=== PATIENT | female | born 1985 | race Caucasian/White ===

== ENCOUNTER 2020-06-09 04:10 | Emergency (ER) | payer OTHER, SELFPAY ==
[2020-06-09 04:45] VITALS: PULSE 92; RESP 16; TEMP 37.2; O2SAT 96
--- NOTE | 2020-06-09 05:06 | XR_ITS ---
EXAMINATION: XR SOFT TISSUE NECK CLINICAL INDICATION: Evaluate for broken needle. COMPARISON: None TECHNIQUE: 2 views of the soft tissue neck were obtained. FINDINGS: Soft tissue films of the neck demonstrate a normal larynx, pharynx and upper trachea. No soft tissue swelling is demonstrated. Within a right supraclavicular location, there is an approximately 12 mm long thin radiopaque foreign body consistent with a portion of a needle. XR/XR soft tissue neck IMPRESSION: 12 mm long thin radiopaque foreign body in the right supraclavicular location consistent with a needle.
--- NOTE | 2020-06-09 05:06 | ED.GENADULT ---
HPI - General Adult General Chief complaint: Skin/Abscess/Foreign Body Stated complaint: BROKEN NEEDLE Time Seen by Provider: 06/09/20 05:03 Source: patient Mode of arrival: ambulatory Limitations: no limitations History of Present Illness HPI narrative: Patient comes to the emergency room complaining of right-sided neck pain. Patient states she has a broken needle in her right neck. Patient states 3 days ago she was using drugs, injected on her right side of the neck, the needle broke. Patient complaining of localized pain, no fever chills. MD complaint: broken needle in neck Related Data Allergies Allergy/AdvReac Type Severity Reaction Status Date / Time ceftriaxone [From ROCEPHIN] Allergy Intermediate HIVES Verified 06/09/20 09:18 sulfamethoxazole Allergy Intermediate HIVES Verified 06/09/20 09:18 [From BACTRIM] trimethoprim [From BACTRIM] Allergy Intermediate HIVES Verified 06/09/20 09:18 Sulfa (Sulfonamide Allergy Unknown HIVES. Verified 06/09/20 09:18 Antibiotics) VOMITING [SULFA (SULFONAMIDE ANTIBIOTICS)] doxycycline [DOXYCYCLINE] AdvReac Unknown NAUSEA & Verified 06/09/20 09:18 VOMITING Review of Systems Review of Systems: Constitutional : No Weight loss, No Fever, No Chills, No Night Sweats, No Fatigue, No Malaise ENT/Mouth : No Hearing loss, No Ear Pain, No Nasal Congestion, No Sinus Pain, No Hoarseness, No sore throat, No Rhinorrhea, No Swallowing Difficulty Eyes: No Eye Pain, No Swelling, No Redness, No Foreign Body, No Discharge, No Vision Changes Cardiovascular : No Chest Pain, No SOB, No Dyspnea on Exertion, No Orthopnea, No Edema, No Palpitations Respiratory : No Cough, No Sputum, No Wheezing, No Smoke Exposure, No Dyspnea Gastrointestinal : No Nausea, No Vomiting, No Diarrhea, No Constipation, No abdominal Pain, No Hematochezia, No Melena Genitourinary : no irregular bleeding, No Dysuria, No Urinary Frequency, No Hematuria, No Urinary Incontinence, No Urgency, No Flank Pain, No Urinary Flow Changes, No Hesitancy Musculoskeletal : No joint pain, No Myalgias, No Joint Swelling Skin : lesions in her neck, complaining of a broken needle being stuck in her neck. Neuro : No Weakness, No Numbness, No Paresthesias, No Loss of Consciousness, No Dizziness, No Headache Psych : No Anxiety/Panic, No Depression, No SI/HI/AH/VH, No Social Issues, Heme/Lymph: No Bruising, No Bleeding,No Lymphadenopathy Endocrine : No Polyuria, No Polydipsia, No Temperature Intolerance PMF Past Medical History Medical History Drug use Social History Social History Advance Directives: No Physical Exam Vital Signs: Vital Signs: Last Vital Signs Temp 98.3 F 06/09/20 06:00 Pulse 64 06/09/20 08:38 Resp 14 06/09/20 08:38 BP 98/48 L 06/09/20 08:38 Pulse Ox 97 06/09/20 08:38 Body Mass Index 20.0 Appearance: Alert. Oriented X3. No acute distress. Eyes: Pupils equal, round and reactive to light. ENT: Pharynx normal. Neck: Normal inspection. Neck supple. No lymph nodes noted. No crepitus CVS: Normal heart rate and rhythm. Pulses normal. Normal S1 and S2 Respiratory: No respiratory distress. Breath sounds normal. No Wheezing. No rales Abdomen: Soft and nontender. No rigidity. No distention. good BS x4 Skin: Patient has mild erythema on the right side of the neck, multiple needle tracks on the right side of the neck. Patient states she has palpation to tenderness, unable to palpate any foreign bodies over the neck Extremities: No lower extremity edema. No lower extremity edema. No Lacerations. No Rash Neuro: Oriented X 3. No motor deficit. No sensory deficit. Moving all extermities. No slurred speech. Course Course Course Narrative: I discussed the imaging with the I discussed the x-ray with Dr. Pantoja, we will get a CT scan to have a better idea of the location of the needle, then Dr. Pantoja will see for herself the x-ray and the CT scan and then will decide the course of action. i spoke to Dr. Pantoja, recommendations: thoracic surgery consult due to the location of the foreign body Medical Decision Making Imaging Data neck soft tissue: Radiologist's impression: Soft tissue films of the neck demonstrate a normal larynx, pharynx and upper trachea. No soft tissue swelling is demonstrated. Within a right supraclavicular location, there is an approximately 12 mm long thin radiopaque foreign body consistent with a portion of a needle. Discharge Plan Discharge Clinical Impression: Foreign body (FB) in soft tissue Patient Disposition: Home, Self-Care Instructions: Soft Tissue Foreign Body (ED) Referrals: Loli Pantoja MD [Physician] - 06/09/20 9:00 am (12 mm long thin radiopaque foreign body in the right supraclavicular location consistent with a needle.)
[2020-06-09 06:00] VITALS: BP 95/54; PULSE 56; RESP 14; TEMP 36.8; O2SAT 98
--- NOTE | 2020-06-09 07:00 | PC.NURSE ---
RECEIVED REPORT FROM CHAUNCEY BREWER. PT SLEEPING ON STRETCHER IN POSITION OF COMFORT. SKIN WPD. RESPIRATIONS EVEN AND NON LABORED. AWAITING CT AND CONSULT WITH DR. LEDEZMA.
--- NOTE | 2020-06-09 07:03 | CT_ITS ---
EXAMINATION: CT SOFT TISSUE NECK WITHOUT CONTRAST CLINICAL INFORMATION: Assess for foreign body COMPARISON: Radiographs the same day TECHNIQUE: Helical imaging was performed in the axial plane with generation of coronal and sagittal reformatted images. This CT examination was performed using dose optimization techniques as appropriate, variously including the following: *Automated exposure control *Adjustment of mA and/or kV according to patient size (this includes techniques or standardized protocols for targeted exams where dose is matched to indication/reason for exam; i.e. extremities or head) *Use of iterative reconstruction technique DLP: 418 mGy-cm FINDINGS: The right-sided needle tip localizes to the right clavicular soft tissues. It is lodged within the subcutaneous fat only from the carotid and jugular vessels just cephalad to the mid shaft of the clavicle and superficial to the paraspinal musculature. It does not appear to be intravascular. Once again it measures approximately 12 mm. No fluid collection. Lack of IV contrast limits assessment. No pathologic cervical adenopathy is identified. No gross retropharyngeal fluid collection is seen. The thyroid gland is normal. The superior mediastinum is unremarkable. The lung apices are clear. The mastoid air cells and visualized portions of the paranasal sinuses are well-aerated. The temporomandibular joints are normal. No periapical disease is identified. No osseous abnormalities are seen. The imaged portions of the brain parenchyma are unremarkable. CT/CT soft tissue neck wo con IMPRESSION: Right-sided foreign body as above.
[2020-06-09 08:38] VITALS: BP 98/48; PULSE 64; RESP 14; O2SAT 97
--- NOTE | 2020-06-09 09:31 | PC.NURSE ---
[facility] PT TX LINE CALLED @ DR JETER REQUEST AT THIS TIME
--- NOTE | 2020-06-09 09:40 | PC.NURSE ---
FAXED RELEASE FORM TO [facility] FOR METHADONE DOSE INFO
[2020-06-09 10:13] VITALS: BP 110/61; RESP 14; O2SAT 97
--- NOTE | 2020-06-09 11:21 | PC.NURSE ---
RETURN CALL FROM [facility] PT TX LINE @ THIS TIME DR JETER TAKES OVER CALL RIGHT AWAY
[2020-06-09 11:25] VITALS: BP 110/60; PULSE 55; RESP 16; TEMP 36.7; O2SAT 96
--- NOTE | 2020-06-09 11:39 | PC.NURSE ---
RECVD REPORT FROM YORDY GROSSMAN. PT S/F IN BED SLEEPING, RR EVEN UNLABORED, SKIN WPD, NAD. PT EASILY AROUSABLE TO LIGHT TACTILE STIMULATION. PT OFFERS NO COMPLAINTS, ASKING FOR METHADONE, ADVISED PT AWAITING VERIFICATION FOR DOSE, PT REPORTS UNDERSTANDING. PT AWAITING PROVIDER RE-EVAL/DISPO.
[2020-06-09 12:01] LABS: IDNOW Serial# 9DD0AD1C
[2020-06-09 12:02] LABS: COVID-19 Test Negative (Negative)
[2020-06-09 14:00] VITALS: BP 114/74; PULSE 61; RESP 15; TEMP 36.6; O2SAT 97
== END 2020-06-09 14:16 | disposition short-term general hospital (02) ==
PROVIDERS: Physician Assistant; Emergency Provider Emergency Medicine; PCP Pediatrics
DX: S10.95XA Superficial foreign body of unspecified part of neck, initial encounter (principal); M54.2 Cervicalgia; X58.XXXA Exposure to other specified factors, initial encounter; Y93.9 Activity, unspecified; Y92.009 Unspecified place in unspecified non-institutional (private) residence as the place of occurrence of the external cause; Y99.9 Unspecified external cause status
CPT/HCPCS: 70360; 70490; 87635; 99285

== ENCOUNTER 2020-12-06 23:31 | Inpatient (IN) | payer OTHER, SELFPAY ==
--- NOTE | ~2020-12-06 | US_ITS ---
EXAMINATION: US ABDOMEN COMPLETE CLINICAL INFORMATION: Abdominal pain with elevated LFTs.. COMPARISON: None TECHNIQUE: Real-time imaging of the abdominal viscera. FINDINGS: PANCREAS: Normal. ABDOMINAL AORTA: The proximal, mid, and distal segments are normal in caliber. INFERIOR VENA CAVA: Visualized portions are normal. LIVER: The liver is enlarged measuring 20 cm CC. The liver contour is normal. There is diffuse increased liver parenchymal echogenicity, consistent with hepatic steatosis. No focal hepatic lesion. There is no intrahepatic biliary duct dilatation seen. GALLBLADDER: Normal. The gallbladder is physiologically distended without evidence of stones, sludge, polyps, wall thickening or pericholecystic fluid. COMMON BILE DUCT: Normal in caliber measuring 0.3 cm in diameter. RIGHT KIDNEY: Normal. No hydronephrosis. No renal calculi or focal parenchymal lesions. The kidney measures 10.5 cm in maximum dimension. LEFT KIDNEY: There is a lower pole simple cyst measuring 0.9 cm. No follow-up imaging recommended. No hydronephrosis. No renal calculi or solid parenchymal lesions. The kidney measures 10.8 cm in maximum dimension. SPLEEN: Normal. The spleen measures 12.4 cm in maximum dimension. FREE FLUID: None. US/US abdomen complete IMPRESSION: Hepatomegaly with hepatic steatosis.
--- NOTE | ~2020-12-06 | US_ITS ---
EXAMINATION: ULTRASOUND OF THE PELVIS CLINICAL INFORMATION: Vaginal discharge. Tenderness to palpation in the right lower quadrant. History of PID.. COMPARISON: None. TECHNIQUE: Transabdominal and transvaginal pelvic ultrasound. Doppler evaluation with spectral analysis was performed. A transvaginal study was performed in addition to the transabdominal study which did not yield an adequate examination of the uterus and ovaries due to superimposed distended gas-filled loops of bowel. FINDINGS: The uterus is normal in size and appearance, measuring 5.7 x 3.4 x 4.6 cm longitudinally, anteroposteriorly and transversely. The endometrial stripe thickness is normal, measuring 0.3 cm in thickness. There is an IUD in place. No focal myometrial mass is seen. The ovaries bilaterally are visualized and appear normal, with the right ovary measuring 3.3 x 1.3 x 1.7 cm and the left ovary measuring 2.8 x 1.3 x 2.5 cm. There are normal arterial and venous spectral waveforms bilaterally. Small volume of pelvic free fluid.. US/US pelvic and transvaginal IMPRESSION: No evidence of active ovarian torsion. No adnexal mass.
--- NOTE | ~2020-12-06 | US_ITS ---
EXAMINATION: ULTRASOUND OF THE PELVIS CLINICAL INFORMATION: Vaginal discharge. Tenderness to palpation in the right lower quadrant. History of PID.. COMPARISON: None. TECHNIQUE: Transabdominal and transvaginal pelvic ultrasound. Doppler evaluation with spectral analysis was performed. A transvaginal study was performed in addition to the transabdominal study which did not yield an adequate examination of the uterus and ovaries due to superimposed distended gas-filled loops of bowel. FINDINGS: The uterus is normal in size and appearance, measuring 5.7 x 3.4 x 4.6 cm longitudinally, anteroposteriorly and transversely. The endometrial stripe thickness is normal, measuring 0.3 cm in thickness. There is an IUD in place. No focal myometrial mass is seen. The ovaries bilaterally are visualized and appear normal, with the right ovary measuring 3.3 x 1.3 x 1.7 cm and the left ovary measuring 2.8 x 1.3 x 2.5 cm. There are normal arterial and venous spectral waveforms bilaterally. Small volume of pelvic free fluid.. US/US pelvic ovarian doppler IMPRESSION: No evidence of active ovarian torsion. No adnexal mass.
[2020-12-06 23:33] VITALS: BP 114/68; PULSE 80; O2SAT 99
[2020-12-06 23:48] VITALS: PULSE 85; RESP 18; O2SAT 97; BMI 25.0
[2020-12-06 23:57] VITALS: BP 116/65; PULSE 65; RESP 17; TEMP 37; O2SAT 98
[2020-12-07] VITALS (10 sets, daily range): BP systolic 86–113; BP diastolic 54–72; PULSE 51–58; RESP 12–18; TEMP 36.1–36.7; O2SAT 94–99
--- NOTE | 2020-12-07 00:03 | ED.ABDPAIN ---
HPI - Abdominal Pain General Chief Complaint: Abdominal Pain <GALINDO Fitzpatrick Last Filed: 12/07/20 02:08> Stated Complaint: vomiting <GALINDO Fitzpatrick Last Filed: 12/07/20 02:08> Time Seen by Provider: 12/06/20 23:49 <GALINDO Fitzpatrick Last Filed: 12/07/20 02:08> Source: patient <GALINDO Fitzpatrick Last Filed: 12/07/20 02:08> Mode of arrival: ambulatory <GALINDO Fitzpatrick Last Filed: 12/07/20 02:08> History of Present Illness HPI narrative: 35-year-old female with a past medical history of IVDA, PID, presenting to the ED complaining of diffuse lower abdominal pain radiating to back, N/V x 1week and discolored urine, dysuria, and yellow vaginal discharge x2 days. Reports vaginal odor. Is sexually active with multiple partners without the use of protection. Denies fever, chills, diarrhea/constipation, vaginal bleeding. Admits symptoms feel like prior PID. Patient reports boyfriend with similar N/V. <GALINDO Fitzpatrick Last Filed: 12/07/20 02:08> MD elicited complaint: abdominal pain <GALINDO Fitzpatrick Last Filed: 12/07/20 02:08> Related Data Home Medications: Home Medications Medication Instructions Recorded Confirmed gabapentin 300 mg PO TID 12/07/20 12/07/20 hydroxyzine HCl 25 mg PO BEDTIME 12/07/20 12/07/20 Previous Rx's Medication Instructions Recorded azithromycin 250 mg PO DAILY 14 Days #14 tab 12/07/20 metoclopramide HCl [Reglan] 10 mg PO Q6H PRN #10 tab 12/07/20 metronidazole [Flagyl] 500 mg PO BID 14 Days #28 tab 12/07/20 nitrofurantoin monohyd/m-cryst 100 mg PO Q12H 5 Days #10 cap 12/07/20 [Macrobid] <GALINDO Fitzpatrick Last Filed: 12/07/20 02:08> Allergies/Adverse Reactions: Allergies Allergy/AdvReac Type Severity Reaction Status Date / Time ceftriaxone [From ROCEPHIN] Allergy Intermediate HIVES Verified 12/07/20 05:14 sulfamethoxazole Allergy Intermediate HIVES Verified 12/07/20 05:14 [From BACTRIM] trimethoprim [From BACTRIM] Allergy Intermediate HIVES Verified 12/07/20 05:14 Sulfa (Sulfonamide Allergy Unknown HIVES. Verified 12/07/20 05:14 Antibiotics) VOMITING [SULFA (SULFONAMIDE ANTIBIOTICS)] doxycycline [DOXYCYCLINE] AdvReac Unknown NAUSEA & Verified 12/07/20 05:14 VOMITING <GALINDO Fitzpatrick - Last Filed: 12/07/20 02:08> Review of Systems Review of Systems Constitutional: No Fever, No Chills Cardiovascular: No Chest Pain, No SOB Respiratory: No Cough, No Dyspnea Gastrointestinal: + Nausea, + Vomiting, No Diarrhea, No Constipation, + Abdominal pain Genitourinary: No irregular bleeding, + Dysuria, No Urinary Frequency, No Hematuria, + discolored urine, No Urgency, No Flank Pain, +vaginal discharge Musculoskeletal: No joint pain, No Myalgias, No Joint Swelling Skin: No Skin Lesions, No rash Psych: No Anxiety/Panic, No Depression, No SI/HI <GALINDO Fitzpatrick - Last Filed: 12/07/20 02:08> Yes all other systems are reviewed and are negative <GALINDO Fitzpatrick - Last Filed: 12/07/20 02:08> Physical Exam Vital Signs: Vital Signs: Last Vital Signs Temp 98.1 F 12/07/20 05:18 Pulse 57 12/07/20 05:18 Resp 18 12/07/20 05:18 BP 97/61 12/07/20 05:18 Pulse Ox 98 12/07/20 05:18 Body Mass Index 25.0 <GALINDO Fitzpatrick - Last Filed: 12/07/20 02:08> Vital Signs: Last Vital Signs Temp 98.1 F 12/07/20 05:18 Pulse 57 12/07/20 05:18 Resp 18 12/07/20 05:18 BP 97/61 12/07/20 05:18 Pulse Ox 98 12/07/20 05:18 Body Mass Index 25.0 <Marj Caldwell MD - Last Filed: 12/07/20 05:39> Const: General: cooperative, healthy appearing and no acute distress <GALINDO Fitzpatrick - Last Filed: 12/07/20 02:08> Orientation/consciousness: patient oriented x3 <Mikaela José Miguel LA - Last Filed: 12/07/20 02:08> Limitations: no limitations <Mikaela José Miguel LA - Last Filed: 12/07/20 02:08> HENMT: Head: Yes normal to inspection <Mikaela José Miguel LA - Last Filed: 12/07/20 02:08> Ears: hearing grossly normal bilaterally <Miakela José Miguel LA - Last Filed: 12/07/20 02:08> General nose exam: Normal external nose present <Mikaelajax Valdez LA - Last Filed: 12/07/20 02:08> Face and sinus: Yes normal facial exam <Mikaela Valdez LA - Last Filed: 12/07/20 02:08> Eyes: General: appearance normal, both eyes and all related structures <Mikaela José Miguel LA - Last Filed: 12/07/20 02:08> EOM: EOMs intact bilaterally <Mikaelajax Valdez LA - Last Filed: 12/07/20 02:08> Neck: Neck: Yes normal visual inspection and Yes no meningeal signs <Mikaela José Miguel LA - Last Filed: 12/07/20 02:08> Resp: Effort & Inspection: normal respiratory effort <Mikaela José Miguel LA - Last Filed: 12/07/20 02:08> Cardio: Rate: regular rate <Mikaela José Miguel LA - Last Filed: 12/07/20 02:08> GI: Inspection: Yes normal to inspection <Mikaela Valdez LA - Last Filed: 12/07/20 02:08> Palpation (GI): Soft to palpation, Tenderness to palpation present (GI) (lower abdomen), no guarding and not rigid <Mikaela Valdez LA - Last Filed: 12/07/20 02:08> : Other: Visible IUD strings <Mikaela Valdez LA - Last Filed: 12/07/20 02:08> General: Yes no CVA tenderness <Mikaela Valdez LA - Last Filed: 12/07/20 02:08> Speculum Exam - Vagina: abnormal vaginal discharge yellow and No vaginal bleeding <Mikaela Valdez LA - Last Filed: 12/07/20 02:08> Speculum Exam - Cervix: Cervical tenderness present <GALINDO Fitzpatrick - Last Filed: 12/07/20 02:08> Bimanual exam- vagina & uterus: Cervical tenderness present <GALINDO Fitzpatrick - Last Filed: 12/07/20 02:08> Bimanual Exam- Adnexa, other: tender on the right and no masses noted <GALINDO Fitzpatrick - Last Filed: 12/07/20 02:08> OB/external & speculum: no herpetic lesions and vaginal bleeding <GALINDO Fitzpatrick - Last Filed: 12/07/20 02:08> Back/Spine/Pelvis: Back: no CVA tenderness <GALINDO Fitzpatrick - Last Filed: 12/07/20 02:08> Skin: Rashes: no rashes <GALINDO Fitzpatrick - Last Filed: 12/07/20 02:08> Wounds: no wounds <GALINDO Fitzpatrick - Last Filed: 12/07/20 02:08> Neuro: General: patient oriented x3 and no meningeal signs <AGLINDO Fitzpatrick - Last Filed: 12/07/20 02:08> Gait exam (Neuro): Normal gait present <GALINDO Fitzpatrick - Last Filed: 12/07/20 02:08> Extrem: General: Yes normal to inspection <GALINDO Fitzpatrick Last Filed: 12/07/20 02:08> Course Course Course Narrative: -UA with wbc's and trace leuks > will additionally treat with Macrobid for UTI. Tox screen positive for opiates, benzos, cocaine, and marijuana -No leukocytosis, lactic negative -AST/ALT & bilirubins markedly elevated and alk-phos elevated > will obtain CT AP for further eval -0200-- ED care transferred to Dr. Caldwell Pelvic US, CT/AP and dispo per results <GALINDO Fitzpatrick - Last Filed: 12/07/20 02:08> Case discussed with inpatient hospitalist team who is agreeable for admission. <Marj Caldwell MD - Last Filed: 12/07/20 05:39> Reevaluation(s) Reevaluation #1: I discussed the case with Gastroenterology, Dr. Clark, who has been made aware of patient's hepatitis and recommends that patient be admitted at least for observation. He agrees with hepatitis panels being sent as well as recommending a Tylenol level. <Marj Caldwell MD - Last Filed: 12/07/20 05:39> Time: 04:40 <Marj Caldwell MD - Last Filed: 12/07/20 05:39> MDM - Abdominal Pain MDM Narrative Medical decision making narrative: 35-year-old female with a past medical history of IVDA, PID, presenting to the ED complaining of diffuse lower abdominal pain radiating to back, N/V x 1week and discolored urine, dysuria, and yellow vaginal discharge x2 days. On exam VSS, NAD, nontoxic, abdomen soft +lower ttp, no rebound or guarding, no CVAT. On pelvic exam yellow vaginal discharge noted, +CMT and R adnexal ttp. Concern for PID vs STI vs TOA/ovarian cyst and UTI. Lower concern for appendicitis, ovarian torsion, diverticulitis, renal stone/pyelo. Concern for gastroenteritis/gastritis Patient is a difficult stick, EJ attempted once by Dr. Gutierrez, patient refused further attempts. Phlebotomy called for labs Plan: Labs, UA, STI testing, symptomatic treatment, pelvic ultrasound Will treat patient for PID, she is allergic to ceftriaxone/doxycycline, based on [facility] antibiotic guidelines for PID tx: Azithromycin 500mg x1 dose followed by 250mg daily x 14 days PLUS Metronidazole 500mg b.i.d. x 14 days <GALINDO Fitzpatrick - Last Filed: 12/07/20 02:08> Medical Records Attestation: I reviewed the patient's medical records. <GALINDO Fitzpatrick - Last Filed: 12/07/20 02:08> Lab Data Attestation: I reviewed the patient's lab results. <GALINDO Fitzpatrick - Last Filed: 12/07/20 02:08> Result diagrams: : 12/07/20 01:05 12/07/20 01:04 <GALINDO Fitzpatrick - Last Filed: 12/07/20 02:08> Labs: Lab Results 12/07/20 12/07/20 12/07/20 Range/Units 00:13 00:13 00:13 WBC (4.8-10.8) X10*3/uL RBC (4.20-5.50) X10*6/uL Hgb (12.0-16.0) g/dl Hct (37-47) % MCV (80-98) fL MCH (27.0-33.0) pg MCHC (31.0-35.0) g/dl RDW (11.0-16.0) % Plt Count (160-400) X10*3/uL MPV (9.4-12.3) fL Immature Gran % (Auto) (0.0-0.4) % Neut % (Auto) (45-73) % Lymph % (Auto) (20-40) % Barren % (Auto) (2-11) % Eos % (Auto) (0-4) % Baso % (Auto) (0-2) % Lymph # (Auto) (1.2-4.9) X10*3/uL Barren # (Auto) (0.1-1.2) X10*3/uL Eos # (Auto) (0.0-0.4) X10*3/uL Baso # (Auto) (0.0-0.2) X10*3/uL Abs Immat Gran (auto) (0.00-0.03) X10*3/uL Absolute Neuts (auto) (2.0-8.3) X10*3/uL Absolute Nucleated RBC (0.0-0.012) X10*3/uL Nucleated RBC % (auto) (0.0-0.2) /100WBC Smear Tech's Comments PT (10.8-13.0) SEC INR (0.9-1.1) APTT (24.1-38.0) SEC Hold Blue Top Sodium (135-145) mmol/L Potassium (3.3-5.1) mmol/L Chloride (96-108) mmol/L Carbon Dioxide (22-29) mmol/L Anion Gap (12-20) BUN (9-16) mg/dL Creatinine (0.5-1.4) mg/dL Estim Creat Clear Calc Estimated GFR Random Glucose (60-115) mg/dL Lactic Acid (0.5-2.0) mmol/L Calcium (8.4-10.2) mg/dL Magnesium (1.6-2.6) mg/dL Total Bilirubin (0.0-1.0) mg/dL Direct Bilirubin (0.0-0.5) mg/dL AST (5-31) U/L ALT (0-31) U/L Alkaline Phosphatase (39-117) U/L Total Creatine Kinase (26-140) U/L Total Protein (6.5-8.0) g/dL Albumin (3.5-5.0) g/dL Lipase (8-78) U/L Urine Color ORANGE Urine Appearance CLEAR Urine pH 6.0 (5.0-8.0) Ur Specific [place] >= 1.030 H (1.005-1.025) Urine Protein 1+ H (NEG-TRACE) MG/DL Urine Glucose (UA) NEG (NEG) MG/DL Urine Ketones 15 (NEG) MG/DL Urine Blood NEG (NEG) Urine Nitrite NEG (NEG) Ur Leukocyte Esterase TRACE H (NEG) Urine RBC 1-4 (0) /HPF Urine WBC 5-9 H (0-4) /HPF Ur Squamous Epith Cells 2+ /LPF Ur Renal Epithelial Cell TRACE /LPF Urine Bacteria 1+ /LPF Urine Mucus TRACE /LPF Urine Test NEGATIVE (NEGATIVE) Urine Opiates Screen (Not Detect) Acetaminophen (<30) mcg/mL Ur Barbiturates Screen (Not Detect) Ur Phencyclidine Scrn (Not Detect) Ur Amphetamines Screen (Not Detect) U Benzodiazepines Scrn (Not Detect) Urine Cocaine Screen (Not Detect) U Marijuana (THC) Screen (Not Detect) Chlam trachomat DNA PCR (Not Detect.) COVID-19 (BRE) Negative (Negative) COVID-19 Clin Com See Note N.gonorrhoeae DNA (PCR) (Not Detect.) 12/07/20 12/07/20 12/07/20 Range/Units 00:13 00:24 01:04 WBC (4.8-10.8) X10*3/uL RBC (4.20-5.50) X10*6/uL Hgb (12.0-16.0) g/dl Hct (37-47) % MCV (80-98) fL MCH (27.0-33.0) pg MCHC (31.0-35.0) g/dl RDW (11.0-16.0) % Plt Count (160-400) X10*3/uL MPV (9.4-12.3) fL Immature Gran % (Auto) (0.0-0.4) % Neut % (Auto) (45-73) % Lymph % (Auto) (20-40) % Barren % (Auto) (2-11) % Eos % (Auto) (0-4) % Baso % (Auto) (0-2) % Lymph # (Auto) (1.2-4.9) X10*3/uL Barren # (Auto) (0.1-1.2) X10*3/uL Eos # (Auto) (0.0-0.4) X10*3/uL Baso # (Auto) (0.0-0.2) X10*3/uL Abs Immat Gran (auto) (0.00-0.03) X10*3/uL Absolute Neuts (auto) (2.0-8.3) X10*3/uL Absolute Nucleated RBC (0.0-0.012) X10*3/uL Nucleated RBC % (auto) (0.0-0.2) /100WBC Smear Tech's Comments PT (10.8-13.0) SEC INR (0.9-1.1) APTT (24.1-38.0) SEC Hold Blue Top Sodium 137 (135-145) mmol/L Potassium 4.1 (3.3-5.1) mmol/L Chloride 103 (96-108) mmol/L Carbon Dioxide 21 L (22-29) mmol/L Anion Gap 17 (12-20) BUN 17 H (9-16) mg/dL Creatinine 0.78 (0.5-1.4) mg/dL Estim Creat Clear Calc 92.3 Estimated GFR > 60 Random Glucose 149 H (60-115) mg/dL Lactic Acid (0.5-2.0) mmol/L Calcium 8.9 (8.4-10.2) mg/dL Magnesium 2.1 (1.6-2.6) mg/dL Total Bilirubin 3.6 H (0.0-1.0) mg/dL Direct Bilirubin 2.8 H (0.0-0.5) mg/dL AST 1436 H (5-31) U/L ALT 1591 H (0-31) U/L Alkaline Phosphatase 358 H (39-117) U/L Total Creatine Kinase 14 L (26-140) U/L Total Protein 6.7 (6.5-8.0) g/dL Albumin 3.6 (3.5-5.0) g/dL Lipase 19 (8-78) U/L Urine Color Urine Appearance Urine pH (5.0-8.0) Ur Specific [place] (1.005-1.025) Urine Protein (NEG-TRACE) MG/DL Urine Glucose (UA) (NEG) MG/DL Urine Ketones (NEG) MG/DL Urine Blood (NEG) Urine Nitrite (NEG) Ur Leukocyte Esterase (NEG) Urine RBC (0) /HPF Urine WBC (0-4) /HPF Ur Squamous Epith Cells /LPF Ur Renal Epithelial Cell /LPF Urine Bacteria /LPF Urine Mucus /LPF Urine Test (NEGATIVE) Urine Opiates Screen POSITIVE H (Not Detect) Acetaminophen < 1 (<30) mcg/mL Ur Barbiturates Screen Not Detected (Not Detect) Ur Phencyclidine Scrn Not Detected (Not Detect) Ur Amphetamines Screen Not Detected (Not Detect) U Benzodiazepines Scrn POSITIVE H (Not Detect) Urine Cocaine Screen POSITIVE H (Not Detect) U Marijuana (THC) Screen POSITIVE H (Not Detect) Chlam trachomat DNA PCR NOT DETECTED (Not Detect.) COVID-19 (BRE) (Negative) COVID-19 Clin Com N.gonorrhoeae DNA (PCR) DETECTED A (Not Detect.) 12/07/20 12/07/20 12/07/20 Range/Units 01:04 01:04 01:05 WBC 6.4 (4.8-10.8) X10*3/uL RBC 5.16 (4.20-5.50) X10*6/uL Hgb 14.3 (12.0-16.0) g/dl Hct 45.4 (37-47) % MCV 88.0 (80-98) fL MCH 27.7 (27.0-33.0) pg MCHC 31.5 (31.0-35.0) g/dl RDW 14.0 (11.0-16.0) % Plt Count 105 L (160-400) X10*3/uL MPV 11.8 (9.4-12.3) fL Immature Gran % (Auto) 0.3 (0.0-0.4) % Neut % (Auto) 35.6 L (45-73) % Lymph % (Auto) 55.3 H (20-40) % Barren % (Auto) 6.6 (2-11) % Eos % (Auto) 1.1 (0-4) % Baso % (Auto) 1.1 (0-2) % Lymph # (Auto) 3.5 (1.2-4.9) X10*3/uL Barren # (Auto) 0.4 (0.1-1.2) X10*3/uL Eos # (Auto) 0.1 (0.0-0.4) X10*3/uL Baso # (Auto) 0.1 (0.0-0.2) X10*3/uL Abs Immat Gran (auto) 0.02 (0.00-0.03) X10*3/uL Absolute Neuts (auto) 2.3 (2.0-8.3) X10*3/uL Absolute Nucleated RBC 0.000 (0.0-0.012) X10*3/uL Nucleated RBC % (auto) 0.0 (0.0-0.2) /100WBC Smear Tech's Comments VERIFIED PT 15.8 H (10.8-13.0) SEC INR 1.3 H (0.9-1.1) APTT 31.1 (24.1-38.0) SEC Hold Blue Top SEE NOTE Sodium (135-145) mmol/L Potassium (3.3-5.1) mmol/L Chloride (96-108) mmol/L Carbon Dioxide (22-29) mmol/L Anion Gap (12-20) BUN (9-16) mg/dL Creatinine (0.5-1.4) mg/dL Estim Creat Clear Calc Estimated GFR Random Glucose (60-115) mg/dL Lactic Acid 1.0 (0.5-2.0) mmol/L Calcium (8.4-10.2) mg/dL Magnesium (1.6-2.6) mg/dL Total Bilirubin (0.0-1.0) mg/dL Direct Bilirubin (0.0-0.5) mg/dL AST (5-31) U/L ALT (0-31) U/L Alkaline Phosphatase (39-117) U/L Total Creatine Kinase (26-140) U/L Total Protein (6.5-8.0) g/dL Albumin (3.5-5.0) g/dL Lipase (8-78) U/L Urine Color Urine Appearance Urine pH (5.0-8.0) Ur Specific [place] (1.005-1.025) Urine Protein (NEG-TRACE) MG/DL Urine Glucose (UA) (NEG) MG/DL Urine Ketones (NEG) MG/DL Urine Blood (NEG) Urine Nitrite (NEG) Ur Leukocyte Esterase (NEG) Urine RBC (0) /HPF Urine WBC (0-4) /HPF Ur Squamous Epith Cells /LPF Ur Renal Epithelial Cell /LPF Urine Bacteria /LPF Urine Mucus /LPF Urine Test (NEGATIVE) Urine Opiates Screen (Not Detect) Acetaminophen (<30) mcg/mL Ur Barbiturates Screen (Not Detect) Ur Phencyclidine Scrn (Not Detect) Ur Amphetamines Screen (Not Detect) U Benzodiazepines Scrn (Not Detect) Urine Cocaine Screen (Not Detect) U Marijuana (THC) Screen (Not Detect) Chlam trachomat DNA PCR (Not Detect.) COVID-19 (BRE) (Negative) COVID-19 Clin Com N.gonorrhoeae DNA (PCR) (Not Detect.) <GALINDO Fitzpatrick - Last Filed: 12/07/20 02:08> Lab Results 12/07/20 12/07/20 12/07/20 Range/Units 00:13 00:13 00:13 WBC (4.8-10.8) X10*3/uL RBC (4.20-5.50) X10*6/uL Hgb (12.0-16.0) g/dl Hct (37-47) % MCV (80-98) fL MCH (27.0-33.0) pg MCHC (31.0-35.0) g/dl RDW (11.0-16.0) % Plt Count (160-400) X10*3/uL MPV (9.4-12.3) fL Immature Gran % (Auto) (0.0-0.4) % Neut % (Auto) (45-73) % Lymph % (Auto) (20-40) % Barren % (Auto) (2-11) % Eos % (Auto) (0-4) % Baso % (Auto) (0-2) % Lymph # (Auto) (1.2-4.9) X10*3/uL Barren # (Auto) (0.1-1.2) X10*3/uL Eos # (Auto) (0.0-0.4) X10*3/uL Baso # (Auto) (0.0-0.2) X10*3/uL Abs Immat Gran (auto) (0.00-0.03) X10*3/uL Absolute Neuts (auto) (2.0-8.3) X10*3/uL Absolute Nucleated RBC (0.0-0.012) X10*3/uL Nucleated RBC % (auto) (0.0-0.2) /100WBC Smear Tech's Comments PT (10.8-13.0) SEC INR (0.9-1.1) APTT (24.1-38.0) SEC Hold Blue Top Sodium (135-145) mmol/L Potassium (3.3-5.1) mmol/L Chloride (96-108) mmol/L Carbon Dioxide (22-29) mmol/L Anion Gap (12-20) BUN (9-16) mg/dL Creatinine (0.5-1.4) mg/dL Estim Creat Clear Calc Estimated GFR Random Glucose (60-115) mg/dL Lactic Acid (0.5-2.0) mmol/L Calcium (8.4-10.2) mg/dL Magnesium (1.6-2.6) mg/dL Total Bilirubin (0.0-1.0) mg/dL Direct Bilirubin (0.0-0.5) mg/dL AST (5-31) U/L ALT (0-31) U/L Alkaline Phosphatase (39-117) U/L Total Creatine Kinase (26-140) U/L Total Protein (6.5-8.0) g/dL Albumin (3.5-5.0) g/dL Lipase (8-78) U/L Urine Color ORANGE Urine Appearance CLEAR Urine pH 6.0 (5.0-8.0) Ur Specific [place] >= 1.030 H (1.005-1.025) Urine Protein 1+ H (NEG-TRACE) MG/DL Urine Glucose (UA) NEG (NEG) MG/DL Urine Ketones 15 (NEG) MG/DL Urine Blood NEG (NEG) Urine Nitrite NEG (NEG) Ur Leukocyte Esterase TRACE H (NEG) Urine RBC 1-4 (0) /HPF Urine WBC 5-9 H (0-4) /HPF Ur Squamous Epith Cells 2+ /LPF Ur Renal Epithelial Cell TRACE /LPF Urine Bacteria 1+ /LPF Urine Mucus TRACE /LPF Urine Test NEGATIVE (NEGATIVE) Urine Opiates Screen (Not Detect) Acetaminophen (<30) mcg/mL Ur Barbiturates Screen (Not Detect) Ur Phencyclidine Scrn (Not Detect) Ur Amphetamines Screen (Not Detect) U Benzodiazepines Scrn (Not Detect) Urine Cocaine Screen (Not Detect) U Marijuana (THC) Screen (Not Detect) Chlam trachomat DNA PCR (Not Detect.) COVID-19 (BRE) Negative (Negative) COVID-19 Clin Com See Note N.gonorrhoeae DNA (PCR) (Not Detect.) 12/07/20 12/07/20 12/07/20 Range/Units 00:13 00:24 01:04 WBC (4.8-10.8) X10*3/uL RBC (4.20-5.50) X10*6/uL Hgb (12.0-16.0) g/dl Hct (37-47) % MCV (80-98) fL MCH (27.0-33.0) pg MCHC (31.0-35.0) g/dl RDW (11.0-16.0) % Plt Count (160-400) X10*3/uL MPV (9.4-12.3) fL Immature Gran % (Auto) (0.0-0.4) % Neut % (Auto) (45-73) % Lymph % (Auto) (20-40) % Barren % (Auto) (2-11) % Eos % (Auto) (0-4) % Baso % (Auto) (0-2) % Lymph # (Auto) (1.2-4.9) X10*3/uL Barren # (Auto) (0.1-1.2) X10*3/uL Eos # (Auto) (0.0-0.4) X10*3/uL Baso # (Auto) (0.0-0.2) X10*3/uL Abs Immat Gran (auto) (0.00-0.03) X10*3/uL Absolute Neuts (auto) (2.0-8.3) X10*3/uL Absolute Nucleated RBC (0.0-0.012) X10*3/uL Nucleated RBC % (auto) (0.0-0.2) /100WBC Smear Tech's Comments PT (10.8-13.0) SEC INR (0.9-1.1) APTT (24.1-38.0) SEC Hold Blue Top Sodium 137 (135-145) mmol/L Potassium 4.1 (3.3-5.1) mmol/L Chloride 103 (96-108) mmol/L Carbon Dioxide 21 L (22-29) mmol/L Anion Gap 17 (12-20) BUN 17 H (9-16) mg/dL Creatinine 0.78 (0.5-1.4) mg/dL Estim Creat Clear Calc 92.3 Estimated GFR > 60 Random Glucose 149 H (60-115) mg/dL Lactic Acid (0.5-2.0) mmol/L Calcium 8.9 (8.4-10.2) mg/dL Magnesium 2.1 (1.6-2.6) mg/dL Total Bilirubin 3.6 H (0.0-1.0) mg/dL Direct Bilirubin 2.8 H (0.0-0.5) mg/dL AST 1436 H (5-31) U/L ALT 1591 H (0-31) U/L Alkaline Phosphatase 358 H (39-117) U/L Total Creatine Kinase 14 L (26-140) U/L Total Protein 6.7 (6.5-8.0) g/dL Albumin 3.6 (3.5-5.0) g/dL Lipase 19 (8-78) U/L Urine Color Urine Appearance Urine pH (5.0-8.0) Ur Specific [place] (1.005-1.025) Urine Protein (NEG-TRACE) MG/DL Urine Glucose (UA) (NEG) MG/DL Urine Ketones (NEG) MG/DL Urine Blood (NEG) Urine Nitrite (NEG) Ur Leukocyte Esterase (NEG) Urine RBC (0) /HPF Urine WBC (0-4) /HPF Ur Squamous Epith Cells /LPF Ur Renal Epithelial Cell /LPF Urine Bacteria /LPF Urine Mucus /LPF Urine Test (NEGATIVE) Urine Opiates Screen POSITIVE H (Not Detect) Acetaminophen < 1 (<30) mcg/mL Ur Barbiturates Screen Not Detected (Not Detect) Ur Phencyclidine Scrn Not Detected (Not Detect) Ur Amphetamines Screen Not Detected (Not Detect) U Benzodiazepines Scrn POSITIVE H (Not Detect) Urine Cocaine Screen POSITIVE H (Not Detect) U Marijuana (THC) Screen POSITIVE H (Not Detect) Chlam trachomat DNA PCR NOT DETECTED (Not Detect.) COVID-19 (BRE) (Negative) COVID-19 Clin Com N.gonorrhoeae DNA (PCR) DETECTED A (Not Detect.) 12/07/20 12/07/20 12/07/20 Range/Units 01:04 01:04 01:05 WBC 6.4 (4.8-10.8) X10*3/uL RBC 5.16 (4.20-5.50) X10*6/uL Hgb 14.3 (12.0-16.0) g/dl Hct 45.4 (37-47) % MCV 88.0 (80-98) fL MCH 27.7 (27.0-33.0) pg MCHC 31.5 (31.0-35.0) g/dl RDW 14.0 (11.0-16.0) % Plt Count 105 L (160-400) X10*3/uL MPV 11.8 (9.4-12.3) fL Immature Gran % (Auto) 0.3 (0.0-0.4) % Neut % (Auto) 35.6 L (45-73) % Lymph % (Auto) 55.3 H (20-40) % Barren % (Auto) 6.6 (2-11) % Eos % (Auto) 1.1 (0-4) % Baso % (Auto) 1.1 (0-2) % Lymph # (Auto) 3.5 (1.2-4.9) X10*3/uL Barren # (Auto) 0.4 (0.1-1.2) X10*3/uL Eos # (Auto) 0.1 (0.0-0.4) X10*3/uL Baso # (Auto) 0.1 (0.0-0.2) X10*3/uL Abs Immat Gran (auto) 0.02 (0.00-0.03) X10*3/uL Absolute Neuts (auto) 2.3 (2.0-8.3) X10*3/uL Absolute Nucleated RBC 0.000 (0.0-0.012) X10*3/uL Nucleated RBC % (auto) 0.0 (0.0-0.2) /100WBC Smear Tech's Comments VERIFIED PT 15.8 H (10.8-13.0) SEC INR 1.3 H (0.9-1.1) APTT 31.1 (24.1-38.0) SEC Hold Blue Top SEE NOTE Sodium (135-145) mmol/L Potassium (3.3-5.1) mmol/L Chloride (96-108) mmol/L Carbon Dioxide (22-29) mmol/L Anion Gap (12-20) BUN (9-16) mg/dL Creatinine (0.5-1.4) mg/dL Estim Creat Clear Calc Estimated GFR Random Glucose (60-115) mg/dL Lactic Acid 1.0 (0.5-2.0) mmol/L Calcium (8.4-10.2) mg/dL Magnesium (1.6-2.6) mg/dL Total Bilirubin (0.0-1.0) mg/dL Direct Bilirubin (0.0-0.5) mg/dL AST (5-31) U/L ALT (0-31) U/L Alkaline Phosphatase (39-117) U/L Total Creatine Kinase (26-140) U/L Total Protein (6.5-8.0) g/dL Albumin (3.5-5.0) g/dL Lipase (8-78) U/L Urine Color Urine Appearance Urine pH (5.0-8.0) Ur Specific [place] (1.005-1.025) Urine Protein (NEG-TRACE) MG/DL Urine Glucose (UA) (NEG) MG/DL Urine Ketones (NEG) MG/DL Urine Blood (NEG) Urine Nitrite (NEG) Ur Leukocyte Esterase (NEG) Urine RBC (0) /HPF Urine WBC (0-4) /HPF Ur Squamous Epith Cells /LPF Ur Renal Epithelial Cell /LPF Urine Bacteria /LPF Urine Mucus /LPF Urine Test (NEGATIVE) Urine Opiates Screen (Not Detect) Acetaminophen (<30) mcg/mL Ur Barbiturates Screen (Not Detect) Ur Phencyclidine Scrn (Not Detect) Ur Amphetamines Screen (Not Detect) U Benzodiazepines Scrn (Not Detect) Urine Cocaine Screen (Not Detect) U Marijuana (THC) Screen (Not Detect) Chlam trachomat DNA PCR (Not Detect.) COVID-19 (BRE) (Negative) COVID-19 Clin Com N.gonorrhoeae DNA (PCR) (Not Detect.) <Marj Caldwell MD - Last Filed: 12/07/20 05:39> Discharge Plan Discharge Clinical Impression: Transaminitis, Acute pelvic inflammatory disease (PID), UTI (urinary tract infection) <GALINDO Fitzpatrick - Last Filed: 12/07/20 02:08> Patient Disposition: Admitted As Inpatient <GALINDO Fitzpatrick - Last Filed: 12/07/20 02:08> Instructions: Pelvic Inflammatory Disease (ED) <GALINDO Fitzpatrick - Last Filed: 12/07/20 02:08> Additional Instructions: Take antibiotics as prescribed, azithromycin and Flagyl to treat pelvic inflammatory disease Macrobid is to treat a urinary tract infection Reglan is for nausea, take as needed for nausea and vomiting Is important that her take hydrated You need to refrain from any sexual contact until your cultures result, until all her symptoms are gone, inform her sexual partners if any of your STIs are positive <GALINDO Fitzpatrick - Last Filed: 12/07/20 02:08> Prescriptions: New azithromycin 250 mg tablet 250 mg PO DAILY 14 Days Qty: 14 RF: 0 metronidazole [Flagyl] 500 mg tablet 500 mg PO BID 14 Days Qty: 28 RF: 0 metoclopramide HCl [Reglan] 10 mg tablet 10 mg PO Q6H PRN (Reason: nausea and vomiting) Qty: 10 RF: 0 nitrofurantoin monohyd/m-cryst [Macrobid] 100 mg capsule 100 mg PO Q12H 5 Days Qty: 10 RF: 0 No Action hydroxyzine HCl 25 mg Tablet 25 mg PO BEDTIME RF: 0 gabapentin 300 mg Tablet 300 mg PO TID RF: 0 <GALINDO Fitzpatrick - Last Filed: 12/07/20 02:08> Referrals: Physician,None [Primary Care Provider] - 1 Week Calvin Torres MD [Physician] - 2 days <GALINDO Fitzpatrick - Last Filed: 12/07/20 02:08> ON LICENSE OF [facility] Past Medical History Attestation statement: The following information was validated with the patient. <GALINDO Fitzpatrick - Last Filed: 12/07/20 02:08> Medical History: Medical History Drug use <GALINDO Fitzpatrick - Last Filed: 12/07/20 02:08> Social History Social History: Social History Alcohol intake: current Alcohol intake frequency: holidays/special occasions only Smoking Status: Current every day smoker Use of substances other than those prescribed or required for medical reasons: Yes Substance Use Type: Crack/Cocaine and Heroin Advance Directives: No <GALINDO Fitzpatrick - Last Filed: 12/07/20 02:08>
[2020-12-07 00:47] LABS: Glucose Urine UA NEG (NEG); Leukocyte Esterase Urine TRACE (NEG); Nitrite Urine NEG (NEG); Specific Gravity - Urine >= 1.030 (1.005-1.025); UACC Culture Trigger YES; Urine Blood NEG (NEG); Urine Ketones 15 MG/DL (NEG); Urine Protein 1+ MG/DL (NEG-TRACE)
[2020-12-07 00:50] LABS: Appearance Urine CLEAR; Color Urine ORANGE
--- NOTE | 2020-12-07 00:58 | PC.NURSE ---
This RN attempted to establish IV access to R AC, unsuccessful. GALINDO Al made aware. Anwer to bedside and attempted L IJ, unsuccessful. Pt asks to cease attempts to establish IV access. Pt is IVDA. Stroboscope Operator contacted phleb to draw labs. Awaiting phleb arrival. Pt to be medicated with PO meds. Awaiting US.
[2020-12-07 01:00] LABS: COVID-19 Test Negative (Negative); IDNOW Serial# 9DD0AD1C
[2020-12-07] MEDS: metroNIDAZOLE 500 MG TABLET PO ×2 (01:06→13:34)
[2020-12-07] MEDS: Azithromycin 500 MG TABLET PO (01:06)
[2020-12-07] MEDS: Magnesium Hydrox/Alum Hydrox 30 ML ORAL.SUSP PO (01:06)
[2020-12-07] MEDS: Metoclopramide HCl 10 MG TABLET PO (01:09)
[2020-12-07 01:11] LABS: Amphetamine Screen Urine Not Detected (Not Detect); Bacteria Urine 1+ /LPF; Barbiturates, Urine Not Detected (Not Detect); Benzodiazepines Screen Urine POSITIVE (Not Detect); Cannabinoid Screen Urine POSITIVE (Not Detect); Cocaine Screen Urine POSITIVE (Not Detect); Mucus Urine TRACE /LPF; Opiate Screen Urine POSITIVE (Not Detect); Phencyclidine Screen Urine Not Detected (Not Detect); Renal Epithelial Cells Urine TRACE /LPF; Squamous Epithelial Cell Urine 2+ /LPF
[2020-12-07 01:11] LABS: Basophils Absolute Auto 0.1 X10*3/uL (0.0-0.2); Basophils Percent Auto 1.1 % (0-2); Eosinophils Absolute Auto 0.1 X10*3/uL (0.0-0.4); Eosinophils Percent Auto 1.1 % (0-4); Hematocrit 45.4 % (37-47); Hemoglobin 14.3 g/dl (12.0-16.0); Imm Gran Abs Auto 0.02 X10*3/uL (0.00-0.03); Imm Gran Pct Auto 0.3 % (0.0-0.4); Lymphocytes Absolute Auto 3.5 X10*3/uL (1.2-4.9); Lymphocytes Percent Auto 55.3 % (20-40); MANUAL DIFF FLAG SCAN; Mean Corpuscular HGB Conc 31.5 g/dl (31.0-35.0); Mean Corpuscular Hemoglobin 27.7 pg (27.0-33.0); Mean Platelet Volume 11.8 fL (9.4-12.3); Monocytes Absolute Auto 0.4 X10*3/uL (0.1-1.2); Monocytes Percent Auto 6.6 % (2-11); Neutrophils Absolute Auto 2.3 X10*3/uL (2.0-8.3); Neutrophils Percent Auto 35.6 % (45-73); PLT CLUMP 1; Red Blood Count 5.16 X10*6/uL (4.20-5.50); SCAN SMEAR FLAG 1
[2020-12-07 01:12] LABS: UPreg QC Valid YES; Urine Pregnancy NEGATIVE (NEGATIVE)
[2020-12-07 01:18] LABS: INTERNATIONAL NORM RATIO 1.3 (0.9-1.1); Prothrombin Time 15.8 SEC (10.8-13.0)
[2020-12-07 01:20] LABS: Partial Thromboplastin Time 31.1 SEC (24.1-38.0)
[2020-12-07 01:26] LABS: Platelet Count 105 X10*3/uL (160-400); White Blood Count 6.4 X10*3/uL (4.8-10.8)
[2020-12-07 01:27] LABS: SLIDE REVIEW VERIFIED
[2020-12-07 01:49] LABS: Alanine Aminotransferase 1591 U/L (0-31); Albumin Level 3.6 g/dL (3.5-5.0); Alkaline Phosphatase 358 U/L (39-117); Anion Gap 17 (12-20); Aspartate Amino Transferase 1436 U/L (5-31); Bilirubin Direct 2.8 mg/dL (0.0-0.5); Bilirubin Total 3.6 mg/dL (0.0-1.0); Blood Urea Nitrogen 17 mg/dL (9-16); Calcium 8.9 mg/dL (8.4-10.2); Carbon Dioxide 21 mmol/L (22-29); Chloride 103 mmol/L (96-108); Creatinine Clr Calc Pharmacy 92.3; Estimated Glomerular Filt Rate > 60; Glucose Random 149 mg/dL (60-115); Lipase 19 U/L (8-78); Magnesium 2.1 mg/dL (1.6-2.6); Potassium 4.1 mmol/L (3.3-5.1); Sodium 137 mmol/L (135-145); Total Protein 6.7 g/dL (6.5-8.0)
[2020-12-07] MEDS: Nitrofurantoin Monohyd/M-Cryst 100 MG CAPSULE PO ×2 (02:19→13:34)
--- NOTE | 2020-12-07 02:22 | PC.NURSE ---
No IV access established at this time. Plan for Dr Caldwell to attempt US IV placement
[2020-12-07 02:27] LABS: CT PCR NOT DETECTED (Not Detect.); NG PCR DETECTED (Not Detect.)
--- NOTE | 2020-12-07 03:23 | PC.NURSE ---
Dr Caldwell unable to obtain US guided IV access. Plan for Dr Caldwell to reach out to GI for admission. Pt aware and agreeable. Pt reports I'm feeling dope sick, requests clonidine for withdrawal sx. Dr Caldwell aware.
[2020-12-07] MEDS: cloNIDine HCL 0.1 MG TABLET PO (03:49)
[2020-12-07 05:00] LABS: Acetaminophen LAB < 1 mcg/mL (<30)
--- NOTE | 2020-12-07 05:17 | PC.NURSE ---
IV access established in RLE
[2020-12-07] MEDS: 0.9 % Sodium Chloride 1,000 ML 999 ML IVCONT (05:18)
--- NOTE | 2020-12-07 05:24 | PC.NURSE ---
This RN with security to bedside, requested that pt remove needles and other drug contraband from purse. Pt agreeable to request, provides java security engineer with biohazard bag containing needles, cigarettes and primary care nurse practitioner. Pt aware that belongings are to be locked in decon and returned to pt upon departure from dept. Dr Gupta at bedside with pt at this time.
--- NOTE | 2020-12-07 05:44 | P.HPHOSP_ITS ---
History of Present Illness Date of Service: 12/07/20 Chief Complaint: N/V 5-year-old female with past medical history of IV drug use, PID who presents to the hospital with complaints of 2 day history vomiting. Patient is also complaining diffuse lower abdominal pain, burning on urination, and some vaginal discharge for 2 days. She also reports vaginal order. Patient reports history of PID and this feels similar. She reports that she had a mild subjective fever, no chills, no headache or change in vision, no chest pain, no lower extremity edema. On arrival to the ED patient hemodynamically stable with no significant abnormal vitals Labs are significant for WBC count of 6.4, hemoglobin of 14.3, platelet count of 105, PT of 15.8, INR of 1.3, BUN of 17, creatinine of 0.78, total bili of 3.6, direct bili of 2.8, AST of 1436, ALT of 1591, alk-phos of 358, UA that is positive for leukocyte Estrace and WBC, UDS positive for opioids benzos cocaine and marijuana. And gonorrhea PCR positive. Imaging including abdominal ultrasound shows hepatomegaly with hepatic steatosis, pelvic transvaginal ultrasound showsOvarian torsion, no adnexal mass Given the elevated LFTs, patient was asked about alcohol use and or Tylenol use and denies both. Patient reports that she drinks only on holidays and special occasions, denies using any Tylenol. She does report that her boyfriend has been having nausea and vomiting as well Review of Systems Review of Systems: Yes all other systems are reviewed and are negative [facility] Medical History (Updated 12/07/20 @ 05:58 by Blanca Gupta MD) Acute pelvic inflammatory disease (PID) Drug use Pulmonary emboli Social History Alcohol intake: current Alcohol intake frequency: holidays/special occasions only Smoking Status: Current every day smoker Use of substances other than those prescribed or required for medical reasons: Yes Substance Use Type: Crack/Cocaine and Heroin Advance Directives: No Meds Allergies Allergy/AdvReac Type Severity Reaction Status Date / Time ceftriaxone [From ROCEPHIN] Allergy Intermediate HIVES Verified 12/07/20 05:14 sulfamethoxazole Allergy Intermediate HIVES Verified 12/07/20 05:14 [From BACTRIM] trimethoprim [From BACTRIM] Allergy Intermediate HIVES Verified 12/07/20 05:14 Sulfa (Sulfonamide Allergy Unknown HIVES. Verified 12/07/20 05:14 Antibiotics) VOMITING [SULFA (SULFONAMIDE ANTIBIOTICS)] doxycycline [DOXYCYCLINE] AdvReac Unknown NAUSEA & Verified 12/07/20 05:14 VOMITING Active Medications: Current Medications Generic Name Dose Route Start Last Admin Trade Name Freq PRN Reason Stop Dose Admin Pharmacy Consult 1 each 12/07/20 02:03 Consult Rx Perform Med Rec MISCELLANE ONCE PRN Consult order Home Medications Medication Instructions Recorded Confirmed Last Taken Type gabapentin 300 mg PO TID 12/07/20 12/07/20 Unknown History hydroxyzine HCl 25 mg PO BEDTIME 12/07/20 12/07/20 Unknown History methadone 45 PO DAILY 12/07/20 12/05/20 09:00 History Physical Exam Vital Signs and Narrative: Vital Signs: Last Vital Signs Temp 98.1 F 12/07/20 05:18 Pulse 57 12/07/20 05:18 Resp 18 12/07/20 05:18 BP 97/61 12/07/20 05:18 Pulse Ox 98 12/07/20 05:18 Body Mass Index 25.0 Const: General: cooperative and no acute distress Orientation/consciousness: patient oriented x3 Eyes: General: appearance normal, both eyes and all related structures Resp: Effort & Inspection: normal respiratory effort and able to speak in complete sentences Cardio: Rate: regular rate Rhythm: regular rhythm GI: Palpation (GI): Soft to palpation Auscultation: normal bowel sounds : Other: Suprapubic tenderness, has no guarding, no rebound General: Yes no CVA tenderness Back/Spine/Pelvis: Back: no CVA tenderness Skin: General skin exam: no rashes or lesions noted Neuro: General: patient oriented x3 Cognition (Neuro): normal cognition Extrem: General: Yes normal to inspection and Yes no pedal edema Results Labs CBC and Chem 7: 12/07/20 01:05 12/07/20 01:04 Labs: Laboratory Results - last 24 hr 12/07/20 12/07/20 12/07/20 00:13 00:13 00:13 MCV MCH MCHC RDW Plt Count MPV Immature Gran % (Auto) Neut % (Auto) Lymph % (Auto) [place] % (Auto) Eos % (Auto) Baso % (Auto) Lymph # (Auto) [place] # (Auto) Eos # (Auto) Baso # (Auto) Abs Immat Gran (auto) Absolute Neuts (auto) Absolute Nucleated RBC Nucleated RBC % (auto) Smear Tech's Comments PT INR APTT Hold Blue Top Anion Gap Estim Creat Clear Calc Estimated GFR Random Glucose Lactic Acid Calcium Magnesium Total Bilirubin Direct Bilirubin AST ALT Alkaline Phosphatase Total Creatine Kinase Total Protein Albumin Lipase Urine Color ORANGE Urine Appearance CLEAR Urine pH 6.0 Ur Specific Watson >= 1.030 H Urine Protein 1+ H Urine Glucose (UA) NEG Urine Ketones 15 Urine Blood NEG Urine Nitrite NEG Ur Leukocyte Esterase TRACE H Urine RBC 1-4 Urine WBC 5-9 H Ur Squamous Epith Cells 2+ Ur Renal Epithelial Cell TRACE Urine Bacteria 1+ Urine Mucus TRACE Urine Test NEGATIVE Urine Opiates Screen Acetaminophen Ur Barbiturates Screen Ur Phencyclidine Scrn Ur Amphetamines Screen U Benzodiazepines Scrn Urine Cocaine Screen U Marijuana (THC) Screen Chlam trachomat DNA PCR COVID-19 (BRE) Negative COVID-19 Clin Com See Note N.gonorrhoeae DNA (PCR) 12/07/20 12/07/20 12/07/20 00:13 00:24 01:04 MCV MCH MCHC RDW Plt Count MPV Immature Gran % (Auto) Neut % (Auto) Lymph % (Auto) [place] % (Auto) Eos % (Auto) Baso % (Auto) Lymph # (Auto) [place] # (Auto) Eos # (Auto) Baso # (Auto) Abs Immat Gran (auto) Absolute Neuts (auto) Absolute Nucleated RBC Nucleated RBC % (auto) Smear Tech's Comments PT INR APTT Hold Blue Top Anion Gap 17 Estim Creat Clear Calc 92.3 Estimated GFR > 60 Random Glucose 149 H Lactic Acid Calcium 8.9 Magnesium 2.1 Total Bilirubin 3.6 H Direct Bilirubin 2.8 H AST 1436 H ALT 1591 H Alkaline Phosphatase 358 H Total Creatine Kinase 14 L Total Protein 6.7 Albumin 3.6 Lipase 19 Urine Color Urine Appearance Urine pH Ur Specific Watson Urine Protein Urine Glucose (UA) Urine Ketones Urine Blood Urine Nitrite Ur Leukocyte Esterase Urine RBC Urine WBC Ur Squamous Epith Cells Ur Renal Epithelial Cell Urine Bacteria Urine Mucus Urine Test Urine Opiates Screen POSITIVE H Acetaminophen < 1 Ur Barbiturates Screen Not Detected Ur Phencyclidine Scrn Not Detected Ur Amphetamines Screen Not Detected U Benzodiazepines Scrn POSITIVE H Urine Cocaine Screen POSITIVE H U Marijuana (THC) Screen POSITIVE H Chlam trachomat DNA PCR NOT DETECTED COVID-19 (BRE) COVID-19 Clin Com N.gonorrhoeae DNA (PCR) DETECTED A 12/07/20 12/07/20 12/07/20 01:04 01:04 01:05 MCV 88.0 MCH 27.7 MCHC 31.5 RDW 14.0 Plt Count 105 L MPV 11.8 Immature Gran % (Auto) 0.3 Neut % (Auto) 35.6 L Lymph % (Auto) 55.3 H [place] % (Auto) 6.6 Eos % (Auto) 1.1 Baso % (Auto) 1.1 Lymph # (Auto) 3.5 [place] # (Auto) 0.4 Eos # (Auto) 0.1 Baso # (Auto) 0.1 Abs Immat Gran (auto) 0.02 Absolute Neuts (auto) 2.3 Absolute Nucleated RBC 0.000 Nucleated RBC % (auto) 0.0 Smear Tech's Comments VERIFIED PT 15.8 H INR 1.3 H APTT 31.1 Hold Blue Top SEE NOTE Anion Gap Estim Creat Clear Calc Estimated GFR Random Glucose Lactic Acid 1.0 Calcium Magnesium Total Bilirubin Direct Bilirubin AST ALT Alkaline Phosphatase Total Creatine Kinase Total Protein Albumin Lipase Urine Color Urine Appearance Urine pH Ur Specific Watson Urine Protein Urine Glucose (UA) Urine Ketones Urine Blood Urine Nitrite Ur Leukocyte Esterase Urine RBC Urine WBC Ur Squamous Epith Cells Ur Renal Epithelial Cell Urine Bacteria Urine Mucus Urine Test Urine Opiates Screen Acetaminophen Ur Barbiturates Screen Ur Phencyclidine Scrn Ur Amphetamines Screen U Benzodiazepines Scrn Urine Cocaine Screen U Marijuana (THC) Screen Chlam trachomat DNA PCR COVID-19 (BRE) COVID-19 Clin Com N.gonorrhoeae DNA (PCR) Imaging Radiologist's Impressions: Impressions Doppler Study Ultrasound 12/07/20 00:19 IMPRESSION: No evidence of active ovarian torsion. No adnexal mass. Pelvic/Transvag US 12/07/20 00:19 IMPRESSION: No evidence of active ovarian torsion. No adnexal mass. Abdomen Ultrasound 12/07/20 03:36 IMPRESSION: Hepatomegaly with hepatic steatosis. Assessment and Plan (1) Acute pelvic inflammatory disease (PID): Status: Acute (2) UTI (urinary tract infection): Status: Acute (3) Transaminitis: Status: Acute This is a 35-year-old female who presents to the hospital with complaints nausea vomiting, as well as over abdominal pain and vaginal discharge found to have PID in transaminitis as well as UTI # PID - has vaginal discharge, gonorrhea positive, history of PID - patient is allergic to ceftriaxone and doxycycline and therefore based on [place] antibiotic guidelines for PID tx: Azithromycin 500mg x1 dose followed by 250mg daily x 14 days PLUS Metronidazole 500mg b.i.d. x 14 days # UTI - has dysuria and frequency - UA positive - started on Macrobid, allergic to ceftriaxone - follow urine cultures # transaminitis - possibly secondary to hepatitis given her IV drug use - US shows hepatomegaly and hepatic steatosis - Tylenol level negative - gastroenterology was consulted by ED who recommended admission for observation as well as hepatitis panel - IV fluids - Follow LFTs # IVDU - On methadone - will call methadone clinic to confirm and resume # reports hx of PE - She reports not being on AC due to her IVDU hx Dvt ppx: lovenox
[2020-12-07] MEDS: Lactated Ringers 1,000 ML 100 ML IVCONT ×2 (06:51→16:00)
[2020-12-07 08:12] LABS: Hepatitis A Antibody IgM 1.42 Index (0-0.79)
[2020-12-07 08:25] LABS: ~Hepatitis A Antibody IgM Reactive (Nonreactive)
--- NOTE | 2020-12-07 08:28 | MHC.IC ---
Received call from Chemistry that patient is positive for Hepatitis A. Call to unit and spoke with nurse human capital manager. Pt is to be on contact precautions and room to be cleaned with bleach per policy.
[2020-12-07 08:39] LABS: Hepatitis A Antibody IgG REACTIVE (Nonreactive); ~Hepatitis A Antibody IgG 10.78 S/CO (0.00-0.99)
[2020-12-07] MEDS: Gabapentin 300 MG CAPSULE PO ×3 (08:48→20:18)
--- NOTE | 2020-12-07 08:54 | MHC.CM.PN ---
CM ATTEMPTED TO MEET W/PT HOWEVER NURSING W/PT, CM WILL REATTEMPT SHORTLY.
--- NOTE | 2020-12-07 09:53 | MHC.CM.PN ---
EMR REVIEWED, PT ADMITTED W/ TRANSAMINITIS, CM MET W/PT WHO IS ALERT AND ORIENTED AND IRRITABLE, PT REPORTS SHE IS HOMELESS AND CAN GO STAY W/HER MOTHER IN [place] [address] UPON D/C, PT INDEPENENT W/ALL CARE, NO DME/ HOME SERVICES, PT DOES VERIFY PCP YOLI CARRERA IN [place], PT REPORTS SHE USES [facility] [place], DOSE VERIFIED W/CLINIC AT 45MG DAILY, LAST DOSE GIVEN 12/05/20. D/C PLAN: MOTHERS HOUSE VS DETOX/SA PROGRAM, FAMILY/FRIEND TO TRANSPORT PCP: YOLI CARRERA
[2020-12-07 10:00] LABS: Alanine Aminotransferase 1317 U/L (0-31); Albumin Level 3.2 g/dL (3.5-5.0); Alkaline Phosphatase 320 U/L (39-117); Aspartate Amino Transferase 1076 U/L (5-31); Bilirubin Direct 2.4 mg/dL (0.0-0.5); Bilirubin Total 3.1 mg/dL (0.0-1.0); Total Protein 5.9 g/dL (6.5-8.0)
--- NOTE | 2020-12-07 10:53 | MHC.RECOVRN ---
CM reached out to t/w stating pt is interested in ATS level of care. Pt currently sleeping. Chart reviewed. T/w will attempt to meet with pt later today. Will continue to follow.
[2020-12-07 12:06] LABS: BV Int Neg Control Negative (Negative); BV Int Pos Control Positive (Positive)
--- NOTE | 2020-12-07 14:34 | P.CNID_ITS ---
History of Present Illness Data of Consult Service Date: 12/07/20 Requesting physician: Mir Anderson Primary Care Provider: Adelso Physician HPI Reason for consult: PID She presents to hospital with generalized abdominal discomfort,suprapubic She also has some vaginal discharge She has no fever or chills She has Hepatitis A IgM positivity and elevated LFTs Review of Systems Review of Systems: Yes all other systems are reviewed and are negative PMFSH Past Medical History Medical History Acute pelvic inflammatory disease (PID) Drug use Pulmonary emboli Family History Family history: reviewed and not pertinent Social History Social History Household Members: Other Housing: Homeless Do you presently have visiting nurse or other home services: No Alcohol intake: current Alcohol intake frequency: holidays/special occasions only Smoking Status: Current every day smoker Use of substances other than those prescribed or required for medical reasons: Yes Substance Use Type: Crack/Cocaine and Heroin Substance Use Frequency: Daily Last Used Substance: Just Prior to Admission Currently Displaying Signs/Symptoms of Drug Intoxication Withdrawal: No Any prior treatment program specific to substance use: Yes Have you been hit, kicked, punched, or otherwise hurt by someone within the past year? If so, by whom?: No Do you feel safe in your current relationship?: Yes Is there a partner from a previous relationship who is making you feel unsafe now?: No Are you made to feel afraid or neglected: No Advance Directives: No Advance Directives Information Provided: No (declined) Do you have thoughts of harming others: None Do you have a plan to hurt others: No Plan Recently lost weight without trying: No Eating poorly because of decreased appetite: No Nutrition Risks: No Nutritional Risk Patient : No : No Poor oral hygiene: No service: No Current occupational status: unemployed Meds Allergies Allergy/AdvReac Type Severity Reaction Status Date / Time ceftriaxone [From ROCEPHIN] Allergy Intermediate HIVES Verified 12/07/20 05:14 sulfamethoxazole Allergy Intermediate HIVES Verified 12/07/20 05:14 [From BACTRIM] trimethoprim [From BACTRIM] Allergy Intermediate HIVES Verified 12/07/20 05:14 Sulfa (Sulfonamide Allergy Unknown HIVES. Verified 12/07/20 05:14 Antibiotics) VOMITING [SULFA (SULFONAMIDE ANTIBIOTICS)] doxycycline [DOXYCYCLINE] AdvReac Unknown NAUSEA & Verified 12/07/20 05:14 VOMITING Active Medications: Current Medications Generic Name Dose Route Start Last Admin Trade Name Joseluis PRN Reason Stop Dose Admin Azithromycin 250 mg 12/08/20 06:00 Azithromycin 250 Mg Tablet PO Q24H ARYA Docusate Sodium 100 mg 12/07/20 05:52 Docusate Sodium 100 Mg Capsule PO DAILY PRN Constipation Enoxaparin Sodium 40 mg 12/07/20 06:00 12/07/20 06:49 Enoxaparin Sodium 40 Mg/0.4 Ml Syringe SUBCUT Not Given Q24H [facility] Gabapentin 300 mg 12/07/20 09:00 12/07/20 08:48 Gabapentin 300 Mg Capsule PO 300 mg TID ARYA Administration Hydroxyzine HCl 25 mg 12/07/20 21:00 Hydroxyzine Hcl 25 Mg Tablet PO BEDTIME [facility] Lactated Ringer's 1,000 mls @ 100 mls/hr 12/07/20 06:00 12/07/20 06:51 Lr IVCONT 100 mls/hr .Q10H ARYA Administration Methadone HCl 50 mg 12/07/20 10:15 12/07/20 12:45 Methadone Hcl 1 Mg/0.1 Ml Oral.Conc PO 50 mg DAILY [facility] Administration Metronidazole 500 mg 12/07/20 13:00 12/07/20 13:34 Metronidazole 500 Mg Tablet PO 500 mg Q12H ARYA Administration Nitrofurantoin Macrocrystals 100 mg 12/07/20 14:00 12/07/20 13:34 Nitrofurantoin Monohyd/M-Cryst 100 Mg Capsule PO 100 mg Q12H [facility] Administration Ondansetron HCl 4 mg 12/07/20 05:52 Ondansetron Hcl 4 Mg/2 Ml Vial IVPUSH Q8H PRN Nausea and Vomiting Pharmacy Consult 1 each 12/07/20 02:03 Consult Rx Perform Med Rec MISCELLANE ONCE PRN Consult order Sodium Chloride 3 ml 12/07/20 08:00 12/07/20 08:48 0.9 % Sodium Chloride Flush 3 Ml Syringe IVFLUSH Not Given QSHIFT [facility] Home Medications Medication Instructions Recorded Confirmed Last Taken Type gabapentin 300 mg PO TID 12/07/20 12/07/20 Unknown History hydroxyzine HCl 25 mg PO BEDTIME 12/07/20 12/07/20 Unknown History methadone 45 PO DAILY 12/07/20 12/05/20 09:00 History Physical Exam Vital Signs: Vital Signs: Last Vital Signs Temp 97.4 F 12/07/20 11:36 Pulse 58 12/07/20 11:36 Resp 18 12/07/20 11:36 BP 100/56 L 12/07/20 11:36 Pulse Ox 99 12/07/20 11:36 Body Mass Index 25.0 Const: General: cooperative HENMT: Head: Yes normal to inspection Mouth: Normal oral and palatal mucosa present Eyes: General: appearance normal, both eyes and all related structures Resp: Effort & Inspection: normal respiratory effort Cardio: Rate: regular rate Rhythm: regular rhythm GI: Palpation (GI): Soft to palpation and nontender Skin: General skin exam: no rashes or lesions noted Extrem: General: Yes normal to inspection Results Labs CBC & Chem 7: 12/07/20 01:05 12/07/20 01:04 Labs: Short CBC 12/07/20 Range/Units 01:05 WBC 6.4 (4.8-10.8) X10*3/uL Hgb 14.3 (12.0-16.0) g/dl Hct 45.4 (37-47) % Plt Count 105 L (160-400) X10*3/uL BMP 12/07/20 01:04 Sodium 137 Potassium 4.1 Chloride 103 Carbon Dioxide 21 L BUN 17 H Creatinine 0.78 Calcium 8.9 Cardiac Enzymes 12/07/20 Range/Units 01:04 Total Creatine Kinase 14 L (26-140) U/L Liver Function 12/07/20 12/07/20 Range/Units 01:04 09:31 Total Bilirubin 3.6 H 3.1 H (0.0-1.0) mg/dL Direct Bilirubin 2.8 H 2.4 H (0.0-0.5) mg/dL AST 1436 H 1076 H (5-31) U/L ALT 1591 H 1317 H (0-31) U/L Alkaline Phosphatase 358 H 320 H (39-117) U/L Albumin 3.6 3.2 L (3.5-5.0) g/dL Urine 12/07/20 Range/Units 00:13 Urine Color ORANGE Urine Appearance CLEAR Urine pH 6.0 (5.0-8.0) Ur Specific [place] >= 1.030 H (1.005-1.025) Urine Protein 1+ H (NEG-TRACE) MG/DL Urine Glucose (UA) NEG (NEG) MG/DL Microbiology Microbiology Results: Microbiology 12/07/20 00:25 Vaginal Trichomonas Preparation - Final Assessment and Plan (1) Acute pelvic inflammatory disease (PID): Problem details: She has some vaginitis and gonorrhea reported She has likely acute Hepatitis A,but has reported had before She has no HIV reported and is thinking about Prep Status: Acute Would give IM Gentamicin 240 mg since serious allergy to cephalosporin for gonorrhea She should continue Azithromycin and Flagyl as well as Macrobid for now When leaves would give Azithromycin and Flagyl and Macrobid for 10 d total
[2020-12-07] MEDS: Gentamicin Sulfate 80 MG/2 ML VIAL 240 MG IM (15:54)
--- NOTE | 2020-12-07 15:56 | MHC.RECOVRN ---
35 yr old female?presented [place] [facility] [place] on 12/06 for lower abd pain, +n/v x 2 days. Pt with hx of PID with similar presentation at that time. Pt with hx of unprotected sex with multiple partners. Pt also reports malodorous dark urine per metal bonding helper. Upon evaluation, pt admitted for treatment of PID, UTI, and transaminitis. In addition, pt reports LALA, currently on methadone. T/w met with pt in 363 to discuss substance use. Pt reports heroin, 3-4 bundles daily, IV x 1 month as well as cocaine, 1 gram daily, IV and INH, x 1 month. Pt reports last use prior to arrival [facility] Pt is currently on 45 mg methadone at [facility], however, was on 110 mg x 2 years. Pt reports missing 20 days and dose was subsequently lowered.? Pt reports 60+ ATS/CSS/residential admissions. Most recently, pt was in recovery for 3 months while at [facility]. Pt returned to use and was admitted to [facility] about 1 month ago. Longest time in recovery was 14 months at age 24. Pt also reports hx of personal health coach, therapist, psychiatrist, and other community supports. Pt is interested in ATS level of care at this time. T/w explained to pt that after admission at [facility], as well as daily methadone dose, pt may not be appropriate for that level of care. Pt states I can get drugs in my system in 2 seconds. Pt denies having any substances?in room, however, states I have a friend that can get it. Pt is not interested at this time in other resources.? Case discussed with pts VINEET, RN, and Zoe Masters APRN. Referral sent to [facility] at this time.?
[2020-12-07] MEDS: 0.9 % Sodium Chloride Flush 3 ML SYRINGE IVFLUSH (20:18)
[2020-12-07] MEDS: hydrOXYzine HCL 25 MG TABLET PO (20:18)
[2020-12-08] MEDS: metroNIDAZOLE 500 MG TABLET PO ×2 (02:03→13:53)
[2020-12-08] MEDS: Lactated Ringers 1,000 ML 100 ML IVCONT (02:04)
[2020-12-08 03:16] VITALS: BP 100/55; PULSE 56; RESP 15; TEMP 37.3; O2SAT 96
[2020-12-08] MEDS: Nitrofurantoin Monohyd/M-Cryst 100 MG CAPSULE PO ×2 (03:20→13:53)
[2020-12-08 04:40] LABS: Basophils Percent Auto 0.5 % (0-2); Eosinophils Absolute Auto 0.2 X10*3/uL (0.0-0.4); Eosinophils Percent Auto 3.3 % (0-4); Imm Gran Abs Auto 0.02 X10*3/uL (0.00-0.03); Imm Gran Pct Auto 0.3 % (0.0-0.4); Lymphocytes Absolute Auto 3.3 X10*3/uL (1.2-4.9); Lymphocytes Percent Auto 57.5 % (20-40); MANUAL DIFF FLAG SCAN; Mean Corpuscular HGB Conc 32.4 g/dl (31.0-35.0); Mean Corpuscular Hemoglobin 27.8 pg (27.0-33.0); Mean Corpuscular Volume 85.8 fL (80-98); Mean Platelet Volume 11.2 fL (9.4-12.3); Monocytes Absolute Auto 0.5 X10*3/uL (0.1-1.2); Monocytes Percent Auto 8.1 % (2-11); Neutrophils Absolute Auto 1.8 X10*3/uL (2.0-8.3); Neutrophils Percent Auto 30.3 % (45-73); Platelet Count 122 X10*3/uL (160-400); Red Blood Count 4.31 X10*6/uL (4.20-5.50); Red Cell Distribution Width 14.4 % (11.0-16.0); SCAN SMEAR FLAG 1; White Blood Count 5.8 X10*3/uL (4.8-10.8)
[2020-12-08 04:59] LABS: Anion Gap 12 (12-20); Blood Urea Nitrogen 7 mg/dL (9-16); Carbon Dioxide 24 mmol/L (22-29); Chloride 105 mmol/L (96-108); Creatinine Clr Calc Pharmacy 102.9; Estimated Glomerular Filt Rate > 60; Glucose Random 163 mg/dL (60-115); Potassium 3.9 mmol/L (3.3-5.1); SLIDE REVIEW VERIFIED; Sodium 137 mmol/L (135-145)
[2020-12-08] MEDS: Azithromycin 250 MG TABLET PO (05:58)
[2020-12-08 07:56] LABS: HIV AB/AG Nonreactive (Nonreactive); HIV Num 1 0.04 S/CO (0.00-0.99)
[2020-12-08 08:00] VITALS: BP 86/55; PULSE 61; RESP 18; TEMP 36.7; O2SAT 99
[2020-12-08 08:20] LABS: HBS Num1 26.22 mIU/mL (0-7.99); HBc Num1 0.18 S/CO (0.00-0.79); HBsAGNum1 0.29 S/CO (0.00-0.99); Hepatitis B Core Antibody Nonreactive (Nonreactive); Hepatitis B Surface Antigen Negative (Negative); ~Hepatitis B Surface Antibody REACTIVE (Nonreactive)
[2020-12-08 08:43] LABS: ~HepC Num1 11.61 S/CO (0.00-0.79); ~Hepatitis C Antibody Reactive (Nonreactive)
[2020-12-08] MEDS: Gabapentin 300 MG CAPSULE PO (09:22)
[2020-12-08 09:27] VITALS: BP 96/60
[2020-12-08 09:27] LABS: Syphilis Screen Nonreactive (Nonreactive)
--- NOTE | 2020-12-08 11:12 | PM.DS ---
DS: Providers Provider Date of Service: 12/28/20 Date of admission: 12/07/20 05:44 Primary care physician: None Physician Consults: 12/07/20 05:57 Consult to Gastroenterology Routine Consulting Provider: Isidoro Clark Reason for consultation: Transaminitis Has provider been notified: No 12/07/20 09:55 Consult to Infectious Diseases Routine Consulting Provider: Laverne Cabral Reason for consultation: STD, Hep A DS: Diagnosis Discharge Diagnosis (1) Acute pelvic inflammatory disease (PID): Status: Acute (2) UTI (urinary tract infection): Status: Acute (3) Transaminitis: Status: Acute (4) Hepatitis A: Status: Acute DS: Medications Discharge Medications Home Medications: Home Medications Medication Instructions Recorded Confirmed gabapentin 300 mg PO TID 12/07/20 12/07/20 hydroxyzine HCl 25 mg PO BEDTIME 12/07/20 12/07/20 methadone 45 PO DAILY 12/07/20 Previous Rx's Medication Instructions Recorded azithromycin 250 mg PO DAILY 14 Days #14 tab 12/07/20 metoclopramide HCl [Reglan] 10 mg PO Q6H PRN #10 tab 12/07/20 metronidazole [Flagyl] 500 mg PO BID 14 Days #28 tab 12/07/20 nitrofurantoin monohyd/m-cryst 100 mg PO Q12H 5 Days #10 cap 12/07/20 [Macrobid] DS: Summary Hospital Course Hospital Course: Chief Complaint: N/V 35-year-old female with past medical history of IV drug use, PID who presents to the hospital with complaints of 2 day history vomiting. Patient is also complaining diffuse lower abdominal pain, burning on urination, and some vaginal discharge for 2 days. She also reports vaginal order. Patient reports history of PID and this feels similar. She reports that she had a mild subjective fever, no chills, no headache or change in vision, no chest pain, no lower extremity edema. On arrival to the ED patient hemodynamically stable with no significant abnormal vitals Labs are significant for WBC count of 6.4, hemoglobin of 14.3, platelet count of 105, PT of 15.8, INR of 1.3, BUN of 17, creatinine of 0.78, total bili of 3.6, direct bili of 2.8, AST of 1436, ALT of 1591, alk-phos of 358, UA that is positive for leukocyte Estrace and WBC, UDS positive for opioids benzos cocaine and marijuana. And gonorrhea PCR positive. Imaging including abdominal ultrasound shows hepatomegaly with hepatic steatosis, pelvic transvaginal ultrasound showsOvarian torsion, no adnexal mass Given the elevated LFTs, patient was asked about alcohol use and or Tylenol use and denies both. Patient reports that she drinks only on holidays and special occasions, denies using any Tylenol. She does report that her boyfriend has been having nausea and vomiting as well Hospital course: patient was hospitalized for PID and found to have acute hepatitis A. For PID she has been given IM Gent 240 x 1 as she has serious allergy to ceftriaxone, She will be discharged with Flagyl, Azithro and macrobid for 10 days for treatment of UTI, vaginits and PID. There is no specific treatment for acute hepatitis A but is advised to avoid tyelenol Time Spent with Patient Time attestation: Total time spent providing and/or coordinating discharge services: Discharge coordination time: Greater than 30 minutes Physical Exam Vital Signs: Vital Signs: Last Vital Signs Temp 98.0 F 12/08/20 08:00 Pulse 61 12/08/20 08:00 Resp 18 12/08/20 08:00 BP 96/60 12/08/20 09:27 Pulse Ox 99 12/08/20 08:00 Body Mass Index 25.0 Constitutional Awake and Alert, No apparent distress Neck Supple, No lymphadenopathy Cardiovascular RRR, No M/R/G, S1 S2, No S3 S4, No pedal edema Respiratory Lungs clear, No respiratory distress Gastrointestinal Non tender, Non-distended Skin No rash Neurological Alert & oriented x3 Psychological Appropriate affect DS: Data Data Completed and Pending Labs on day of discharge: Laboratory Results - last 24 hr 12/06/20 12/07/20 12/07/20 01:04 00:25 09:31 WBC RBC Hgb Hct MCV MCH MCHC RDW Plt Count MPV Immature Gran % (Auto) Neut % (Auto) Lymph % (Auto) [place] % (Auto) Eos % (Auto) Baso % (Auto) Lymph # (Auto) [place] # (Auto) Eos # (Auto) Baso # (Auto) Abs Immat Gran (auto) Absolute Neuts (auto) Absolute Nucleated RBC Nucleated RBC % (auto) Smear Tech's Comments Sodium Potassium Chloride Carbon Dioxide Anion Gap BUN Creatinine Estim Creat Clear Calc Estimated GFR Random Glucose Calcium T.pallidum Ab (EIA) Candelaria species DNA Negative Gardnerella DNA Probe Positive A Hep Bs Antigen Negative Hep Bs Antibody REACTIVE Hep B Core Total Ab Nonreactive Hepatitis C Ab (EIA) Reactive H HIV 1&2 Ab/P24 Ag 4thGn Nonreactive Trichomonas DNA Probe Negative 12/07/20 12/08/20 12/08/20 09:31 04:17 04:17 WBC 5.8 RBC 4.31 Hgb 12.0 Hct 37.0 MCV 85.8 MCH 27.8 MCHC 32.4 RDW 14.4 Plt Count 122 L MPV 11.2 Immature Gran % (Auto) 0.3 Neut % (Auto) 30.3 L Lymph % (Auto) 57.5 H [place] % (Auto) 8.1 Eos % (Auto) 3.3 Baso % (Auto) 0.5 Lymph # (Auto) 3.3 [place] # (Auto) 0.5 Eos # (Auto) 0.2 Baso # (Auto) 0.0 Abs Immat Gran (auto) 0.02 Absolute Neuts (auto) 1.8 L Absolute Nucleated RBC 0.000 Nucleated RBC % (auto) 0.0 Smear Tech's Comments VERIFIED Sodium 137 Potassium 3.9 Chloride 105 Carbon Dioxide 24 Anion Gap 12 BUN 7 L D Creatinine 0.70 Estim Creat Clear Calc 102.9 Estimated GFR > 60 Random Glucose 163 H Calcium 8.0 L D T.pallidum Ab (EIA) Nonreactive Candelaria species DNA Gardnerella DNA Probe Hep Bs Antigen Hep Bs Antibody Hep B Core Total Ab Hepatitis C Ab (EIA) HIV 1&2 Ab/P24 Ag 4thGn Trichomonas DNA Probe Discharge Plan Discharge Anticipated Discharge Date/Time: 12/08/20 11:08 Patient Disposition: Home, Self-Care Discharge Diagnosis: PID, hepatitis A Referrals: Physician,None [Primary Care Provider] - 1 Week Calvin Torres MD [Physician] - 2 days Discharge Medications: New azithromycin 250 mg tablet 250 mg PO DAILY 14 Days Qty: 14 RF: 0 metronidazole [Flagyl] 500 mg tablet 500 mg PO BID 14 Days Qty: 28 RF: 0 metoclopramide HCl [Reglan] 10 mg tablet 10 mg PO Q6H PRN (Reason: nausea and vomiting) Qty: 10 RF: 0 nitrofurantoin monohyd/m-cryst [Macrobid] 100 mg capsule 100 mg PO Q12H 5 Days Qty: 10 RF: 0 nitrofurantoin monohyd/m-cryst [Macrobid] 100 mg capsule 100 mg PO BID Qty: 10 RF: 0 Continued hydroxyzine HCl 25 mg Tablet 25 mg PO BEDTIME RF: 0 gabapentin 300 mg Tablet 300 mg PO TID RF: 0 methadone 45 PO DAILY RF: 0 Discharge Orders: Discharge Order (Routine); Ordered 12/08/20 Ordered By: Mir Anderson Diet: advance to usual diet Activity on Discharge: As tolerated Stand Alone Forms: Patient Portal Discharge page Other Ambulatory Orders: Liver Panel (Routine) Timeframe: 20201210 Facility: [facility] - Location: Laboratory Ordered By: Mir Anderson Activity Restrictions/Additional Instructions: Take antibiotics as prescribed, azithromycin and Flagyl to treat pelvic inflammatory disease Macrobid is to treat a urinary tract infection Reglan is for nausea, take as needed for nausea and vomiting Is important that her take hydrated You need to refrain from any sexual contact until your cultures result, until all her symptoms are gone, inform her sexual partners if any of your STIs are positive Care Plan Goals: To treat Pelvic inflamatory disease Health Concerns: PID, UTI Plan of Treatment: Take antibiotics as stateed above Assessment: See above Patient Instructions: Pelvic Inflammatory Disease (ED) Discharge Date/Time: 12/08/20 15:18
--- NOTE | 2020-12-08 11:25 | MHC.CM.PN ---
PATIENT IS DISCHARGED HOME WITH OUTPATIENT DETOX REFERRALS. RN AWARE OF PLAN
[2020-12-08 11:48] VITALS: BP 104/66; PULSE 56; RESP 18; TEMP 36.1; O2SAT 95
[2020-12-08 13:16] LABS: Alanine Aminotransferase 977 U/L (0-31); Albumin Level 3.1 g/dL (3.5-5.0); Alkaline Phosphatase 368 U/L (39-117); Aspartate Amino Transferase 672 U/L (5-31); Bilirubin Direct 2.1 mg/dL (0.0-0.5); Bilirubin Total 2.5 mg/dL (0.0-1.0); Total Protein 5.8 g/dL (6.5-8.0)
== END 2020-12-08 15:18 | disposition home or self-care (01) | DRG 531 ==
LOC: HO.ED 12-07 05:39 → HO.EDOVER 12-07 05:57 → HO.S3 12-07 06:01
PROVIDERS: Internal Medicine; Physician Assistant; Admitting Provider Internal Medicine; Emergency Provider Student in an Organized Health Care Education/Training Program; Visit Provider Internal Medicine
DX: A54.24 Gonococcal female pelvic inflammatory disease (principal); B15.9 Hepatitis A without hepatic coma; A54.02 Gonococcal vulvovaginitis, unspecified; N39.0 Urinary tract infection, site not specified; R74.01 Elevation of levels of liver transaminase levels; Z86.711 Personal history of pulmonary embolism; F17.210 Nicotine dependence, cigarettes, uncomplicated; Z71.6 Tobacco abuse counseling; Z20.822 Contact with and (suspected) exposure to COVID-19; Z88.2 Allergy status to sulfonamides; Z79.899 Other long term (current) drug therapy
CPT/HCPCS: 36415; 76700; 76830; 76856; 80048; 80076; 80143; 80307; 81001; 81003; 81025; 82550; 83605; 83690; 83735; 85025; 85610; 85730; 86704; 86706; 86708; 86709; 86780; 86803; 87086; 87147; 87340; 87389; 87480; 87491; 87510; 87591; 87635; 87660; 93975; 96374; 96375; 99285; J1580

== ENCOUNTER → 2021-03-16 14:46 | Outpatient (BNVA) | payer OTHER, SELFPAY | PROVIDERS: Visit Provider Internal Medicine | DX: M46.40 Discitis, unspecified, site unspecified (principal); F14.10 Cocaine abuse, uncomplicated; F11.10 Opioid abuse, uncomplicated; Z88.1 Allergy status to other antibiotic agents; Z88.2 Allergy status to sulfonamides; Z88.8 Allergy status to other drugs, medicaments and biological substances; Z59.0 Homelessness | CPT/HCPCS: 99212 ==

== ENCOUNTER → 2021-03-30 13:29 | Outpatient (BNVA) | payer OTHER, SELFPAY | PROVIDERS: Visit Provider Internal Medicine | DX: Z51.81 Encounter for therapeutic drug level monitoring (principal); M46.40 Discitis, unspecified, site unspecified | CPT/HCPCS: 80305; 99212 ==

== ENCOUNTER → 2021-04-19 13:51 | Outpatient (BNVA) | payer OTHER, SELFPAY | PROVIDERS: Visit Provider Internal Medicine | DX: Z51.81 Encounter for therapeutic drug level monitoring (principal); F11.90 Opioid use, unspecified, uncomplicated | CPT/HCPCS: 80305; 99212 ==

== ENCOUNTER 2021-05-12 12:25 | Emergency (ER) | payer OTHER, SELFPAY ==
--- NOTE | ~2021-05-12 | XR_ITS ---
EXAMINATION: XR CHEST CLINICAL INFORMATION: Shortness of breath COMPARISON: Chest radiographs 07/16/2018, 07/15/2018 TECHNIQUE: Frontal view of the chest was obtained. FINDINGS: The lungs are clear. There is no airspace consolidation or effusion. The heart is normal in size. The vascularity is normal. No pneumothorax or pleural reaction. The hilar and mediastinal contours are normal. No visible acute bony abnormality. XR/XR chest 1V IMPRESSION: Unremarkable examination.
[2021-05-12 12:34] VITALS: BP 96/51; PULSE 56; RESP 18; TEMP 36.6; O2SAT 99; BMI 23.3
--- NOTE | 2021-05-12 15:11 | ED.URI ---
HPI - URI/Sore Throat General Chief Complaint: Upper Respiratory Symptoms Stated Complaint: congestion, sore throat Time Seen by Provider: 05/12/21 15:11 Source: patient Mode of arrival: ambulatory Limitations: no limitations History of Present Illness HPI Narrative: 56-year-old female past medical history significant for asthma, hepatitis-C presents to the emergency department with 4 weeks of malaise, fatigue, sore throat. She states that this initially started as a sinus infection, but now she is having severe sore throat, she states it pinto when she swallows. She also states she has noted white patches on her tongue, and cheeks. She states that she feels like she does not have much energy lately, and has been progressively worsening. She also mentions that she was diagnosed with a yeast infection, but never received treatment. She states she is having white thick vaginal discharge. She has been able to keep food down, and drink fluids without an issue. She denies shortness of breath, chest pain, abdominal pain, fevers, chills, headache. MD elicited complaint: sore throat and sinus pain Pertinent past history: other (Hep C) Onset (ago): week(s) (4) Consistency: constant Severity: moderate Able to tolerate fluids by mouth: Yes Exacerbating factors: nothing Relieving factors: nothing Associated symptoms: denies other symptoms Treatments prior to arrival: none Related Data Home Medications Medication Instructions Recorded Confirmed hydroxyzine HCl 25 mg tablet 25 mg PO BEDTIME 12/07/20 12/07/20 methadone 45 PO DAILY 12/07/20 acetaminophen 325 mg capsule 325 mg PO QID PRN 03/16/21 cariprazine 1.5 mg capsule 1.5 mg PO DAILY 03/16/21 docusate sodium 100 mg capsule 100 mg PO BID 03/16/21 (Colace) fluticasone furoate 50 1 inh INHALATION DAILY ea 03/16/21 mcg/actuation blister powder for inhalation heparin lock flush (porcine) 10 10 unit IV DAILY 03/16/21 unit/mL intravenous solution hydromorphone 2 mg tablet 2 mg PO BID tab 03/16/21 ibuprofen 600 mg tablet 600 mg PO Q8H PRN 03/16/21 midodrine 5 mg tablet 5 mg PO TID 03/16/21 naloxone 0.4 mg/mL injection 0.4 mg IM Q2M PRN 03/16/21 solution omeprazole 20 mg capsule,delayed 20 mg PO BID 03/16/21 release sennosides 8.6 mg tablet (senna) 8.6 mg PO DAILY 03/16/21 tizanidine 4 mg capsule (Zanaflex) 4 mg PO Q8H PRN 03/16/21 trazodone 100 mg tablet 100 mg PO BEDTIME PRN 03/16/21 Previous Rx's Medication Instructions Recorded minocycline 100 mg capsule 100 mg PO BID 30 Days #60 cap 04/01/21 buprenorphine 8 mg-naloxone 2 mg 2 film SUBLINGUAL DAILY 7 Days #14 04/19/21 sublingual film (Suboxone) ea doxycycline monohydrate 100 mg 100 mg PO BID 10 Days #20 cap 05/12/21 capsule fluconazole 150 mg tablet 150 mg PO Q3D #2 tab 05/12/21 (Diflucan) nystatin 100,000 unit/mL oral 1 ml BUCCAL DAILY #60 ml 05/12/21 suspension ondansetron HCl 4 mg tablet 4 mg PO Q8H PRN #7 tab 05/12/21 (Zofran) Allergies Allergy/AdvReac Type Severity Reaction Status Date / Time ceftriaxone [From ROCEPHIN] Allergy Intermediate HIVES Verified 04/19/21 14:12 sulfamethoxazole Allergy Intermediate HIVES Verified 04/19/21 14:12 [From BACTRIM] trimethoprim [From BACTRIM] Allergy Intermediate HIVES Verified 04/19/21 14:12 Sulfa (Sulfonamide Allergy Unknown HIVES. Verified 04/19/21 14:12 Antibiotics) VOMITING [SULFA (SULFONAMIDE ANTIBIOTICS)] doxycycline [DOXYCYCLINE] AdvReac Unknown NAUSEA & Verified 04/19/21 14:12 VOMITING Review of Systems Review of Systems: Constitutional : No Weight loss, No Fever, No Chills, No Night Sweats, + Fatigue, + Malaise ENT/Mouth : No Hearing loss, No Ear Pain, No Nasal Congestion, + Sinus Pain, No Hoarseness, + sore throat, No Rhinorrhea, No Swallowing Difficulty Eyes: No Eye Pain, No Swelling, No Redness, No Foreign Body, No Discharge, No Vision Changes Cardiovascular : No Chest Pain, No SOB, No Dyspnea on Exertion, No Orthopnea, No Edema, No Palpitations Respiratory : No Cough, No Sputum, No Wheezing, No Smoke Exposure, No Dyspnea Gastrointestinal : No Nausea, No Vomiting, No Diarrhea, No Constipation, No abdominal Pain, No Hematochezia, No Melena Genitourinary : no irregular bleeding, No Dysuria, No Urinary Frequency, No Urinary Incontinence, No Urgency, No Flank Pain, + vaginal discharge Musculoskeletal : No joint pain, No Myalgias, No Joint Swelling Skin : No Skin Lesions, No rash Neuro : No Weakness, No Numbness, No Paresthesias, No Loss of Consciousness, No Dizziness, No Headache Yes all other systems are reviewed and are negative [facility] Past Medical History Attestation statement: The following information was validated with the patient. Medical History Acute pelvic inflammatory disease (PID) Diskitis Drug use Opioid use disorder Pulmonary emboli Social History Social History Household Members: Other Housing: Homeless Do you presently have visiting nurse or other home services: No Alcohol intake: current Alcohol intake frequency: holidays/special occasions only Substance Use Type: Crack/Cocaine and Heroin Advance Directives: No Advance Directives Information Provided: No service: No Current occupational status: unemployed Physical Exam Vital Signs: Vital Signs: Last Vital Signs Temp 98 F 05/12/21 12:34 Pulse 56 05/12/21 12:34 Resp 18 05/12/21 12:34 BP 96/51 L 05/12/21 12:34 Pulse Ox 99 05/12/21 12:34 Body Mass Index 23.3 Vital signs have been reviewed blood pressure mildly hypotensive at 96/51. Heart rate normal. Respiratory rate normal. Oxygen sat normal. Temp normal. Appearance: Alert. Oriented and active. Well hydrated/Nourished/developed. No acute distress. Head: Normal external exam. Normocephalic. Atraumatic. Eyes: PERRLA. EOMI. Conjunctiva and sclera normal. Eyelids normal. Corneal reflex normal. ENT: TM WNL. EAC WNL. Hearing normal. Pharynx normal. Uvula midline. + tongue midline with scattered white patches that can easily be scraped off. Moist mucous membranes. No trismus noted. No drooling noted. No stridor noted. Tolerating secretions well. Neck: Normal inspection. Neck supple. FROM. No adenopathy. Thyroid Normal. Trachea midline. No meningeal signs. No neck mass noted. CVS: Normal heart rate and rhythm. Heart sound normal. No murmurs noted. Pulses normal throughout. Respiratory: No respiratory distress. Painless inspiration. Breath sounds noted to have + Wheezing over all lung schroeder. Otherwise no rales/rhonchi noted. Chest nontender. No accessory muscle usage noted or decreased air movement noted. Abdomen: Soft and nontender. Nondistended. No guarding noted. No rebound tenderness noted. : Deffered Back: Full range of motion noted. Skin: Skin warm and dry. Normal skin color. Normal skin turgor. No rashes/lesions/lacerations noted. Extremities: Extremities exhibit normal range of motion. Extremities nontender. Neuro: Active and alert. No motor deficit. No sensory deficit. Reflexes normal. Moving all extremities. Normal steady gait noted. Course Course Course Narrative: 1525 36-year-old female past medical history significant for asthma, and hepatitis-C presents to the emergency department complaining of sore throat, malaise, fatigue, sinus pressure and thick white vaginal discharge X 4 weeks progressively worsening Upon physical examination there is wheezing noted over all lung schroeder. There is also white patches noted on her tongue, that can easily be scraped off, likely thrush. Pharynx appears normal there is no erythema, or exudate. She deferred a exam. She states that last week she was tested for STDs, and results are pending. At this time the plan is to obtain a chest x-ray, basic labs, flu/COVID/RSV, strep test. She will also be given Diflucan, and albuterol. Fluids will also be given at this time. Reevaluation(s) Reevaluation #1: Patient refusing IV and IV fluids states she just wants labs done. Time: 15:40 Reevaluation #2: [place], FLU/COVID/RSV, UA, test negative. Labs show no acute infection. No electrolyte abnormalities. Chest Xray shows . Based off patient symptoms and history and length of symptoms she will be treated for a bacterial upper respiratory infection. MDM - URI/Sore Throat Medical Records Attestation: I reviewed the patient's medical records. Lab Data Attestation: I reviewed the patient's lab results. Result diagrams: 05/12/21 16:14 05/12/21 16:14 Labs: Lab Results 05/12/21 05/12/21 05/12/21 Range/Units 15:31 15:33 15:33 WBC (4.8-10.8) X10*3/uL RBC (4.20-5.50) X10*6/uL Hgb (12.0-16.0) g/dl Hct (37-47) % MCV (80-98) fL MCH (27.0-33.0) pg MCHC (31.0-35.0) g/dl RDW (11.0-16.0) % Plt Count (160-400) X10*3/uL MPV (9.4-12.3) fL Immature Gran % (Auto) (0.0-0.4) % Neut % (Auto) (45-73) % Lymph % (Auto) (20-40) % [place] % (Auto) (2-11) % Eos % (Auto) (0-4) % Baso % (Auto) (0-2) % Lymph # (Auto) (1.2-4.9) X10*3/uL [place] # (Auto) (0.1-1.2) X10*3/uL Eos # (Auto) (0.0-0.4) X10*3/uL Baso # (Auto) (0.0-0.2) X10*3/uL Abs Immat Gran (auto) (0.00-0.03) X10*3/uL Absolute Neuts (auto) (2.0-8.3) X10*3/uL Absolute Nucleated RBC (0.0-0.012) X10*3/uL Nucleated RBC % (auto) (0.0-0.2) /100WBC Sodium (135-145) mmol/L Potassium (3.3-5.1) mmol/L Chloride (96-108) mmol/L Carbon Dioxide (22-29) mmol/L Anion Gap (12-20) BUN (9-16) mg/dL Creatinine (0.5-1.4) mg/dL Estim Creat Clear Calc Estimated GFR Random Glucose (60-115) mg/dL Calcium (8.4-10.2) mg/dL Magnesium (1.6-2.6) mg/dL Total Bilirubin (0.0-1.0) mg/dL AST (5-31) U/L ALT (0-31) U/L Alkaline Phosphatase (39-117) U/L Total Protein (6.5-8.0) g/dL Albumin (3.5-5.0) g/dL Urine Color YELLOW Urine Appearance CLEAR Urine pH 6.0 (5.0-8.0) Ur Specific [place] 1.015 (1.005-1.025) Urine Protein NEG (NEG-TRACE) MG/DL Urine Glucose (UA) NEG (NEG) MG/DL Urine Ketones NEG (NEG) MG/DL Urine Blood NEG (NEG) Urine Nitrite NEG (NEG) Ur Leukocyte Esterase NEG (NEG) Urine Test (NEGATIVE) Coronavirus (PCR) NEGATIVE (Negative) Monoscreen (Negative) Influenza Type A (PCR) NEGATIVE (Negative) Influenza Type B (PCR) NEGATIVE (Negative) RSV RNA Qual (PCR) NEGATIVE (Negative) S. pyogenes GrpA [place] Negative (Negative) 05/12/21 05/12/21 05/12/21 Range/Units 16:14 16:14 16:14 WBC 6.9 (4.8-10.8) X10*3/uL RBC 3.82 L (4.20-5.50) X10*6/uL Hgb 10.8 L (12.0-16.0) g/dl Hct 32.1 L (37-47) % MCV 84.0 (80-98) fL MCH 28.3 (27.0-33.0) pg MCHC 33.6 (31.0-35.0) g/dl RDW 13.8 (11.0-16.0) % Plt Count 184 D (160-400) X10*3/uL MPV 9.6 (9.4-12.3) fL Immature Gran % (Auto) 0.3 (0.0-0.4) % Neut % (Auto) 51.9 (45-73) % Lymph % (Auto) 36.4 (20-40) % [place] % (Auto) 6.4 (2-11) % Eos % (Auto) 4.6 H (0-4) % Baso % (Auto) 0.4 (0-2) % Lymph # (Auto) 2.5 (1.2-4.9) X10*3/uL [place] # (Auto) 0.4 (0.1-1.2) X10*3/uL Eos # (Auto) 0.3 (0.0-0.4) X10*3/uL Baso # (Auto) 0.0 (0.0-0.2) X10*3/uL Abs Immat Gran (auto) 0.02 (0.00-0.03) X10*3/uL Absolute Neuts (auto) 3.6 (2.0-8.3) X10*3/uL Absolute Nucleated RBC 0.000 (0.0-0.012) X10*3/uL Nucleated RBC % (auto) 0.0 (0.0-0.2) /100WBC Sodium 140 (135-145) mmol/L Potassium 4.1 (3.3-5.1) mmol/L Chloride 108 (96-108) mmol/L Carbon Dioxide 27 (22-29) mmol/L Anion Gap 9 L (12-20) BUN 12 D (9-16) mg/dL Creatinine 0.77 (0.5-1.4) mg/dL Estim Creat Clear Calc 92.6 Estimated GFR > 60 Random Glucose 106 (60-115) mg/dL Calcium 8.6 D (8.4-10.2) mg/dL Magnesium 2.0 (1.6-2.6) mg/dL Total Bilirubin < 0.2 (0.0-1.0) mg/dL AST 21 D (5-31) U/L ALT 16 (0-31) U/L Alkaline Phosphatase 112 D (39-117) U/L Total Protein 6.1 L (6.5-8.0) g/dL Albumin 3.4 L (3.5-5.0) g/dL Urine Color Urine Appearance Urine pH (5.0-8.0) Ur Specific [place] (1.005-1.025) Urine Protein (NEG-TRACE) MG/DL Urine Glucose (UA) (NEG) MG/DL Urine Ketones (NEG) MG/DL Urine Blood (NEG) Urine Nitrite (NEG) Ur Leukocyte Esterase (NEG) Urine Test (NEGATIVE) Coronavirus (PCR) (Negative) Monoscreen Negative (Negative) Influenza Type A (PCR) (Negative) Influenza Type B (PCR) (Negative) RSV RNA Qual (PCR) (Negative) S. pyogenes GrpA [place] (Negative) 05/12/21 Range/Units 16:15 WBC (4.8-10.8) X10*3/uL RBC (4.20-5.50) X10*6/uL Hgb (12.0-16.0) g/dl Hct (37-47) % MCV (80-98) fL MCH (27.0-33.0) pg MCHC (31.0-35.0) g/dl RDW (11.0-16.0) % Plt Count (160-400) X10*3/uL MPV (9.4-12.3) fL Immature Gran % (Auto) (0.0-0.4) % Neut % (Auto) (45-73) % Lymph % (Auto) (20-40) % [place] % (Auto) (2-11) % Eos % (Auto) (0-4) % Baso % (Auto) (0-2) % Lymph # (Auto) (1.2-4.9) X10*3/uL [place] # (Auto) (0.1-1.2) X10*3/uL Eos # (Auto) (0.0-0.4) X10*3/uL Baso # (Auto) (0.0-0.2) X10*3/uL Abs Immat Gran (auto) (0.00-0.03) X10*3/uL Absolute Neuts (auto) (2.0-8.3) X10*3/uL Absolute Nucleated RBC (0.0-0.012) X10*3/uL Nucleated RBC % (auto) (0.0-0.2) /100WBC Sodium (135-145) mmol/L Potassium (3.3-5.1) mmol/L Chloride (96-108) mmol/L Carbon Dioxide (22-29) mmol/L Anion Gap (12-20) BUN (9-16) mg/dL Creatinine (0.5-1.4) mg/dL Estim Creat Clear Calc Estimated GFR Random Glucose (60-115) mg/dL Calcium (8.4-10.2) mg/dL Magnesium (1.6-2.6) mg/dL Total Bilirubin (0.0-1.0) mg/dL AST (5-31) U/L ALT (0-31) U/L Alkaline Phosphatase (39-117) U/L Total Protein (6.5-8.0) g/dL Albumin (3.5-5.0) g/dL Urine Color Urine Appearance Urine pH (5.0-8.0) Ur Specific [place] (1.005-1.025) Urine Protein (NEG-TRACE) MG/DL Urine Glucose (UA) (NEG) MG/DL Urine Ketones (NEG) MG/DL Urine Blood (NEG) Urine Nitrite (NEG) Ur Leukocyte Esterase (NEG) Urine Test NEGATIVE (NEGATIVE) Coronavirus (PCR) (Negative) Monoscreen (Negative) Influenza Type A (PCR) (Negative) Influenza Type B (PCR) (Negative) RSV RNA Qual (PCR) (Negative) S. pyogenes GrpA [place] (Negative) Imaging Data Chest x-ray: Attestation: I personally reviewed and interpreted this imaging study as follows: Radiologist's impression: FINDINGS: The lungs are clear. There is no airspace consolidation or effusion. The heart is normal in size. The vascularity is normal. No pneumothorax or pleural reaction. The hilar and mediastinal contours are normal. No visible acute bony abnormality. XR/XR chest 1V IMPRESSION: Unremarkable examination. Discharge Plan Discharge Clinical Impression: Candelaria infection Upper respiratory infection Qualifiers: URI type: unspecified URI Qualified Code(s): J06.9 - Acute upper respiratory infection, unspecified Patient Disposition: Home, Self-Care Instructions: Oral Candidiasis (ED), Upper Respiratory Infection (ED), Yeast Infection (ED) Additional Instructions: Follow up with PCP Diflucan is a medication that has been sent to your pharmacy, you can take this if you have a yeast infection after taking her antibiotics. It is important you take your antibiotics regularly, do not skip any doses. Eat prior to taking antibiotics to prevent upset stomach, nausea and vomiting. Return for new or worsening symptoms. Prescriptions: New doxycycline monohydrate 100 mg capsule 100 mg PO BID 10 Days Qty: 20 RF: 0 nystatin 100,000 unit/mL suspension 1 ml buccal DAILY Qty: 60 RF: 0 ondansetron HCl [Zofran] 4 mg tablet 4 mg PO Q8H PRN (Reason: nausea and vomiting) Qty: 7 RF: 0 fluconazole [Diflucan] 150 mg tablet 150 mg PO Q3D Qty: 2 RF: 0 No Action minocycline 100 mg capsule 100 mg PO BID 30 Days Qty: 60 RF: 1 hydroxyzine HCl 25 mg Tablet 25 mg PO BEDTIME RF: 0 methadone 45 PO DAILY RF: 0 buprenorphine-naloxone [Suboxone] 8-2 mg film 2 film sublingual DAILY 7 Days Qty: 14 RF: 0 acetaminophen 325 mg capsule 325 mg PO QID PRNRF: 0 cariprazine 1.5 mg capsule 1.5 mg PO DAILY RF: 0 docusate sodium [Colace] 100 mg capsule 100 mg PO BID RF: 0 fluticasone furoate 50 mcg/actuation blister with device 1 inh inhalation DAILY RF: 0 hydromorphone 2 mg tablet 2 mg PO BID RF: 0 heparin lock flush (porcine) 10 unit/mL solution 10 unit IV DAILY RF: 0 ibuprofen 600 mg tablet 600 mg PO Q8H PRNRF: 0 midodrine 5 mg tablet 5 mg PO TID RF: 0 naloxone 0.4 mg/mL solution 0.4 mg IM Q2M PRNRF: 0 omeprazole 20 mg capsule,delayed release(DR/EC) 20 mg PO BID RF: 0 sennosides [senna] 8.6 mg tablet 8.6 mg PO DAILY RF: 0 trazodone 100 mg tablet 100 mg PO BEDTIME PRNRF: 0 tizanidine [Zanaflex] 4 mg capsule 4 mg PO Q8H PRNRF: 0 Referrals: Ivory Rivera MD [Primary Care Provider] - 2 days Print Language: Israeli
[2021-05-12] MEDS: Fluconazole 150 MG TABLET PO (15:34)
[2021-05-12 15:40] LABS: Appearance Urine CLEAR; Color Urine YELLOW; Glucose Urine UA NEG (NEG); Leukocyte Esterase Urine NEG (NEG); Nitrite Urine NEG (NEG); Specific Gravity - Urine 1.015 (1.005-1.025); Urine Blood NEG (NEG); Urine Ketones NEG (NEG); Urine Protein NEG (NEG-TRACE)
[2021-05-12 16:01] LABS: IDNOW Serial# 08D9AD1C; Strep A Nucleic Acid Negative (Negative)
[2021-05-12] MEDS: Albuterol Sulfate 90 MCG 8 GM INHALER 4 PUFF INHALE (16:06)
[2021-05-12 16:21] LABS: MANUAL DIFF FLAG NO
[2021-05-12 16:22] LABS: UPreg QC Valid YES; Urine Pregnancy NEGATIVE (NEGATIVE)
[2021-05-12 16:23] LABS: Influenza A PCR NEGATIVE (Negative); Influenza B PCR NEGATIVE (Negative); Resp Syncy Virus RNA Qual PCR NEGATIVE (Negative); SARS COV2 PCR INHOUSE NEGATIVE (Negative)
[2021-05-12 16:26] LABS: Basophils Percent Auto 0.4 % (0-2); Eosinophils Absolute Auto 0.3 X10*3/uL (0.0-0.4); Eosinophils Percent Auto 4.6 % (0-4); Hematocrit 32.1 % (37-47); Hemoglobin 10.8 g/dl (12.0-16.0); Imm Gran Abs Auto 0.02 X10*3/uL (0.00-0.03); Imm Gran Pct Auto 0.3 % (0.0-0.4); Lymphocytes Absolute Auto 2.5 X10*3/uL (1.2-4.9); Lymphocytes Percent Auto 36.4 % (20-40); Mean Corpuscular HGB Conc 33.6 g/dl (31.0-35.0); Mean Corpuscular Hemoglobin 28.3 pg (27.0-33.0); Mean Platelet Volume 9.6 fL (9.4-12.3); Monocytes Absolute Auto 0.4 X10*3/uL (0.1-1.2); Monocytes Percent Auto 6.4 % (2-11); Neutrophils Absolute Auto 3.6 X10*3/uL (2.0-8.3); Neutrophils Percent Auto 51.9 % (45-73); Platelet Count 184 X10*3/uL (160-400); Red Blood Count 3.82 X10*6/uL (4.20-5.50); Red Cell Distribution Width 13.8 % (11.0-16.0); White Blood Count 6.9 X10*3/uL (4.8-10.8)
--- NOTE | 2021-05-12 16:30 | PC.NURSE ---
PT MEDICATED ORDERED. PCT ABLE TO OBTAIN LABS HOWEVER PT REFUSED IV AND IVF. RESTING QUIETLY ON STRETCHER. NO ACUTE DISTRESS NOTED
[2021-05-12 16:34] LABS: Monotest Negative (Negative)
[2021-05-12 16:40] LABS: Alanine Aminotransferase 16 U/L (0-31); Albumin Level 3.4 g/dL (3.5-5.0); Alkaline Phosphatase 112 U/L (39-117); Anion Gap 9 (12-20); Aspartate Amino Transferase 21 U/L (5-31); Bilirubin Total < 0.2 mg/dL (0.0-1.0); Blood Urea Nitrogen 12 mg/dL (9-16); Calcium 8.6 mg/dL (8.4-10.2); Carbon Dioxide 27 mmol/L (22-29); Chloride 108 mmol/L (96-108); Creatinine Clr Calc Pharmacy 92.6; Estimated Glomerular Filt Rate > 60; Glucose Random 106 mg/dL (60-115); Potassium 4.1 mmol/L (3.3-5.1); Sodium 140 mmol/L (135-145); Total Protein 6.1 g/dL (6.5-8.0)
== END 2021-05-12 18:26 | disposition home or self-care (01) ==
PROVIDERS: Physician Assistant Medical; Emergency Provider Emergency Medicine Emergency Medical Services; PCP Orthopaedic Surgery
DX: J06.9 Acute upper respiratory infection, unspecified (principal); B37.49 Other urogenital candidiasis; J45.909 Unspecified asthma, uncomplicated; Z20.822 Contact with and (suspected) exposure to COVID-19
CPT/HCPCS: 0241U; 36415; 71045; 80053; 81003; 81025; 83735; 85025; 86308; 87651; 96360; 99283; 99284

== ENCOUNTER 2021-09-01 15:47 | Emergency (ER) | payer OTHER, SELFPAY ==
--- NOTE | ~2021-09-01 | US_ITS ---
EXAMINATION: US VENOUS ULTRASOUND WITH DOPPLER LOWER EXTREMITY, LEFT CLINICAL INFORMATION: History of pulmonary embolism. Lower extremity Pain. COMPARISON: None TECHNIQUE: Ultrasound of the deep veins is performed from the hip to the calf with compression sonography and color and pulse Doppler assessment. Spectral analysis with color-flow imaging is performed. FINDINGS: There is normal venous compression and respiratory variation and augmented flow. The visualized common femoral vein, superficial femoral vein, profunda femoral vein, popliteal vein, and the trifurcation region shows no evidence of deep venous thrombosis. There is no significant popliteal fossa cyst. If the patient's symptoms persist, followup ultrasound in 5 days 7 days might be of value to exclude proximal propagation from a non-visualized calf vein. US/US venous duplex LE LT IMPRESSION: No DVT demonstrated in the left lower extremity.
--- NOTE | ~2021-09-01 | XR_ITS ---
EXAMINATION: XR KNEE, LEFT CLINICAL INFORMATION: Left knee pain. COMPARISON: None TECHNIQUE: Four views of the left knee. FINDINGS: No acute fracture or dislocation. Mild medial compartment joint space narrowing. No significant marginal osteophytes. No osseous erosion. No abnormal soft tissue calcification. No joint effusion. XR/XR knee LT 4V IMPRESSION: Minimal medial compartment arthrosis.
[2021-09-01 15:57] VITALS: BP 129/84; PULSE 103; RESP 20; TEMP 36.7; O2SAT 97; BMI 24.1
--- NOTE | 2021-09-01 16:30 | ED_ITS ---
HPI - Extremity Injury (Lower) General Chief Complaint: Extremity Injury, Lower Stated Complaint: knee and leg pain Time Seen by Provider: 09/01/21 16:01 Source: patient Mode of arrival: ambulatory Limitations: no limitations History of Present Illness HPI Narrative: Patient is a 36-year-old female with a past medical history of PID, diskitis, opioid use disorder, MRSA, prothrombin gene mutation, history of pulmonary embolism not on anticoagulation due to IV drug usage. She presents emergency department for evaluation of left leg pain. She reports that her pain has been present for over 5 years. However, she has decreased her IV heroin usage and has noticed an increase in her level of pain over the past 2 months, pain is mostly medial to her left knee and radiates up the medial thigh. Reports it feels like my muscles are pulling . She reports intermittent swelling of the left leg, without any recent erythema. Used tylenol prior to coming, with some relief. Denies any injury, nor IV injection to this extremity. Denies ecchymosis, redness, numbness or tingling. Denies any past surgery to the knee. Denies any other trauma pain is/stiffness, myalgias, locking, popping, or giving out of the knee. Denies fevers, chills, dizziness, lightheadedness, neck pain, chest pain, palpitations, shortness of breath, dyspnea on exertion, nausea, vomiting, or abdominal pain. She states that she tried to get an appointment with her primary care provider advised her that she had to come to the emergency department first to be certain that there was nothing emergent causing her increased pain. Related Data Home Medications Medication Instructions Recorded Confirmed hydroxyzine HCl 25 mg tablet 25 mg PO BEDTIME 12/07/20 12/07/20 methadone 45 PO DAILY 12/07/20 acetaminophen 325 mg capsule 325 mg PO QID PRN 03/16/21 cariprazine 1.5 mg capsule 1.5 mg PO DAILY 03/16/21 docusate sodium 100 mg 100 mg PO BID 03/16/21 capsule (Colace) fluticasone furoate 50 1 inh INHALATION DAILY ea 03/16/21 mcg/actuation blister powder for inhalation heparin lock flush (porcine) 10 unit IV DAILY 03/16/21 10 unit/mL intravenous solution hydromorphone 2 mg tablet 2 mg PO BID tab 03/16/21 ibuprofen 600 mg tablet 600 mg PO Q8H PRN 03/16/21 midodrine 5 mg tablet 5 mg PO TID 03/16/21 naloxone 0.4 mg/mL injection 0.4 mg IM Q2M PRN 03/16/21 solution omeprazole 20 mg 20 mg PO BID 03/16/21 capsule,delayed release sennosides 8.6 mg tablet 8.6 mg PO DAILY 03/16/21 (senna) tizanidine 4 mg capsule 4 mg PO Q8H PRN 03/16/21 (Zanaflex) trazodone 100 mg tablet 100 mg PO BEDTIME PRN 03/16/21 Previous Rx's Medication Instructions Recorded minocycline 100 mg capsule 100 mg PO BID 30 Days #60 cap 04/01/21 buprenorphine 8 mg-naloxone 2 mg 2 film SUBLINGUAL DAILY 7 Days #14 04/19/21 sublingual film (Suboxone) ea doxycycline monohydrate 100 mg 100 mg PO BID 10 Days #20 cap 05/12/21 capsule fluconazole 150 mg tablet 150 mg PO Q3D #2 tab 05/12/21 (Diflucan) nystatin 100,000 unit/mL oral 1 ml BUCCAL DAILY #60 ml 05/12/21 suspension ondansetron HCl 4 mg tablet 4 mg PO Q8H PRN #7 tab 05/12/21 (Zofran) Allergies Allergy/AdvReac Type Severity Reaction Status Date / Time ceftriaxone [From Allergy Intermediate HIVES Verified 04/19/21 14:12 ROCEPHIN] sulfamethoxazole Allergy Intermediate HIVES Verified 04/19/21 14:12 [From BACTRIM] trimethoprim [From Allergy Intermediate HIVES Verified 04/19/21 14:12 BACTRIM] Sulfa (Sulfonamide Allergy Unknown HIVES. Verified 04/19/21 14:12 Antibiotics) VOMITING [SULFA (SULFONAMIDE ANTIBIOTICS)] doxycycline AdvReac Unknown NAUSEA & Verified 04/19/21 14:12 [DOXYCYCLINE] VOMITING Review of Systems Verdana 4l Review of Systems: Verdana 4d Chauvin 4Bd Constitutional: Chauvin 4d No weight loss, fever, chills, weakness or fatigue. Chauvin 4Bd HEENT: Chauvin 4d No visual loss, blurred vision, double vision or yellow sclera. No hearing loss, sneezing, congestion, runny nose or sore throat. ArialArial 4Bd Skin: No rash or itching. Cardiovascular: No chest pain, chest pressure or chest discomfort. No palpitations or pedal edema. Respiratory: No shortness of breath, cough or sputum production. Gastrointestinal: No anorexia, nausea, vomiting or diarrhea. No abdominal pain or blood in stool. Genitourinary: No burning micturition. No urinary frequency or incontinence. Neurologic: No headache, dizziness, syncope, unilateral weakness, ataxia, numbness or tingling in the extremities. No change in bowel or bladder control. Musculoskeletal: + left leg pain. Hematologic: No bleeding or bruising. Lymphatics: No enlarged lymph nodes. Psychiatric:No depression or anxiety. Endocrine: No reports of sweating. No cold or heat intolerance. No polyuria or polydipsia. [facility] Past Medical History Attestation statement: The following information was validated with the patient. Source: old records reviewed Medical History (Updated 09/01/21 @ 17:18 by Laly Sawyer CNP) Acute pelvic inflammatory disease (PID) Diskitis Drug use Opioid use disorder Prothrombin gene mutation Pulmonary emboli Social History Social History Household Members: Other Housing: Homeless Do you presently have visiting nurse or other home services: No Alcohol intake: current Alcohol intake frequency: holidays/special occasions only Substance Use Type: Crack/Cocaine and Heroin Advance Directives: No Advance Directives Information Provided: No service: No Current occupational status: unemployed Physical Exam Verdana 4l Vital Signs: Verdana 4d Verdana 4d Vital Signs: Verdana 4d Verdana 4Bd Last Vital Signs Verdana 4d Forklift Wheel Loader New 4d Forklift Wheel Loader New 4d Temp 98.1 F 09/01/21 15:57 Forklift Wheel Loader New 4d Pulse 63 09/01/21 16:54 Forklift Wheel Loader New 4d Resp 18 09/01/21 16:54 BP 129/84 09/01/21 15:57 Pulse Ox 97 09/01/21 16:54 BMI result Body Mass Index 24.1 Vital signs have been reviewed as normal and appeared to be correct. Blood pressure normal.? Heart rate normal.? Respiration rate normal. Temperature n ormal.? Oxygen saturation normal. Appearance: Alert.?Oriented to person, place and time. No acute distress.?Normal affect. Eyes: Pupils equal, round and reactive to light.? ENT: Pharynx normal.?? Neck: Normal inspection.? Neck supple.?? CVS: Heart sounds normal. Normal heart rate and rhythm.? Pulses normal.?? Respiratory: No respiratory distress.? Lung sounds clear to auscultation bilaterally?? Abdomen: Soft and non-tender. Normoactive bowel sounds. No pulsatile mass.?? Skin: Skin warm and dry.? Normal skin color.? Normal skin turgor.?? Extremities: + Left calf TPP, left medial knee TPP. Full AROM to left hip, knee, ankle. No erythema. No lower extremity edema. Thessaly negative. Ya negative. Anterior drawer test negative. Posterior drawer test negative. Valgus stress test negative. Varus stress test negative. Patellar DTRs and Achilles reflex 2+ bilaterally. Palpable 2+ DP/PT pulses bilaterally. Foot sensory is intact. Knees symmetric, posture is normal, lower extremity strength is 5/5 bilaterally. Neuro: Moves all extremities spontaneously. Sensation intact bilaterally. No focal neuro deficits. Ambulates with normal steady gait. Course Course Course Narrative: Patient is a 36-year-old female being evaluated for the left knee pain that radiates up her leg. Pain is acute on chronic. She is well-appearing, nontoxic in appearance, afebrile, not tachycardic. The no obvious joint effusion on exam, crepitus, or decreased range of motion. Given her history of prothrombin mutation and pulmonary embolism, will obtain ultrasound of the left lower extremity to exclude DVT. Will obtain basic labs including CBC and BMP. Disposition will be pending results. Reevaluation(s) Reevaluation #1: X-ray of left knee reveals minimal medial compartment arthrosis. US is negative for DVT. CBC with no leukocytosis, however, a mild anemia hemoglobin 11.6 and hematocrit 34.5 and platelet 111, which is consistent with prior labs, asymptomatic, she is in respiratory distress, not experiencing shortness of breath, no tachycardia, she is not pale, no CP, no spontaneous bleeding, nor unexplained bruising. BMP is unremarkable. Patient is able to ambulate with a steady gait fully weight-bearing. He has to use most commonly, probable horizontal tear was also closed with the store after OR Tylenol with. She should follow up with her primary care provider. Discussed reasons to return to the emergency department including new or worsening symptoms or concerns including but not limited to fevers, chills, redness, swelling, chest pain, or shortness of breath. Patient verbalized understanding agrees with plan of care. MDM - Extremity Injury (Lower) Medical Records Attestation: I reviewed the patient's medical records. Lab Data Attestation: I reviewed the patient's lab results. Result diagrams: 09/01/21 17:27 09/01/21 17:27 Labs: Lab Results 09/01/21 09/01/21 Range/Units 17:27 17:27 WBC 7.4 (4.8-10.8) X10*3/uL RBC 4.08 L (4.20-5.50) X10*6/uL Hgb 11.6 L (12.0-16.0) g/dl Hct 34.5 L (37.0-47.0) % MCV 84.6 (80.0-98.0) fL MCH 28.4 (27.0-33.0) pg MCHC 33.6 (31.0-35.0) g/dl RDW 12.2 (11.0-16.0) % Plt Count 111 L (160-400) X10*3/uL MPV Not Reportable Immature Gran % (Auto) 0.4 (0.0-0.4) % Neut % (Auto) 73.4 H (45-73) % Lymph % (Auto) 21.6 (20-40) % [place] % (Auto) 3.9 (2-11) % Eos % (Auto) 0.4 (0-4) % Baso % (Auto) 0.3 (0-2) % Lymph # (Auto) 1.6 (1.2-4.9) X10*3/uL [place] # (Auto) 0.3 (0.1-1.2) X10*3/uL Eos # (Auto) 0.0 (0.0-0.4) X10*3/uL Baso # (Auto) 0.0 (0.0-0.2) X10*3/uL Abs Immat Gran (auto) 0.03 (0.00-0.03) X10*3/uL Absolute Neuts (auto) 5.4 (2.0-8.3) x10*3/uL Absolute Nucleated RBC 0.000 (0.0-0.012) X10*3/uL Nucleated RBC % (auto) 0.0 (0.0-0.2) /100WBC Smear Tech's Comments VERIFIED Sodium 137 (135-145) mmol/L Potassium 4.1 (3.3-5.1) mmol/L Chloride 105 (96-108) mmol/L Carbon Dioxide 22 (22-29) mmol/L Anion Gap 14 (12-20) BUN 18 H (9-16) mg/dL Creatinine 1.17 (0.5-1.4) mg/dL Estim Creat Clear Calc 60.9 Estimated GFR 53 Random Glucose 126 H (60-115) mg/dL Calcium 9.6 D (8.4-10.2) mg/dL Imaging Data left knee x-ray: Attestation: I personally reviewed and interpreted this imaging study as follows: Radiologist's impression: IMPRESSION: Minimal medial compartment arthrosis. left LE US: Attestation: I personally reviewed and interpreted this imaging study as follows: Radiologist's impression: IMPRESSION: No DVT demonstrated in the left lower extremity. Discharge Plan Discharge Clinical Impression: Arthrosis of knee Patient Disposition: Home, Self-Care Instructions: Osteoarthritis (ED) Additional Instructions: The x-ray of your left knee revealed mild arthrosis. You can use topical cold or heat therapy as desired for 10-15 minutes 3-4 times daily, routine exercise, and tylenol or voltaren gel as needed for pain which can both be purchased over the counter. Prescriptions: No Action minocycline 100 mg capsule 100 mg PO BID 30 Days Qty: 60 1RF hydroxyzine HCl 25 mg Tablet 25 mg PO BEDTIME 0RF methadone 45 PO DAILY 0RF doxycycline monohydrate 100 mg capsule 100 mg PO BID 10 Days Qty: 20 0RF nystatin 100,000 unit/mL suspension 1 ml buccal DAILY Qty: 60 0RF Rx Instructions: administer 1/2 of dose in each side of the mouth ondansetron HCl [Zofran] 4 mg tablet 4 mg PO Q8H PRN (Reason: nausea and vomiting) Qty: 7 0RF fluconazole [Diflucan] 150 mg tablet 150 mg PO Q3D Qty: 2 0RF buprenorphine-naloxone [Suboxone] 8-2 mg film 2 film sublingual DAILY 7 Days Qty: 14 0RF Rx Instructions: place 1 strip/tab under (each) side of tongue acetaminophen 325 mg capsule 325 mg PO QID PRN0RF cariprazine 1.5 mg capsule 1.5 mg PO DAILY 0RF docusate sodium [Colace] 100 mg capsule 100 mg PO BID 0RF fluticasone furoate 50 mcg/actuation blister with device 1 inh inhalation DAILY 0RF hydromorphone 2 mg tablet 2 mg PO BID 0RF heparin lock flush (porcine) 10 unit/mL solution 10 unit IV DAILY 0RF Rx Instructions: administer after IV drug administration as part of [facility] protocol ibuprofen 600 mg tablet 600 mg PO Q8H PRN0RF midodrine 5 mg tablet 5 mg PO TID 0RF Rx Instructions: do not give last dose of day after 6PM or within 4 hrs of bedtime naloxone 0.4 mg/mL solution 0.4 mg IM Q2M PRN0RF Rx Instructions: NTExceed 10 mg total dose/episode omeprazole 20 mg capsule,delayed release(DR/EC) 20 mg PO BID 0RF sennosides [senna] 8.6 mg tablet 8.6 mg PO DAILY 0RF trazodone 100 mg tablet 100 mg PO BEDTIME PRN0RF tizanidine [Zanaflex] 4 mg capsule 4 mg PO Q8H PRN0RF
[2021-09-01 16:54] VITALS: PULSE 63; RESP 18; O2SAT 97
[2021-09-01 17:37] LABS: Hemoglobin 11.6 g/dl (12.0-16.0); Imm Gran Pct Auto 0.4 % (0.0-0.4); MANUAL DIFF FLAG SCAN; Neutrophils Percent Auto 73.4 % (45-73); PLT CLUMP 1; SCAN SMEAR FLAG 1
[2021-09-01 17:39] LABS: Basophils Percent Auto 0.3 % (0-2); Eosinophils Percent Auto 0.4 % (0-4); Hematocrit 34.5 % (37.0-47.0); Imm Gran Abs Auto 0.03 X10*3/uL (0.00-0.03); Lymphocytes Absolute Auto 1.6 X10*3/uL (1.2-4.9); Lymphocytes Percent Auto 21.6 % (20-40); Mean Corpuscular HGB Conc 33.6 g/dl (31.0-35.0); Mean Corpuscular Hemoglobin 28.4 pg (27.0-33.0); Mean Corpuscular Volume 84.6 fL (80.0-98.0); Monocytes Absolute Auto 0.3 X10*3/uL (0.1-1.2); Monocytes Percent Auto 3.9 % (2-11); Neutrophils Absolute Auto 5.4 x10*3/uL (2.0-8.3); Red Blood Count 4.08 X10*6/uL (4.20-5.50); Red Cell Distribution Width 12.2 % (11.0-16.0)
[2021-09-01 17:50] LABS: Anion Gap 14 (12-20); Blood Urea Nitrogen 18 mg/dL (9-16); Calcium 9.6 mg/dL (8.4-10.2); Carbon Dioxide 22 mmol/L (22-29); Chloride 105 mmol/L (96-108); Creatinine Clr Calc Pharmacy 60.9; Estimated Glomerular Filt Rate 53; Glucose Random 126 mg/dL (60-115); Potassium 4.1 mmol/L (3.3-5.1); Sodium 137 mmol/L (135-145)
[2021-09-01 17:55] LABS: Platelet Count 111 X10*3/uL (160-400); White Blood Count 7.4 X10*3/uL (4.8-10.8)
[2021-09-01 17:56] LABS: SLIDE REVIEW VERIFIED
== END 2021-09-01 18:35 | disposition home or self-care (01) ==
PROVIDERS: Nurse Practitioner Family; Emergency Provider Emergency Medicine Emergency Medical Services
DX: M25.562 Pain in left knee (principal); F11.20 Opioid dependence, uncomplicated
CPT/HCPCS: 36415; 73564; 80048; 85025; 93971; 99284

== ENCOUNTER 2021-11-10 09:46 | Emergency (ER) | payer OTHER, SELFPAY ==
--- NOTE | 2021-11-10 10:34 | ED.URI ---
HPI - URI/Sore Throat General Chief Complaint: Upper Respiratory Symptoms Stated Complaint: sore throat, sinus problems Time Seen by Provider: 11/10/21 10:33 Source: patient Mode of arrival: ambulatory Limitations: no limitations History of Present Illness HPI Narrative: 36 y/o female presenting to the ER with almost 2 weeks of sinus pressure, nasal congestion, headaches and a low grade fever 99.6 about 5 days ago. She has a history of seasonal allergies and has been taking Claritin and using flonase with no improvement. She reports post-nasal drip and a cough at night. No productive cough, no known sick contacts. She is fully vaccinated for COVID and Flu. MD elicited complaint: sore throat, nasal congestion and sinus pain Onset (ago): day(s) (13) Consistency: progressively worsening Severity: moderate Description of mucous: clear, watery and yellow Able to tolerate fluids by mouth: Yes Exacerbating factors: changing head position Relieving factors: nothing Associated symptoms: headache, rhinorrhea, nasal congestion, sore throat and cough Treatments prior to arrival: none Related Data Home Medications Medication Instructions Recorded Confirmed hydroxyzine HCl 25 mg tablet 25 mg PO BEDTIME 12/07/20 12/07/20 methadone 45 PO DAILY 12/07/20 acetaminophen 325 mg capsule 325 mg PO QID PRN 03/16/21 cariprazine 1.5 mg capsule 1.5 mg PO DAILY 03/16/21 docusate sodium 100 mg capsule 100 mg PO BID 03/16/21 (Colace) fluticasone furoate 50 1 inh INHALATION DAILY ea 03/16/21 mcg/actuation blister powder for inhalation heparin lock flush (porcine) 10 10 unit IV DAILY 03/16/21 unit/mL intravenous solution hydromorphone 2 mg tablet 2 mg PO BID tab 03/16/21 ibuprofen 600 mg tablet 600 mg PO Q8H PRN 03/16/21 midodrine 5 mg tablet 5 mg PO TID 03/16/21 naloxone 0.4 mg/mL injection 0.4 mg IM Q2M PRN 03/16/21 solution omeprazole 20 mg capsule,delayed 20 mg PO BID 03/16/21 release sennosides 8.6 mg tablet (senna) 8.6 mg PO DAILY 03/16/21 tizanidine 4 mg capsule (Zanaflex) 4 mg PO Q8H PRN 03/16/21 trazodone 100 mg tablet 100 mg PO BEDTIME PRN 03/16/21 Previous Rx's Medication Instructions Recorded minocycline 100 mg capsule 100 mg PO BID 30 Days #60 cap 04/01/21 buprenorphine 8 mg-naloxone 2 mg 2 film SUBLINGUAL DAILY 7 Days #14 04/19/21 sublingual film (Suboxone) ea doxycycline monohydrate 100 mg 100 mg PO BID 10 Days #20 cap 05/12/21 capsule fluconazole 150 mg tablet 150 mg PO Q3D #2 tab 05/12/21 (Diflucan) nystatin 100,000 unit/mL oral 1 ml BUCCAL DAILY #60 ml 05/12/21 suspension ondansetron HCl 4 mg tablet 4 mg PO Q8H PRN #7 tab 05/12/21 (Zofran) amoxicillin 875 mg-potassium 1 tab PO BID #20 tab 11/10/21 clavulanate 125 mg tablet bisacodyl 10 mg rectal suppository 10 mg PA DAILY PRN #12 ea 11/10/21 (Dulcolax (bisacodyl)) Allergies Allergy/AdvReac Type Severity Reaction Status Date / Time ceftriaxone [From ROCEPHIN] Allergy Intermediate HIVES Verified 04/19/21 14:12 sulfamethoxazole Allergy Intermediate HIVES Verified 04/19/21 14:12 [From BACTRIM] trimethoprim [From BACTRIM] Allergy Intermediate HIVES Verified 04/19/21 14:12 Sulfa (Sulfonamide Allergy Unknown HIVES. Verified 04/19/21 14:12 Antibiotics) VOMITING [SULFA (SULFONAMIDE ANTIBIOTICS)] doxycycline [DOXYCYCLINE] AdvReac Unknown NAUSEA & Verified 04/19/21 14:12 VOMITING Review of Systems Review of Systems: Constitutional: + Fever, No Chills ENT/Mouth: + sore throat, +Rhinorrhea, No Swallowing Difficulty Eyes: No Eye Pain, No Swelling, + Redness, +watery eyes Cardiovascular: No Chest Pain, No SOB Respiratory: + Cough, No Sputum, No Wheezing, No dyspnea Gastrointestinal: No Nausea, No Vomiting, No Diarrhea, No abdominal Pain, +constipation Musculoskeletal: No joint pain, No Myalgias Skin: No Skin Lesions, No rash Neuro: No Weakness, No Dizziness, + Headache Heme/Lymph: No Bruising, No Lymphadenopathy PMFSH Past Medical History Medical History (Updated 11/10/21 @ 11:38 by GALINDO Jimenez) Acute pelvic inflammatory disease (PID) Diskitis Drug use Opioid use disorder Prothrombin gene mutation Pulmonary emboli Social History Social History Household Members: Other Housing: Homeless Do you presently have visiting nurse or other home services: No Alcohol intake: current Alcohol intake frequency: holidays/special occasions only Substance Use Type: Crack/Cocaine and Heroin Advance Directives: No service: No Current occupational status: unemployed Physical Exam Vital Signs: Vital Signs: Last Vital Signs Temp 97.9 F 11/10/21 10:44 Pulse 72 11/10/21 10:44 Resp 16 11/10/21 10:44 BP 94/72 11/10/21 10:44 Pulse Ox 96 11/10/21 10:44 BMI result Body Mass Index 25.0 Appearance: Alert. Oriented X3. No acute distress. Eyes: Pupils equal, round and reactive to light. ENT: Pharynx with moist mucous membranes, posterior or pharyngeal erythema without tonsillar enlargement or exudate. Uvula midline. Nasal turbinates inflamed and erythematous with clear nasal discharge. Ethmoid sinus tenderness bilaterally. Normal tympanic membranes bilaterally. Neck: Normal inspection. Neck supple. No lymphadenopathy. CVS: Normal heart rate and rhythm. Pulses normal. Respiratory: No respiratory distress. Breath sounds normal. Skin: Skin warm and dry. Normal skin color. Normal skin turgor. No rashes. Extremities: No lower extremity edema. Neuro: Oriented X 3. Grossly normal, nonfocal Course Course Course Narrative: 36 y/o female with history of seasonal allergies, opiate dependence on methadone presenting with 2 weeks of URI symptoms. Her examination is most consistent with seasonal allergic rhinitis as well as superimposed sinusitis. She is negative for influenza, COVID, and strep throat. Will treat for sinusitis and have her add nasal saline to her allergy regimen. She was encourage follow-up with her primary care doctor. She is stable for discharge home. MDM - URI/Sore Throat Lab Data Labs: Lab Results 11/10/21 11/10/21 11/10/21 Range/Units 10:48 10:48 10:48 COVID-19 (BRE) Negative (Negative) COVID-19 Clin Com See Note Influenza Type A ([place]) Negative (Negative) Influenza Type B ([place]) Negative (Negative) Influenza A & B Note See Note S. pyogenes GrpA [place] Negative (Negative) Critical Care Time Critical Care Time Critical Care Time: No Discharge Plan Discharge Clinical Impression: Sinusitis Patient Disposition: Home, Self-Care Instructions: Sinusitis (ED) Additional Instructions: You tested negative for influenza, COVID, and strep throat. Take the prescribed antibiotics for sinus infection. Use nasal saline spray 2-3 times per day in addition to your Flonase. If you develop new or worsening symptoms call 911 or come back to the ER for further evaluation. Prescriptions: New amoxicillin-pot clavulanate 875-125 mg tablet 1 tab PO BID Qty: 20 0RF bisacodyl [Dulcolax (bisacodyl)] 10 mg suppository 10 mg PA DAILY PRN (Reason: constipation) Qty: 12 0RF No Action minocycline 100 mg capsule 100 mg PO BID 30 Days Qty: 60 1RF hydroxyzine HCl 25 mg Tablet 25 mg PO BEDTIME 0RF methadone 45 PO DAILY 0RF doxycycline monohydrate 100 mg capsule 100 mg PO BID 10 Days Qty: 20 0RF nystatin 100,000 unit/mL suspension 1 ml buccal DAILY Qty: 60 0RF Rx Instructions: administer 1/2 of dose in each side of the mouth ondansetron HCl [Zofran] 4 mg tablet 4 mg PO Q8H PRN (Reason: nausea and vomiting) Qty: 7 0RF fluconazole [Diflucan] 150 mg tablet 150 mg PO Q3D Qty: 2 0RF buprenorphine-naloxone [Suboxone] 8-2 mg film 2 film sublingual DAILY 7 Days Qty: 14 0RF Rx Instructions: place 1 strip/tab under (each) side of tongue acetaminophen 325 mg capsule 325 mg PO QID PRN0RF cariprazine 1.5 mg capsule 1.5 mg PO DAILY 0RF docusate sodium [Colace] 100 mg capsule 100 mg PO BID 0RF fluticasone furoate 50 mcg/actuation blister with device 1 inh inhalation DAILY 0RF hydromorphone 2 mg tablet 2 mg PO BID 0RF heparin lock flush (porcine) 10 unit/mL solution 10 unit IV DAILY 0RF Rx Instructions: administer after IV drug administration as part of [facility] protocol ibuprofen 600 mg tablet 600 mg PO Q8H PRN0RF midodrine 5 mg tablet 5 mg PO TID 0RF Rx Instructions: do not give last dose of day after 6PM or within 4 hrs of bedtime naloxone 0.4 mg/mL solution 0.4 mg IM Q2M PRN0RF Rx Instructions: NTExceed 10 mg total dose/episode omeprazole 20 mg capsule,delayed release(DR/EC) 20 mg PO BID 0RF sennosides [senna] 8.6 mg tablet 8.6 mg PO DAILY 0RF trazodone 100 mg tablet 100 mg PO BEDTIME PRN0RF tizanidine [Zanaflex] 4 mg capsule 4 mg PO Q8H PRN0RF Interventions: ED Discharge Assessment Last Done: 11/10/21 11:50 Discharge Date/Time: 11/10/21 11:52
[2021-11-10 10:44] VITALS: BP 94/72; PULSE 72; RESP 16; TEMP 36.6; O2SAT 96; BMI 25.0
[2021-11-10 11:25] LABS: COVID-19 Test Negative (Negative)
[2021-11-10 11:27] LABS: Strep A Nucleic Acid Negative (Negative)
[2021-11-10 11:35] LABS: IDNOW Serial# 16C4AD1C; Influenza A Negative (Negative)
[2021-11-10 11:36] LABS: Influenza B2 Negative (Negative)
== END 2021-11-10 11:52 | disposition home or self-care (01) ==
PROVIDERS: Physician Assistant; Emergency Provider Emergency Medicine
DX: J32.9 Chronic sinusitis, unspecified (principal); J02.8 Acute pharyngitis due to other specified organisms; F11.90 Opioid use, unspecified, uncomplicated; F14.90 Cocaine use, unspecified, uncomplicated; Z20.822 Contact with and (suspected) exposure to COVID-19
CPT/HCPCS: 87502; 87635; 87651; 99283

== ENCOUNTER 2021-12-07 03:19 | Emergency (ER) | payer OTHER, SELFPAY ==
[2021-12-07 03:40] VITALS: BP 116/56; PULSE 81; RESP 18; TEMP 36.4; O2SAT 98; BMI 21.1
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
[2021-12-07 03:54] VITALS: BP 104/62; PULSE 68; RESP 20; TEMP 36.8; O2SAT 97
[2021-12-07] MEDS: Azithromycin 500 MG TABLET 1000 MG PO (04:11)
== END 2021-12-07 04:28 | disposition home or self-care (01) ==
PROVIDERS: Emergency Provider Emergency Medicine; PCP Pediatrics
DX: R21 Rash and other nonspecific skin eruption (principal); Z20.2 Contact with and (suspected) exposure to infections with a predominantly sexual mode of transmission; Z79.899 Other long term (current) drug therapy
CPT/HCPCS: 99283

== ENCOUNTER 2022-01-01 11:44 | Emergency (ER) | payer OTHER, SELFPAY ==
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
[2022-01-01 12:00] VITALS: BP 114/82; PULSE 69; RESP 18; TEMP 36.7; O2SAT 97; BMI 25.0
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
[2022-01-01] MEDS: Amoxicillin 500 MG CAPSULE PO (14:28)
[2022-01-01 15:09] LABS: UPreg QC Valid YES; Urine Pregnancy NEGATIVE (NEGATIVE)
== END 2022-01-01 17:08 | disposition home or self-care (01) ==
PROVIDERS: Physician Assistant; Emergency Provider Student in an Organized Health Care Education/Training Program
DX: S02.5XXA Fracture of tooth (traumatic), initial encounter for closed fracture (principal); Y04.2XXA Assault by strike against or bumped into by another person, initial encounter; K08.89 Other specified disorders of teeth and supporting structures; F11.20 Opioid dependence, uncomplicated; Y93.9 Activity, unspecified; Y92.9 Unspecified place or not applicable; Y99.9 Unspecified external cause status; Z79.899 Other long term (current) drug therapy
CPT/HCPCS: 70450; 70486; 81025; 99281; 99284

== ENCOUNTER 2022-01-26 20:15 | Emergency (ER) | payer OTHER, SELFPAY ==
[2022-01-26 21:11] VITALS: BP 120/73; PULSE 87; RESP 18; TEMP 36.5; O2SAT 100; BMI 20.5
--- NOTE | 2022-01-26 23:29 | ED_ITS ---
HPI - Dental/Oral General Chief complaint: Dental/Oral Stated complaint: tooth pain, sore on tongue Time Seen by Provider: 01/26/22 23:24 Source: patient Mode of arrival: ambulatory Limitations: no limitations History of Present Illness HPI Narrative: Patient comes to the emergency room complaining of dental pain. Patient states it has been present for several days. No fever or chills. Related Data Home Medications Medication Instructions Recorded Confirmed hydroxyzine HCl 25 mg tablet 25 mg PO BEDTIME 12/07/20 12/07/20 methadone 45 PO DAILY 12/07/20 acetaminophen 325 mg capsule 325 mg PO QID PRN 03/16/21 cariprazine 1.5 mg capsule 1.5 mg PO DAILY 03/16/21 docusate sodium 100 mg capsule 100 mg PO BID 03/16/21 (Colace) fluticasone furoate 50 1 inh inhalation DAILY 03/16/21 mcg/actuation blister powder for inhalation heparin lock flush (porcine) 10 10 unit IV DAILY 03/16/21 unit/mL intravenous solution hydromorphone 2 mg tablet 2 mg PO BID 03/16/21 ibuprofen 600 mg tablet 600 mg PO Q8H PRN 03/16/21 midodrine 5 mg tablet 5 mg PO TID 03/16/21 naloxone 0.4 mg/mL injection 0.4 mg IM Q2M PRN 03/16/21 solution omeprazole 20 mg capsule,delayed 20 mg PO BID 03/16/21 release sennosides 8.6 mg tablet (senna) 8.6 mg PO DAILY 03/16/21 tizanidine 4 mg capsule (Zanaflex) 4 mg PO Q8H PRN 03/16/21 trazodone 100 mg tablet 100 mg PO BEDTIME PRN 03/16/21 Previous Rx's Medication Instructions Recorded minocycline 100 mg capsule 100 mg PO BID 30 days #60 caps 04/01/21 buprenorphine 8 mg-naloxone 2 mg 2 film sublingual DAILY 7 days #14 04/19/21 sublingual film (Suboxone) ea doxycycline monohydrate 100 mg 100 mg PO BID 10 days #20 caps 05/12/21 capsule fluconazole 150 mg tablet 150 mg PO Q3D 2 doses #2 tabs 05/12/21 (Diflucan) nystatin 100,000 unit/mL oral 1 ml buccal DAILY #60 mL 05/12/21 suspension ondansetron HCl 4 mg tablet 4 mg PO Q8H PRN nausea and 05/12/21 (Zofran) vomiting #7 tabs amoxicillin 875 mg-potassium 1 tab PO BID #20 tabs 11/10/21 clavulanate 125 mg tablet bisacodyl 10 mg rectal suppository 10 mg NC DAILY PRN constipation 11/10/21 (Dulcolax (bisacodyl)) #12 ea doxycycline hyclate 100 mg tablet 100 mg PO BID #20 tabs 12/07/21 amoxicillin 500 mg capsule 500 mg PO BID 10 days #20 caps 01/01/22 amoxicillin 500 mg capsule 500 mg PO TID 7 days #21 caps 01/26/22 Allergies Allergy/AdvReac Type Severity Reaction Status Date / Time ceftriaxone [From ROCEPHIN] Allergy Intermediate HIVES Verified 04/19/21 14:12 sulfamethoxazole Allergy Intermediate HIVES Verified 04/19/21 14:12 [From BACTRIM] trimethoprim [From BACTRIM] Allergy Intermediate HIVES Verified 04/19/21 14:12 Sulfa (Sulfonamide Allergy Unknown HIVES. Verified 04/19/21 14:12 Antibiotics) VOMITING [SULFA (SULFONAMIDE ANTIBIOTICS)] doxycycline [DOXYCYCLINE] AdvReac Unknown NAUSEA & Verified 04/19/21 14:12 VOMITING Review of Systems Review of Systems: Constitutional : No Weight loss, No Fever, No Chills, No Night Sweats, No Fatigue, No Malaise ENT/Mouth : No Hearing loss, No Ear Pain, No Nasal Congestion, No Sinus Pain, No Hoarseness, No sore throat, No Rhinorrhea, No Swallowing Difficulty, complaining of dental pain on the right mandibular side Eyes: No Eye Pain, No Swelling, No Redness, No Foreign Body, No Discharge, No Vision Changes Cardiovascular : No Chest Pain, No SOB, No Dyspnea on Exertion, No Orthopnea, No Edema, No Palpitations Respiratory : No Cough, No Sputum, No Wheezing, No Smoke Exposure, No Dyspnea Gastrointestinal : No Nausea, No Vomiting, No Diarrhea, No Constipation, No abdominal Pain, No Hematochezia, No Melena Genitourinary : no irregular bleeding, No Dysuria, No Urinary Frequency, No Hematuria, No Urinary Incontinence, No Urgency, No Flank Pain, No Urinary Flow Changes, No Hesitancy Musculoskeletal : No joint pain, No Myalgias, No Joint Swelling Skin : No Skin Lesions, No rash Neuro : No Weakness, No Numbness, No Paresthesias, No Loss of Consciousness, No Dizziness, No Headache Psych : No Anxiety/Panic, No Depression, No SI/HI/AH/VH, No Social Issues, Heme/Lymph: No Bruising, No Bleeding,No Lymphadenopathy Endocrine : No Polyuria, No Polydipsia, No Temperature Intolerance [facility] Past Medical History Medical History Acute pelvic inflammatory disease (PID) Diskitis Drug use Opioid use disorder Prothrombin gene mutation Pulmonary emboli Social History Social History Household Members: Other Housing: Homeless Do you presently have visiting nurse or other home services: No Alcohol intake: current Alcohol intake frequency: holidays/special occasions only Substance Use Type: Crack/Cocaine and Heroin Advance Directives: No service: No Current occupational status: unemployed Physical Exam Vital Signs: Vital Signs: Last Vital Signs Temp 97.7 F 01/26/22 21:11 Pulse 87 01/26/22 21:11 Resp 18 01/26/22 21:11 BP 120/73 01/26/22 21:11 Pulse Ox 100 01/26/22 21:11 O2 Del Method 01/26/22 21:11 BMI result Body Mass Index 20.5 Const: Other: Appearance: Alert. Oriented X3. No acute distress. Eyes: Pupils equal, round and reactive to light. ENT: Pharynx normal. Patient has poor dentition, mild erythema in the gum in the right maxillary side, some teeth missing , no abscess Neck: Normal inspection. Neck supple. No lymph nodes noted. No crepitus CVS: Normal heart rate and rhythm. Pulses normal. Normal S1 and S2 Respiratory: No respiratory distress. Breath sounds normal. No Wheezing. No rales Abdomen: Soft and nontender. No rigidity. No distention. Skin: Skin warm and dry. Normal skin color. Normal skin turgor. Extremities: No lower extremity edema. No Lacerations. No Rash Neuro: Oriented X 3. No motor deficit. No sensory deficit. Moving all extremities. No slurred speech. CN 2 through 12 grossly intact Psych: calm, cooperative, normal affect Course Course Course Narrative: Patient seems to have a mild tooth infection, penicillin was started. Patient reports no allergies. Also, patient has a canker sore to the left side of the tongue Discharge Plan Discharge Clinical Impression: Toothache Patient Disposition: Home, Self-Care Instructions: Toothache (ED) Additional Instructions: Please follow-up with your dentist and primary care physician tomorrow. If you have any worsening or new symptoms, please return to the emergency room or call 911 Prescriptions: New amoxicillin 500 mg capsule 500 mg PO TID 7 Days Qty: 21 0RF No Action minocycline 100 mg capsule 100 mg PO BID 30 Days Qty: 60 1RF hydroxyzine HCl 25 mg Tablet 25 mg PO BEDTIME methadone 45 PO DAILY doxycycline monohydrate 100 mg capsule 100 mg PO BID 10 Days Qty: 20 0RF nystatin 100,000 unit/mL suspension 1 ml buccal DAILY Qty: 60 0RF Rx Instructions: administer 1/2 of dose in each side of the mouth ondansetron HCl [Zofran] 4 mg tablet 4 mg PO Q8H PRN (Reason: nausea and vomiting) Qty: 7 0RF fluconazole [Diflucan] 150 mg tablet 150 mg PO Q3D Qty: 2 0RF amoxicillin-pot clavulanate 875-125 mg tablet 1 tab PO BID Qty: 20 0RF bisacodyl [Dulcolax (bisacodyl)] 10 mg suppository 10 mg NC DAILY PRN (Reason: constipation) Qty: 12 0RF doxycycline hyclate 100 mg tablet 100 mg PO BID Qty: 20 0RF amoxicillin 500 mg capsule 500 mg PO BID 10 Days Qty: 20 0RF buprenorphine-naloxone [Suboxone] 8-2 mg film 2 film sublingual DAILY 7 Days Qty: 14 0RF Rx Instructions: place 1 strip/tab under (each) side of tongue acetaminophen 325 mg capsule 325 mg PO QID PRN cariprazine 1.5 mg capsule 1.5 mg PO DAILY docusate sodium [Colace] 100 mg capsule 100 mg PO BID fluticasone furoate 50 mcg/actuation blister with device 1 inh inhalation DAILY hydromorphone 2 mg tablet 2 mg PO BID heparin lock flush (porcine) 10 unit/mL solution 10 unit IV DAILY Rx Instructions: administer after IV drug administration as part of [facility] protocol ibuprofen 600 mg tablet 600 mg PO Q8H PRN midodrine 5 mg tablet 5 mg PO TID Rx Instructions: do not give last dose of day after 6PM or within 4 hrs of bedtime naloxone 0.4 mg/mL solution 0.4 mg IM Q2M PRN Rx Instructions: NTExceed 10 mg total dose/episode omeprazole 20 mg capsule,delayed release(DR/EC) 20 mg PO BID sennosides [senna] 8.6 mg tablet 8.6 mg PO DAILY trazodone 100 mg tablet 100 mg PO BEDTIME PRN tizanidine [Zanaflex] 4 mg capsule 4 mg PO Q8H PRN
[2022-01-26] MEDS: Penicillin V Potassium 250 MG TABLET 500 MG PO (23:48)
== END 2022-01-26 23:55 | disposition home or self-care (01) ==
PROVIDERS: Emergency Provider Emergency Medicine; PCP Pediatrics
DX: K08.89 Other specified disorders of teeth and supporting structures (principal); F11.20 Opioid dependence, uncomplicated
CPT/HCPCS: 99282; 99283

== ENCOUNTER 2022-02-11 03:01 | Emergency (ER) | payer OTHER, SELFPAY ==
[2022-02-11 03:13] VITALS: BP 94/58; PULSE 81; RESP 16; TEMP 36.9; O2SAT 98; BMI 23.3
--- NOTE | 2022-02-11 06:53 | ED.SKABFB ---
HPI - Skin/Abscess/Foreign Bdy General Chief complaint: Skin/Abscess/Foreign Body Stated complaint: abscess & infected tooth, possible cellulitis Time Seen by Provider: 02/11/22 06:53 Source: patient Mode of arrival: ambulatory Limitations: no limitations History of Present Illness HPI narrative: 36-year-old female with history of IV drug abuser came in for evaluation of left forearm infection and toothache. Patient has been homeless in the street, history of IV drug abuse, came in for evaluation of left arm abscess/infection patient admitted to injecting into the left forearm confirm there is no broken needle in her, at this point there is no fluctuation or drainage, no fever or chills. Also complaining of left lower tooth broke in and cutting her tongue. Patient has been homeless in the street and been walking long distances, patient is complaining of right heel pain of the right foot. Related Data Home Medications Medication Instructions Recorded Confirmed hydroxyzine HCl 25 mg tablet 25 mg PO BEDTIME 12/07/20 12/07/20 methadone 45 PO DAILY 12/07/20 acetaminophen 325 mg capsule 325 mg PO QID PRN 03/16/21 cariprazine 1.5 mg capsule 1.5 mg PO DAILY 03/16/21 docusate sodium 100 mg capsule 100 mg PO BID 03/16/21 (Colace) fluticasone furoate 50 1 inh inhalation DAILY 03/16/21 mcg/actuation blister powder for inhalation heparin lock flush (porcine) 10 10 unit IV DAILY 03/16/21 unit/mL intravenous solution hydromorphone 2 mg tablet 2 mg PO BID 03/16/21 ibuprofen 600 mg tablet 600 mg PO Q8H PRN 03/16/21 midodrine 5 mg tablet 5 mg PO TID 03/16/21 naloxone 0.4 mg/mL injection 0.4 mg IM Q2M PRN 03/16/21 solution omeprazole 20 mg capsule,delayed 20 mg PO BID 03/16/21 release sennosides 8.6 mg tablet (senna) 8.6 mg PO DAILY 03/16/21 tizanidine 4 mg capsule (Zanaflex) 4 mg PO Q8H PRN 03/16/21 trazodone 100 mg tablet 100 mg PO BEDTIME PRN 03/16/21 Previous Rx's Medication Instructions Recorded minocycline 100 mg capsule 100 mg PO BID 30 days #60 caps 04/01/21 buprenorphine 8 mg-naloxone 2 mg 2 film sublingual DAILY 7 days #14 04/19/21 sublingual film (Suboxone) ea doxycycline monohydrate 100 mg 100 mg PO BID 10 days #20 caps 05/12/21 capsule fluconazole 150 mg tablet 150 mg PO Q3D 2 doses #2 tabs 05/12/21 (Diflucan) nystatin 100,000 unit/mL oral 1 ml buccal DAILY #60 mL 05/12/21 suspension ondansetron HCl 4 mg tablet 4 mg PO Q8H PRN nausea and 05/12/21 (Zofran) vomiting #7 tabs amoxicillin 875 mg-potassium 1 tab PO BID #20 tabs 11/10/21 clavulanate 125 mg tablet bisacodyl 10 mg rectal suppository 10 mg NE DAILY PRN constipation 11/10/21 (Dulcolax (bisacodyl)) #12 ea doxycycline hyclate 100 mg tablet 100 mg PO BID #20 tabs 12/07/21 amoxicillin 500 mg capsule 500 mg PO BID 10 days #20 caps 01/01/22 amoxicillin 500 mg capsule 500 mg PO TID 7 days #21 caps 01/26/22 doxycycline hyclate 100 mg capsule 100 mg PO BID #20 caps 02/11/22 Allergies Allergy/AdvReac Type Severity Reaction Status Date / Time ceftriaxone [From ROCEPHIN] Allergy Intermediate HIVES Verified 04/19/21 14:12 sulfamethoxazole Allergy Intermediate HIVES Verified 04/19/21 14:12 [From BACTRIM] trimethoprim [From BACTRIM] Allergy Intermediate HIVES Verified 04/19/21 14:12 Sulfa (Sulfonamide Allergy Unknown HIVES. Verified 04/19/21 14:12 Antibiotics) VOMITING [SULFA (SULFONAMIDE ANTIBIOTICS)] doxycycline [DOXYCYCLINE] AdvReac Unknown NAUSEA & Verified 04/19/21 14:12 VOMITING Review of Systems Review of Systems: All other systems are reviewed and are negative Constitutional: Reports as per HPI and Reports no additional constitutional complaints Eyes: Reports as per HPI and Reports no additional eye complaints Reports system reviewed and no additional complaints, except as documented Cardiovascular: Reports as per HPI and Reports no additional cardiovascular complaints Respiratory: Reports as per HPI and Reports no additional respiratory complaints Gastrointestinal: Reports as per HPI and Reports no additional gastrointestinal complaints Genitourinary: Reports no additional female genitourinary complaints Musculoskeletal: Reports no additional musculoskeletal complaints Skin/Breast: Reports system reviewed and no additional complaints, except as docu Psychiatric: Reports no additional psychiatric complaints Endocrine: Reports no additional endocrine complaints Hematologic/Lymphatic: Reports no additional hematologic/lymphatic complaints Allergic/Immunologic: Reports no additional allergic/immunologic complaints Reports system reviewed and no additional complaints, except as documented and Reports Abnormal speech present [facility] Past Medical History Medical History Acute pelvic inflammatory disease (PID) Diskitis Drug use Opioid use disorder Prothrombin gene mutation Pulmonary emboli Social History Social History Household Members: Other Housing: Homeless Do you presently have visiting nurse or other home services: No Alcohol intake: current Alcohol intake frequency: holidays/special occasions only Substance Use Type: Crack/Cocaine and Heroin Advance Directives: No Advance Directives Information Provided: Yes service: No Current occupational status: unemployed Physical Exam Vital Signs: Vital Signs: Last Vital Signs Temp 98.4 F 02/11/22 03:13 Pulse 63 02/11/22 07:29 Resp 14 02/11/22 07:29 BP 96/48 L 02/11/22 07:29 Pulse Ox 100 02/11/22 07:29 O2 Del Method 02/11/22 07:29 BMI result Body Mass Index 23.3 Vital signs have been reviewed as appeared to be correct. Blood pressure normal. Heart rate normal. Respiration rate normal. Temperature normal. Oxygen saturation normal. Appearance: Alert. Oriented X3. No acute distress. Head: Normal external exam. Normocephalic. Atraumatic. No Mendoza signs noted. No raccoon eyes noted Eyes: PERRLA. EOMI. Conjunctiva and sclera normal. Eyelids normal. ENT: TM's Normal. Pharynx normal. Uvula midline. Moist mucous membranes. No trismus noted. No drooling noted. No muffled voice noted. Neck: Normal inspection. Neck supple. FROM. No adenopathy. Thyroid Normal. No meningeal signs. No neck mass noted. CVS: Normal heart rate and rhythm. Heart sound normal. No murmurs noted. Pulses normal throughout. Respiratory: No respiratory distress. Painless inspiration. Breath sounds normal. No wheezes/rales/rhonchi noted. Chest nontender. No accessory muscle usage noted or decreased air movement noted. Abdomen: Soft and nontender. Bowel sounds normal in all 4 quadrants. No distention noted. No organomegaly noted. No visible injury noted. Back: No CVA tenderness. Full range of motion noted. Skin: Skin warm and dry. Normal skin color. Normal skin turgor. No rashes/lesions/lacerations noted. Extremities: Left forearm area of 7 x 5 cm of redness and hotness with tenderness, no drainage, no fluctuation. Neuro: Oriented X 3. Cranial nerve exam: II-XII are grossly intact No motor deficit. No sensory deficit. Reflexes normal. Course Course Course Narrative: 36 years old female IV drug abuser and homeless came in with left forearm cellulitis, patient usually not compliant with her medication recently was prescribed antibiotic for this same infection patient did not finish the antibiotic. Patient was educated about the importance of taking the antibiotic in order to cure her infection and avoid complication from infection. Discharge Plan Discharge Clinical Impression: Cellulitis Patient Disposition: Home, Self-Care Instructions: Cellulitis (ED) Prescriptions: New doxycycline hyclate 100 mg capsule 100 mg PO BID Qty: 20 0RF No Action minocycline 100 mg capsule 100 mg PO BID 30 Days Qty: 60 1RF hydroxyzine HCl 25 mg Tablet 25 mg PO BEDTIME methadone 45 PO DAILY doxycycline monohydrate 100 mg capsule 100 mg PO BID 10 Days Qty: 20 0RF nystatin 100,000 unit/mL suspension 1 ml buccal DAILY Qty: 60 0RF Rx Instructions: administer 1/2 of dose in each side of the mouth ondansetron HCl [Zofran] 4 mg tablet 4 mg PO Q8H PRN (Reason: nausea and vomiting) Qty: 7 0RF fluconazole [Diflucan] 150 mg tablet 150 mg PO Q3D Qty: 2 0RF amoxicillin 500 mg capsule 500 mg PO TID 7 Days Qty: 21 0RF amoxicillin-pot clavulanate 875-125 mg tablet 1 tab PO BID Qty: 20 0RF bisacodyl [Dulcolax (bisacodyl)] 10 mg suppository 10 mg NE DAILY PRN (Reason: constipation) Qty: 12 0RF doxycycline hyclate 100 mg tablet 100 mg PO BID Qty: 20 0RF amoxicillin 500 mg capsule 500 mg PO BID 10 Days Qty: 20 0RF buprenorphine-naloxone [Suboxone] 8-2 mg film 2 film sublingual DAILY 7 Days Qty: 14 0RF Rx Instructions: place 1 strip/tab under (each) side of tongue acetaminophen 325 mg capsule 325 mg PO QID PRN cariprazine 1.5 mg capsule 1.5 mg PO DAILY docusate sodium [Colace] 100 mg capsule 100 mg PO BID fluticasone furoate 50 mcg/actuation blister with device 1 inh inhalation DAILY hydromorphone 2 mg tablet 2 mg PO BID heparin lock flush (porcine) 10 unit/mL solution 10 unit IV DAILY Rx Instructions: administer after IV drug administration as part of [facility] protocol ibuprofen 600 mg tablet 600 mg PO Q8H PRN midodrine 5 mg tablet 5 mg PO TID Rx Instructions: do not give last dose of day after 6PM or within 4 hrs of bedtime naloxone 0.4 mg/mL solution 0.4 mg IM Q2M PRN Rx Instructions: NTExceed 10 mg total dose/episode omeprazole 20 mg capsule,delayed release(DR/EC) 20 mg PO BID sennosides [senna] 8.6 mg tablet 8.6 mg PO DAILY trazodone 100 mg tablet 100 mg PO BEDTIME PRN tizanidine [Zanaflex] 4 mg capsule 4 mg PO Q8H PRN Referrals: Moira Rivera MD [Primary Care Provider] -
--- NOTE | 2022-02-11 06:58 | PC.NURSE ---
report given to CHAUNCEY Spencer
[2022-02-11 07:29] VITALS: BP 96/48; PULSE 63; RESP 14; O2SAT 100
[2022-02-11] MEDS: Fluconazole 100 MG TABLET PO (08:30)
== END 2022-02-11 09:30 | disposition home or self-care (01) ==
PROVIDERS: Emergency Provider Emergency Medicine; PCP Pediatrics
DX: L03.114 Cellulitis of left upper limb (principal); K03.81 Cracked tooth; M79.671 Pain in right foot; F19.10 Other psychoactive substance abuse, uncomplicated; F11.20 Opioid dependence, uncomplicated; Z86.711 Personal history of pulmonary embolism; Z59.00 Homelessness unspecified; Z79.01 Long term (current) use of anticoagulants; Z79.899 Other long term (current) drug therapy; B15.9 Hepatitis A without hepatic coma
CPT/HCPCS: 99283; 99284

== ENCOUNTER 2022-05-15 04:39 | Emergency (ER) | payer OTHER, SELFPAY ==
--- NOTE | ~2022-05-15 | XR_ITS ---
EXAMINATION: XR CHEST CLINICAL INFORMATION: Cough COMPARISON: 05/12/2021 TECHNIQUE: Frontal view of the chest was obtained. FINDINGS: The lungs are well expanded. There is a hazy opacity at the left lung base. No pleural effusion or pneumothorax. No pneumothorax. The cardiomediastinal silhouette is within normal limits. No acute osseous abnormality. XR/XR chest 1V IMPRESSION: Hazy opacity at the left lung base could represent atelectasis or pneumonia.
[2022-05-15 04:51] VITALS: BP 102/57; PULSE 69; RESP 16; TEMP 36.7; O2SAT 99; BMI 23.5
--- NOTE | 2022-05-15 07:00 | ED.GENADULT ---
HPI - General Adult General Chief complaint: General Medical Stated complaint: Blurry vision/Dehydrated/Missed methadone Time Seen by Provider: 05/15/22 06:55 Source: patient Mode of arrival: ambulatory Limitations: no limitations History of Present Illness HPI narrative: 37 yo female with hx of UTI, opiate use disorder missed methadone yesterday wants her dose 140mg [facility] clinic, prior epidural abscess. The patient reports feeling a fever - ferris 2 days ago wants to get checked out has no other source - no abscess, no cough, no dysuria, no back pain, no chest pain/sob. Wants detox. MD complaint: methadone dosing/detox/possible fever 2 days ago Onset (ago): day(s) (2) Severity: mild Pain Consistency: constant Relieving factors: none Exacerbating factors: none Associated symptoms: fever/chills (2 days ago felt ferris which is a sign of fever for her) Treatments prior to arrival: none Related Data Home Medications Medication Instructions Recorded Confirmed hydroxyzine HCl 25 mg tablet 25 mg PO BEDTIME 12/07/20 12/07/20 methadone 45 PO DAILY 12/07/20 acetaminophen 325 mg capsule 325 mg PO QID PRN 03/16/21 cariprazine 1.5 mg capsule 1.5 mg PO DAILY 03/16/21 docusate sodium 100 mg capsule 100 mg PO BID 03/16/21 (Colace) fluticasone furoate 50 1 inh inhalation DAILY 03/16/21 mcg/actuation blister powder for inhalation heparin lock flush (porcine) 10 10 unit IV DAILY 03/16/21 unit/mL intravenous solution hydromorphone 2 mg tablet 2 mg PO BID 03/16/21 ibuprofen 600 mg tablet 600 mg PO Q8H PRN 03/16/21 midodrine 5 mg tablet 5 mg PO TID 03/16/21 naloxone 0.4 mg/mL injection 0.4 mg IM Q2M PRN 03/16/21 solution omeprazole 20 mg capsule,delayed 20 mg PO BID 03/16/21 release sennosides 8.6 mg tablet (senna) 8.6 mg PO DAILY 03/16/21 tizanidine 4 mg capsule (Zanaflex) 4 mg PO Q8H PRN 03/16/21 trazodone 100 mg tablet 100 mg PO BEDTIME PRN 08/18/21 Previous Rx's Medication Instructions Recorded minocycline 100 mg capsule 100 mg PO BID 30 days #60 caps 04/01/21 buprenorphine 8 mg-naloxone 2 mg 2 film sublingual DAILY 7 days #14 04/19/21 sublingual film (Suboxone) ea doxycycline monohydrate 100 mg 100 mg PO BID 10 days #20 caps 05/12/21 capsule fluconazole 150 mg tablet 150 mg PO Q3D 2 doses #2 tabs 05/12/21 (Diflucan) nystatin 100,000 unit/mL oral 1 ml buccal DAILY #60 mL 05/12/21 suspension ondansetron HCl 4 mg tablet 4 mg PO Q8H PRN nausea and 05/12/21 (Zofran) vomiting #7 tabs amoxicillin 875 mg-potassium 1 tab PO BID #20 tabs 11/10/21 clavulanate 125 mg tablet bisacodyl 10 mg rectal suppository 10 mg NC DAILY PRN constipation 11/10/21 (Dulcolax (bisacodyl)) #12 ea doxycycline hyclate 100 mg tablet 100 mg PO BID #20 tabs 12/07/21 amoxicillin 500 mg capsule 500 mg PO BID 10 days #20 caps 01/01/22 amoxicillin 500 mg capsule 500 mg PO TID 7 days #21 caps 01/26/22 doxycycline hyclate 100 mg capsule 100 mg PO BID #20 caps 02/11/22 levofloxacin 500 mg tablet 500 mg PO DAILY #6 tabs 05/15/22 Allergies Allergy/AdvReac Type Severity Reaction Status Date / Time ceftriaxone [From ROCEPHIN] Allergy Intermediate HIVES Verified 04/19/21 14:12 sulfamethoxazole Allergy Intermediate HIVES Verified 04/19/21 14:12 [From BACTRIM] trimethoprim [From BACTRIM] Allergy Intermediate HIVES Verified 04/19/21 14:12 Sulfa (Sulfonamide Allergy Unknown HIVES. Verified 04/19/21 14:12 Antibiotics) VOMITING [SULFA (SULFONAMIDE ANTIBIOTICS)] doxycycline [DOXYCYCLINE] AdvReac Unknown NAUSEA & Verified 04/19/21 14:12 VOMITING Review of Systems Review of Systems: Constitutional : No Weight loss, possible Fever, No Chills, No Fatigue, No Malaise ENT/Mouth : No sore throat, No Rhinorrhea Eyes: No Eye Pain, No Swelling, No Redness Cardiovascular : No Chest Pain, No SOB, No Dyspnea on Exertion, No Orthopnea, No Edema, No Palpitations Respiratory : No Cough, No Sputum, No Wheezing Gastrointestinal : No Nausea, No Vomiting, No Diarrhea, No Constipation, No abdominal Pain, No Hematochezia, No Melena Genitourinary : No Dysuria, No Urinary Frequency, No Hematuria, Musculoskeletal : No joint pain, pos Myalgias, No Joint Swelling Skin : No Skin Lesions, No rash Neuro : No Weakness, No Numbness, No Dizziness, No Headache Psych : No Anxiety/Panic, No Depression Heme/Lymph: No Bruising, No Bleeding,No Lymphadenopathy Endocrine : No Polyuria, No Polydipsia All other systems reviewed and are negative [facility] Past Medical History Attestation statement: The following information was validated with the patient. Medical History Acute pelvic inflammatory disease (PID) Diskitis Drug use Opioid use disorder Prothrombin gene mutation Pulmonary emboli Social History Social History Household Members: Other Housing: Homeless Do you presently have visiting nurse or other home services: No Alcohol intake: current Alcohol intake frequency: holidays/special occasions only Substance Use Type: Crack/Cocaine and Heroin Advance Directives: No Advance Directives Information Provided: Yes service: No Current occupational status: unemployed Physical Exam ED Vital Signs: Vital Signs - 24 hr 05/15/22 04:51 05/15/22 09:36 Temperature 98.1 F Pulse Rate 69 63 Respiratory Rate 16 18 Blood Pressure 102/57 L 98/60 Pulse Oximetry 99 95 Oxygen Delivery Method Room Air Room Air BMI result Body Mass Index 23.5 Appearance: Alert. Oriented X3. No acute distress. Eyes: Pupils equal, round and reactive to light. ENT: Pharynx normal. Neck: Normal inspection. Neck supple. track simmons R/L neck no abscess mild erythema and warmth small patch CVS: Normal heart rate and rhythm. Pulses normal. Respiratory: No respiratory distress. Breath sounds normal. Lungs are clear but junky cough noted Abdomen: Soft and nontender. Skin: Skin warm and dry. Normal skin color. Normal skin turgor. Extremities: No lower extremity edema. No calf ttp Neuro: Oriented X 3. No motor deficit. No sensory deficit. Course Course Course Narrative: + pneumonia no hypoxia, no fevers here labs stable given allergies will start on levofloxacin declines detox now wants to go home Medical Decision Making MDM Narrative Medical decision making narrative: 37 yo female with hx of UTI, opiate use disorder missed methadone yesterday here with wanting detox and methadone dose - also was ferris the other day requesting labs to make sure she is okay because moodiness is a sign of fever for her. At this time labs, methadone confirmation ordered. Possible mild cellulitis R neck - no cord or abscess felt no signs of ludwigs or thrombophlebitis noted Lab Data Result diagrams: 05/15/22 08:10 05/15/22 08:10 Labs: Lab Results 05/15/22 05/15/22 05/15/22 Range/Units 08:10 08:10 08:10 WBC 4.6 L (4.8-10.8) X10*3/uL RBC 3.91 L (4.20-5.50) X10*6/uL Hgb 11.0 L (12.0-16.0) g/dl Hct 32.4 L (37.0-47.0) % MCV 82.9 (80.0-98.0) fL MCH 28.1 (27.0-33.0) pg MCHC 34.0 (31.0-35.0) g/dl RDW 13.5 (11.0-16.0) % Plt Count 151 L D (160-400) X10*3/uL MPV 9.3 L (9.4-12.3) fL Immature Gran % (Auto) 0.4 (0.0-0.4) % Neut % (Auto) 54.6 (45-73) % Lymph % (Auto) 29.8 (20-40) % Pickett % (Auto) 11.4 H (2-11) % Eos % (Auto) 3.1 (0-4) % Baso % (Auto) 0.7 (0-2) % Lymph # (Auto) 1.4 (1.2-4.9) X10*3/uL Pickett # (Auto) 0.5 (0.1-1.2) X10*3/uL Eos # (Auto) 0.1 (0.0-0.4) X10*3/uL Baso # (Auto) 0.0 (0.0-0.2) X10*3/uL Abs Immat Gran (auto) 0.02 (0.00-0.03) X10*3/uL Absolute Neuts (auto) 2.5 (2.0-8.3) x10*3/uL Absolute Nucleated RBC 0.000 (0.0-0.012) X10*3/uL Nucleated RBC % (auto) 0.0 (0.0-0.2) /100WBC ESR 13 (0-20) MM/HR Sodium 141 (135-145) mmol/L Potassium 4.1 (3.3-5.1) mmol/L Chloride 107 (96-108) mmol/L Carbon Dioxide 23 (22-29) mmol/L Anion Gap 15 (12-20) BUN 7 L D (9-16) mg/dL Creatinine 0.89 (0.5-1.4) mg/dL Estim Creat Clear Calc 85.8 Estimated GFR > 60 Random Glucose 97 (60-115) mg/dL Calcium 8.8 D (8.4-10.2) mg/dL Total Bilirubin 0.4 (0.0-1.0) mg/dL Direct Bilirubin 0.2 (0.0-0.5) mg/dL AST 27 (5-31) U/L ALT 19 (0-31) U/L Alkaline Phosphatase 79 D (39-117) U/L C-Reactive Protein 1.38 H (< or = 0.50) mg/dL Total Protein 6.8 (6.5-8.0) g/dL Albumin 4.1 D (3.5-5.0) g/dL COVID-19 (BRE) (Negative) COVID-19 Clin Com 05/15/22 Range/Units 08:10 WBC (4.8-10.8) X10*3/uL RBC (4.20-5.50) X10*6/uL Hgb (12.0-16.0) g/dl Hct (37.0-47.0) % MCV (80.0-98.0) fL MCH (27.0-33.0) pg MCHC (31.0-35.0) g/dl RDW (11.0-16.0) % Plt Count (160-400) X10*3/uL MPV (9.4-12.3) fL Immature Gran % (Auto) (0.0-0.4) % Neut % (Auto) (45-73) % Lymph % (Auto) (20-40) % Pickett % (Auto) (2-11) % Eos % (Auto) (0-4) % Baso % (Auto) (0-2) % Lymph # (Auto) (1.2-4.9) X10*3/uL Pickett # (Auto) (0.1-1.2) X10*3/uL Eos # (Auto) (0.0-0.4) X10*3/uL Baso # (Auto) (0.0-0.2) X10*3/uL Abs Immat Gran (auto) (0.00-0.03) X10*3/uL Absolute Neuts (auto) (2.0-8.3) x10*3/uL Absolute Nucleated RBC (0.0-0.012) X10*3/uL Nucleated RBC % (auto) (0.0-0.2) /100WBC ESR (0-20) MM/HR Sodium (135-145) mmol/L Potassium (3.3-5.1) mmol/L Chloride (96-108) mmol/L Carbon Dioxide (22-29) mmol/L Anion Gap (12-20) BUN (9-16) mg/dL Creatinine (0.5-1.4) mg/dL Estim Creat Clear Calc Estimated GFR Random Glucose (60-115) mg/dL Calcium (8.4-10.2) mg/dL Total Bilirubin (0.0-1.0) mg/dL Direct Bilirubin (0.0-0.5) mg/dL AST (5-31) U/L ALT (0-31) U/L Alkaline Phosphatase (39-117) U/L C-Reactive Protein (< or = 0.50) mg/dL Total Protein (6.5-8.0) g/dL Albumin (3.5-5.0) g/dL COVID-19 (BRE) Negative (Negative) COVID-19 Clin Com See Note Discharge Plan Discharge Clinical Impression: Opioid use disorder, Pneumonia Patient Disposition: Home, Self-Care Instructions: Community Acquired Pneumonia (ED), Opioid Use Disorder (ED) Additional Instructions: return to ED for any worsening symptoms or concerns continue detox search from home take all antibiotics received 140mg methadone on 05/15 in [facility] ED Prescriptions: New levofloxacin 500 mg tablet 500 mg PO DAILY Qty: 6 0RF Rx Instructions: start on 05/16 No Action minocycline 100 mg capsule 100 mg PO BID 30 Days Qty: 60 1RF hydroxyzine HCl 25 mg Tablet 25 mg PO BEDTIME methadone 45 PO DAILY doxycycline monohydrate 100 mg capsule 100 mg PO BID 10 Days Qty: 20 0RF nystatin 100,000 unit/mL suspension 1 ml buccal DAILY Qty: 60 0RF Rx Instructions: administer 1/2 of dose in each side of the mouth ondansetron HCl [Zofran] 4 mg tablet 4 mg PO Q8H PRN (Reason: nausea and vomiting) Qty: 7 0RF fluconazole [Diflucan] 150 mg tablet 150 mg PO Q3D Qty: 2 0RF amoxicillin 500 mg capsule 500 mg PO TID 7 Days Qty: 21 0RF amoxicillin-pot clavulanate 875-125 mg tablet 1 tab PO BID Qty: 20 0RF bisacodyl [Dulcolax (bisacodyl)] 10 mg suppository 10 mg NC DAILY PRN (Reason: constipation) Qty: 12 0RF doxycycline hyclate 100 mg tablet 100 mg PO BID Qty: 20 0RF amoxicillin 500 mg capsule 500 mg PO BID 10 Days Qty: 20 0RF doxycycline hyclate 100 mg capsule 100 mg PO BID Qty: 20 0RF buprenorphine-naloxone [Suboxone] 8-2 mg film 2 film sublingual DAILY 7 Days Qty: 14 0RF Rx Instructions: place 1 strip/tab under (each) side of tongue acetaminophen 325 mg capsule 325 mg PO QID PRN cariprazine 1.5 mg capsule 1.5 mg PO DAILY docusate sodium [Colace] 100 mg capsule 100 mg PO BID fluticasone furoate 50 mcg/actuation blister with device 1 inh inhalation DAILY hydromorphone 2 mg tablet 2 mg PO BID heparin lock flush (porcine) 10 unit/mL solution 10 unit IV DAILY Rx Instructions: administer after IV drug administration as part of [facility] protocol ibuprofen 600 mg tablet 600 mg PO Q8H PRN midodrine 5 mg tablet 5 mg PO TID Rx Instructions: do not give last dose of day after 6PM or within 4 hrs of bedtime naloxone 0.4 mg/mL solution 0.4 mg IM Q2M PRN Rx Instructions: NTExceed 10 mg total dose/episode omeprazole 20 mg capsule,delayed release(DR/EC) 20 mg PO BID sennosides [senna] 8.6 mg tablet 8.6 mg PO DAILY trazodone 100 mg tablet 100 mg PO BEDTIME PRN tizanidine [Zanaflex] 4 mg capsule 4 mg PO Q8H PRN
[2022-05-15 08:18] LABS: MANUAL DIFF FLAG NO
[2022-05-15 08:22] LABS: Basophils Percent Auto 0.7 % (0-2); Eosinophils Absolute Auto 0.1 X10*3/uL (0.0-0.4); Eosinophils Percent Auto 3.1 % (0-4); Hematocrit 32.4 % (37.0-47.0); Imm Gran Abs Auto 0.02 X10*3/uL (0.00-0.03); Imm Gran Pct Auto 0.4 % (0.0-0.4); Lymphocytes Absolute Auto 1.4 X10*3/uL (1.2-4.9); Lymphocytes Percent Auto 29.8 % (20-40); Mean Corpuscular Hemoglobin 28.1 pg (27.0-33.0); Mean Corpuscular Volume 82.9 fL (80.0-98.0); Mean Platelet Volume 9.3 fL (9.4-12.3); Monocytes Absolute Auto 0.5 X10*3/uL (0.1-1.2); Monocytes Percent Auto 11.4 % (2-11); Neutrophils Absolute Auto 2.5 x10*3/uL (2.0-8.3); Neutrophils Percent Auto 54.6 % (45-73); Platelet Count 151 X10*3/uL (160-400); Red Blood Count 3.91 X10*6/uL (4.20-5.50); Red Cell Distribution Width 13.5 % (11.0-16.0); White Blood Count 4.6 X10*3/uL (4.8-10.8)
[2022-05-15 08:37] LABS: COVID-19 Test Negative (Negative)
[2022-05-15 08:52] LABS: Alanine Aminotransferase 19 U/L (0-31); Albumin Level 4.1 g/dL (3.5-5.0); Alkaline Phosphatase 79 U/L (39-117); Anion Gap 15 (12-20); Aspartate Amino Transferase 27 U/L (5-31); Bilirubin Direct 0.2 mg/dL (0.0-0.5); Bilirubin Total 0.4 mg/dL (0.0-1.0); Blood Urea Nitrogen 7 mg/dL (9-16); C Reactive Protein 1.38 mg/dL (< or = 0.50); Calcium 8.8 mg/dL (8.4-10.2); Carbon Dioxide 23 mmol/L (22-29); Chloride 107 mmol/L (96-108); Creatinine Clr Calc Pharmacy 85.8; Estimated Glomerular Filt Rate > 60; Glucose Random 97 mg/dL (60-115); Potassium 4.1 mmol/L (3.3-5.1); Sodium 141 mmol/L (135-145); Total Protein 6.8 g/dL (6.5-8.0)
--- NOTE | 2022-05-15 09:03 | HE.PHANOTE ---
[methadone verificiation] Received form for 140mg daily from [facility]
[2022-05-15 09:28] LABS: Erythrocyte Sedimentation Rate 13 MM/HR (0-20)
[2022-05-15 09:36] VITALS: BP 98/60; PULSE 63; RESP 18; O2SAT 95
[2022-05-15] MEDS: levoFLOXacin 500 MG TABLET PO (09:37)
[2022-05-15] MEDS: methADONE HCl 20 MG/2 ML ORAL.CONC 140 MG PO (09:38)
--- NOTE | 2022-05-15 11:06 | MHC.RECOVRN ---
T/W met w/ pt, pt alert, oriented, laying down. Pt reports is on 140mg MTD daily at [place]. Pt reports 7 days ago reoccurrence and homeless. Pt reports smoking CRACK/NATALIYA daily up to $200 worth and 3.5 bundles heroin IV daily. Pt reports last use right before coming to the hospital, snorteed 2 bags and NATALIYA. Pt reports history of overdose, most recently experienced an adverse reaction 2 days ago. Pt reports after using heroin, body clenched up, pt states did not receive Narcan, but a person monitored them and kept them alert. Pt states in the past had 1 year and 2 months in recovery at age 28. Pt reports history of treatment including ATS, CSS, TSS. Pt reports 2 months ago was at detox in [place]. Pt requesting detox at this time, pt reports willing to go wherever is placed.
--- NOTE | 2022-05-15 11:35 | PC.NURSE ---
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
== END 2022-05-15 15:08 | disposition home or self-care (01) ==
PROVIDERS: Emergency Provider Emergency Medicine; PCP Pediatrics
DX: J18.9 Pneumonia, unspecified organism (principal); F11.20 Opioid dependence, uncomplicated; Z20.822 Contact with and (suspected) exposure to COVID-19; B15.9 Hepatitis A without hepatic coma; Z79.899 Other long term (current) drug therapy
CPT/HCPCS: 36415; 71045; 80048; 80076; 85025; 85652; 86140; 87635; 99283; 99284

== ENCOUNTER 2022-06-18 23:28 | Emergency (ER) | payer OTHER, SELFPAY ==
[2022-06-18 23:39] VITALS: BP 108/61; BP 114/68; PULSE 72; PULSE 80; RESP 20; TEMP 37; O2SAT 100; BMI 24.2
[2022-06-19 00:11] VITALS: PULSE 80
--- NOTE | 2022-06-19 00:11 | ED.PSYCH ---
HPI - Psych General Chief Complaint: ETOH/Substance Use Stated Complaint: substance abuse and seeking detox Time Seen by Provider: 06/18/22 23:57 Source: patient Mode of arrival: EMS Limitations: no limitations History of Present Illness HPI Narrative: Patient with history of heroin and cocaine abuse was in detox last month comes here wants to go to detox patient denies any SI , patient is homeless would like to stay overnight Related Data Home Medications Medication Instructions Recorded Confirmed hydroxyzine HCl 25 mg tablet 25 mg PO BEDTIME 12/07/20 12/07/20 methadone 45 PO DAILY 12/07/20 acetaminophen 325 mg capsule 325 mg PO QID PRN 03/16/21 cariprazine 1.5 mg capsule 1.5 mg PO DAILY 03/16/21 docusate sodium 100 mg capsule 100 mg PO BID 03/16/21 (Colace) fluticasone furoate 50 1 inh inhalation DAILY 03/16/21 mcg/actuation blister powder for inhalation heparin lock flush (porcine) 10 10 unit IV DAILY 03/16/21 unit/mL intravenous solution hydromorphone 2 mg tablet 2 mg PO BID 03/16/21 ibuprofen 600 mg tablet 600 mg PO Q8H PRN 03/16/21 midodrine 5 mg tablet 5 mg PO TID 03/16/21 naloxone 0.4 mg/mL injection 0.4 mg IM Q2M PRN 03/16/21 solution omeprazole 20 mg capsule,delayed 20 mg PO BID 03/16/21 release sennosides 8.6 mg tablet (senna) 8.6 mg PO DAILY 03/16/21 tizanidine 4 mg capsule (Zanaflex) 4 mg PO Q8H PRN 03/16/21 trazodone 100 mg tablet 100 mg PO BEDTIME PRN 03/16/21 Previous Rx's Medication Instructions Recorded minocycline 100 mg capsule 100 mg PO BID 30 days #60 caps 04/01/21 buprenorphine 8 mg-naloxone 2 mg 2 film sublingual DAILY 7 days #14 04/19/21 sublingual film (Suboxone) ea doxycycline monohydrate 100 mg 100 mg PO BID 10 days #20 caps 05/12/21 capsule fluconazole 150 mg tablet 150 mg PO Q3D 2 doses #2 tabs 05/12/21 (Diflucan) nystatin 100,000 unit/mL oral 1 ml buccal DAILY #60 mL 05/12/21 suspension ondansetron HCl 4 mg tablet 4 mg PO Q8H PRN nausea and 05/12/21 (Zofran) vomiting #7 tabs amoxicillin 875 mg-potassium 1 tab PO BID #20 tabs 11/10/21 clavulanate 125 mg tablet bisacodyl 10 mg rectal suppository 10 mg UT DAILY PRN constipation 11/10/21 (Dulcolax (bisacodyl)) #12 ea doxycycline hyclate 100 mg tablet 100 mg PO BID #20 tabs 12/07/21 amoxicillin 500 mg capsule 500 mg PO BID 10 days #20 caps 01/01/22 amoxicillin 500 mg capsule 500 mg PO TID 7 days #21 caps 01/26/22 doxycycline hyclate 100 mg capsule 100 mg PO BID #20 caps 02/11/22 levofloxacin 500 mg tablet 500 mg PO DAILY #6 tabs 05/15/22 Allergies Allergy/AdvReac Type Severity Reaction Status Date / Time ceftriaxone [From ROCEPHIN] Allergy Intermediate HIVES Verified 04/19/21 14:12 sulfamethoxazole Allergy Intermediate HIVES Verified 04/19/21 14:12 [From BACTRIM] trimethoprim [From BACTRIM] Allergy Intermediate HIVES Verified 04/19/21 14:12 Sulfa (Sulfonamide Allergy Unknown HIVES. Verified 04/19/21 14:12 Antibiotics) VOMITING [SULFA (SULFONAMIDE ANTIBIOTICS)] doxycycline [DOXYCYCLINE] AdvReac Unknown NAUSEA & Verified 04/19/21 14:12 VOMITING Review of Systems Review of Systems: Yes all other systems are reviewed and are negative PMFSH Past Medical History Medical History Acute pelvic inflammatory disease (PID) Diskitis Drug use Opioid use disorder Prothrombin gene mutation Pulmonary emboli Social History Social History Household Members: Other Housing: Homeless Do you presently have visiting nurse or other home services: No Alcohol intake: current Alcohol intake frequency: a few times a month Smoked in Last 30 Days: Yes Use of substances other than those prescribed or required for medical reasons: Yes Substance Use Type: Crack/Cocaine Substance Use Frequency: Chronic Longstanding Last Used Substance: Just Prior to Admission Advance Directives: No Advance Directives Information Provided: Yes Patient : No service: No Current occupational status: unemployed Physical Exam Vital Signs: Vital Signs: Last Vital Signs Temp 98.6 F 06/18/22 23:39 Pulse 80 06/18/22 23:39 Resp 20 06/18/22 23:39 BP 108/61 06/18/22 23:39 Pulse Ox 100 06/18/22 23:39 O2 Del Method 06/18/22 23:39 BMI result Body Mass Index 24.2 Appearance: Alert. Oriented X3. No acute distress. Eyes: PERRLA, No Nystagmus ENT: Pharynx normal. Oral Mucosa moist Neck: Normal inspection. Neck supple. CVS: Normal heart rate and rhythm. Pulses normal. Respiratory: No respiratory distress. Equal air entry bilateral, no wheezing/rales/rhonchi Abdomen: Soft and nontender. Bowel sounds are present, no mass palpable, no CVA tenderness Skin: Skin warm and dry. Normal skin color. Normal skin turgor. IVDA track simmons in the neck Extremities: No lower extremity edema. No calf tenderness Psych: Mood stable no SI/HI no hallucination delusion Neuro: Oriented X 3. No motor deficit. No sensory deficit.No cerebellar signs , cranial nerves II-XII intact MDM - Psych MDM Narrative Medical decision making narrative: Patient with poly substance abuse requesting detox will consult disaster recovery analyst in a.m. patient denies any SI Lab Data Attestation: I reviewed the patient's lab results. Labs: Lab Results 06/19/22 Range/Units 00:22 COVID-19 (BRE) Negative (Negative) COVID-19 Clin Com See Note Discharge Plan Discharge Clinical Impression: Polysubstance abuse Patient Disposition: Still a Patient Prescriptions: No Action minocycline 100 mg capsule 100 mg PO BID 30 Days Qty: 60 1RF hydroxyzine HCl 25 mg Tablet 25 mg PO BEDTIME methadone 45 PO DAILY doxycycline monohydrate 100 mg capsule 100 mg PO BID 10 Days Qty: 20 0RF nystatin 100,000 unit/mL suspension 1 ml buccal DAILY Qty: 60 0RF Rx Instructions: administer 1/2 of dose in each side of the mouth ondansetron HCl [Zofran] 4 mg tablet 4 mg PO Q8H PRN (Reason: nausea and vomiting) Qty: 7 0RF fluconazole [Diflucan] 150 mg tablet 150 mg PO Q3D Qty: 2 0RF amoxicillin 500 mg capsule 500 mg PO TID 7 Days Qty: 21 0RF levofloxacin 500 mg tablet 500 mg PO DAILY Qty: 6 0RF Rx Instructions: start on 05/16 amoxicillin-pot clavulanate 875-125 mg tablet 1 tab PO BID Qty: 20 0RF bisacodyl [Dulcolax (bisacodyl)] 10 mg suppository 10 mg UT DAILY PRN (Reason: constipation) Qty: 12 0RF doxycycline hyclate 100 mg tablet 100 mg PO BID Qty: 20 0RF amoxicillin 500 mg capsule 500 mg PO BID 10 Days Qty: 20 0RF doxycycline hyclate 100 mg capsule 100 mg PO BID Qty: 20 0RF buprenorphine-naloxone [Suboxone] 8-2 mg film 2 film sublingual DAILY 7 Days Qty: 14 0RF Rx Instructions: place 1 strip/tab under (each) side of tongue acetaminophen 325 mg capsule 325 mg PO QID PRN cariprazine 1.5 mg capsule 1.5 mg PO DAILY docusate sodium [Colace] 100 mg capsule 100 mg PO BID fluticasone furoate 50 mcg/actuation blister with device 1 inh inhalation DAILY hydromorphone 2 mg tablet 2 mg PO BID heparin lock flush (porcine) 10 unit/mL solution 10 unit IV DAILY Rx Instructions: administer after IV drug administration as part of [facility] protocol ibuprofen 600 mg tablet 600 mg PO Q8H PRN midodrine 5 mg tablet 5 mg PO TID Rx Instructions: do not give last dose of day after 6PM or within 4 hrs of bedtime naloxone 0.4 mg/mL solution 0.4 mg IM Q2M PRN Rx Instructions: NTExceed 10 mg total dose/episode omeprazole 20 mg capsule,delayed release(DR/EC) 20 mg PO BID sennosides [senna] 8.6 mg tablet 8.6 mg PO DAILY trazodone 100 mg tablet 100 mg PO BEDTIME PRN tizanidine [Zanaflex] 4 mg capsule 4 mg PO Q8H PRN Interventions: [place]-Suicide Risk Severity Scale Last Done: 06/19/22 00:11
--- NOTE | 2022-06-19 00:23 | PC.NURSE ---
Addendum entered by Samantha Hill 06/19/22 00:30: Pt reports having SI earlier today with no plan but not at this time. Denies HI, auditory and visual hallucinations. Original Note: Pt alert and oriented to self and place. Breaths are even and unlabored. Heart sounds are regular. Abd soft and nontender. Skin is warm pink and dry. No edema noted. No tremors. Pt is restless and appears to be anxious/fidgety on arrival. Pt reports doing crack/cocaine earlier today. Does not remember what she was doing prior to arrival. Reports being with a male firer automatic stoker and then waking up at the ED and not knowing what happened. Pt reports being confused. aware.
[2022-06-19 01:06] LABS: COVID-19 Test Negative (Negative)
--- NOTE | 2022-06-19 02:11 | PC.NURSE ---
Smart sheet submitted.
[2022-06-19 03:35] LABS: Amphetamine Screen Urine Not Detected (Not Detect); Barbiturates, Urine Not Detected (Not Detect); Benzodiazepines Screen Urine Not Detected (Not Detect); Cannabinoid Screen Urine Not Detected (Not Detect); Cocaine Screen Urine POSITIVE (Not Detect); Fentanyl, urine POSITIVE (Not Detect); Opiate Screen Urine POSITIVE (Not Detect); Phencyclidine Screen Urine Not Detected (Not Detect)
[2022-06-19] MEDS: LORazepam 1 MG TABLET PO (03:51)
[2022-06-19 03:52] LABS: Appearance Urine Clear; Glucose Urine UA Negative (Negative); Leukocyte Esterase Urine Trace (Negative); Nitrite Urine Negative (Negative); Specific Gravity - Urine 1.015 (1.005-1.025); UMIC TRIGGER UACC YES; Urine Blood Large (3+) (Negative); Urine Ketones 40 mg/dL (Negative); Urine Protein Trace mg/dL (Neg-Trace)
[2022-06-19 03:53] LABS: Color Urine Straw
[2022-06-19 03:56] LABS: Bacteria Urine None Seen (None Seen); Hyaline Casts Urine 0-2 /LPF (0-2); RBC Urine >20 /HPF (0-2); Squamous Epithelial Cell Urine 0-2 /HPF (0-2); WBC Urine 0-5 /HPF (0-5)
--- NOTE | 2022-06-19 03:56 | PC.NURSE ---
Pt restless/fidgety/unable to sit still. Scratching at self. CIWA: 12 Dr. Caldwell aware. Ativan 1mg administered. Will continue to monitor.
[2022-06-19] MEDS: LORazepam 1 MG TABLET 2 MG PO (04:53)
--- NOTE | 2022-06-19 08:23 | HE.PHANOTE ---
Methadone Verification From [facility], verified 06/19 by Everton Frias. Patient on 140mg, last dost 06/18 @[id number]
--- NOTE | 2022-06-19 08:43 | MHC.CARE ---
CARE Team briefly met with this pt for a risk assessment. Pt was sleeping and t/w had to utilize nursing staff to awaken her to assess. Pt's mood was anxious and agitated as evidenced by her invariably moving around in her bed, fixing her hair, spilling her drink and unwillingness to fully engage with t/w. Pt reported that her current presentation is the result of staying up for three days, going crazy and being psychotic while on coke. Pt reported to use cocaine daily stating she uses approximately half a ball per day. Pt was unable to disclose more information due to pain in her mouth. Pt reported she has a tongue infection and finds it difficult to eat/swallow and engage in conversation at this time. CARE Team will refer pt to the Recovery Team. Consulted with Tracy ALFORD.
[2022-06-19 08:44] VITALS: BP 97/67; PULSE 98; RESP 18; O2SAT 96
--- NOTE | 2022-06-19 08:48 | PC.NURSE ---
Addendum entered by Altagracia Wade 06/19/22 10:15: Per frame repairer nina, Intake for miravista was unable to be completed due to sporadic communication on phone. Original Note: Pt c/o of mouth pain-+swelling with yellow/green head reported on left side of tongue. Pt reports having antibiotics in past for this.
--- NOTE | 2022-06-19 09:01 | MHC.RECOVRN ---
Briefly met with pt in [facility] to discuss substance use and desire for ATS. Pt sitting in bed, extremely restless. Pt reports using heroin, 2 packs daily, as well as cocaine, 1/16 oz, IV, daily. Last use [employer]ER. Denies alcohol use. Pt is interested in ATS and would like to stay local. Denies SI/HI/AH/VH. RN and CARE Team aware.
--- NOTE | 2022-06-19 09:24 | MHC.RECOVRN ---
Jory Miller has availability. Pts referral sent, phone screen currently being completed.
[2022-06-19] MEDS: methADONE HCl 20 MG/2 ML ORAL.CONC 140 MG PO (10:29)
--- NOTE | 2022-06-19 10:31 | PC.NURSE ---
Pt noted to have had BM while resting after breakfast. Pt offered wipes and new clothing. Refused at this time.
[2022-06-19 14:00] VITALS: RESP 16
--- NOTE | 2022-06-19 16:05 | MHC.RECOVRN ---
Addendum entered by Michelle Lockwood 06/19/22 16:17: Spoke with Chelo at [facility], intake has been complete. Currently being reviewed. Original Note: Pt currently completing phone intake with Jory [facility].
--- NOTE | 2022-06-19 17:28 | MHC.RECOVSUP ---
football coach followed up with Jory Miller, and they stated that patient is all set for 815pm
[2022-06-19] MEDS: Amoxicillin/Potassium Clav 875 MG TABLET PO (19:04)
--- NOTE | 2022-06-19 19:13 | PC.NURSE ---
Addendum entered by Emma Arias RN 06/20/22 06:47: report given to CHAUNCEY Reyes Original Note: report received from CHAUNCEY Frias pt alert and oriented no signs of acute distress notice breathing equally unlabored close monitoring maintained
[2022-06-19] MEDS: Melatonin 3 MG TABLET 6 MG PO (20:45)
--- NOTE | 2022-06-19 20:46 | MHC.CARE ---
Pt was accepted to [facility] with an 8:15pm admission scheduled. Lyft unavailable for transport, no other method of transportation available at this time. This freelance copywriter spoke with Chelo at [facility], discussed having pt admitted tomorrow morning. ED charge nurse updated re: status, pt will remain in the ED overnight and recovery team will follow up with [facility] in the morning to facilitate transfer.
[2022-06-20 06:31] VITALS: BP 105/59; PULSE 62; RESP 17; TEMP 36.9; O2SAT 97
--- NOTE | 2022-06-20 07:22 | PC.NURSE ---
patient appears to remain asleep at present respirations are even and unlabored patient appears in no distress
--- NOTE | 2022-06-20 07:26 | PC.NURSE ---
patient appears to remain asleep at present respirations are even and unlabored patient apppears in no distress
--- NOTE | 2022-06-20 08:28 | MHC.RECOVRN ---
Addendum entered by Michelle Lockwood 06/20/22 09:36: Admission time changed to 2PM. RN aware. Original Note: Spoke with Emi at [facility], pt is accepted for 11 am admission time. Will be transported via Lyft. RN aware.
[2022-06-20] MEDS: Amoxicillin/Potassium Clav 875 MG TABLET PO (10:09)
[2022-06-20] MEDS: methADONE HCl 20 MG/2 ML ORAL.CONC 140 MG PO (10:09)
== END 2022-06-20 13:57 | disposition home or self-care (01) ==
PROVIDERS: Emergency Provider Internal Medicine; PCP Student in an Organized Health Care Education/Training Program
DX: F11.10 Opioid abuse, uncomplicated (principal); Z20.822 Contact with and (suspected) exposure to COVID-19; Z79.899 Other long term (current) drug therapy
CPT/HCPCS: 80307; 81001; 87635; 99285

== ENCOUNTER 2022-06-28 10:46 | Observation (INO) | payer OTHER, SELFPAY ==
--- NOTE | ~2022-06-28 | XR_ITS ---
EXAMINATION: XR FOOT, LEFT CLINICAL INFORMATION: Cellulitis. Evaluate for osteomyelitis. COMPARISON: None TECHNIQUE: AP, lateral, and oblique views of the left foot. FINDINGS: Bone alignment is normal. No fracture or dislocation. There is an accessory ossicle adjacent to the medial navicular bone. Joint spaces are normal. Soft tissues are normal. XR/XR foot LT min 3V IMPRESSION: No evidence of osteomyelitis. Accessory ossicle adjacent to the medial navicular bone.
--- NOTE | ~2022-06-28 | US_ITS ---
EXAMINATION: US VENOUS ULTRASOUND WITH DOPPLER LOWER EXTREMITY, LEFT CLINICAL INFORMATION: Swelling COMPARISON: Previous exam August 2021 TECHNIQUE: Ultrasound of the deep veins is performed from the hip to the calf with compression sonography and color and pulse Doppler assessment. Spectral analysis with color-flow imaging is performed. FINDINGS: There is normal venous compression and respiratory variation and augmented flow. The visualized common femoral vein, superficial femoral vein, profunda femoral vein, popliteal vein, and the trifurcation region shows no evidence of deep venous thrombosis. There is a 3.2 x 0.4 x 1.5 cm Madrigal's cyst. US/US venous duplex LE LT IMPRESSION: No DVT demonstrated in the left lower extremity.
[2022-06-28 11:04] VITALS: BP 123/71; PULSE 85; RESP 18; TEMP 35.9; O2SAT 99; BMI 25.0
[2022-06-28 11:46] LABS: MANUAL DIFF FLAG NO
[2022-06-28 11:48] LABS: Basophils Absolute Auto 0.1 X10*3/uL (0.0-0.2); Basophils Percent Auto 0.7 % (0-2); Eosinophils Absolute Auto 0.1 X10*3/uL (0.0-0.4); Hematocrit 32.1 % (37.0-47.0); Hemoglobin 10.7 g/dl (12.0-16.0); Imm Gran Abs Auto 0.04 X10*3/uL (0.00-0.03); Imm Gran Pct Auto 0.6 % (0.0-0.4); Lymphocytes Absolute Auto 1.5 X10*3/uL (1.2-4.9); Lymphocytes Percent Auto 21.2 % (20-40); Mean Corpuscular HGB Conc 33.3 g/dl (31.0-35.0); Mean Corpuscular Hemoglobin 27.9 pg (27.0-33.0); Mean Corpuscular Volume 83.6 fL (80.0-98.0); Mean Platelet Volume 9.5 fL (9.4-12.3); Monocytes Absolute Auto 0.3 X10*3/uL (0.1-1.2); Monocytes Percent Auto 4.2 % (2-11); Neutrophils Absolute Auto 5.1 x10*3/uL (2.0-8.3); Neutrophils Percent Auto 72.3 % (45-73); Platelet Count 257 X10*3/uL (160-400); Red Blood Count 3.84 X10*6/uL (4.20-5.50); Red Cell Distribution Width 12.4 % (11.0-16.0); White Blood Count 7.1 X10*3/uL (4.8-10.8)
[2022-06-28 11:53] LABS: Prothrombin Time 11.7 SEC (10.0-13.1)
[2022-06-28 11:56] LABS: Partial Thromboplastin Time 23.3 SEC (26.0-36.4)
[2022-06-28 12:01] LABS: Ethanol < 10 mg/dL
[2022-06-28 12:03] LABS: Alanine Aminotransferase 17 U/L (0-31); Albumin Level 4.1 g/dL (3.5-5.0); Alkaline Phosphatase 91 U/L (39-117); Anion Gap 13 (12-20); Aspartate Amino Transferase 27 U/L (5-31); Bilirubin Total 0.4 mg/dL (0.0-1.0); Blood Urea Nitrogen 12 mg/dL (9-16); C Reactive Protein 3.01 mg/dL (< or = 0.50); Carbon Dioxide 25 mmol/L (22-29); Chloride 100 mmol/L (96-108); Creatinine Clr Calc Pharmacy 96.7; Estimated Glomerular Filt Rate > 60; Glucose Random 65 mg/dL (60-115); Potassium 4.1 mmol/L (3.3-5.1); Sodium 134 mmol/L (135-145)
[2022-06-28 12:10] LABS: IDNOW Serial# BCCEAD1C; Influenza A Negative (Negative); Influenza B2 Negative (Negative)
[2022-06-28 12:11] LABS: COVID-19 Test Negative (Negative); IDNOW Serial# 16C4AD1C
[2022-06-28 12:25] LABS: HIV AB/AG Nonreactive (Nonreactive); HIV Num 1 0.06 S/CO (0.00-0.99)
[2022-06-28 12:27] LABS: Erythrocyte Sedimentation Rate 37 MM/HR (0-20)
--- NOTE | 2022-06-28 12:59 | ED_ITS ---
HPI - Extremity Problem General Chief complaint: Extremity Problem Stated complaint: L foot cellulitis Time Seen by Provider: 06/28/22 19:38 Related Data Home Medications Medication Instructions Recorded Confirmed albuterol sulfate 90 mcg/actuation 2 puff inhalation Q6H PRN dyspnea 06/19/22 06/28/22 breath activated powder inhaler (ProAir RespiClick) cariprazine 3 mg capsule (Vraylar) 1 cap PO DAILY 06/19/22 06/28/22 melatonin 5 mg tablet 5 mg PO BEDTIME 06/19/22 06/28/22 naloxone 4 mg/actuation nasal spray 1 spray intranasal ONCE PRN (Drug) 06/19/22 06/28/22 Ingestion nicotine (polacrilex) 4 mg buccal 1 mayra PO Q2H PRN Nicotine Cravings 06/19/22 06/28/22 lozenge trazodone 50 mg tablet 1 tab PO BEDTIME PRN Pain, Severe 06/19/22 06/28/22 methadone 10 mg/mL oral 140 mg PO DAILY 06/29/22 06/29/22 concentrate (Methadone Intensol) Previous Rx's Medication Instructions Recorded doxycycline hyclate 100 mg tablet 100 mg PO BID #14 tabs 06/30/22 Allergies Allergy/AdvReac Type Severity Reaction Status Date / Time ceftriaxone [From ROCEPHIN] Allergy Intermediate HIVES Verified 04/19/21 14:12 sulfamethoxazole Allergy Intermediate HIVES Verified 04/19/21 14:12 [From BACTRIM] trimethoprim [From BACTRIM] Allergy Intermediate HIVES Verified 04/19/21 14:12 Sulfa (Sulfonamide Allergy Unknown HIVES. Verified 04/19/21 14:12 Antibiotics) VOMITING [SULFA (SULFONAMIDE ANTIBIOTICS)] doxycycline [DOXYCYCLINE] AdvReac Unknown NAUSEA & Verified 04/19/21 14:12 VOMITING PMFSH Past Medical History Medical History Acute pelvic inflammatory disease (PID) Diskitis Drug use Opioid use disorder Prothrombin gene mutation Pulmonary emboli Social History Social History Household Members: Other Housing: Homeless Do you presently have visiting nurse or other home services: No Alcohol intake: current Alcohol intake frequency: holidays/special occasions only Alcohol type: hard liquor Patient Tobacco Use Status: Current everyday Tobacco user Tobacco use type: Cigarette Cigarette Packs Per Day: 1 Cigarettes Per Day: 20.0 Second Hand Smoke Exposure: No Substance Use Type: Crack/Cocaine service: No Current occupational status: unemployed Physical Exam Vital Signs: Vital Signs: Last Vital Signs Temp 98.0 F 06/30/22 07:35 Pulse 65 06/30/22 07:35 Resp 17 06/30/22 07:35 BP 99/56 L 06/30/22 07:35 Pulse Ox 96 06/30/22 07:35 O2 Del Method 06/30/22 07:35 BMI result Body Mass Index 25.0 Course Course Course Narrative: RME: 37-year-old female who presents emergency department for evaluation of left foot swelling, redness and pain x1 half weeks. The patient does use injection drugs. She states she did inject into her left foot approximately 1/2 weeks prior. The patient was started on doxycycline but she states she only completed 4 days of treatment. She states that her left foot ankle and calf is now become swollen and painful. She had subjective fevers at home. She is also complaining of left tooth dental infection. She states she was given a prescription for Augmentin but never took this medication. Vital signs were normal. She is awake and alert no distress, pleasant cooperative. Head normocephalic atraumatic, pupils equal round reactive light, sclera contact however Lungs clear to auscultation, heart regular rate with, abdomen soft nontender, lower extremities revealed soft tissue swelling and erythema of the left foot and ankle with swelling of the left calf which is asymmetric compared to the right. Patient states she does have a clotting disorder as well. I ordered a laboratory evaluation includes CBC, CMP, ESR, CRP, PT/INR, PTT, blood cultures x2, x-ray of the left foot to rule out osteomyelitis and left lower extremity duplex ultrasound rule out DVT. Medications Administered Discontinued Medications Generic Name Dose Route Start Last Admin Trade Name Freq PRN Reason Stop Dose Admin Acetaminophen 650 mg 06/28/22 21:51 06/29/22 18:46 Acetaminophen 325 Mg Tablet PO 650 mg Q6H PRN Administration Pain, Mild (Pain Scale 1-3) Cariprazine 3 mg 06/29/22 09:00 06/30/22 09:13 Cariprazine Hcl 3 Mg Capsule PO Not Given DAILY [facility] Vancomycin HCl 1,000 mg/ 535 mls @ 267.5 mls/hr 06/28/22 19:52 06/29/22 01:45 Vancomycin HCl 750 mg/ Sodium IV 06/28/22 21:51 Infused Chloride ONCE ONE Infusion Doxycycline Hyclate 100 mg/ 250 mls @ 166.67 mls/hr 06/28/22 19:58 06/28/22 23:19 Sodium Chloride IV 06/28/22 21:27 Infused ONCE ONE Infusion Doxycycline Hyclate 100 mg/ 250 mls @ 166.67 mls/hr 06/29/22 10:00 06/29/22 11:35 Sodium Chloride IV Infused Q12H ARYA Infusion Vancomycin HCl 1,000 mg/ 270 mls @ 270 mls/hr 06/29/22 15:00 06/30/22 03:34 Sodium Chloride IV Infused Q12H ARYA Infusion Influenza Virus Vaccine 0.5 ml 06/29/22 18:04 06/30/22 09:14 Flu Vacc [id number](6mos Up)/Pf 0.5 Ml Syringe IM 06/29/22 18:05 0.5 ml .ONCE ONE Administration Influenza Virus Vaccine 0.5 ml 06/30/22 09:15 06/30/22 09:23 Flu Vacc [id number](6mos Up)/Pf 0.5 Ml Syringe IM 06/30/22 09:16 Not Given .ONCE ONE Melatonin 6 mg 06/29/22 21:00 06/29/22 23:08 Melatonin 3 Mg Tablet PO Not Given BEDTIME ARYA Methadone HCl 140 mg 06/29/22 10:25 06/30/22 09:13 Methadone Hcl 20 Mg/2 Ml Oral.Conc PO 140 mg DAILY ARYA Administration Nicotine Polacrilex 4 mg 06/28/22 22:05 06/30/22 09:12 Nicotine Polacrilex Lozenge 4 Mg Lozenge BUCCAL 4 mg Q2H PRN Administration Nicotine Cravings Sodium Chloride 3 ml 06/29/22 00:00 06/30/22 09:14 0.9 % Sodium Chloride Flush 3 Ml Syringe IVFLUSH 3 ml QSHIFT ARYA Administration Trazodone HCl 50 mg 06/28/22 22:05 06/29/22 19:25 Trazodone Hcl 50 Mg Tablet PO 50 mg BEDTIME PRN Administration Pain, Severe MDM - Extremity (Nontraumatic) Lab Data Result diagrams: 06/29/22 09:11 06/29/22 09:11 Labs: Lab Results 06/28/22 06/28/22 06/28/22 Range/Units 11:39 11:39 11:39 WBC 7.1 (4.8-10.8) X10*3/uL RBC 3.84 L (4.20-5.50) X10*6/uL Hgb 10.7 L (12.0-16.0) g/dl Hct 32.1 L (37.0-47.0) % MCV 83.6 (80.0-98.0) fL MCH 27.9 (27.0-33.0) pg MCHC 33.3 (31.0-35.0) g/dl RDW 12.4 (11.0-16.0) % Plt Count 257 D (160-400) X10*3/uL MPV 9.5 (9.4-12.3) fL Immature Gran % (Auto) 0.6 H (0.0-0.4) % Neut % (Auto) 72.3 (45-73) % Lymph % (Auto) 21.2 (20-40) % [place] % (Auto) 4.2 (2-11) % Eos % (Auto) 1.0 (0-4) % Baso % (Auto) 0.7 (0-2) % Lymph # (Auto) 1.5 (1.2-4.9) X10*3/uL [place] # (Auto) 0.3 (0.1-1.2) X10*3/uL Eos # (Auto) 0.1 (0.0-0.4) X10*3/uL Baso # (Auto) 0.1 (0.0-0.2) X10*3/uL Abs Immat Gran (auto) 0.04 H (0.00-0.03) X10*3/uL Absolute Neuts (auto) 5.1 (2.0-8.3) x10*3/uL Absolute Nucleated RBC 0.000 (0.0-0.012) X10*3/uL Nucleated RBC % (auto) 0.0 (0.0-0.2) /100WBC ESR (0-20) MM/HR PT (10.0-13.1) SEC INR (0.9-1.1) APTT (26.0-36.4) SEC Sodium 134 L (135-145) mmol/L Potassium 4.1 (3.3-5.1) mmol/L Chloride 100 (96-108) mmol/L Carbon Dioxide 25 (22-29) mmol/L Anion Gap 13 (12-20) BUN 12 (9-16) mg/dL Creatinine 0.73 (0.5-1.4) mg/dL Estim Creat Clear Calc 96.7 Estimated GFR > 60 Random Glucose 65 (60-115) mg/dL Lactic Acid (0.5-2.0) mmol/L Calcium 9.0 (8.4-10.2) mg/dL Total Bilirubin 0.4 (0.0-1.0) mg/dL AST 27 (5-31) U/L ALT 17 (0-31) U/L Alkaline Phosphatase 91 (39-117) U/L Total Creatine Kinase 230 H (26-140) U/L C-Reactive Protein 3.01 H (< or = 0.50) mg/dL Total Protein 7.0 (6.5-8.0) g/dL Albumin 4.1 (3.5-5.0) g/dL Ethyl Alcohol mg/dL COVID-19 (BRE) Negative (Negative) COVID-19 Clin Com See Note HIV 1&2 Ab/P24 Ag 4thGn (Nonreactive) Influenza Type A ([place]) (Negative) Influenza Type B ([place]) (Negative) Influenza A & B Note 06/28/22 06/28/22 06/28/22 Range/Units 11:39 11:39 11:39 WBC (4.8-10.8) X10*3/uL RBC (4.20-5.50) X10*6/uL Hgb (12.0-16.0) g/dl Hct (37.0-47.0) % MCV (80.0-98.0) fL MCH (27.0-33.0) pg MCHC (31.0-35.0) g/dl RDW (11.0-16.0) % Plt Count (160-400) X10*3/uL MPV (9.4-12.3) fL Immature Gran % (Auto) (0.0-0.4) % Neut % (Auto) (45-73) % Lymph % (Auto) (20-40) % [place] % (Auto) (2-11) % Eos % (Auto) (0-4) % Baso % (Auto) (0-2) % Lymph # (Auto) (1.2-4.9) X10*3/uL [place] # (Auto) (0.1-1.2) X10*3/uL Eos # (Auto) (0.0-0.4) X10*3/uL Baso # (Auto) (0.0-0.2) X10*3/uL Abs Immat Gran (auto) (0.00-0.03) X10*3/uL Absolute Neuts (auto) (2.0-8.3) x10*3/uL Absolute Nucleated RBC (0.0-0.012) X10*3/uL Nucleated RBC % (auto) (0.0-0.2) /100WBC ESR 37 H (0-20) MM/HR PT 11.7 (10.0-13.1) SEC INR 1.0 (0.9-1.1) APTT 23.3 L (26.0-36.4) SEC Sodium (135-145) mmol/L Potassium (3.3-5.1) mmol/L Chloride (96-108) mmol/L Carbon Dioxide (22-29) mmol/L Anion Gap (12-20) BUN (9-16) mg/dL Creatinine (0.5-1.4) mg/dL Estim Creat Clear Calc Estimated GFR Random Glucose (60-115) mg/dL Lactic Acid (0.5-2.0) mmol/L Calcium (8.4-10.2) mg/dL Total Bilirubin (0.0-1.0) mg/dL AST (5-31) U/L ALT (0-31) U/L Alkaline Phosphatase (39-117) U/L Total Creatine Kinase (26-140) U/L C-Reactive Protein (< or = 0.50) mg/dL Total Protein (6.5-8.0) g/dL Albumin (3.5-5.0) g/dL Ethyl Alcohol mg/dL COVID-19 (BRE) (Negative) COVID-19 Clin Com HIV 1&2 Ab/P24 Ag 4thGn Nonreactive (Nonreactive) Influenza Type A ([place]) (Negative) Influenza Type B ([place]) (Negative) Influenza A & B Note 06/28/22 06/28/22 06/28/22 Range/Units 11:39 11:39 21:34 WBC (4.8-10.8) X10*3/uL RBC (4.20-5.50) X10*6/uL Hgb (12.0-16.0) g/dl Hct (37.0-47.0) % MCV (80.0-98.0) fL MCH (27.0-33.0) pg MCHC (31.0-35.0) g/dl RDW (11.0-16.0) % Plt Count (160-400) X10*3/uL MPV (9.4-12.3) fL Immature Gran % (Auto) (0.0-0.4) % Neut % (Auto) (45-73) % Lymph % (Auto) (20-40) % [place] % (Auto) (2-11) % Eos % (Auto) (0-4) % Baso % (Auto) (0-2) % Lymph # (Auto) (1.2-4.9) X10*3/uL [place] # (Auto) (0.1-1.2) X10*3/uL Eos # (Auto) (0.0-0.4) X10*3/uL Baso # (Auto) (0.0-0.2) X10*3/uL Abs Immat Gran (auto) (0.00-0.03) X10*3/uL Absolute Neuts (auto) (2.0-8.3) x10*3/uL Absolute Nucleated RBC (0.0-0.012) X10*3/uL Nucleated RBC % (auto) (0.0-0.2) /100WBC ESR (0-20) MM/HR PT (10.0-13.1) SEC INR (0.9-1.1) APTT (26.0-36.4) SEC Sodium (135-145) mmol/L Potassium (3.3-5.1) mmol/L Chloride (96-108) mmol/L Carbon Dioxide (22-29) mmol/L Anion Gap (12-20) BUN (9-16) mg/dL Creatinine (0.5-1.4) mg/dL Estim Creat Clear Calc Estimated GFR Random Glucose (60-115) mg/dL Lactic Acid 0.8 (0.5-2.0) mmol/L Calcium (8.4-10.2) mg/dL Total Bilirubin (0.0-1.0) mg/dL AST (5-31) U/L ALT (0-31) U/L Alkaline Phosphatase (39-117) U/L Total Creatine Kinase (26-140) U/L C-Reactive Protein (< or = 0.50) mg/dL Total Protein (6.5-8.0) g/dL Albumin (3.5-5.0) g/dL Ethyl Alcohol < 10 mg/dL COVID-19 (BRE) (Negative) COVID-19 Clin Com HIV 1&2 Ab/P24 Ag 4thGn (Nonreactive) Influenza Type A ([place]) Negative (Negative) Influenza Type B ([place]) Negative (Negative) Influenza A & B Note See Note Discharge Plan Discharge Clinical Impression: Cellulitis Patient Disposition: Admitted As Inpatient Interventions: Admission Worksheet (ED) Last Done: 06/29/22 18:07 Discharge Date/Time: 06/29/22 18:08
--- NOTE | 2022-06-28 19:43 | ED.EXTPRO ---
HPI - Extremity Problem General Chief complaint: Extremity Problem Stated complaint: L foot cellulitis Time Seen by Provider: 06/28/22 19:38 Source: patient Mode of arrival: ambulatory Limitations: no limitations History of Present Illness HPI Narrative: 37-year-old female presents with left foot and ankle swelling, redness, tenderness and warmth to touch. States that she has had antibiotics for cellulitis however she did not complete the entire course. She is an IV drug user, and try to inject heroin into her ankle. Heroin was extravasated which in turn caused cellulitis. MD Complaint: extremity pain and extremity swelling Onset (ago): day(s) (4) Pain Consistency: constant Location: left and lower extremity Severity scale (1-10): 8 Quality: burning Radiation: none Relieving factors: nothing Exacerbating factors: weight bearing, walking and palpation Associated symptoms: denies other symptoms Related Data Home Medications Medication Instructions Recorded Confirmed albuterol sulfate 90 mcg/actuation 2 puff inhalation Q6H PRN dyspnea 06/19/22 06/28/22 breath activated powder inhaler (ProAir RespiClick) cariprazine 3 mg capsule (Vraylar) 1 cap PO DAILY 06/19/22 06/28/22 melatonin 5 mg tablet 5 mg PO BEDTIME 06/19/22 06/28/22 naloxone 4 mg/actuation nasal spray 1 spray intranasal ONCE PRN (Drug) 06/19/22 06/28/22 Ingestion nicotine (polacrilex) 4 mg buccal 1 mayra PO Q2H PRN Nicotine Cravings 06/19/22 06/28/22 lozenge trazodone 50 mg tablet 1 tab PO BEDTIME PRN Pain, Severe 06/19/22 06/28/22 Allergies Allergy/AdvReac Type Severity Reaction Status Date / Time ceftriaxone [From ROCEPHIN] Allergy Intermediate HIVES Verified 04/19/21 14:12 sulfamethoxazole Allergy Intermediate HIVES Verified 04/19/21 14:12 [From BACTRIM] trimethoprim [From BACTRIM] Allergy Intermediate HIVES Verified 04/19/21 14:12 Sulfa (Sulfonamide Allergy Unknown HIVES. Verified 04/19/21 14:12 Antibiotics) VOMITING [SULFA (SULFONAMIDE ANTIBIOTICS)] doxycycline [DOXYCYCLINE] AdvReac Unknown NAUSEA & Verified 04/19/21 14:12 VOMITING Review of Systems Review of Systems: Constitutional: No Fever, No Chills ENT/Mouth: No Ear Pain, No Hoarseness, No sore throat Eyes: No Eye Pain, No Swelling, No Redness, No Foreign Body Cardiovascular: No Chest Pain, No SOB Respiratory: No Cough, No Dyspnea Gastrointestinal: No Nausea, No Vomiting, No Diarrhea, No abdominal Pain Genitourinary: No Dysuria, No Hematuria Musculoskeletal: positive left lower extremity cellulitis and pain, No Myalgias, No Joint Swelling Skin: No Skin lacerations, No rash Neuro: No Weakness, No Numbness, No Paresthesias, No Loss of Consciousness, No Dizziness, No Headache Psych: Positive IVDA, No Anxiety/Panic, No Depression Heme/Lymph: no easy bruising, no Lymphadenopathy Endocrine: No Polyuria, No Polydipsia Yes all other systems are reviewed and are negative [facility] Past Medical History Attestation statement: The following information was validated with the patient. Source: old records reviewed Medical History Acute pelvic inflammatory disease (PID) Diskitis Drug use Opioid use disorder Prothrombin gene mutation Pulmonary emboli Social History Social History Household Members: Other Housing: Homeless Do you presently have visiting nurse or other home services: No Alcohol intake: current Alcohol intake frequency: holidays/special occasions only Alcohol type: hard liquor Smoked in Last 30 Days: Yes Use of substances other than those prescribed or required for medical reasons: Yes Substance Use Type: Crack/Cocaine Substance Use Frequency Other:: Methadone Last Used Substance: Days (ago) Advance Directives: No Advance Directives Information Provided: No service: No Current occupational status: unemployed Physical Exam Vital Signs: Vital Signs: Last Vital Signs Temp 97.6 F 06/28/22 22:23 Pulse 72 06/28/22 22:23 Resp 18 06/28/22 22:23 BP 121/57 L 06/28/22 22:23 Pulse Ox 98 06/28/22 22:23 O2 Del Method 06/28/22 22:23 BMI result Body Mass Index 25.0 Appearance: Alert. Oriented X3. No acute distress. Eyes: Pupils equal, round and reactive to light. ENT: Pharynx normal. Multiple broken teeth. Neck: Normal inspection. Neck supple. CVS: Normal heart rate and rhythm. Pulses normal. Respiratory: No respiratory distress. Breath sounds normal. Abdomen: Soft and nontender. Skin: Cellulitis to left lower extremity. Skin warm and dry. Normal skin color. Normal skin turgor. Extremities: Left ankle and foot swelling. Limping gait. Moves all extremities against resistance. Neuro: No motor deficit. No sensory deficit. Cranial nerves 2-12 intact. Course Course Course Narrative: 37-year-old female presents for left lower extremity cellulitis. Patient injected heroin approximately 4 days ago, heroin extravasated a patient ended with a cellulitis. Has been taking Augmentin however has not been taking it properly. Is also complaining of a left lower molar pain, has multiple caries and broken teeth. Patient reports being on an off antibiotics over the past few weeks for her tooth pain, and cellulitis. She does not report any fevers, chills, palpitations diaphoresis. Patient is interested in detox after treatment for cellulitis. Patient's labs and imaging was completed while patient was in the emergency department waiting room. X-rays negative for osteo, DVT study negative. Labs indicate anemia, inflammatory process with elevated ESR and CK. COVID influenza and RSV are negative. 20:10 discussion with hospitalist regarding admission for left lower extremity cellulitis, failed p.o. antibiotics. I did discuss medication regimen with Pharmacy, will give IV doxycycline and vancomycin. Patient does have multiple allergies, to ceftriaxone, Bactrim, and has abdominal discomfort with p.o. doxycycline. Consultations Consultation #1: Candy Time: 20:10 Medications Administered Discontinued Medications Generic Name Dose Route Start Last Admin Trade Name Freq PRN Reason Stop Dose Admin Doxycycline Hyclate 100 mg/ 250 mls @ 166.67 mls/hr 06/28/22 19:58 06/28/22 21:47 Sodium Chloride IV 06/28/22 21:27 166.67 mls/hr ONCE ONE Administration MDM - Extremity (Nontraumatic) MDM Narrative Medical decision making narrative: Osteo Differential Diagnosis Differential diagnosis: Likely cellulitis, lower extremity edema and deep vein thrombosis of lower extremity Medical Records Attestation: I reviewed the patient's medical records. Lab Data Attestation: I reviewed the patient's lab results. Result diagrams: 06/28/22 11:39 06/28/22 11:39 Labs: Lab Results 06/28/22 06/28/22 06/28/22 Range/Units 11:39 11:39 11:39 WBC 7.1 (4.8-10.8) X10*3/uL RBC 3.84 L (4.20-5.50) X10*6/uL Hgb 10.7 L (12.0-16.0) g/dl Hct 32.1 L (37.0-47.0) % MCV 83.6 (80.0-98.0) fL MCH 27.9 (27.0-33.0) pg MCHC 33.3 (31.0-35.0) g/dl RDW 12.4 (11.0-16.0) % Plt Count 257 D (160-400) X10*3/uL MPV 9.5 (9.4-12.3) fL Immature Gran % (Auto) 0.6 H (0.0-0.4) % Neut % (Auto) 72.3 (45-73) % Lymph % (Auto) 21.2 (20-40) % Hernando % (Auto) 4.2 (2-11) % Eos % (Auto) 1.0 (0-4) % Baso % (Auto) 0.7 (0-2) % Lymph # (Auto) 1.5 (1.2-4.9) X10*3/uL Hernando # (Auto) 0.3 (0.1-1.2) X10*3/uL Eos # (Auto) 0.1 (0.0-0.4) X10*3/uL Baso # (Auto) 0.1 (0.0-0.2) X10*3/uL Abs Immat Gran (auto) 0.04 H (0.00-0.03) X10*3/uL Absolute Neuts (auto) 5.1 (2.0-8.3) x10*3/uL Absolute Nucleated RBC 0.000 (0.0-0.012) X10*3/uL Nucleated RBC % (auto) 0.0 (0.0-0.2) /100WBC ESR (0-20) MM/HR PT (10.0-13.1) SEC INR (0.9-1.1) APTT (26.0-36.4) SEC Sodium 134 L (135-145) mmol/L Potassium 4.1 (3.3-5.1) mmol/L Chloride 100 (96-108) mmol/L Carbon Dioxide 25 (22-29) mmol/L Anion Gap 13 (12-20) BUN 12 (9-16) mg/dL Creatinine 0.73 (0.5-1.4) mg/dL Estim Creat Clear Calc 96.7 Estimated GFR > 60 Random Glucose 65 (60-115) mg/dL Lactic Acid (0.5-2.0) mmol/L Calcium 9.0 (8.4-10.2) mg/dL Total Bilirubin 0.4 (0.0-1.0) mg/dL AST 27 (5-31) U/L ALT 17 (0-31) U/L Alkaline Phosphatase 91 (39-117) U/L Total Creatine Kinase 230 H (26-140) U/L C-Reactive Protein 3.01 H (< or = 0.50) mg/dL Total Protein 7.0 (6.5-8.0) g/dL Albumin 4.1 (3.5-5.0) g/dL Ethyl Alcohol mg/dL COVID-19 (BRE) Negative (Negative) COVID-19 Clin Com See Note HIV 1&2 Ab/P24 Ag 4thGn (Nonreactive) Influenza Type A (AN[place]ELLE) (Negative) Influenza Type B ([place]LE) (Negative) Influenza A & B Note 06/28/22 06/28/22 06/28/22 Range/Units 11:39 11:39 11:39 WBC (4.8-10.8) X10*3/uL RBC (4.20-5.50) X10*6/uL Hgb (12.0-16.0) g/dl Hct (37.0-47.0) % MCV (80.0-98.0) fL MCH (27.0-33.0) pg MCHC (31.0-35.0) g/dl RDW (11.0-16.0) % Plt Count (160-400) X10*3/uL MPV (9.4-12.3) fL Immature Gran % (Auto) (0.0-0.4) % Neut % (Auto) (45-73) % Lymph % (Auto) (20-40) % Hernando % (Auto) (2-11) % Eos % (Auto) (0-4) % Baso % (Auto) (0-2) % Lymph # (Auto) (1.2-4.9) X10*3/uL Hernando # (Auto) (0.1-1.2) X10*3/uL Eos # (Auto) (0.0-0.4) X10*3/uL Baso # (Auto) (0.0-0.2) X10*3/uL Abs Immat Gran (auto) (0.00-0.03) X10*3/uL Absolute Neuts (auto) (2.0-8.3) x10*3/uL Absolute Nucleated RBC (0.0-0.012) X10*3/uL Nucleated RBC % (auto) (0.0-0.2) /100WBC ESR 37 H (0-20) MM/HR PT 11.7 (10.0-13.1) SEC INR 1.0 (0.9-1.1) APTT 23.3 L (26.0-36.4) SEC Sodium (135-145) mmol/L Potassium (3.3-5.1) mmol/L Chloride (96-108) mmol/L Carbon Dioxide (22-29) mmol/L Anion Gap (12-20) BUN (9-16) mg/dL Creatinine (0.5-1.4) mg/dL Estim Creat Clear Calc Estimated GFR Random Glucose (60-115) mg/dL Lactic Acid (0.5-2.0) mmol/L Calcium (8.4-10.2) mg/dL Total Bilirubin (0.0-1.0) mg/dL AST (5-31) U/L ALT (0-31) U/L Alkaline Phosphatase (39-117) U/L Total Creatine Kinase (26-140) U/L C-Reactive Protein (< or = 0.50) mg/dL Total Protein (6.5-8.0) g/dL Albumin (3.5-5.0) g/dL Ethyl Alcohol mg/dL COVID-19 (BRE) (Negative) COVID-19 Clin Com HIV 1&2 Ab/P24 Ag 4thGn Nonreactive (Nonreactive) Influenza Type A ([place]ELLE) (Negative) Influenza Type B ([place]ELLE) (Negative) Influenza A & B Note 06/28/22 06/28/22 06/28/22 Range/Units 11:39 11:39 21:34 WBC (4.8-10.8) X10*3/uL RBC (4.20-5.50) X10*6/uL Hgb (12.0-16.0) g/dl Hct (37.0-47.0) % MCV (80.0-98.0) fL MCH (27.0-33.0) pg MCHC (31.0-35.0) g/dl RDW (11.0-16.0) % Plt Count (160-400) X10*3/uL MPV (9.4-12.3) fL Immature Gran % (Auto) (0.0-0.4) % Neut % (Auto) (45-73) % Lymph % (Auto) (20-40) % Hernando % (Auto) (2-11) % Eos % (Auto) (0-4) % Baso % (Auto) (0-2) % Lymph # (Auto) (1.2-4.9) X10*3/uL Hernando # (Auto) (0.1-1.2) X10*3/uL Eos # (Auto) (0.0-0.4) X10*3/uL Baso # (Auto) (0.0-0.2) X10*3/uL Abs Immat Gran (auto) (0.00-0.03) X10*3/uL Absolute Neuts (auto) (2.0-8.3) x10*3/uL Absolute Nucleated RBC (0.0-0.012) X10*3/uL Nucleated RBC % (auto) (0.0-0.2) /100WBC ESR (0-20) MM/HR PT (10.0-13.1) SEC INR (0.9-1.1) APTT (26.0-36.4) SEC Sodium (135-145) mmol/L Potassium (3.3-5.1) mmol/L Chloride (96-108) mmol/L Carbon Dioxide (22-29) mmol/L Anion Gap (12-20) BUN (9-16) mg/dL Creatinine (0.5-1.4) mg/dL Estim Creat Clear Calc Estimated GFR Random Glucose (60-115) mg/dL Lactic Acid 0.8 (0.5-2.0) mmol/L Calcium (8.4-10.2) mg/dL Total Bilirubin (0.0-1.0) mg/dL AST (5-31) U/L ALT (0-31) U/L Alkaline Phosphatase (39-117) U/L Total Creatine Kinase (26-140) U/L C-Reactive Protein (< or = 0.50) mg/dL Total Protein (6.5-8.0) g/dL Albumin (3.5-5.0) g/dL Ethyl Alcohol < 10 mg/dL COVID-19 (BRE) (Negative) COVID-19 Clin Com HIV 1&2 Ab/P24 Ag 4thGn (Nonreactive) Influenza Type A ([place]ELLE) Negative (Negative) Influenza Type B ([place]ELLE) Negative (Negative) Influenza A & B Note See Note Imaging Data Foot x-ray: Attestation: I personally reviewed and interpreted this imaging study as follows: Radiologist's impression: EXAMINATION: XR FOOT, LEFT CLINICAL INFORMATION: Cellulitis. Evaluate for osteomyelitis.? COMPARISON: None? TECHNIQUE: AP, lateral, and oblique views of the left foot. FINDINGS: Bone alignment is normal. No fracture or dislocation. There is an accessory ossicle adjacent to the medial navicular bone. Joint spaces are normal. Soft tissues are normal.? XR/XR foot LT min 3V IMPRESSION: No evidence of osteomyelitis. Accessory ossicle adjacent to the medial navicular bone. ? Venous duplex: Attestation: I personally reviewed and interpreted this imaging study as follows: Radiologist's impression: EXAMINATION:? US VENOUS ULTRASOUND WITH DOPPLER LOWER EXTREMITY, LEFT CLINICAL INFORMATION:? Swelling COMPARISON:? Previous exam August 2021 TECHNIQUE: Ultrasound of the deep veins is performed from the hip to the calf with compression sonography and color and pulse Doppler assessment. Spectral analysis with color-flow imaging is performed. FINDINGS: There is normal venous compression and respiratory variation and augmented flow. The visualized common femoral vein, superficial femoral vein, profunda femoral vein, popliteal vein, and the trifurcation region shows no evidence of deep venous thrombosis. ? There is a 3.2 x 0.4 x 1.5 cm Madrigal's cyst. US/US venous duplex LE LT IMPRESSION: No DVT demonstrated in the left lower extremity. Discharge Plan Discharge Clinical Impression: Cellulitis Patient Disposition: Admitted As Inpatient
[2022-06-28 19:53] VITALS: BP 108/66; PULSE 66; O2SAT 99
[2022-06-28 20:00] VITALS: BP 111/69; PULSE 74; RESP 16; TEMP 37; O2SAT 97
--- NOTE | 2022-06-28 20:31 | PHA.MEDREC ---
Pharmacy Consult ? Medication Reconciliation Pharmacy has completed the medication reconciliation.
--- NOTE | 2022-06-28 21:42 | PC.NURSE ---
Multiple attempts made to insert IV line in arms and hands, no success. Dr. Durán attempted to put ultrasound guided IV line in left EJ-unsuccessfully. Verbal order received from Dr. Durán to place IV line in pt's foot. This machine sign writer inserted 22 g IV line in right foot.Patiet tolerated procedure well. Labs drawn per MD order.
[2022-06-28] MEDS: Doxycycline Hyclate 100 MG in 0.9 % Sodium Chloride 250 ML 166.67 MG IV (21:47)
--- NOTE | 2022-06-28 21:54 | PM.IMHP ---
History of Present Illness Date of Service: 06/28/22 Chief Complaint: cellulitis of left lower extremity 37-year-old female with past medical history of asthma, IV drug use presents to the hospital with complaints of worsening left lower extremity cellulitic changes. Patient reports that she was diagnosed with cellulitis about a week and half ago, given p.o. antibiotics at detox facility, she completed 4 days of antibiotics, on discharge she was not able to fill her medications, and her cellulitis worsened. Patient reports worsening in swelling, redness, as well as pain. She denies any fever, has chills, denies any abdominal pain nausea or vomiting, no diarrhea constipation, no urinary symptoms and no lower extremity edema In the right lower extremity. patient reports that she injected with a non clean needle in that same exact area. patient reports that she was discharged from detox 4 days ago, has now rebounded on using IV drugs, she reports being homeless at this time. Patient also has a history of PE but reports noncompliance with anticoagulation as she reports that she injects and is not able to stay on anticoagulation. On arrival to the ED patient hemodynamically stable with temp of 96.6 degrees Labs are significant for WBC count of 7.1, hemoglobin of 10.7, hematocrit 32.1, ESR 37, sodium 134 , CRP of 3.01 Venous duplex negative for DVT, x-ray of the foot shows no evidence of osteomyelitis, patient started on IV doxycycline and will be admitted for further management Review of Systems Review of Systems: Yes all other systems are reviewed and are negative PMFSH Medical History Acute pelvic inflammatory disease (PID) Diskitis Drug use Opioid use disorder Prothrombin gene mutation Pulmonary emboli Social History Household Members: Other Housing: Homeless Do you presently have visiting nurse or other home services: No Alcohol intake: current Alcohol intake frequency: a few times a month Substance Use Type: Crack/Cocaine Advance Directives: No Advance Directives Information Provided: No service: No Current occupational status: unemployed Meds Allergies Allergy/AdvReac Type Severity Reaction Status Date / Time ceftriaxone [From ROCEPHIN] Allergy Intermediate HIVES Verified 04/19/21 14:12 sulfamethoxazole Allergy Intermediate HIVES Verified 04/19/21 14:12 [From BACTRIM] trimethoprim [From BACTRIM] Allergy Intermediate HIVES Verified 04/19/21 14:12 Sulfa (Sulfonamide Allergy Unknown HIVES. Verified 04/19/21 14:12 Antibiotics) VOMITING [SULFA (SULFONAMIDE ANTIBIOTICS)] doxycycline [DOXYCYCLINE] AdvReac Unknown NAUSEA & Verified 04/19/21 14:12 VOMITING Active Medications: Current Medications Pharmacy Consult (Consult Rx Vancomycin Dosing) 1 each MISCELLANE DAILY PRN PRN Reason: Consult order Home Medications Medication Instructions Recorded Confirmed Last Taken Type albuterol sulfate 90 mcg/actuation 2 puff inhalation Q6H PRN dyspnea 06/19/22 06/28/22 Unknown History breath activated powder inhaler (ProAir RespiClick) cariprazine 3 mg capsule (Vraylar) 1 cap PO DAILY 06/19/22 06/28/22 Unknown History melatonin 5 mg tablet 5 mg PO BEDTIME 06/19/22 06/28/22 Unknown History naloxone 4 mg/actuation nasal spray 1 spray intranasal ONCE PRN (Drug) 06/19/22 06/28/22 Unknown History Ingestion nicotine (polacrilex) 4 mg buccal 1 mayra PO Q2H PRN Nicotine Cravings 06/19/22 06/28/22 Unknown History lozenge trazodone 50 mg tablet 1 tab PO BEDTIME PRN Pain, Severe 06/19/22 06/28/22 Unknown History Physical Exam Vital Signs and Narrative: Vital Signs: Last Vital Signs Temp 98.6 F 06/28/22 20:00 Pulse 74 06/28/22 20:00 Resp 16 06/28/22 20:00 BP 111/69 06/28/22 20:00 Pulse Ox 97 06/28/22 20:00 O2 Del Method 06/28/22 20:00 BMI result Body Mass Index 25.0 Const: General: cooperative and no acute distress Orientation/consciousness: patient oriented x3 Eyes: General: appearance normal, both eyes and all related structures Pupils: Equal, round and reactive pupils present Resp: Effort & Inspection: normal respiratory effort, able to speak in complete sentences and abnormal respiratory pattern Auscultation: clear to auscultation bilaterally Cardio: Rate: regular rate Rhythm: regular rhythm GI: Palpation (GI): Soft to palpation Auscultation: normal bowel sounds Skin: Other: Mild erythema, mild warmth as compared to the right foot, edema of left lower Neuro: General: patient oriented x3 Cranial nerves: Yes Equal, round and reactive pupils present Cognition (Neuro): normal cognition Extrem: Other: left lower extremity 1+ non pitting edema General: Yes normal to inspection Results Labs CBC and Chem 7: 06/28/22 11:39 06/28/22 11:39 Labs: Laboratory Results - last 24 hr 06/28/22 06/28/22 06/28/22 11:39 11:39 11:39 MCV 83.6 MCH 27.9 MCHC 33.3 RDW 12.4 Plt Count 257 D MPV 9.5 Immature Gran % (Auto) 0.6 H Neut % (Auto) 72.3 Lymph % (Auto) 21.2 Henderson % (Auto) 4.2 Eos % (Auto) 1.0 Baso % (Auto) 0.7 Lymph # (Auto) 1.5 Henderson # (Auto) 0.3 Eos # (Auto) 0.1 Baso # (Auto) 0.1 Abs Immat Gran (auto) 0.04 H Absolute Neuts (auto) 5.1 Absolute Nucleated RBC 0.000 Nucleated RBC % (auto) 0.0 ESR PT INR APTT Anion Gap 13 Estim Creat Clear Calc 96.7 Estimated GFR > 60 Random Glucose 65 Calcium 9.0 Total Bilirubin 0.4 AST 27 ALT 17 Alkaline Phosphatase 91 Total Creatine Kinase 230 H C-Reactive Protein 3.01 H Total Protein 7.0 Albumin 4.1 Ethyl Alcohol COVID-19 (BRE) Negative COVID-19 Clin Com See Note HIV 1&2 Ab/P24 Ag 4thGn Influenza Type A ([place]) Influenza Type B ([place]ELLE) Influenza A & B Note 06/28/22 06/28/22 06/28/22 11:39 11:39 11:39 MCV MCH MCHC RDW Plt Count MPV Immature Gran % (Auto) Neut % (Auto) Lymph % (Auto) Henderson % (Auto) Eos % (Auto) Baso % (Auto) Lymph # (Auto) Henderson # (Auto) Eos # (Auto) Baso # (Auto) Abs Immat Gran (auto) Absolute Neuts (auto) Absolute Nucleated RBC Nucleated RBC % (auto) ESR 37 H PT 11.7 INR 1.0 APTT 23.3 L Anion Gap Estim Creat Clear Calc Estimated GFR Random Glucose Calcium Total Bilirubin AST ALT Alkaline Phosphatase Total Creatine Kinase C-Reactive Protein Total Protein Albumin Ethyl Alcohol COVID-19 (BRE) COVID-19 Clin Com HIV 1&2 Ab/P24 Ag 4thGn Nonreactive Influenza Type A ([place]) Influenza Type B ([place]ELLE) Influenza A & B Note 06/28/22 06/28/22 11:39 11:39 MCV MCH MCHC RDW Plt Count MPV Immature Gran % (Auto) Neut % (Auto) Lymph % (Auto) Henderson % (Auto) Eos % (Auto) Baso % (Auto) Lymph # (Auto) Henderson # (Auto) Eos # (Auto) Baso # (Auto) Abs Immat Gran (auto) Absolute Neuts (auto) Absolute Nucleated RBC Nucleated RBC % (auto) ESR PT INR APTT Anion Gap Estim Creat Clear Calc Estimated GFR Random Glucose Calcium Total Bilirubin AST ALT Alkaline Phosphatase Total Creatine Kinase C-Reactive Protein Total Protein Albumin Ethyl Alcohol < 10 COVID-19 (BRE) COVID-19 Clin Com HIV 1&2 Ab/P24 Ag 4thGn Influenza Type A ([place]) Negative Influenza Type B ([place]) Negative Influenza A & B Note See Note Imaging Radiologist's Impressions: Impressions Foot X-Ray 06/28/22 11:50 IMPRESSION: No evidence of osteomyelitis. Accessory ossicle adjacent to the medial navicular bone. Venous Duplex 06/28/22 11:50 IMPRESSION: No DVT demonstrated in the left lower extremity. Assessment and Plan (1) Cellulitis: Status: Acute (2) Opioid use disorder: Status: Acute (3) Homeless: Status: Acute Plan 37-year-old female with past medical history of IV drug use disorder presents to the hospital with complaints of worsening left lower extremity cellulitis # acute cellulitis - failed p.o. antibiotics - will treat with IV antibiotics s - I discussed the importance of compliance with the medication and patient demonstrates understanding # opiate use disorder - care team consulted - continue unlocks on # homeless - case management, care team for discharge planning DVT prophylaxis: Early ambulation Quality Stroke Does the patient have a stroke diagnosis?: No VTE Prior VTE?: No VTE Risk Level:: Medical - low VTE Device Contraindication: Treatment Not Indicated VTE Drug Contraindication: Treatment Not Indicated
[2022-06-28 21:56] LABS: Lactic Acid 0.8 mmol/L (0.5-2.0)
[2022-06-28 22:23] VITALS: BP 121/57; PULSE 72; RESP 18; TEMP 36.4; O2SAT 98
[2022-06-28] MEDS: vancomycin HCL 1,000 MG, vancomycin HCL 750 MG in 0.9 % Sodium Chloride 500 ML 267.5 MG IV (23:22)
[2022-06-29] MEDS: traZODone HCL 50 MG TABLET PO ×2 (00:14→19:25)
[2022-06-29 03:29] VITALS: BP 90/67; PULSE 63; RESP 16; TEMP 36.8; O2SAT 100
[2022-06-29 04:41] LABS: UPreg QC Valid YES; Urine Pregnancy NEGATIVE (NEGATIVE)
[2022-06-29 04:52] LABS: Amphetamine Screen Urine Not Detected (Not Detect); Barbiturates, Urine Not Detected (Not Detect); Benzodiazepines Screen Urine Not Detected (Not Detect); Cannabinoid Screen Urine Not Detected (Not Detect); Cocaine Screen Urine POSITIVE (Not Detect); Fentanyl, urine POSITIVE (Not Detect); Opiate Screen Urine POSITIVE (Not Detect); Phencyclidine Screen Urine Not Detected (Not Detect)
--- NOTE | 2022-06-29 05:06 | PC.NURSE ---
Pt assisted to the bedside commode. Bed linen soiled with food. Bed linen changed and pt assited back to bed. Pt given warm blankets and call rosen placed in reach
[2022-06-29 07:01] VITALS: BP 99/62; PULSE 69; RESP 18; TEMP 37.2; O2SAT 96
--- NOTE | 2022-06-29 08:41 | PC.NURSE ---
called [facility] to verify pt methaone dose
[2022-06-29 09:41] LABS: Blood Urea Nitrogen 14 mg/dL (9-16); Calcium 8.7 mg/dL (8.4-10.2); Creatinine Clr Calc Pharmacy 92.9; Estimated Glomerular Filt Rate > 60; Glucose Random 123 mg/dL (60-115)
[2022-06-29 09:45] LABS: Basophils Percent Auto 0.5 % (0-2); Eosinophils Absolute Auto 0.2 X10*3/uL (0.0-0.4); Eosinophils Percent Auto 5.5 % (0-4); Hematocrit 31.3 % (37.0-47.0); Hemoglobin 10.6 g/dl (12.0-16.0); Imm Gran Abs Auto 0.02 X10*3/uL (0.00-0.03); Imm Gran Pct Auto 0.5 % (0.0-0.4); Lymphocytes Absolute Auto 1.2 X10*3/uL (1.2-4.9); Lymphocytes Percent Auto 29.6 % (20-40); MANUAL DIFF FLAG SCAN; Mean Corpuscular HGB Conc 33.9 g/dl (31.0-35.0); Mean Corpuscular Hemoglobin 28.6 pg (27.0-33.0); Mean Corpuscular Volume 84.6 fL (80.0-98.0); Monocytes Absolute Auto 0.4 X10*3/uL (0.1-1.2); Monocytes Percent Auto 9.8 % (2-11); Neutrophils Absolute Auto 2.3 x10*3/uL (2.0-8.3); Neutrophils Percent Auto 54.1 % (45-73); PLT CLUMP 1; Red Cell Distribution Width 12.7 % (11.0-16.0); SCAN SMEAR FLAG 1
[2022-06-29 09:53] LABS: Anion Gap 15 (12-20); Carbon Dioxide 23 mmol/L (22-29); Chloride 107 mmol/L (96-108); Potassium 4.5 mmol/L (3.3-5.1); Sodium 140 mmol/L (135-145)
--- NOTE | 2022-06-29 09:54 | PC.NURSE ---
contacted head boys tennis coach Michelle at pts request for detox. pt reports taking 140 mg methadone daily, completed methadone verification form and set down to pharmacy for verification.
[2022-06-29] MEDS: Doxycycline Hyclate 100 MG in 0.9 % Sodium Chloride 250 ML 166.67 MG IV (10:01)
--- NOTE | 2022-06-29 10:01 | MHC.RECOVRN ---
Pt currently admitted and receiving IV abx for cellulitis. Pt must be medically cleared prior to ATS referral. Will continue to follow.
[2022-06-29] MEDS: 0.9 % Sodium Chloride Flush 3 ML SYRINGE IVFLUSH ×2 (10:02→23:58)
--- NOTE | 2022-06-29 10:08 | HE.PHANOTE ---
RE METHADONE [facility] 06/28 140[address] [place]
[2022-06-29 10:14] LABS: Platelet Count 224 X10*3/uL (160-400); White Blood Count 4.2 X10*3/uL (4.8-10.8)
[2022-06-29 10:15] LABS: SLIDE REVIEW VERIFIED
[2022-06-29] MEDS: methADONE HCl 20 MG/2 ML ORAL.CONC 140 MG PO (11:36)
--- NOTE | 2022-06-29 12:34 | MHC.CM.PN ---
PT REPORTS SHE MAY BE HOMELESS, SHE SAYS SHE USUALLY LIVES WITH HER BOYFRIEND BUT IS UNSURE IF HE WILL TAKE HER BACK AFTER THIS LAST RELAPSE SHE REPORTS IF HE DOES NOT ALLOW HER TO RETURN, SHE WOULD LIKE TO GO TO [facility] SHE ADMITS SHE WOULD LIKELY BENEFIT FROM [facility] ADMISSION SHE IS ACTIVE WITH [employer] AND HAS NO OTHER COMMUNITY SERVICES SHE USES NO DME SHE SAYS HER PCP IS YOLI CARRERA NO HCP DCP TBD PENDING RECOVERY TEAM CONSULT
--- NOTE | 2022-06-29 12:54 | P.PNIM_ITS ---
Subjective Subjective Date of Service: 06/29/22 Interval History: improvement in left lower extremity cellulitis noted. no significant nursing events since admission Review of Systems Constitutional: No Fever, No Chills ENT/Mouth: No Ear Pain, No Hoarseness, No sore throat Eyes: No Eye Pain, No Swelling, No Redness, No Foreign Body Cardiovascular: No Chest Pain, No SOB Respiratory: No Cough, No Dyspnea Gastrointestinal: No Nausea, No Vomiting, No Diarrhea, No abdominal Pain Genitourinary: No Dysuria, No Hematuria Musculoskeletal: positive left lower extremity cellulitis and pain, No Myalgias, No Joint Swelling Skin: No Skin lacerations, No rash Neuro: No Weakness, No Numbness, No Paresthesias, No Loss of Consciousness, No Dizziness, No Headache Psych: Positive IVDA, No Anxiety/Panic, No Depression Heme/Lymph: no easy bruising, no Lymphadenopathy Endocrine: No Polyuria, No Polydipsia Physical Exam Vital Signs: Vital Signs: Last Vital Signs Temp 98.9 F 06/29/22 07:01 Pulse 69 06/29/22 07:01 Resp 18 06/29/22 07:01 BP 99/62 06/29/22 07:01 Pulse Ox 96 06/29/22 07:01 O2 Del Method 06/29/22 07:01 BMI result Body Mass Index 25.0 Const: General: cooperative and no acute distress Orientation/consciousness: patient oriented x3 Eyes: General: appearance normal, both eyes and all related structures Pupils: Equal, round and reactive pupils present Resp: Effort & Inspection: normal respiratory effort, able to speak in complete sentences and abnormal respiratory pattern Auscultation: clear to auscultation bilaterally Cardio: Rate: regular rate Rhythm: regular rhythm GI: Palpation (GI): Soft to palpation Auscultation: normal bowel sounds Skin: Other: Mild erythema, mild warmth as compared to the right foot, edema of left lower Neuro: General: patient oriented x3 Cranial nerves: Yes Equal, round and reactive pupils present Cognition (Neuro): normal cognition Extrem: Other: left lower extremity 1+ non pitting edema General: Yes normal to inspection Objective Data Active Medications Acetaminophen (Acetaminophen 325 Mg Tablet) 650 mg PO Q6H PRN PRN Reason: Pain, Mild (Pain Scale 1-3) Albuterol Sulfate (Albuterol Sulfate 90 Mcg 8 Gm Inhaler) 2 puff INHALE Q6H PRN PRN Reason: dyspnea Cariprazine (Cariprazine Hcl 3 Mg Capsule) 3 mg PO DAILY [facility] Last Admin: 06/29/22 10:02 Dose: Not Given Documented By: JACI Non-Admin Reason: Patient Refused Docusate Sodium (Docusate Sodium 100 Mg Capsule) 100 mg PO DAILY PRN PRN Reason: Constipation Doxycycline Hyclate 100 mg/ (Sodium Chloride) 250 mls @ 166.67 mls/hr IV Q12H [facility] Last Infusion: 06/29/22 11:35 Dose: 0 mls/hr Documented By: JACI Melatonin (Melatonin 3 Mg Tablet) 6 mg PO BEDTIME [facility] Methadone HCl (Methadone Hcl 20 Mg/2 Ml Oral.Conc) 140 mg PO DAILY [facility] Last Admin: 06/29/22 11:36 Dose: 140 mg Documented By: JACI Nicotine Polacrilex (Nicotine Polacrilex Lozenge 4 Mg Lozenge) 4 mg BUCCAL Q2H PRN PRN Reason: Nicotine Cravings Ondansetron HCl (Ondansetron Hcl 4 Mg/2 Ml Vial) 4 mg IVPUSH Q8H PRN PRN Reason: Nausea and Vomiting Pharmacy Consult (Consult Rx Vancomycin Dosing) 1 each MISCELLANE DAILY PRN PRN Reason: Consult order Sodium Chloride (0.9 % Sodium Chloride Flush 3 Ml Syringe) 3 ml IVFLUSH QSHIFT [facility] Last Admin: 06/29/22 10:02 Dose: 3 ml Documented By: JACI Trazodone HCl (Trazodone Hcl 50 Mg Tablet) 50 mg PO BEDTIME PRN PRN Reason: Pain, Severe Last Admin: 06/29/22 00:14 Dose: 50 mg Documented By: SALVADOR Labs CBC & Chem 7: 06/29/22 09:11 06/29/22 09:11 Labs: Laboratory Results - last 24 hr 06/28/22 06/29/22 06/29/22 21:34 04:33 04:34 MCV MCH MCHC RDW Plt Count MPV Immature Gran % (Auto) Neut % (Auto) Lymph % (Auto) [place] % (Auto) Eos % (Auto) Baso % (Auto) Lymph # (Auto) [place] # (Auto) Eos # (Auto) Baso # (Auto) Abs Immat Gran (auto) Absolute Neuts (auto) Absolute Nucleated RBC Nucleated RBC % (auto) Smear Tech's Comments Anion Gap Estim Creat Clear Calc Estimated GFR Random Glucose Lactic Acid 0.8 Calcium Urine Test NEGATIVE Urine Opiates Screen POSITIVE H Urine Fentanyl Screen POSITIVE H Ur Barbiturates Screen Not Detected Ur Phencyclidine Scrn Not Detected Ur Amphetamines Screen Not Detected U Benzodiazepines Scrn Not Detected Urine Cocaine Screen POSITIVE H U Marijuana (THC) Screen Not Detected 06/29/22 06/29/22 09:11 09:11 MCV 84.6 MCH 28.6 MCHC 33.9 RDW 12.7 Plt Count 224 MPV Not Reportable Immature Gran % (Auto) 0.5 H Neut % (Auto) 54.1 Lymph % (Auto) 29.6 [place] % (Auto) 9.8 Eos % (Auto) 5.5 H Baso % (Auto) 0.5 Lymph # (Auto) 1.2 [place] # (Auto) 0.4 Eos # (Auto) 0.2 Baso # (Auto) 0.0 Abs Immat Gran (auto) 0.02 Absolute Neuts (auto) 2.3 Absolute Nucleated RBC 0.000 Nucleated RBC % (auto) 0.0 Smear Tech's Comments VERIFIED Anion Gap 15 Estim Creat Clear Calc 92.9 Estimated GFR > 60 Random Glucose 123 H Lactic Acid Calcium 8.7 Urine Test Urine Opiates Screen Urine Fentanyl Screen Ur Barbiturates Screen Ur Phencyclidine Scrn Ur Amphetamines Screen U Benzodiazepines Scrn Urine Cocaine Screen U Marijuana (THC) Screen Assessment and Plan (1) Cellulitis: Status: Acute (2) Homeless: Status: Acute (3) Opioid use disorder: Status: Acute Plan 37-year-old female with past medical history of IV drug use disorder presents to the hospital with complaints of worsening left lower extremity cellulitis # acute non purulent cellulitis - failed p.o. antibiotics - will treat with IV antibiotics, likely transition to po antibiotics in a day or two - I discussed the importance of compliance with the medication and patient demonstrates understanding # opiate use disorder - care team consulted - continue methadone # Mood disorder - continue vraylar, trazodone # homeless - case management, care team for discharge planning DVT prophylaxis: Early ambulation Quality Stroke Does the patient have a stroke diagnosis?: No VTE Prior VTE?: No VTE Risk Level:: Medical - low VTE Device Contraindication: Treatment Not Indicated VTE Drug Contraindication: Treatment Not Indicated
--- NOTE | 2022-06-29 13:50 | PHA.PROG ---
Admission Date/Time: June 28, 2022 21:51 Indication: Skin/skin structure Weight in k.039 kg Adjusted body weight in K.416 [place] body weight in Kg: Obesity Dosing Indication % IBW: Serum Creatinine - Last 168 Hours 06/28/22 06/29/22 11:39 09:11 Creatinine 0.73 0.76 Estimated CrCl and GFR - Last 168 Hours 06/28/22 06/29/22 11:39 09:11 Estim Creat Clear Calc 96.7 92.9 Estimated GFR > 60 > 60 Vancomycin Loading Dose: 1750 Current Vancomycin Dosing Regimen: 1000 mg q12h Vancomycin Monitoring using AUC goal of 400 - 600 range with trough as surrogate marker: auc 471 trough 13.9 Date and Time for next Vancomycin Level to be drawn: 06/30 @1300 Pharmacist Comments on Vancomycin Plan: Vancomycin dosing will take advantage of [employer] as a clinical decision support tool that uses Bayesian modeling to calculate individual patient's pharmacokinetic parameters and forecast the patient's drug concentration time course with the target goal AUC 24 range of 400 - 600 mg/L/hr.
[2022-06-29 13:58] VITALS: BP 99/54; PULSE 71; RESP 12; TEMP 37; O2SAT 97
[2022-06-29] MEDS: vancomycin HCL 1,000 MG in 0.9 % Sodium Chloride 250 ML 270 MG IV (15:37)
[2022-06-29 17:57] VITALS: BMI 28.0
[2022-06-29 18:02] VITALS: BP 117/70; PULSE 57; RESP 16; TEMP 36.9; O2SAT 97
[2022-06-29] MEDS: Acetaminophen 325 MG TABLET 650 MG PO (18:46)
[2022-06-29 19:15] VITALS: BP 110/59; PULSE 57; RESP 18; TEMP 36.8; O2SAT 97
--- NOTE | 2022-06-29 19:27 | PC.NURSE ---
patient refused flu vaccine, she said she would prefer it in the morning
[2022-06-29] MEDS: Nicotine Polacrilex Lozenge 4 MG LOZENGE BUCCAL (19:33)
[2022-06-29 23:16] VITALS: BP 108/62; PULSE 53; RESP 18; TEMP 36.4; O2SAT 98
[2022-06-30] MEDS: vancomycin HCL 1,000 MG in 0.9 % Sodium Chloride 250 ML 270 MG IV (02:30)
[2022-06-30 04:00] VITALS: BP 90/50; PULSE 54; RESP 18; TEMP 36.7; O2SAT 97
[2022-06-30 07:35] VITALS: BP 99/56; PULSE 65; RESP 17; TEMP 36.7; O2SAT 96
[2022-06-30] MEDS: Nicotine Polacrilex Lozenge 4 MG LOZENGE BUCCAL (09:12)
[2022-06-30] MEDS: methADONE HCl 20 MG/2 ML ORAL.CONC 140 MG PO (09:13)
[2022-06-30] MEDS: 0.9 % Sodium Chloride Flush 3 ML SYRINGE IVFLUSH (09:14)
--- NOTE | 2022-06-30 10:00 | PM.DS ---
DS: Providers Provider Date of Service: 06/30/22 Date of admission: 06/28/22 21:51 Primary care physician: Manju Fonseca MD Consults: 06/28/22 21:51 Consult to Care Team Routine Comment: Reason for consultation: detox DS: Diagnosis Discharge Diagnosis (1) Cellulitis: Status: Acute (2) Homeless: Status: Acute (3) Opioid use disorder: Status: Acute DS: Summary Hospital Course Hospital Course: HPI From the admission H&P: 37-year-old female with past medical history of asthma, IV drug use presents to the hospital with complaints of worsening left lower extremity cellulitic changes.? Patient reports that she was diagnosed with cellulitis about a week and half ago, given p.o. antibiotics at detox facility, she completed 4 days of antibiotics, on discharge she was not able to fill her medications, and her cellulitis worsened.? Patient reports worsening in swelling, redness, as well as pain.? She denies any fever, has chills, denies any abdominal pain nausea or vomiting, no diarrhea constipation, no urinary symptoms and no lower extremity edema? In the right lower extremity.? ?patient reports that she injected with a non clean needle in that same exact area. ?patient reports that she was discharged from detox 4 days ago, has now rebounded on using IV drugs, she reports being homeless at this time. Patient also has a history of? PE but reports noncompliance with anticoagulation as she reports that she injects and is not able to stay on anticoagulation.? On arrival to the ED patient hemodynamically stable with? temp of 96.6 degrees Labs are significant for WBC count of 7.1, hemoglobin of 10.7, hematocrit 32.1, ESR 37, sodium 134 , CRP of 3.01 Venous duplex negative for DVT, x-ray of the foot shows no evidence of osteomyelitis, ?patient started on IV doxycycline and will be admitted for further management: Hospital Course: Patient was started on IV vancomycin for her cellulitis. Over the course of 48 hours, she had near resolution of her cellulitis. She will be transitioned to oral doxycycline for 7 more days. Initially the patient had requested recovery team consult for transition to detox. However on the day of discharge, the patient declined detox and opted for discharge. Time Spent with Patient Time attestation: Total time spent providing and/or coordinating discharge services: Discharge coordination time: Less than 30 minutes Quality: Safe Use of Opioids Does Pt have an Active Cancer Diagnosis on the Problem List?: No Quality: Stroke Does the patient have a stroke diagnosis?: No Physical Exam Vital Signs: Vital Signs: Last Vital Signs Temp 98.0 F 06/30/22 07:35 Pulse 65 06/30/22 07:35 Resp 17 06/30/22 07:35 BP 99/56 L 06/30/22 07:35 Pulse Ox 96 06/30/22 07:35 O2 Del Method 06/30/22 07:35 BMI result Body Mass Index 28.0 Const: Other: General - no acute distress, appears comfortable Cardiovascular - regular rate and rhythm, S1-S2 Lungs - normal respiratory effort, clear to auscultation bilaterally, no wheezing Abdomen - soft, nontender, no rebound or guarding Extremities - no edema bilaterally Neuro - awake and alert, no focal deficits skin -- left foot erythema resolved DS: Data Data Completed and Pending Labs on day of discharge: Laboratory Results - last 24 hr 06/29/22 06/29/22 09:11 09:11 WBC 4.2 L RBC 3.70 L Hgb 10.6 L Hct 31.3 L MCV 84.6 MCH 28.6 MCHC 33.9 RDW 12.7 Plt Count 224 Immature Gran % (Auto) 0.5 H Neut % (Auto) 54.1 Lymph % (Auto) 29.6 [place] % (Auto) 9.8 Eos % (Auto) 5.5 H Baso % (Auto) 0.5 Lymph # (Auto) 1.2 [place] # (Auto) 0.4 Eos # (Auto) 0.2 Baso # (Auto) 0.0 Abs Immat Gran (auto) 0.02 Absolute Neuts (auto) 2.3 Absolute Nucleated RBC 0.000 Nucleated RBC % (auto) 0.0 Smear Tech's Comments VERIFIED Sodium 140 Potassium 4.5 Chloride 107 Carbon Dioxide 23 Anion Gap 15 BUN 14 Creatinine 0.76 Estim Creat Clear Calc 92.9 Estimated GFR > 60 Random Glucose 123 H Calcium 8.7 Preliminary micro results at discharge 06/28/22 21:34 Blood Culture - Preliminary Blood - Venous No growth after 24 hours. 06/28/22 11:39 Blood Culture - Preliminary Blood - Venous No growth after 24 hours. Discharge Plan Discharge Patient Disposition: Home, Self-Care Discharge Diagnosis: Cellulitis Referrals: Manju Fonseca MD [Primary Care Provider] - 1 Week Discharge Medications: New doxycycline hyclate 100 mg tablet 100 mg PO BID Qty: 14 0RF Continued methadone [Methadone Intensol] 10 mg/mL Concentrate 140 mg PO DAILY trazodone 50 mg tablet 1 tab PO BEDTIME PRN (Reason: Pain, Severe) nicotine (polacrilex) 4 mg lozenge 1 mayra PO Q2H PRN (Reason: Nicotine Cravings) melatonin 5 mg tablet 5 mg PO BEDTIME ProAir RespiClick 90 mcg/actuation aerosol powdr breath activated 2 puff inhalation Q6H PRN (Reason: dyspnea) Vraylar 3 mg capsule 1 cap PO DAILY naloxone 4 mg/actuation spray,non-aerosol 1 spray intranasal ONCE PRN (Reason: (Drug) Ingestion) Discharge Orders: Discharge Order (Routine); Ordered 06/30/22 Ordered By: Daren Wetzel Diet: Advance to usual diet Activity on Discharge: As tolerated Stand Alone Forms: Patient Portal Discharge page Care Plan Goals: To stay healthy and out of the hospital. Health Concerns: Intravenous drug use Cellulitis Plan of Treatment: Avoid intravenous drug use Take doxycycline for 7 days Assessment: see d/c summary
--- NOTE | 2022-06-30 11:58 | MHC.CM.PN ---
PT MEDICALLY CLEARED TODAY INITIALLY PT REPORTED SHE WANTED TO GO TO [facility] HOWEVER LATER CHANGED HER MIND PT DISCHARGED TO THE COMMUNITY, INDICATING SHE WOULD STAY WITH A FRIEND SHE ARRANGED HER OWN TRANSPORTATION
== END 2022-06-30 10:25 | disposition home or self-care (01) ==
LOC: HO.ED 19:53 → HO.EDOVER 22:02 → HO.S3 06-29 16:30
PROVIDERS: Emergency Medicine Emergency Medical Services; Admitting Provider Internal Medicine; Emergency Provider Internal Medicine; PCP Internal Medicine; Visit Provider Family Medicine
DX: L03.116 Cellulitis of left lower limb (principal); F11.20 Opioid dependence, uncomplicated; M79.662 Pain in left lower leg; M71.22 Synovial cyst of popliteal space [Baker], left knee; K02.9 Dental caries, unspecified; Z20.822 Contact with and (suspected) exposure to COVID-19; B15.9 Hepatitis A without hepatic coma; F17.210 Nicotine dependence, cigarettes, uncomplicated; Z86.711 Personal history of pulmonary embolism; Z91.14 Patient's other noncompliance with medication regimen; Z23 Encounter for immunization
CPT/HCPCS: 36415; 73630; 80048; 80053; 80307; 81025; 82077; 82550; 83605; 85025; 85610; 85652; 85730; 86140; 87040; 87389; 87502; 87635; 90471; 90686; 93971; 96365; 96366; 96367; 99219; 99285; J3370

== ENCOUNTER 2022-07-06 10:27 | Emergency (ER) | payer OTHER, SELFPAY ==
[2022-07-06 10:46] VITALS: BP 126/68; PULSE 79; RESP 20; TEMP 36.8; O2SAT 98; BMI 25.0
[2022-07-06 11:31] LABS: MANUAL DIFF FLAG NO
[2022-07-06 11:39] LABS: Basophils Percent Auto 0.5 % (0-2); Eosinophils Absolute Auto 0.2 X10*3/uL (0.0-0.4); Hematocrit 30.9 % (37.0-47.0); Hemoglobin 10.2 g/dl (12.0-16.0); Imm Gran Abs Auto 0.01 X10*3/uL (0.00-0.03); Imm Gran Pct Auto 0.2 % (0.0-0.4); Lymphocytes Percent Auto 32.2 % (20-40); Mean Corpuscular Hemoglobin 27.3 pg (27.0-33.0); Mean Corpuscular Volume 82.8 fL (80.0-98.0); Mean Platelet Volume 8.8 fL (9.4-12.3); Monocytes Absolute Auto 0.5 X10*3/uL (0.1-1.2); Monocytes Percent Auto 7.9 % (2-11); Neutrophils Absolute Auto 3.4 x10*3/uL (2.0-8.3); Neutrophils Percent Auto 56.2 % (45-73); Platelet Count 260 X10*3/uL (160-400); Red Blood Count 3.73 X10*6/uL (4.20-5.50); Red Cell Distribution Width 12.8 % (11.0-16.0); White Blood Count 6.1 X10*3/uL (4.8-10.8)
[2022-07-06 11:47] LABS: Anion Gap 11 (12-20); Blood Urea Nitrogen 13 mg/dL (9-16); Calcium 8.8 mg/dL (8.4-10.2); Carbon Dioxide 25 mmol/L (22-29); Chloride 107 mmol/L (96-108); Creatinine Clr Calc Pharmacy 92.9; Estimated Glomerular Filt Rate > 60; Glucose Random 133 mg/dL (60-115); Potassium 3.8 mmol/L (3.3-5.1); Sodium 139 mmol/L (135-145)
--- NOTE | 2022-07-06 15:22 | ED_ITS ---
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 She states that she has cellulitis of ankle. <Tomi Stephenson MD - Last Filed: 07/06/22 15:32> Onset (ago): year(s) <Tomi Stephenson MD - Last Filed: 07/06/22 15:32> Severity: mild <Tomi Stephenson MD - Last Filed: 07/06/22 15:32> Associated symptoms: denies other symptoms <Tomi Stephenson MD - Last Filed: 07/06/22 15:32> Related Data Home medications: Home Medications Medication Instructions Recorded Confirmed albuterol sulfate 90 mcg/actuation 2 puff inhalation Q6H PRN dyspnea 06/19/22 06/28/22 breath activated powder inhaler (ProAir RespiClick) cariprazine 3 mg capsule (Vraylar) 1 cap PO DAILY 06/19/22 06/28/22 melatonin 5 mg tablet 5 mg PO BEDTIME 06/19/22 06/28/22 naloxone 4 mg/actuation nasal spray 1 spray intranasal ONCE PRN (Drug) 06/19/22 06/28/22 Ingestion nicotine (polacrilex) 4 mg buccal 1 mayra PO Q2H PRN Nicotine Cravings 06/19/22 06/28/22 lozenge trazodone 50 mg tablet 1 tab PO BEDTIME PRN Pain, Severe 06/19/22 06/28/22 methadone 10 mg/mL oral 140 mg PO DAILY 06/29/22 07/07/22 concentrate (Methadone Intensol) Previous Rx's Medication Instructions Recorded doxycycline hyclate 100 mg tablet 100 mg PO BID #14 tabs 06/30/22 <Tomi Stephenson MD - Last Filed: 07/06/22 15:32> Allergies/adverse reactions: Allergies Allergy/AdvReac Type Severity Reaction Status Date / Time ceftriaxone [From ROCEPHIN] Allergy Intermediate HIVES Verified 04/19/21 14:12 sulfamethoxazole Allergy Intermediate HIVES Verified 04/19/21 14:12 [From BACTRIM] trimethoprim [From BACTRIM] Allergy Intermediate HIVES Verified 04/19/21 14:12 Sulfa (Sulfonamide Allergy Unknown HIVES. Verified 04/19/21 14:12 Antibiotics) VOMITING [SULFA (SULFONAMIDE ANTIBIOTICS)] doxycycline [DOXYCYCLINE] AdvReac Unknown NAUSEA & Verified 04/19/21 14:12 VOMITING <Tomi Stephenson MD - Last Filed: 07/06/22 15:32> Review of Systems Constitutional: Constitutional: Reports no additional constitutional complaints <Tomi Stephenson MD - Last Filed: 07/06/22 15:32> Eyes: Eyes: Reports no additional eye complaints <Tomi Stephenson MD - Last Filed: 07/06/22 15:32> ENT: Denies dizziness <Tomi Stephenson MD - Last Filed: 07/06/22 15:32> Cardiovascular: Cardiovascular: Reports no additional cardiovascular complaints <Tomi Stephenson MD - Last Filed: 07/06/22 15:32> Respiratory: Respiratory: Reports as per HPI <Tomi Stephenson MD - Last Filed: 07/06/22 15:32> Gastrointestinal: Gastrointestinal: Reports no additional gastrointestinal complaints <Tomi Stephenson MD - Last Filed: 07/06/22 15:32> Genitourinary: Genitourinary: Reports no additional female genitourinary complaints <Tomi Stephenson MD - Last Filed: 07/06/22 15:32> Musculoskeletal: Musculoskeletal: Reports no additional musculoskeletal complaints <Tomi Stephenson MD - Last Filed: 07/06/22 15:32> Integumentary/Breasts: Skin/Breast: Denies rash <Tomi Stephenson MD - Last Filed: 07/06/22 15:32> Neurologic: Reports system reviewed and no additional complaints, except as documented, Denies dizziness and Denies Sensory deficit (Neuro) <Tomi Stephenson MD - Last Filed: 07/06/22 15:32> Psychiatric: Psychiatric: Denies anxiety <Tomi Stephenson MD - Last Filed: 07/06/22 15:32> [facility] Past Medical History Medical History: Medical History Acute pelvic inflammatory disease (PID) Diskitis Drug use Opioid use disorder Prothrombin gene mutation Pulmonary emboli <Tomi Stephenson MD - Last Filed: 07/06/22 15:32> Social History Social History: Social History Household Members: Other Housing: Homeless Do you presently have visiting nurse or other home services: No Alcohol intake: current Alcohol intake frequency: does not drink Alcohol type: hard liquor Patient Tobacco Use Status: Current everyday Tobacco user Tobacco use type: Cigarette Cigarette Packs Per Day: 1 Cigarettes Per Day: 20.0 Smoked in Last 30 Days: Yes Second Hand Smoke Exposure: No Use of substances other than those prescribed or required for medical reasons: Yes Substance Use Type: Crack/Cocaine and Heroin Advance Directives: No Advance Directives Information Provided: No service: No Current occupational status: unemployed <Tomi Stephenson MD - Last Filed: 07/06/22 15:32> Physical Exam ED Vital Signs: Vital Signs - 24 hr 07/06/22 16:00 07/06/22 20:00 07/06/22 22:22 Temperature 98.0 F 97.7 F 97.2 F Pulse Rate 64 70 74 Respiratory Rate 16 16 16 Blood Pressure 122/60 126/72 123/61 Pulse Oximetry 97 97 97 Oxygen Delivery Method Room Air Room Air Room Air BMI result Body Mass Index 25.0 <Tomi Stephenson MD - Last Filed: 07/06/22 15:32> Vital Signs - 24 hr 07/06/22 16:00 07/06/22 20:00 07/06/22 22:22 Temperature 98.0 F 97.7 F 97.2 F Pulse Rate 64 70 74 Respiratory Rate 16 16 16 Blood Pressure 122/60 126/72 123/61 Pulse Oximetry 97 97 97 Oxygen Delivery Method Room Air Room Air Room Air BMI result Body Mass Index 25.0 <Donna Spencer NP - Last Filed: 07/07/22 13:31> Appearance: Alert. Oriented X3. No acute distress. Eyes: Pupils equal, round and reactive to light. ENT: Pharynx normal. Neck: Normal inspection. Neck supple. track simmons R/L neck no abscess mild erythema and warmth small patch CVS: Normal heart rate and rhythm. Pulses normal. Respiratory: No respiratory distress. Breath sounds normal. Lungs are clear but junky cough noted Abdomen: Soft and nontender. Skin: Skin warm and dry. Normal skin color. Normal skin turgor. Extremities: No lower extremity edema. No calf ttp Neuro: Oriented X 3. No motor deficit. No sensory deficit. <Tomi Stephenson MD - Last Filed: 07/06/22 15:32> Const General: healthy appearing <Tomi Stephenson MD - Last Filed: 07/06/22 15:32> Nutritional Appearance: average body habitus <Tomi Stephenson MD - Last Filed: 07/06/22 15:32> Orientation/consciousness: oriented to person and patient oriented x3 <Tomi Stephenson MD - Last Filed: 07/06/22 15:32> Limitations: no limitations <Tomi Stephenson MD - Last Filed: 07/06/22 15:32> [facility] Head: Yes normal to inspection <Tomi Stephenson MD - Last Filed: 07/06/22 15:32> Ears: external ears normal <Tomi Stephenson MD - Last Filed: 07/06/22 15:32> General nose exam: Normal external nose present <Tomi Stephenson MD - Last Filed: 07/06/22 15:32> Mouth: Normal oral and palatal mucosa present and oropharynx normal <Tomi Stephenson MD - Last Filed: 07/06/22 15:32> Throat: Yes posterior oropharynx normal <Tomi Stephenson MD - Last Filed: 07/06/22 15:32> Eyes General: appearance normal, both eyes and all related structures <Tomi Stephenson MD - Last Filed: 07/06/22 15:32> Neck Neck: Yes normal visual inspection <Tomi Stephenson MD - Last Filed: 07/06/22 15: 32> Chest Chest palpation & inspection: normal inspection of the chest <Tomi Stephenson MD - Last Filed: 07/06/22 15:32> Resp Auscultation: clear to auscultation bilaterally <Tomi Stephenson MD - Last Filed: 07/06/22 15:32> Cardio Jugular venous distension: no JVD <Tomi Stephenson MD - Last Filed: 07/06/22 15:32> Rate: regular rate <Tomi Stephenson MD - Last Filed: 07/06/22 15:32> Rhythm: regular rhythm <Tomi Stephenson MD - Last Filed: 07/06/22 15:32> Heart sounds: S1 normal heart sound present and S2 normal heart sound present <Tomi Stephenson MD - Last Filed: 07/06/22 15:32> GI Inspection: Yes normal to inspection <Tomi Stephenson MD - Last Filed: 07/06/22 15:32> Palpation (GI): Soft to palpation, nontender and No hepatosplenomegaly present <Tomi medel MD - Last Filed: 07/06/22 15:32> Auscultation: normal bowel sounds <Tomi Stephenson MD - Last Filed: 07/06/22 15:32> General: Yes no CVA tenderness <Tomi Stephenson MD - Last Filed: 07/06/22 15:32> Back/Spine/Pelvis Back: no CVA tenderness <Tomi Stephenson MD - Last Filed: 07/06/22 15:32> Skin General skin exam: no rashes or lesions noted <Tomi Stephenson MD - Last Filed: 07/06/22 15:32> Neuro General: oriented to person and patient oriented x3 <Tomi Stephenson MD - Last Filed: 07/06/22 15:32> Cranial nerves: Yes CN's II-XII intact bilaterally <Tomi Stephenson MD - Last Filed: 07/06/22 15:32> Motor exam (neuro): 5/5 motor strength present throughout <Tomi Stephenson MD - Last Filed: 07/06/22 15:32> Sensory Exam: No Sensory deficit (Neuro) <Tomi Stephenson MD - Last Filed: 07/06/22 15:32> Extrem General: Yes normal to inspection <Tomi Stephenson MD - Last Filed: 07/06/22 15:32> Psych Appearance: grossly normal <Tomi Stephenson MD - Last Filed: 07/06/22 15:32> Course Reevaluation(s) Reevaluation #1: patient with no evidence of cellulitis or scabies will have care team evaluate <Tomi Stephenson MD - Last Filed: 07/06/22 15:32> Time: 15:31 <Tomi Stephenson MD - Last Filed: 07/06/22 15:32> Reevaluation #2: Patient going to [facility] for detox for opiate use disord er <Donna Spencer NP - Last Filed: 07/07/22 13:31> Medications Administered Discontinued Medications Generic Name Dose Route Start Last Admin Trade Name Freq PRN Reason Stop Dose Admin Methadone HCl 140 mg 07/07/22 09:46 07/07/22 12:04 Methadone Hcl 20 Mg/2 Ml Oral.Conc PO 07/07/22 09:47 140 mg ONCE ONE Administration <Tomi Stephenson MD - Last Filed: 07/06/22 15:32> Medications Administered Discontinued Medications Generic Name Dose Route Start Last Admin Trade Name Freq PRN Reason Stop Dose Admin Methadone HCl 140 mg 07/07/22 09:46 07/07/22 12:04 Methadone Hcl 20 Mg/2 Ml Oral.Conc PO 07/07/22 09:47 140 mg ONCE ONE Administration <Donna Spencer NP - Last Filed: 07/07/22 13:31> Discharge Plan Discharge Clinical Impression: Opioid use disorder <Tomi Stephenson MD - Last Filed: 07/06/22 15:32> Patient Disposition: Home, Self-Care <Tomi Stephenson MD - Last Filed: 07/06/22 15:32> Instructions: Opioid Use Disorder (ED) <Tomi Stephenson MD - Last Filed: 07/06/22 15:32> Additional Instructions: Go directly to [facility] <Tomi Stephenson MD - Last Filed: 07/06/22 15:32> Prescriptions: No Action methadone [Methadone Intensol] 10 mg/mL Concentrate 140 mg PO DAILY doxycycline hyclate 100 mg tablet 100 mg PO BID Qty: 14 0RF trazodone 50 mg tablet 1 tab PO BEDTIME PRN (Reason: Pain, Severe) nicotine (polacrilex) 4 mg lozenge 1 mayra PO Q2H PRN (Reason: Nicotine Cravings) melatonin 5 mg tablet 5 mg PO BEDTIME ProAir RespiClick 90 mcg/actuation aerosol powdr breath activated 2 puff inhalation Q6H PRN (Reason: dyspnea) Vraylar 3 mg capsule 1 cap PO DAILY naloxone 4 mg/actuation spray,non-aerosol 1 spray intranasal ONCE PRN (Reason: (Drug) Ingestion) <Tomi Stephenson MD - Last Filed: 07/06/22 15:32>
[2022-07-06 16:00] VITALS: BP 122/60; PULSE 64; RESP 16; TEMP 36.7; O2SAT 97
[2022-07-06 20:00] VITALS: BP 126/72; PULSE 70; RESP 16; TEMP 36.5; O2SAT 97
--- NOTE | 2022-07-06 20:59 | MHC.RECOVSUP ---
r consult:OPI o? Current location:Family RM? o? Identified substance use concern:? -? Seeking ATS (detox) -? Support ? Intervention: o? ATS bed search started/completed/in process ? Plan: o? Bed search in progress to o? Follow up tomorrow? ? Additional information:RC met with pt, pt states she wants to go to detox, but she has scabies and she didn't finish antibiotics for cellulites. Dr. coats says pt doesn't have either, RC sent referral packet to [facility], they have beds available. Please follow up.
[2022-07-06 22:22] VITALS: BP 123/61; PULSE 74; RESP 16; TEMP 36.2; O2SAT 97
--- NOTE | 2022-07-07 00:43 | PC.NURSE ---
pt found to be sleeping in bed near ems entrance. This rn spoke with cleaner furniture. pt relocated to [facility] [place] [facility]. pt provided with sandwich, pudding, and wash cloth to cover eyes. pt awaiting placement
--- NOTE | 2022-07-07 05:53 | PC.NURSE ---
Pt. awoke briefly at 140 yelling about missing a dose. RN was with another pt. and told her she'd be right with her. Pt. was asleep when RN returned. Pt. is currently sleeping. Respirations even and unlabored.
--- NOTE | 2022-07-07 09:42 | HE.PHANOTE ---
Pharmacy received a methadone verification sheet. Deirdre GROSSMAN, confirmed with [facility] [phone] that patient is on 140mg daily. confirmed with juancho at the facility. Last confirmed dose was not included in the verification sheet.
--- NOTE | 2022-07-07 11:01 | MHC.RECOVRN ---
C had not received pts referral. Referral sent.
[2022-07-07] MEDS: methADONE HCl 20 MG/2 ML ORAL.CONC 140 MG PO (12:04)
--- NOTE | 2022-07-07 12:06 | PC.NURSE ---
medicated per provider order - pt reports 7/10 leg pain. pt recently admitted for cellulitis, pt reports increased swelling in ankle, per pt she lost her abx and didn't finish course. pt would like additional course of abx.
--- NOTE | 2022-07-07 14:11 | MHC.RECOVRN ---
Pt accepted to [facility] for 2:30PM. Transported via [employer].
== END 2022-07-07 13:39 | disposition home or self-care (01) ==
PROVIDERS: Emergency Medicine; Emergency Provider Emergency Medicine Emergency Medical Services
DX: B86 Scabies (principal); F11.20 Opioid dependence, uncomplicated; F14.20 Cocaine dependence, uncomplicated; F17.210 Nicotine dependence, cigarettes, uncomplicated; Z71.6 Tobacco abuse counseling; Z79.899 Other long term (current) drug therapy; Z71.51 Drug abuse counseling and surveillance of drug abuser
CPT/HCPCS: 36415; 80048; 85025; 99284

== ENCOUNTER 2022-07-21 17:34 | Emergency (ER) | payer OTHER, SELFPAY ==
[2022-07-21 17:39] VITALS: BP 118/62; PULSE 87; RESP 18; TEMP 36.7; O2SAT 97; BMI 25.0
--- NOTE | 2022-07-21 17:43 | ED_ITS ---
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 After coming here patient was sleeping and was not itching at all <Ladarius Durán MD - Last Filed: 07/22/22 07:38> Related Data Home medications: Home Medications Medication Instructions Recorded Confirmed albuterol sulfate 90 mcg/actuation 2 puff inhalation Q6H PRN dyspnea 06/19/22 07/22/22 breath activated powder inhaler (ProAir RespiClick) melatonin 5 mg tablet 5 mg PO BEDTIME 06/19/22 07/22/22 nicotine (polacrilex) 4 mg buccal 1 mayra PO Q2H PRN Nicotine Cravings 06/19/22 07/22/22 lozenge trazodone 50 mg tablet 1 tab PO BEDTIME PRN Pain, Severe 06/19/22 07/22/22 methadone 10 mg/mL oral 140 mg PO DAILY 06/29/22 07/22/22 concentrate (Methadone Intensol) <GALINDO Jimenez - Last Filed: 07/21/22 17:49> Allergies/adverse reactions: Allergies Allergy/AdvReac Type Severity Reaction Status Date / Time ceftriaxone [From ROCEPHIN] Allergy Intermediate HIVES Verified 04/19/21 14:12 sulfamethoxazole Allergy Intermediate HIVES Verified 04/19/21 14:12 [From BACTRIM] trimethoprim [From BACTRIM] Allergy Intermediate HIVES Verified 04/19/21 14:12 Sulfa (Sulfonamide Allergy Unknown HIVES. Verified 04/19/21 14:12 Antibiotics) VOMITING [SULFA (SULFONAMIDE ANTIBIOTICS)] doxycycline [DOXYCYCLINE] AdvReac Unknown NAUSEA & Verified 04/19/21 14:12 VOMITING <GALINDO Jimenez - Last Filed: 07/21/22 17:49> Review of Systems Review of Systems: Yes all other systems are reviewed and are negative <Ladarius Durán MD - Last Filed: 07/22/22 07:38> [facility] Past Medical History Medical History: Medical History Acute pelvic inflammatory disease (PID) Cellulitis Diskitis Drug use Homeless Opioid use disorder Prothrombin gene mutation Pulmonary emboli <GALINDO Jimenez - Last Filed: 07/21/22 17:49> Social History Social History: Social History Household Members: Other Housing: Homeless Do you presently have visiting nurse or other home services: No Alcohol intake: current Alcohol intake frequency: 3 or more drinks per day Alcohol type: hard liquor Patient Tobacco Use Status: Current everyday Tobacco user Tobacco use type: Cigarette Cigarette Packs Per Day: 1 Cigarettes Per Day: 20.0 Smoked in Last 30 Days: Yes Second Hand Smoke Exposure: No Use of substances other than those prescribed or required for medical reasons: Yes Substance Use Type: Crack/Cocaine and Heroin Substance Use Frequency: Daily Last Used Substance: Hours (ago) Advance Directives: No Patient : No service: No Current occupational status: unemployed <GALINDO Jimenez - Last Filed: 07/21/22 17:49> Physical Exam ED Vital Signs: Vital Signs - 24 hr 07/23/22 01:23 Temperature 99.1 F Pulse Rate 80 Respiratory Rate 16 Blood Pressure 113/54 L Pulse Oximetry 97 Oxygen Delivery Method Room Air BMI result Body Mass Index 25.0 <GALINDO Jimenez - Last Filed: 07/21/22 17:49> Vital Signs - 24 hr 07/23/22 01:23 Temperature 99.1 F Pulse Rate 80 Respiratory Rate 16 Blood Pressure 113/54 L Pulse Oximetry 97 Oxygen Delivery Method Room Air BMI result Body Mass Index 25.0 <Ladarius Durán MD - Last Filed: 07/22/22 07:38> Vital Signs - 24 hr 07/23/22 01:23 Temperature 99.1 F Pulse Rate 80 Respiratory Rate 16 Blood Pressure 113/54 L Pulse Oximetry 97 Oxygen Delivery Method Room Air BMI result Body Mass Index 25.0 <GALINDO Stroud - Last Filed: 07/22/22 09:32> Appearance: Alert. Oriented X3. No acute distress. Eyes: PERRLA, No Nystagmus ENT: Pharynx normal. Oral Mucosa moist Lips contact dermatitis rash no vesicles seen Neck: Normal inspection. Neck supple. CVS: Normal heart rate and rhythm. Pulses normal. Respiratory: No respiratory distress. Equal air entry bilateral, no wheezi ng/rales/rhonchi Abdomen: Soft and nontender. Bowel sounds are present, no mass palpable, no CVA tenderness Skin: Skin warm and dry. Normal skin color. Normal skin turgor. No burrows sign of scabies were seen in the hand or feet , The area patient complaining of rash are calluses on the feet Extremities: No lower extremity edema. No calf tenderness IVDA simmons++ Neuro: Oriented X 3. No motor deficit. 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 She also reports red, painful swollen lips and thinks the scabies are now in her mouth. She reports new painful mouth sores as well. Last used IV drugs at 7am. Recently went to [place] for detox but didnt stay. Still on methadone. Most likely oral herpes lesions. Will need full skin evaluation once changed over for better assessment. Will get basic labs for medical clearance for rehab placement. 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 She also reports red, painful swollen lips and thinks the scabies are now in her mouth. She reports new painful mouth sores as well. Last used IV drugs at 7am. Recently went to [place] for detox but didnt stay. Still on methadone. Most likely oral herpes lesions. Will need full skin evaluation once changed over for better assessment. Will get basic labs for medical clearance for rehab placement. [id number] 07/22/2022: Patient cleared for discharge. Patient requesting to leave. <GALINDO Stroud - Last Filed: 07/22/22 09:32> Medications Administered Generic Name Dose Route Start Last Admin Trade Name Freq PRN Reason Stop Dose Admin Melatonin 6 mg 07/22/22 21:00 07/22/22 20:07 Melatonin 3 Mg Tablet PO 6 mg BEDTIME ARYA Administration Methadone HCl 140 mg 07/22/22 09:00 07/23/22 08:46 Methadone Hcl 20 Mg/2 Ml Oral.Conc PO 140 mg DAILY ARYA Administration Trazodone HCl 50 mg 07/22/22 08:48 07/22/22 20:08 Trazodone Hcl 50 Mg Tablet PO 50 mg BEDTIME PRN Administration Pain, Severe Discontinued Medications Generic Name Dose Route Start Last Admin Trade Name Freq PRN Reason Stop Dose Admin Diphenhydramine HCl 50 mg 07/22/22 05:16 07/22/22 05:23 Diphenhydramine Hcl 25 Mg Capsule PO 07/22/22 05:17 50 mg ONCE ONE Administration Lorazepam 2 mg 07/22/22 06:14 07/22/22 06:18 Lorazepam 1 Mg Tablet PO 07/22/22 06:15 2 mg ONCE ONE Administration Permethrin 1 appl 07/22/22 05:39 07/22/22 06:18 Permethrin 1 % Lotion 59 Ml Btl TOPICAL 07/22/22 05:40 1 appl ONCE ONE Administration <GALINDO Jimenez - Last Filed: 07/21/22 17:49> Medications Administered Generic Name Dose Route Start Last Admin Trade Name Freq PRN Reason Stop Dose Admin Melatonin 6 mg 07/22/22 21:00 07/22/22 20:07 Melatonin 3 Mg Tablet PO 6 mg BEDTIME ARYA Administration Methadone HCl 140 mg 07/22/22 09:00 07/23/22 08:46 Methadone Hcl 20 Mg/2 Ml Oral.Conc PO 140 mg DAILY ARYA Administration Trazodone HCl 50 mg 07/22/22 08:48 07/22/22 20:08 Trazodone Hcl 50 Mg Tablet PO 50 mg BEDTIME PRN Administration Pain, Severe Discontinued Medications Generic Name Dose Route Start Last Admin Trade Name Freq PRN Reason Stop Dose Admin Diphenhydramine HCl 50 mg 07/22/22 05:16 07/22/22 05:23 Diphenhydramine Hcl 25 Mg Capsule PO 07/22/22 05:17 50 mg ONCE ONE Administration Lorazepam 2 mg 07/22/22 06:14 07/22/22 06:18 Lorazepam 1 Mg Tablet PO 07/22/22 06:15 2 mg ONCE ONE Administration Permethrin 1 appl 07/22/22 05:39 07/22/22 06:18 Permethrin 1 % Lotion 59 Ml Btl TOPICAL 07/22/22 05:40 1 appl ONCE ONE Administration <Ladarius Durán MD - Last Filed: 07/22/22 07:38> Medications Administered Generic Name Dose Route Start Last Admin Trade Name Freq PRN Reason Stop Dose Admin Melatonin 6 mg 07/22/22 21:00 07/22/22 20:07 Melatonin 3 Mg Tablet PO 6 mg BEDTIME ARYA Administration Methadone HCl 140 mg 07/22/22 09:00 07/23/22 08:46 Methadone Hcl 20 Mg/2 Ml Oral.Conc PO 140 mg DAILY ARYA Administration Trazodone HCl 50 mg 07/22/22 08:48 07/22/22 20:08 Trazodone Hcl 50 Mg Tablet PO 50 mg BEDTIME PRN Administration Pain, Severe Discontinued Medications Generic Name Dose Route Start Last Admin Trade Name Freq PRN Reason Stop Dose Admin Diphenhydramine HCl 50 mg 07/22/22 05:16 07/22/22 05:23 Diphenhydramine Hcl 25 Mg Capsule PO 07/22/22 05:17 50 mg ONCE ONE Administration Lorazepam 2 mg 07/22/22 06:14 07/22/22 06:18 Lorazepam 1 Mg Tablet PO 07/22/22 06:15 2 mg ONCE ONE Administration Permethrin 1 appl 07/22/22 05:39 07/22/22 06:18 Permethrin 1 % Lotion 59 Ml Btl TOPICAL 07/22/22 05:40 1 appl ONCE ONE Administration <GALINDO Stroud - Last Filed: 07/22/22 09:32> Medical Decision Making Medical Decision Making [facility] Narrative: Patient complaining of rash which is not scabies rash but insisting to get permethrin which was given to her after shower. Later patient is complaining of depression and asking for help will get crisis evaluation no SI at this time <Ladarius Durán MD - Last Filed: 07/22/22 07:38> Lab Data [facility] Lab Attestation statement: I reviewed the patient's lab results. <Ladarius Durán MD - Last Filed: 07/22/22 07:38> Result Diagrams: : 07/22/22 12:15 07/22/22 12:15 <GALINDO Jimenez - Last Filed: 07/21/22 17:49> Labs: Lab Results 07/21/22 07/22/22 07/22/22 Range/Units 22:15 05:28 11:37 WBC (4.8-10.8) X10*3/uL RBC (4.20-5.50) X10*6/uL Hgb (12.0-16.0) g/dl Hct (37.0-47.0) % MCV (80.0-98.0) fL MCH (27.0-33.0) pg MCHC (31.0-35.0) g/dl RDW (11.0-16.0) % Plt Count (160-400) X10*3/uL MPV (9.4-12.3) fL Immature Gran % (Auto) (0.0-0.4) % Neut % (Auto) (45-73) % Lymph % (Auto) (20-40) % [place] % (Auto) (2-11) % Eos % (Auto) (0-4) % Baso % (Auto) (0-2) % Lymph # (Auto) (1.2-4.9) X10*3/uL [place] # (Auto) (0.1-1.2) X10*3/uL Eos # (Auto) (0.0-0.4) X10*3/uL Baso # (Auto) (0.0-0.2) X10*3/uL Abs Immat Gran (auto) (0.00-0.03) X10*3/uL Absolute Neuts (auto) (2.0-8.3) x10*3/uL Absolute Nucleated RBC (0.0-0.012) X10*3/uL Nucleated RBC % (auto) (0.0-0.2) /100WBC Sodium (135-145) mmol/L Potassium (3.3-5.1) mmol/L Chloride (96-108) mmol/L Carbon Dioxide (22-29) mmol/L Anion Gap (12-20) BUN (9-16) mg/dL Creatinine (0.5-1.4) mg/dL Estim Creat Clear Calc Estimated GFR Random Glucose (60-115) mg/dL Calcium (8.4-10.2) mg/dL Total Bilirubin (0.0-1.0) mg/dL AST (5-31) U/L ALT (0-31) U/L Alkaline Phosphatase (39-117) U/L Total Protein (6.5-8.0) g/dL Albumin (3.5-5.0) g/dL Urine Color Urine Appearance Urine pH (5.0-9.0) Ur Specific [place] (1.005-1.025) Urine Protein (Neg-Trace) mg/dL Urine Glucose (UA) (Negative) mg/dL Urine Ketones (Negative) mg/dL Urine Blood (Negative) Urine Nitrite (Negative) Ur Leukocyte Esterase (Negative) Urine RBC (0-2) /HPF Urine WBC (0-5) /HPF Ur Squamous Epith Cells (0-2) /HPF Other Crystals Urine Bacteria (None Seen) Hyaline Casts (0-2) /LPF Urine Test NEGATIVE (NEGATIVE) Urine Opiates Screen (Not Detect) Urine Fentanyl Screen (Not Detect) Ur Barbiturates Screen (Not Detect) Ur Phencyclidine Scrn (Not Detect) Ur Amphetamines Screen (Not Detect) U Benzodiazepines Scrn (Not Detect) Urine Cocaine Screen (Not Detect) U Marijuana (THC) Screen (Not Detect) HSV Culture & Type Cancelled Influenza Type A (PCR) NEGATIVE (Negative) Influenza Type B (PCR) NEGATIVE (Negative) RSV RNA Qual (PCR) NEGATIVE (Negative) SARS-CoV-2 RNA (RT-PCR) NEGATIVE (Negative) 07/22/22 07/22/22 07/22/22 Range/Units 11:38 11:38 12:15 WBC 4.9 (4.8-10.8) X10*3/uL RBC 3.86 L (4.20-5.50) X10*6/uL Hgb 10.6 L (12.0-16.0) g/dl Hct 32.5 L (37.0-47.0) % MCV 84.2 (80.0-98.0) fL MCH 27.5 (27.0-33.0) pg MCHC 32.6 (31.0-35.0) g/dl RDW 13.0 (11.0-16.0) % Plt Count 216 (160-400) X10*3/uL MPV 9.1 L (9.4-12.3) fL Immature Gran % (Auto) 0.2 (0.0-0.4) % Neut % (Auto) 46.6 (45-73) % Lymph % (Auto) 39.1 (20-40) % [place] % (Auto) 8.2 (2-11) % Eos % (Auto) 5.3 H (0-4) % Baso % (Auto) 0.6 (0-2) % Lymph # (Auto) 1.9 (1.2-4.9) X10*3/uL [place] # (Auto) 0.4 (0.1-1.2) X10*3/uL Eos # (Auto) 0.3 (0.0-0.4) X10*3/uL Baso # (Auto) 0.0 (0.0-0.2) X10*3/uL Abs Immat Gran (auto) 0.01 (0.00-0.03) X10*3/uL Absolute Neuts (auto) 2.3 (2.0-8.3) x10*3/uL Absolute Nucleated RBC 0.000 (0.0-0.012) X10*3/uL Nucleated RBC % (auto) 0.0 (0.0-0.2) /100WBC Sodium (135-145) mmol/L Potassium (3.3-5.1) mmol/L Chloride (96-108) mmol/L Carbon Dioxide (22-29) mmol/L Anion Gap (12-20) BUN (9-16) mg/dL Creatinine (0.5-1.4) mg/dL Estim Creat Clear Calc Estimated GFR Random Glucose (60-115) mg/dL Calcium (8.4-10.2) mg/dL Total Bilirubin (0.0-1.0) mg/dL AST (5-31) U/L ALT (0-31) U/L Alkaline Phosphatase (39-117) U/L Total Protein (6.5-8.0) g/dL Albumin (3.5-5.0) g/dL Urine Color Yellow Urine Appearance Turbid Urine pH 8.0 (5.0-9.0) Ur Specific [place] 1.020 (1.005-1.025) Urine Protein Trace (Neg-Trace) mg/dL Urine Glucose (UA) Negative (Negative) mg/dL Urine Ketones Negative (Negative) mg/dL Urine Blood Negative (Negative) Urine Nitrite Negative (Negative) Ur Leukocyte Esterase Moderate (2+) H (Negative) Urine RBC 0-2 (0-2) /HPF Urine WBC 6-10 (0-5) /HPF Ur Squamous Epith Cells 0-2 (0-2) /HPF Other Crystals Present Urine Bacteria 1+ (None Seen) Hyaline Casts 0-2 (0-2) /LPF Urine Test (NEGATIVE) Urine Opiates Screen POSITIVE H (Not Detect) Urine Fentanyl Screen POSITIVE H (Not Detect) Ur Barbiturates Screen Not Detected (Not Detect) Ur Phencyclidine Scrn Not Detected (Not Detect) Ur Amphetamines Screen Not Detected (Not Detect) U Benzodiazepines Scrn Not Detected (Not Detect) Urine Cocaine Screen POSITIVE H (Not Detect) U Marijuana (THC) Screen Not Detected (Not Detect) HSV Culture & Type Influenza Type A (PCR) (Negative) Influenza Type B (PCR) (Negative) RSV RNA Qual (PCR) (Negative) SARS-CoV-2 RNA (RT-PCR) (Negative) 07/22/22 Range/Units 12:15 WBC (4.8-10.8) X10*3/uL RBC (4.20-5.50) X10*6/uL Hgb (12.0-16.0) g/dl Hct (37.0-47.0) % MCV (80.0-98.0) fL MCH (27.0-33.0) pg MCHC (31.0-35.0) g/dl RDW (11.0-16.0) % Plt Count (160-400) X10*3/uL MPV (9.4-12.3) fL Immature Gran % (Auto) (0.0-0.4) % Neut % (Auto) (45-73) % Lymph % (Auto) (20-40) % [place] % (Auto) (2-11) % Eos % (Auto) (0-4) % Baso % (Auto) (0-2) % Lymph # (Auto) (1.2-4.9) X10*3/uL [place] # (Auto) (0.1-1.2) X10*3/uL Eos # (Auto) (0.0-0.4) X10*3/uL Baso # (Auto) (0.0-0.2) X10*3/uL Abs Immat Gran (auto) (0.00-0.03) X10*3/uL Absolute Neuts (auto) (2.0-8.3) x10*3/uL Absolute Nucleated RBC (0.0-0.012) X10*3/uL Nucleated RBC % (auto) (0.0-0.2) /100WBC Sodium 140 (135-145) mmol/L Potassium 4.1 (3.3-5.1) mmol/L Chloride 109 H (96-108) mmol/L Carbon Dioxide 24 (22-29) mmol/L Anion Gap 11 L (12-20) BUN 9 (9-16) mg/dL Creatinine 0.81 (0.5-1.4) mg/dL Estim Creat Clear Calc 87.2 Estimated GFR > 60 Random Glucose 139 H (60-115) mg/dL Calcium 8.5 (8.4-10.2) mg/dL Total Bilirubin 0.2 (0.0-1.0) mg/dL AST 19 (5-31) U/L ALT 14 (0-31) U/L Alkaline Phosphatase 84 (39-117) U/L Total Protein 6.0 L (6.5-8.0) g/dL Albumin 3.4 L (3.5-5.0) g/dL Urine Color Urine Appearance Urine pH (5.0-9.0) Ur Specific [place] (1.005-1.025) Urine Protein (Neg-Trace) mg/dL Urine Glucose (UA) (Negative) mg/dL Urine Ketones (Negative) mg/dL Urine Blood (Negative) Urine Nitrite (Negative) Ur Leukocyte Esterase (Negative) Urine RBC (0-2) /HPF Urine WBC (0-5) /HPF Ur Squamous Epith Cells (0-2) /HPF Other Crystals Urine Bacteria (None Seen) Hyaline Casts (0-2) /LPF Urine Test (NEGATIVE) Urine Opiates Screen (Not Detect) Urine Fentanyl Screen (Not Detect) Ur Barbiturates Screen (Not Detect) Ur Phencyclidine Scrn (Not Detect) Ur Amphetamines Screen (Not Detect) U Benzodiazepines Scrn (Not Detect) Urine Cocaine Screen (Not Detect) U Marijuana (THC) Screen (Not Detect) HSV Culture & Type Influenza Type A (PCR) (Negative) Influenza Type B (PCR) (Negative) RSV RNA Qual (PCR) (Negative) SARS-CoV-2 RNA (RT-PCR) (Negative) <GALINDO Jimenez - Last Filed: 07/21/22 17:49> Lab Results 07/21/22 07/22/22 07/22/22 Range/Units 22:15 05:28 11:37 WBC (4.8-10.8) X10*3/uL RBC (4.20-5.50) X10*6/uL Hgb (12.0-16.0) g/dl Hct (37.0-47.0) % MCV (80.0-98.0) fL MCH (27.0-33.0) pg MCHC (31.0-35.0) g/dl RDW (11.0-16.0) % Plt Count (160-400) X10*3/uL MPV (9.4-12.3) fL Immature Gran % (Auto) (0.0-0.4) % Neut % (Auto) (45-73) % Lymph % (Auto) (20-40) % [place] % (Auto) (2-11) % Eos % (Auto) (0-4) % Baso % (Auto) (0-2) % Lymph # (Auto) (1.2-4.9) X10*3/uL [place] # (Auto) (0.1-1.2) X10*3/uL Eos # (Auto) (0.0-0.4) X10*3/uL Baso # (Auto) (0.0-0.2) X10*3/uL Abs Immat Gran (auto) (0.00-0.03) X10*3/uL Absolute Neuts (auto) (2.0-8.3) x10*3/uL Absolute Nucleated RBC (0.0-0.012) X10*3/uL Nucleated RBC % (auto) (0.0-0.2) /100WBC Sodium (135-145) mmol/L Potassium (3.3-5.1) mmol/L Chloride (96-108) mmol/L Carbon Dioxide (22-29) mmol/L Anion Gap (12-20) BUN (9-16) mg/dL Creatinine (0.5-1.4) mg/dL Estim Creat Clear Calc Estimated GFR Random Glucose (60-115) mg/dL Calcium (8.4-10.2) mg/dL Total Bilirubin (0.0-1.0) mg/dL AST (5-31) U/L ALT (0-31) U/L Alkaline Phosphatase (39-117) U/L Total Protein (6.5-8.0) g/dL Albumin (3.5-5.0) g/dL Urine Color Urine Appearance Urine pH (5.0-9.0) Ur Specific [place] (1.005-1.025) Urine Protein (Neg-Trace) mg/dL Urine Glucose (UA) (Negative) mg/dL Urine Ketones (Negative) mg/dL Urine Blood (Negative) Urine Nitrite (Negative) Ur Leukocyte Esterase (Negative) Urine RBC (0-2) /HPF Urine WBC (0-5) /HPF Ur Squamous Epith Cells (0-2) /HPF Other Crystals Urine Bacteria (None Seen) Hyaline Casts (0-2) /LPF Urine Test NEGATIVE (NEGATIVE) Urine Opiates Screen (Not Detect) Urine Fentanyl Screen (Not Detect) Ur Barbiturates Screen (Not Detect) Ur Phencyclidine Scrn (Not Detect) Ur Amphetamines Screen (Not Detect) U Benzodiazepines Scrn (Not Detect) Urine Cocaine Screen (Not Detect) U Marijuana (THC) Screen (Not Detect) HSV Culture & Type Cancelled Influenza Type A (PCR) NEGATIVE (Negative) Influenza Type B (PCR) NEGATIVE (Negative) RSV RNA Qual (PCR) NEGATIVE (Negative) SARS-CoV-2 RNA (RT-PCR) NEGATIVE (Negative) 07/22/22 07/22/22 07/22/22 Range/Units 11:38 11:38 12:15 WBC 4.9 (4.8-10.8) X10*3/uL RBC 3.86 L (4.20-5.50) X10*6/uL Hgb 10.6 L (12.0-16.0) g/dl Hct 32.5 L (37.0-47.0) % MCV 84.2 (80.0-98.0) fL MCH 27.5 (27.0-33.0) pg MCHC 32.6 (31.0-35.0) g/dl RDW 13.0 (11.0-16.0) % Plt Count 216 (160-400) X10*3/uL MPV 9.1 L (9.4-12.3) fL Immature Gran % (Auto) 0.2 (0.0-0.4) % Neut % (Auto) 46.6 (45-73) % Lymph % (Auto) 39.1 (20-40) % [place] % (Auto) 8.2 (2-11) % Eos % (Auto) 5.3 H (0-4) % Baso % (Auto) 0.6 (0-2) % Lymph # (Auto) 1.9 (1.2-4.9) X10*3/uL [place] # (Auto) 0.4 (0.1-1.2) X10*3/uL Eos # (Auto) 0.3 (0.0-0.4) X10*3/uL Baso # (Auto) 0.0 (0.0-0.2) X10*3/uL Abs Immat Gran (auto) 0.01 (0.00-0.03) X10*3/uL Absolute Neuts (auto) 2.3 (2.0-8.3) x10*3/uL Absolute Nucleated RBC 0.000 (0.0-0.012) X10*3/uL Nucleated RBC % (auto) 0.0 (0.0-0.2) /100WBC Sodium (135-145) mmol/L Potassium (3.3-5.1) mmol/L Chloride (96-108) mmol/L Carbon Dioxide (22-29) mmol/L Anion Gap (12-20) BUN (9-16) mg/dL Creatinine (0.5-1.4) mg/dL Estim Creat Clear Calc Estimated GFR Random Glucose (60-115) mg/dL Calcium (8.4-10.2) mg/dL Total Bilirubin (0.0-1.0) mg/dL AST (5-31) U/L ALT (0-31) U/L Alkaline Phosphatase (39-117) U/L Total Protein (6.5-8.0) g/dL Albumin (3.5-5.0) g/dL Urine Color Yellow Urine Appearance Turbid Urine pH 8.0 (5.0-9.0) Ur Specific [place] 1.020 (1.005-1.025) Urine Protein Trace (Neg-Trace) mg/dL Urine Glucose (UA) Negative (Negative) mg/dL Urine Ketones Negative (Negative) mg/dL Urine Blood Negative (Negative) Urine Nitrite Negative (Negative) Ur Leukocyte Esterase Moderate (2+) H (Negative) Urine RBC 0-2 (0-2) /HPF Urine WBC 6-10 (0-5) /HPF Ur Squamous Epith Cells 0-2 (0-2) /HPF Other Crystals Present Urine Bacteria 1+ (None Seen) Hyaline Casts 0-2 (0-2) /LPF Urine Test (NEGATIVE) Urine Opiates Screen POSITIVE H (Not Detect) Urine Fentanyl Screen POSITIVE H (Not Detect) Ur Barbiturates Screen Not Detected (Not Detect) Ur Phencyclidine Scrn Not Detected (Not Detect) Ur Amphetamines Screen Not Detected (Not Detect) U Benzodiazepines Scrn Not Detected (Not Detect) Urine Cocaine Screen POSITIVE H (Not Detect) U Marijuana (THC) Screen Not Detected (Not Detect) HSV Culture & Type Influenza Type A (PCR) (Negative) Influenza Type B (PCR) (Negative) RSV RNA Qual (PCR) (Negative) SARS-CoV-2 RNA (RT-PCR) (Negative) 07/22/22 Range/Units 12:15 WBC (4.8-10.8) X10*3/uL RBC (4.20-5.50) X10*6/uL Hgb (12.0-16.0) g/dl Hct (37.0-47.0) % MCV (80.0-98.0) fL MCH (27.0-33.0) pg MCHC (31.0-35.0) g/dl RDW (11.0-16.0) % Plt Count (160-400) X10*3/uL MPV (9.4-12.3) fL Immature Gran % (Auto) (0.0-0.4) % Neut % (Auto) (45-73) % Lymph % (Auto) (20-40) % [place] % (Auto) (2-11) % Eos % (Auto) (0-4) % Baso % (Auto) (0-2) % Lymph # (Auto) (1.2-4.9) X10*3/uL [place] # (Auto) (0.1-1.2) X10*3/uL Eos # (Auto) (0.0-0.4) X10*3/uL Baso # (Auto) (0.0-0.2) X10*3/uL Abs Immat Gran (auto) (0.00-0.03) X10*3/uL Absolute Neuts (auto) (2.0-8.3) x10*3/uL Absolute Nucleated RBC (0.0-0.012) X10*3/uL Nucleated RBC % (auto) (0.0-0.2) /100WBC Sodium 140 (135-145) mmol/L Potassium 4.1 (3.3-5.1) mmol/L Chloride 109 H (96-108) mmol/L Carbon Dioxide 24 (22-29) mmol/L Anion Gap 11 L (12-20) BUN 9 (9-16) mg/dL Creatinine 0.81 (0.5-1.4) mg/dL Estim Creat Clear Calc 87.2 Estimated GFR > 60 Random Glucose 139 H (60-115) mg/dL Calcium 8.5 (8.4-10.2) mg/dL Total Bilirubin 0.2 (0.0-1.0) mg/dL AST 19 (5-31) U/L ALT 14 (0-31) U/L Alkaline Phosphatase 84 (39-117) U/L Total Protein 6.0 L (6.5-8.0) g/dL Albumin 3.4 L (3.5-5.0) g/dL Urine Color Urine Appearance Urine pH (5.0-9.0) Ur Specific [place] (1.005-1.025) Urine Protein (Neg-Trace) mg/dL Urine Glucose (UA) (Negative) mg/dL Urine Ketones (Negative) mg/dL Urine Blood (Negative) Urine Nitrite (Negative) Ur Leukocyte Esterase (Negative) Urine RBC (0-2) /HPF Urine WBC (0-5) /HPF Ur Squamous Epith Cells (0-2) /HPF Other Crystals Urine Bacteria (None Seen) Hyaline Casts (0-2) /LPF Urine Test (NEGATIVE) Urine Opiates Screen (Not Detect) Urine Fentanyl Screen (Not Detect) Ur Barbiturates Screen (Not Detect) Ur Phencyclidine Scrn (Not Detect) Ur Amphetamines Screen (Not Detect) U Benzodiazepines Scrn (Not Detect) Urine Cocaine Screen (Not Detect) U Marijuana (THC) Screen (Not Detect) HSV Culture & Type Influenza Type A (PCR) (Negative) Influenza Type B (PCR) (Negative) RSV RNA Qual (PCR) (Negative) SARS-CoV-2 RNA (RT-PCR) (Negative) <Ladarius Durán MD - Last Filed: 07/22/22 07:38> Lab Results 07/21/22 07/22/22 07/22/22 Range/Units 22:15 05:28 11:37 WBC (4.8-10.8) X10*3/uL RBC (4.20-5.50) X10*6/uL Hgb (12.0-16.0) g/dl Hct (37.0-47.0) % MCV (80.0-98.0) fL MCH (27.0-33.0) pg MCHC (31.0-35.0) g/dl RDW (11.0-16.0) % Plt Count (160-400) X10*3/uL MPV (9.4-12.3) fL Immature Gran % (Auto) (0.0-0.4) % Neut % (Auto) (45-73) % Lymph % (Auto) (20-40) % [place] % (Auto) (2-11) % Eos % (Auto) (0-4) % Baso % (Auto) (0-2) % Lymph # (Auto) (1.2-4.9) X10*3/uL [place] # (Auto) (0.1-1.2) X10*3/uL Eos # (Auto) (0.0-0.4) X10*3/uL Baso # (Auto) (0.0-0.2) X10*3/uL Abs Immat Gran (auto) (0.00-0.03) X10*3/uL Absolute Neuts (auto) (2.0-8.3) x10*3/uL Absolute Nucleated RBC (0.0-0.012) X10*3/uL Nucleated RBC % (auto) (0.0-0.2) /100WBC Sodium (135-145) mmol/L Potassium (3.3-5.1) mmol/L Chloride (96-108) mmol/L Carbon Dioxide (22-29) mmol/L Anion Gap (12-20) BUN (9-16) mg/dL Creatinine (0.5-1.4) mg/dL Estim Creat Clear Calc Estimated GFR Random Glucose (60-115) mg/dL Calcium (8.4-10.2) mg/dL Total Bilirubin (0.0-1.0) mg/dL AST (5-31) U/L ALT (0-31) U/L Alkaline Phosphatase (39-117) U/L Total Protein (6.5-8.0) g/dL Albumin (3.5-5.0) g/dL Urine Color Urine Appearance Urine pH (5.0-9.0) Ur Specific [place] (1.005-1.025) Urine Protein (Neg-Trace) mg/dL Urine Glucose (UA) (Negative) mg/dL Urine Ketones (Negative) mg/dL Urine Blood (Negative) Urine Nitrite (Negative) Ur Leukocyte Esterase (Negative) Urine RBC (0-2) /HPF Urine WBC (0-5) /HPF Ur Squamous Epith Cells (0-2) /HPF Other Crystals Urine Bacteria (None Seen) Hyaline Casts (0-2) /LPF Urine Test NEGATIVE (NEGATIVE) Urine Opiates Screen (Not Detect) Urine Fentanyl Screen (Not Detect) Ur Barbiturates Screen (Not Detect) Ur Phencyclidine Scrn (Not Detect) Ur Amphetamines Screen (Not Detect) U Benzodiazepines Scrn (Not Detect) Urine Cocaine Screen (Not Detect) U Marijuana (THC) Screen (Not Detect) HSV Culture & Type Cancelled Influenza Type A (PCR) NEGATIVE (Negative) Influenza Type B (PCR) NEGATIVE (Negative) RSV RNA Qual (PCR) NEGATIVE (Negative) SARS-CoV-2 RNA (RT-PCR) NEGATIVE (Negative) 07/22/22 07/22/22 07/22/22 Range/Units 11:38 11:38 12:15 WBC 4.9 (4.8-10.8) X10*3/uL RBC 3.86 L (4.20-5.50) X10*6/uL Hgb 10.6 L (12.0-16.0) g/dl Hct 32.5 L (37.0-47.0) % MCV 84.2 (80.0-98.0) fL MCH 27.5 (27.0-33.0) pg MCHC 32.6 (31.0-35.0) g/dl RDW 13.0 (11.0-16.0) % Plt Count 216 (160-400) X10*3/uL MPV 9.1 L (9.4-12.3) fL Immature Gran % (Auto) 0.2 (0.0-0.4) % Neut % (Auto) 46.6 (45-73) % Lymph % (Auto) 39.1 (20-40) % [place] % (Auto) 8.2 (2-11) % Eos % (Auto) 5.3 H (0-4) % Baso % (Auto) 0.6 (0-2) % Lymph # (Auto) 1.9 (1.2-4.9) X10*3/uL [place] # (Auto) 0.4 (0.1-1.2) X10*3/uL Eos # (Auto) 0.3 (0.0-0.4) X10*3/uL Baso # (Auto) 0.0 (0.0-0.2) X10*3/uL Abs Immat Gran (auto) 0.01 (0.00-0.03) X10*3/uL Absolute Neuts (auto) 2.3 (2.0-8.3) x10*3/uL Absolute Nucleated RBC 0.000 (0.0-0.012) X10*3/uL Nucleated RBC % (auto) 0.0 (0.0-0.2) /100WBC Sodium (135-145) mmol/L Potassium (3.3-5.1) mmol/L Chloride (96-108) mmol/L Carbon Dioxide (22-29) mmol/L Anion Gap (12-20) BUN (9-16) mg/dL Creatinine (0.5-1.4) mg/dL Estim Creat Clear Calc Estimated GFR Random Glucose (60-115) mg/dL Calcium (8.4-10.2) mg/dL Total Bilirubin (0.0-1.0) mg/dL AST (5-31) U/L ALT (0-31) U/L Alkaline Phosphatase (39-117) U/L Total Protein (6.5-8.0) g/dL Albumin (3.5-5.0) g/dL Urine Color Yellow Urine Appearance Turbid Urine pH 8.0 (5.0-9.0) Ur Specific [place] 1.020 (1.005-1.025) Urine Protein Trace (Neg-Trace) mg/dL Urine Glucose (UA) Negative (Negative) mg/dL Urine Ketones Negative (Negative) mg/dL Urine Blood Negative (Negative) Urine Nitrite Negative (Negative) Ur Leukocyte Esterase Moderate (2+) H (Negative) Urine RBC 0-2 (0-2) /HPF Urine WBC 6-10 (0-5) /HPF Ur Squamous Epith Cells 0-2 (0-2) /HPF Other Crystals Present Urine Bacteria 1+ (None Seen) Hyaline Casts 0-2 (0-2) /LPF Urine Test (NEGATIVE) Urine Opiates Screen POSITIVE H (Not Detect) Urine Fentanyl Screen POSITIVE H (Not Detect) Ur Barbiturates Screen Not Detected (Not Detect) Ur Phencyclidine Scrn Not Detected (Not Detect) Ur Amphetamines Screen Not Detected (Not Detect) U Benzodiazepines Scrn Not Detected (Not Detect) Urine Cocaine Screen POSITIVE H (Not Detect) U Marijuana (THC) Screen Not Detected (Not Detect) HSV Culture & Type Influenza Type A (PCR) (Negative) Influenza Type B (PCR) (Negative) RSV RNA Qual (PCR) (Negative) SARS-CoV-2 RNA (RT-PCR) (Negative) 07/22/22 Range/Units 12:15 WBC (4.8-10.8) X10*3/uL RBC (4.20-5.50) X10*6/uL Hgb (12.0-16.0) g/dl Hct (37.0-47.0) % MCV (80.0-98.0) fL MCH (27.0-33.0) pg MCHC (31.0-35.0) g/dl RDW (11.0-16.0) % Plt Count (160-400) X10*3/uL MPV (9.4-12.3) fL Immature Gran % (Auto) (0.0-0.4) % Neut % (Auto) (45-73) % Lymph % (Auto) (20-40) % [place] % (Auto) (2-11) % Eos % (Auto) (0-4) % Baso % (Auto) (0-2) % Lymph # (Auto) (1.2-4.9) X10*3/uL [place] # (Auto) (0.1-1.2) X10*3/uL Eos # (Auto) (0.0-0.4) X10*3/uL Baso # (Auto) (0.0-0.2) X10*3/uL Abs Immat Gran (auto) (0.00-0.03) X10*3/uL Absolute Neuts (auto) (2.0-8.3) x10*3/uL Absolute Nucleated RBC (0.0-0.012) X10*3/uL Nucleated RBC % (auto) (0.0-0.2) /100WBC Sodium 140 (135-145) mmol/L Potassium 4.1 (3.3-5.1) mmol/L Chloride 109 H (96-108) mmol/L Carbon Dioxide 24 (22-29) mmol/L Anion Gap 11 L (12-20) BUN 9 (9-16) mg/dL Creatinine 0.81 (0.5-1.4) mg/dL Estim Creat Clear Calc 87.2 Estimated GFR > 60 Random Glucose 139 H (60-115) mg/dL Calcium 8.5 (8.4-10.2) mg/dL Total Bilirubin 0.2 (0.0-1.0) mg/dL AST 19 (5-31) U/L ALT 14 (0-31) U/L Alkaline Phosphatase 84 (39-117) U/L Total Protein 6.0 L (6.5-8.0) g/dL Albumin 3.4 L (3.5-5.0) g/dL Urine Color Urine Appearance Urine pH (5.0-9.0) Ur Specific [place] (1.005-1.025) Urine Protein (Neg-Trace) mg/dL Urine Glucose (UA) (Negative) mg/dL Urine Ketones (Negative) mg/dL Urine Blood (Negative) Urine Nitrite (Negative) Ur Leukocyte Esterase (Negative) Urine RBC (0-2) /HPF Urine WBC (0-5) /HPF Ur Squamous Epith Cells (0-2) /HPF Other Crystals Urine Bacteria (None Seen) Hyaline Casts (0-2) /LPF Urine Test (NEGATIVE) Urine Opiates Screen (Not Detect) Urine Fentanyl Screen (Not Detect) Ur Barbiturates Screen (Not Detect) Ur Phencyclidine Scrn (Not Detect) Ur Amphetamines Screen (Not Detect) U Benzodiazepines Scrn (Not Detect) Urine Cocaine Screen (Not Detect) U Marijuana (THC) Screen (Not Detect) HSV Culture & Type Influenza Type A (PCR) (Negative) Influenza Type B (PCR) (Negative) RSV RNA Qual (PCR) (Negative) SARS-CoV-2 RNA (RT-PCR) (Negative) <GALINDO Stroud - Last Filed: 07/22/22 09:32> Discharge Plan Discharge Clinical Impression: Polysubstance abuse, Depression <GALINDO Jimenez - Last Filed: 07/21/22 17:49> Patient Disposition: Home, Self-Care <GALINDO Jimenez - Last Filed: 07/21/22 17:49> Instructions: Depression (ED) <GALINDO Jimenez - Last Filed: 07/21/22 17:49> Additional Instructions: Follow up with your primary care provider. Return to the emergency department immediately if your symptoms worsen or if you develop any dizziness, shortness of breath, difficulty breathing, chest pain, blurry vision, loss of vision, nausea, vomiting, abdominal pain, fever, chills, back pain, or any other complaints. <GALINDO Jimenez - Last Filed: 07/21/22 17:49> Prescriptions: No Action methadone [Methadone Intensol] 10 mg/mL Concentrate 140 mg PO DAILY trazodone 50 mg tablet 1 tab PO BEDTIME PRN (Reason: Pain, Severe) nicotine (polacrilex) 4 mg lozenge 1 mayra PO Q2H PRN (Reason: Nicotine Cravings) melatonin 5 mg tablet 5 mg PO BEDTIME ProAir RespiClick 90 mcg/actuation aerosol powdr breath activated 2 puff inhalation Q6H PRN (Reason: dyspnea) <GALINDO Jimenez - Last Filed: 07/21/22 17:49> Print Language: Welsh <GALINDO Jimenez - Last Filed: 07/21/22 17:49>
--- NOTE | 2022-07-21 22:19 | PC.NURSE ---
pt refused labs CHAUNCEY Nuñez aware.
--- NOTE | 2022-07-21 22:21 | PC.NURSE ---
pt refused labs RN aware
--- NOTE | 2022-07-22 05:54 | PC.NURSE ---
Pt was given a shower in pod to help clean her skin. While talking with Pod RN, pt made statements that she is depressed, mentally not feeling well, and feels unsafe. At this time, pt has been moved to Room 2, N consult and COVID test have been completed.
[2022-07-22 06:11] LABS: Influenza A PCR NEGATIVE (Negative); Influenza B PCR NEGATIVE (Negative); Resp Syncy Virus RNA Qual PCR NEGATIVE (Negative); SARS COV2 PCR INHOUSE NEGATIVE (Negative)
[2022-07-22 06:22] VITALS: RESP 16
--- NOTE | 2022-07-22 06:24 | PC.NURSE ---
Patient had a shower, provider did skin assessment for scabies/ordered Permethrin lotion prophylactically/patient wants to apply lotion later when she gets up, Ativan 2 mg po administered at 0618, [facility] referral completed/confirmed calling [facility] office/pending ETA, patient stopped taking her Vrayler prescribed for Bipolar, patient said it doesn't work, [facility] called at [phone]/with no reponse/ left VM/ Clinic opens at 0800 am on Sunday and closes at 1700, med rec completed/pending provider's approval, urine pending patient was unable to produce sample at this time but agreed to provide later, no blood ordered at this time, VSS, coherent, behavior appropriate and non concerning, will continue to monitor.
--- NOTE | 2022-07-22 06:54 | PC.NURSE ---
patient appears to remain asleep at present respirations are even and unlabored patient appears in no distress
--- NOTE | 2022-07-22 08:50 | HE.PHANOTE ---
RE: methadone Received methadone verification form for 140mg daily last dose 07/21/22 0976am
--- NOTE | 2022-07-22 09:37 | MHC.CARE ---
At discharge Pt requested detox. CARE Team spoke GALINDO Martinez Plan for CARE Team to assist in detox bedsearch
[2022-07-22 10:26] VITALS: BP 100/48; PULSE 70; RESP 17; TEMP 36.6; O2SAT 95
--- NOTE | 2022-07-22 10:54 | ECG_ITS ---
Test Reason : cp Blood Pressure : / mmHG Vent. Rate : 060 BPM Atrial Rate : 060 BPM P-R Int : 166 ms QRS Dur : 076 ms QT Int : 434 ms P-R-T Axes : 052 019 005 degrees QTc Int : 434 ms Normal sinus rhythm Normal ECG No previous ECGs available Referred By: Batsheva Garcia Electronically Signed By:ANTOINETTE CLARK MD
[2022-07-22 12:09] LABS: Appearance Urine Turbid; Color Urine Yellow; Glucose Urine UA Negative (Negative); Leukocyte Esterase Urine Moderate (2+) (Negative); Nitrite Urine Negative (Negative); UMIC TRIGGER UACC YES; Urine Blood Negative (Negative); Urine Ketones Negative (Negative); Urine Protein Trace mg/dL (Neg-Trace)
[2022-07-22 12:18] LABS: Amphetamine Screen Urine Not Detected (Not Detect); Barbiturates, Urine Not Detected (Not Detect); Benzodiazepines Screen Urine Not Detected (Not Detect); Cannabinoid Screen Urine Not Detected (Not Detect); Cocaine Screen Urine POSITIVE (Not Detect); Fentanyl, urine POSITIVE (Not Detect); Opiate Screen Urine POSITIVE (Not Detect); Phencyclidine Screen Urine Not Detected (Not Detect)
[2022-07-22 12:21] LABS: MANUAL DIFF FLAG NO
[2022-07-22 12:24] LABS: Bacteria Urine 1+ (None Seen); Hyaline Casts Urine 0-2 /LPF (0-2); Other Crystals Urine Present; RBC Urine 0-2 /HPF (0-2); Squamous Epithelial Cell Urine 0-2 /HPF (0-2); UACC Culture Trigger YES
[2022-07-22 12:26] LABS: Basophils Percent Auto 0.6 % (0-2); Eosinophils Absolute Auto 0.3 X10*3/uL (0.0-0.4); Eosinophils Percent Auto 5.3 % (0-4); Hematocrit 32.5 % (37.0-47.0); Hemoglobin 10.6 g/dl (12.0-16.0); Imm Gran Abs Auto 0.01 X10*3/uL (0.00-0.03); Imm Gran Pct Auto 0.2 % (0.0-0.4); Lymphocytes Absolute Auto 1.9 X10*3/uL (1.2-4.9); Lymphocytes Percent Auto 39.1 % (20-40); Mean Corpuscular HGB Conc 32.6 g/dl (31.0-35.0); Mean Corpuscular Hemoglobin 27.5 pg (27.0-33.0); Mean Corpuscular Volume 84.2 fL (80.0-98.0); Mean Platelet Volume 9.1 fL (9.4-12.3); Monocytes Absolute Auto 0.4 X10*3/uL (0.1-1.2); Monocytes Percent Auto 8.2 % (2-11); Neutrophils Absolute Auto 2.3 x10*3/uL (2.0-8.3); Neutrophils Percent Auto 46.6 % (45-73); Platelet Count 216 X10*3/uL (160-400); Red Blood Count 3.86 X10*6/uL (4.20-5.50); White Blood Count 4.9 X10*3/uL (4.8-10.8)
[2022-07-22 12:37] LABS: Alanine Aminotransferase 14 U/L (0-31); Albumin Level 3.4 g/dL (3.5-5.0); Alkaline Phosphatase 84 U/L (39-117); Anion Gap 11 (12-20); Aspartate Amino Transferase 19 U/L (5-31); Bilirubin Total 0.2 mg/dL (0.0-1.0); Blood Urea Nitrogen 9 mg/dL (9-16); Calcium 8.5 mg/dL (8.4-10.2); Carbon Dioxide 24 mmol/L (22-29); Chloride 109 mmol/L (96-108); Creatinine Clr Calc Pharmacy 87.2; Estimated Glomerular Filt Rate > 60; Glucose Random 139 mg/dL (60-115); Potassium 4.1 mmol/L (3.3-5.1); Sodium 140 mmol/L (135-145)
[2022-07-22 14:54] LABS: UPreg QC Valid YES; Urine Pregnancy NEGATIVE (NEGATIVE)
--- NOTE | 2022-07-22 15:57 | MHC.CARE ---
Pt has an intake at [facility] 07/23/22 at 6:45 pm.
--- NOTE | 2022-07-22 18:39 | PC.NURSE ---
PT HAS BEEN SLEEPING, IN NAD, RESP EVEN, NONLABOURED.
[2022-07-23 01:23] VITALS: BP 113/54; PULSE 80; RESP 16; TEMP 37.3; O2SAT 97
--- NOTE | 2022-07-23 06:29 | PC.NURSE ---
Patient slept through the night, no distress observed/reported, behavior non concerning, medication compliant, patient is here for detox help, intake with [facility] is scheduled today in the evening for the placement, VSS, will continue to monitor.
--- NOTE | 2022-07-23 12:29 | PC.NURSE ---
PT BROUGHT FROM POD AWAITING DETOX PLACEMENT. SHE ATE BREAKFAST AND IS MOSTLY NAPPING
--- NOTE | 2022-07-23 14:27 | MHC.RECOVSUP ---
Reason for consult: follow up o Current location: [facility] o Identified substance use concern: <del>-</del> <del>Overdose</del> <del>-</del> <del>Withdrawal</del> <del>-</del> <del>Seeking</del> <del>ATS</del> <del>(detox)</del> <del>-</del> <del>Support</del> <del>?</del> <del>Intervention:</del> <del>o</del> <del>ATS</del> <del>bed</del> <del>search</del> <del>started/completed/in</del> <del>process</del> <del>o</del> <del>MAT</del> <del>started</del> <del>or</del> <del>to</del> <del>be</del> <del>started</del> <del>o</del> <del>Community</del> <del>resources</del> <del>provided</del> <del>o</del> <del>Harm</del> <del>reduction</del> <del>discussion</del> <del>?</del> <del>Plan:</del> <del>o</del> <del>Referral</del> <del>to</del> <del>[facility]</del> <del>o</del> <del>Bed</del> <del>search</del> <del>in</del> <del>progress</del> <del>to</del> <del>o</del> <del>Follow</del> <del>up</del> <del>tomorrow</del> <del>o</del> <del>Patient</del> <del>awaiting</del> <del>crisis</del> <del>evaluation</del> <del>o</del> <del>Patient</del> <del>to</del> <del>follow</del> <del>up</del> <del>with</del> <del>[facility]</del> <del>after</del> <del>discharge</del> ? Additional information: I was told that pt had complete an intake over the phone yesterday for a bed at [facility]. I was able to call and speak with [facility] and confirm that pt does have the bed and would need to be there for 6:45pm today. I was able to make the care team aware and a [employer] will be scheduled for forklift picker at around 6-6:15pm for transport to [facility]
--- NOTE | 2022-07-23 18:41 | MHC.CARE ---
Care Team was unable to find transportation for the pt intake at [facility] for today at 6:45pm. This typewriter repairer left a voice message for staff at [facility] as t/w was unable to receive a response.
[2022-07-23 23:18] VITALS: BP 85/49; PULSE 54; RESP 19; TEMP 36.7; O2SAT 98
--- NOTE | 2022-07-24 00:48 | PC.NURSE ---
Took over care of the patient at 00:30. Pt is calm and cooperative, reported to have been sleeping for most of the evening so far. Pt is planned to be brought to [facility] at 0945 for detox.
[2022-07-24 07:19] VITALS: BP 98/56; PULSE 67; RESP 18; TEMP 36.9; O2SAT 94
--- NOTE | 2022-07-24 07:45 | PC.NURSE ---
jesús Brennanrn, [facility] [place] [facility] [place] that the pt need to be at there facility for 1245 and not 0945 today. care team is aware.
[2022-07-24 10:57] VITALS: BP 100/56; PULSE 60; RESP 16; TEMP 36.7; O2SAT 96
--- NOTE | 2022-07-24 11:54 | PC.NURSE ---
pt threw out all her clothing including shoes. pt only took with her a jacket and her cell phone. pt was given a pants, top and shoes. pt to go to [facility] via [employer]. pt states that her clothing/belongings might have scabies on them that why she decided to discard them.
== END 2022-07-24 11:54 | disposition home or self-care (01) ==
PROVIDERS: Physician Assistant; Physician Assistant Medical; Emergency Provider Internal Medicine
DX: R07.89 Other chest pain (principal); F33.1 Major depressive disorder, recurrent, moderate; R22.0 Localized swelling, mass and lump, head; F11.10 Opioid abuse, uncomplicated; B86 Scabies; R21 Rash and other nonspecific skin eruption; Z59.00 Homelessness unspecified; Z20.822 Contact with and (suspected) exposure to COVID-19; Z79.899 Other long term (current) drug therapy
CPT/HCPCS: 0241U; 36415; 80053; 80307; 81001; 81003; 81025; 85025; 87086; 93005; 99285

== ENCOUNTER 2022-09-24 13:32 | Emergency (ER) | payer OTHER, SELFPAY ==
--- NOTE | ~2022-09-24 | XR_ITS ---
EXAMINATION: XR chest 1V CLINICAL INFORMATION: Shortness of breath COMPARISON: Prior chest x-ray 05/15/2022 TECHNIQUE: XR chest 1V Tubes and lines: None Lungs and pleura: Both lungs are clear. Heart and mediastinum: The mediastinum is within normal limits.. Bones/soft tissue: Skeletal structures included are normal for patient's age. XR/XR chest 1V IMPRESSION: No radiographic evidence of acute cardiopulmonary disease.
[2022-09-24 13:49] VITALS: BP 112/71; PULSE 79; RESP 18; TEMP 36.8; O2SAT 98; BMI 26.6
--- NOTE | 2022-09-24 14:03 | ED_ITS ---
HPI - Psych General Chief Complaint: Psychiatric Symptoms <GALINDO Klein Last Filed: 09/24/22 17:44> Stated Complaint: Crisis/Detox <GALINDO Klein Last Filed: 09/24/22 17:44> Time Seen by Provider: 09/24/22 13:59 <GALINDO Klein Last Filed: 09/24/22 17:44> Source: patient <GALINDO Klein Last Filed: 09/24/22 17:44> Mode of arrival: ambulatory <GALINDO Klein Last Filed: 09/24/22 17:44> History of Present Illness HPI Narrative: 37-year-old female with a past medical history PID, diskitis, substance abuse, IVDA, homelessness, PE not on anticoagulation, presenting to the ED complaining of vague SI, depression, productive cough, SOB, concern for COVID- 19, and substance abuse. Reports using cocaine and heroin, is interested in detox. Also reports feels like she has scabies with diffuse pruritus. Denies HI, abdominal pain for/vomiting, chest pain, travel <GALINDO Klein Last Filed: 09/24/22 17:44> MD complaint: suicidal ideation and substance abuse <GALINDO Klein Last Filed: 09/24/22 17:44> Related Data Home Medications: Home Medications Medication Instructions Recorded Confirmed trazodone 50 mg tablet 1 tab PO BEDTIME PRN Insomnia 06/19/22 09/24/22 methadone 10 mg/mL oral 155 mg PO DAILY 06/29/22 09/24/22 concentrate (Methadone Intensol) acetaminophen 500 mg tablet 1 tab PO Q6H PRN Pain 09/24/22 09/24/22 albuterol sulfate 90 mcg/actuation 2 puff inhalation Q4-6H PRN 09/24/22 09/24/22 aerosol inhaler (Ventolin HFA) Shortness Of Breath Or Wheezing hydroxyzine pamoate 25 mg capsule 25 mg PO Q6H PRN Anxiety 09/24/22 09/24/22 ibuprofen 400 mg tablet 1 tab PO Q6H PRN Pain 09/24/22 09/24/22 loratadine 10 mg tablet 1 tab PO DAILY PRN Allergy Symptoms 09/24/22 09/24/22 nicotine (polacrilex) 2 mg buccal 2 mg buccal Q2H PRN Nicotine 09/24/22 09/24/22 mini lozenge Cravings nicotine 21 mg/24 hr daily 1 patch topical DAILY 09/24/22 09/24/22 transdermal patch <GALINDO Klein Last Filed: 09/24/22 17:44> Allergies/Adverse Reactions: Allergies Allergy/AdvReac Type Severity Reaction Status Date / Time ceftriaxone [From ROCEPHIN] Allergy Intermediate HIVES Verified 04/19/21 14:12 sulfamethoxazole Allergy Intermediate HIVES Verified 04/19/21 14:12 [From BACTRIM] trimethoprim [From BACTRIM] Allergy Intermediate HIVES Verified 04/19/21 14:12 Sulfa (Sulfonamide Allergy Unknown HIVES. Verified 04/19/21 14:12 Antibiotics) VOMITING [SULFA (SULFONAMIDE ANTIBIOTICS)] doxycycline [DOXYCYCLINE] AdvReac Unknown NAUSEA & Verified 04/19/21 14:12 VOMITING <GALINDO Klein Last Filed: 09/24/22 17:44> Review of Systems Review of Systems: Constitutional: No Fever, No Chills, No Fatigue, No Malaise ENT/Mouth: No Ear Pain, No Nasal Congestion, No sore throat, No Rhinorrhea, No Swallowing Difficulty Eyes: No Eye Pain, No Swelling, No Redness, No Vision Changes Cardiovascular: No Chest Pain, + SOB, No Dyspnea on Exertion, No Orthopnea, No Edema, No Palpitations Respiratory: + Cough, + Sputum, No Wheezing, No Dyspnea Gastrointestinal: No Nausea, No Vomiting, No Diarrhea, No Constipation, No Abdominal pain, Genitourinary: No Dysuria, No Hematuria, No Flank Pain Musculoskeletal: No joint pain, No Myalgias, No Joint Swelling Skin: No Skin Lesions, No rash Neuro: No Weakness, No Numbness, No Headache Psych: No Anxiety/Panic, + Depression, + SI, No HI/AH/VH, + Social Issues <GALINDO Klein Last Filed: 09/24/22 17:44> Yes all other systems are reviewed and are negative <GALINDO Klein Last Filed: 09/24/22 17:44> Constitutional: Constitutional: Reports as per HPI <GALINDO Klein Last Filed: 09/24/22 17:44> [facility] Past Medical History Attestation statement: The following information was validated with the patient. <GALINDO Klein - Last Filed: 09/24/22 17:44> Medical History: Medical History Acute pelvic inflammatory disease (PID) Cellulitis Diskitis Drug use Homeless Opioid use disorder Prothrombin gene mutation Pulmonary emboli <GALINDO Klein - Last Filed: 09/24/22 17:44> Social History Social History: Social History Household Members: Other Housing: Homeless Do you presently have visiting nurse or other home services: No Alcohol intake: current Alcohol intake frequency: 3 or more drinks per day Alcohol type: hard liquor Patient Tobacco Use Status: Current everyday Tobacco user Tobacco use type: Cigarette Cigarette Packs Per Day: 1 Cigarettes Per Day: 20.0 Smoked in Last 30 Days: Yes Second Hand Smoke Exposure: No Use of substances other than those prescribed or required for medical reasons: Yes Substance Use Type: Crack/Cocaine and Heroin Advance Directives: No Advance Directives Information Provided: Yes service: No Current occupational status: unemployed <GALINDO Klein - Last Filed: 09/24/22 17:44> Physical Exam Vital Signs: Vital Signs: Last Vital Signs Temp 98.2 F 09/24/22 13:49 Pulse 80 09/24/22 20:07 Resp 16 09/24/22 20:07 BP 95/60 09/24/22 20:07 Pulse Ox 97 09/24/22 20:07 O2 Del Method 09/24/22 20:07 BMI result Body Mass Index 26.6 <GALINDO Klein - Last Filed: 09/24/22 17:44> Vital Signs: Last Vital Signs Temp 98.2 F 09/24/22 13:49 Pulse 80 09/24/22 20:07 Resp 16 09/24/22 20:07 BP 95/60 09/24/22 20:07 Pulse Ox 97 09/24/22 20:07 O2 Del Method 09/24/22 20:07 BMI result Body Mass Index 26.6 <Maximiliano Pires MD - Last Filed: 09/25/22 01:27> Const: General: cooperative and no acute distress <Mikaela Cheng PA - Last Filed: 09/24/22 17:44> Orientation/consciousness: patient oriented x3 <Mikaela Cheng PA - Last Filed: 09/24/22 17:44> Limitations: no limitations <Mikaela Cheng PA - Last Filed: 09/24/22 17:44> HEENT: Head: Yes normal to inspection and Yes atraumatic <Mikaela Cheng PA - Last Filed: 09/24/22 17:44> Ears: hearing grossly normal bilaterally <Mikaela Cheng PA - Last Filed: 09/24/22 17:44> General nose exam: Normal external nose present <Mikaela Cheng PA - Last Filed: 09/24/22 17:44> Face and sinus: Yes normal facial exam <Mikaela Cheng PA - Last Filed: 09/24/22 17:44> Eyes: General: appearance normal, both eyes and all related structures <Mikaela Cheng PA - Last Filed: 09/24/22 17:44> EOM: EOMs intact bilaterally <Mikaela Cheng PA - Last Filed: 09/24/22 17:44> Neck: Neck: Yes normal visual inspection and Yes no meningeal signs <Mikaela Cheng PA - Last Filed: 09/24/22 17:44> Resp: Effort & Inspection: normal respiratory effort and no respiratory distress <Mikaela Cheng PA - Last Filed: 09/24/22 17:44> Auscultation: clear to auscultation bilaterally <Mikaela Cheng PA - Last Filed: 09/24/22 17:44> Cardio: Rate: regular rate <Mikaela Cheng PA - Last Filed: 09/24/22 17:44> Heart sounds: S1 normal heart sound present and S2 normal heart sound present <Mikaela Cheng PA - Last Filed: 09/24/22 17:44> GI: Inspection: Yes normal to inspection <Mikaela Cheng PA - Last Filed: 09/24/22 17:44> Palpation (GI): Soft to palpation, nontender, no guarding and not rigid <GALINDO Klein - Last Filed: 09/24/22 17:44> Skin: Rashes: no rashes <GALINDO Klein - Last Filed: 09/24/22 17:44> Wounds: no wounds <GALINDO Klein - Last Filed: 09/24/22 17:44> Neuro: General: patient oriented x3, gait normal, tone normal, no meningeal signs and CN's II-XI intact bilaterally <GALINDO Klein - Last Filed: 09/24/22 17:44> Gait exam (Neuro): Normal gait present <GALINDO Klein - Last Filed: 09/24/22 17:44> Extrem: General: Yes normal to inspection <GALINDO Klein - Last Filed: 09/24/22 17:44> Psych: Affect: Anxious affect present <GALINDO Klein - Last Filed: 09/24/22 17:44> Thought process: Flight of ideas present and Racing thoughts present <GALINDO Klein Last Filed: 09/24/22 17:44> Thought content: Suicidality present and no homicidality <GALINDO Klein - Last Filed: 09/24/22 17:44> Course Course Course Narrative: -1546--labs reassuring. -tox screen positive for opiates, fentanyl, and cocaine. COVID-19 negative XR chest 1V IMPRESSION: No radiographic evidence of acute cardiopulmonary disease. >1548--patient medically cleared for CARE team evaluation. Physician observation initiated -1800-- ED care transferred to [facility] pending CARE team eval <GALINDO Klein - Last Filed: 09/24/22 17:44> -1546--labs reassuring. -tox screen positive for opiates, fentanyl, and cocaine. COVID-19 negative XR chest 1V IMPRESSION: No radiographic evidence of acute cardiopulmonary disease. >1548--patient medically cleared for CARE team evaluation. Physician observation initiated -1800-- ED care transferred to [facility] pending CARE team eval 0126 : Physician observation continued: The patient was evaluated by care team. The patient is suicidal without a plan. Apparently she was in a custodial house but lost her housing after she started using drugs again. The care team is recommending a bed search for a dual diagnosis program. Therefore the patient will be kept in the emergency department Behavioral Health Unit until appropriate disposition can be determined. <Maximiliano Pires MD - Last Filed: 09/25/22 01:27> Medications Administered Discontinued Medications Generic Name Dose Route Start Last Admin Trade Name Freq PRN Reason Stop Dose Admin Hydroxyzine HCl 50 mg 09/24/22 17:47 09/24/22 18:09 Hydroxyzine Hcl 50 Mg Tablet PO 09/24/22 17:48 50 mg ONCE ONE Administration Permethrin 1 appl 09/24/22 15:36 09/24/22 16:30 Permethrin 5 % Cream 60 Gm Tube TOPICAL 09/24/22 15:37 1 appl ONCE ONE Administration Protocol Trazodone HCl 50 mg 09/24/22 17:47 09/25/22 00:54 Trazodone Hcl 50 Mg Tablet PO 09/24/22 17:48 50 mg ONCE ONE Administration <GALINDO Klein - Last Filed: 09/24/22 17:44> Medications Administered Discontinued Medications Generic Name Dose Route Start Last Admin Trade Name Freq PRN Reason Stop Dose Admin Hydroxyzine HCl 50 mg 09/24/22 17:47 09/24/22 18:09 Hydroxyzine Hcl 50 Mg Tablet PO 09/24/22 17:48 50 mg ONCE ONE Administration Permethrin 1 appl 09/24/22 15:36 09/24/22 16:30 Permethrin 5 % Cream 60 Gm Tube TOPICAL 09/24/22 15:37 1 appl ONCE ONE Administration Protocol Trazodone HCl 50 mg 09/24/22 17:47 09/25/22 00:54 Trazodone Hcl 50 Mg Tablet PO 09/24/22 17:48 50 mg ONCE ONE Administration <Maximiliano Pires MD - Last Filed: 09/25/22 01:27> Medical Decision Making Medical Decision Making MDM Narrative: 37-year-old female with a past medical history PID, diskitis, substance abuse, IVDA, homelessness, PE not on anticoagulation, presenting to the ED complaining of vague SI, depression, productive cough, SOB, concern for COVID- 19, and substance abuse. On exam vital signs stable, NAD, nontoxic, lungs CTA, no appreciable rash/evidence of scabies, suicidal, flight of ideas, anxious, loose associations. Concern for substance abuse vs psychiatric illness vs depression. Rule out metabolic/infectious etiologies. Lower suspicion for pneumonia. Rule out COVID-19/viral illness Plan: EKG, labs, UA, drug screen, CXR, COVID-19 testing, CARE team, reassess Please refer to course for remaining clinical decision making, interpretation of labs/imaging results, and discussions with consultants and/or family members. <GALINDO Klein - Last Filed: 09/24/22 17:44> Differential Diagnosis Differential Diagnoses: The differential diagnosis associated with the presentation includes <GALINDO Klein - Last Filed: 09/24/22 17:44> as above <GALINDO Klein - Last Filed: 09/24/22 17:44> Admission/Observation Consideration of admission/observation: Escalation of care including admission/observation considered <GALINDO Klein - Last Filed: 09/24/22 17:44> Consult Healthcare Provider Management of the patient was discussed with: Behavioral Health Provider <GALINDO Klein - Last Filed: 09/24/22 17:44> Lab Data MDM Lab Attestation statement: I reviewed the patient's lab results. <GALINDO Klein - Last Filed: 09/24/22 17:44> Result Diagrams: 09/24/22 14:05 09/24/22 14:05 <GALINDO Klein - Last Filed: 09/24/22 17:44> Labs: Lab Results 09/24/22 09/24/22 09/24/22 Range/Units 14:05 14:05 14:05 WBC (4.8-10.8) X10*3/uL RBC (4.20-5.50) X10*6/uL Hgb (12.0-16.0) g/dl Hct (37.0-47.0) % MCV (80.0-98.0) fL MCH (27.0-33.0) pg MCHC (31.0-35.0) g/dl RDW (11.0-16.0) % Plt Count (160-400) X10*3/uL MPV (9.4-12.3) fL Immature Gran % (Auto) (0.0-0.4) % Neut % (Auto) (45-73) % Lymph % (Auto) (20-40) % Hickman % (Auto) (2-11) % Eos % (Auto) (0-4) % Baso % (Auto) (0-2) % Lymph # (Auto) (1.2-4.9) X10*3/uL Hickman # (Auto) (0.1-1.2) X10*3/uL Eos # (Auto) (0.0-0.4) X10*3/uL Baso # (Auto) (0.0-0.2) X10*3/uL Abs Immat Gran (auto) (0.00-0.03) X10*3/uL Absolute Neuts (auto) (2.0-8.3) x10*3/uL Absolute Nucleated RBC (0.0-0.012) X10*3/uL Nucleated RBC % (auto) (0.0-0.2) /100WBC Sodium 137 (135-145) mmol/L Potassium 4.4 (3.3-5.1) mmol/L Chloride 103 (96-108) mmol/L Carbon Dioxide 22 (22-29) mmol/L Anion Gap 16 (12-20) BUN 14 (9-16) mg/dL Creatinine 0.81 (0.5-1.4) mg/dL Estim Creat Clear Calc 96.9 Estimated GFR > 60 Random Glucose 70 (60-115) mg/dL Calcium 9.3 D (8.4-10.2) mg/dL Total Bilirubin 0.9 (0.0-1.0) mg/dL AST 44 H (5-31) U/L ALT 23 (0-31) U/L Alkaline Phosphatase 102 (39-117) U/L Total Protein 7.5 (6.5-8.0) g/dL Albumin 4.4 (3.5-5.0) g/dL Beta HCG, Quant < 2 mIU/mL Urine Opiates Screen (Not Detect) Urine Fentanyl Screen (Not Detect) Ur Barbiturates Screen (Not Detect) Ur Phencyclidine Scrn (Not Detect) Ur Amphetamines Screen (Not Detect) U Benzodiazepines Scrn (Not Detect) Urine Cocaine Screen (Not Detect) U Marijuana (THC) Screen (Not Detect) COVID-19 (BRE) Negative (Negative) COVID-19 Clin Com See Note Influenza Type A ([place]) Negative (Negative) Influenza Type B ([place]) Negative (Negative) Influenza A & B Note See Note 09/24/22 09/24/22 Range/Units 14:05 14:34 WBC 7.5 (4.8-10.8) X10*3/uL RBC 4.69 D (4.20-5.50) X10*6/uL Hgb 12.7 (12.0-16.0) g/dl Hct 37.3 (37.0-47.0) % MCV 79.5 L (80.0-98.0) fL MCH 27.1 (27.0-33.0) pg MCHC 34.0 (31.0-35.0) g/dl RDW 13.2 (11.0-16.0) % Plt Count 198 (160-400) X10*3/uL MPV 9.1 L (9.4-12.3) fL Immature Gran % (Auto) 0.4 (0.0-0.4) % Neut % (Auto) 71.5 (45-73) % Lymph % (Auto) 21.4 (20-40) % Hickman % (Auto) 6.0 (2-11) % Eos % (Auto) 0.3 (0-4) % Baso % (Auto) 0.4 (0-2) % Lymph # (Auto) 1.6 (1.2-4.9) X10*3/uL Hickman # (Auto) 0.5 (0.1-1.2) X10*3/uL Eos # (Auto) 0.0 (0.0-0.4) X10*3/uL Baso # (Auto) 0.0 (0.0-0.2) X10*3/uL Abs Immat Gran (auto) 0.03 (0.00-0.03) X10*3/uL Absolute Neuts (auto) 5.4 (2.0-8.3) x10*3/uL Absolute Nucleated RBC 0.000 (0.0-0.012) X10*3/uL Nucleated RBC % (auto) 0.0 (0.0-0.2) /100WBC Sodium (135-145) mmol/L Potassium (3.3-5.1) mmol/L Chloride (96-108) mmol/L Carbon Dioxide (22-29) mmol/L Anion Gap (12-20) BUN (9-16) mg/dL Creatinine (0.5-1.4) mg/dL Estim Creat Clear Calc Estimated GFR Random Glucose (60-115) mg/dL Calcium (8.4-10.2) mg/dL Total Bilirubin (0.0-1.0) mg/dL AST (5-31) U/L ALT (0-31) U/L Alkaline Phosphatase (39-117) U/L Total Protein (6.5-8.0) g/dL Albumin (3.5-5.0) g/dL Beta HCG, Quant mIU/mL Urine Opiates Screen POSITIVE H (Not Detect) Urine Fentanyl Screen POSITIVE H (Not Detect) Ur Barbiturates Screen Not Detected (Not Detect) Ur Phencyclidine Scrn Not Detected (Not Detect) Ur Amphetamines Screen Not Detected (Not Detect) U Benzodiazepines Scrn Not Detected (Not Detect) Urine Cocaine Screen POSITIVE H (Not Detect) U Marijuana (THC) Screen Not Detected (Not Detect) COVID-19 (BRE) (Negative) COVID-19 Clin Com Influenza Type A ([place]) (Negative) Influenza Type B ([place]) (Negative) Influenza A & B Note <GALINDO Klein - Last Filed: 09/24/22 17:44> Lab Results 09/24/22 09/24/22 09/24/22 Range/Units 14:05 14:05 14:05 WBC (4.8-10.8) X10*3/uL RBC (4.20-5.50) X10*6/uL Hgb (12.0-16.0) g/dl Hct (37.0-47.0) % MCV (80.0-98.0) fL MCH (27.0-33.0) pg MCHC (31.0-35.0) g/dl RDW (11.0-16.0) % Plt Count (160-400) X10*3/uL MPV (9.4-12.3) fL Immature Gran % (Auto) (0.0-0.4) % Neut % (Auto) (45-73) % Lymph % (Auto) (20-40) % Hickman % (Auto) (2-11) % Eos % (Auto) (0-4) % Baso % (Auto) (0-2) % Lymph # (Auto) (1.2-4.9) X10*3/uL Hickman # (Auto) (0.1-1.2) X10*3/uL Eos # (Auto) (0.0-0.4) X10*3/uL Baso # (Auto) (0.0-0.2) X10*3/uL Abs Immat Gran (auto) (0.00-0.03) X10*3/uL Absolute Neuts (auto) (2.0-8.3) x10*3/uL Absolute Nucleated RBC (0.0-0.012) X10*3/uL Nucleated RBC % (auto) (0.0-0.2) /100WBC Sodium 137 (135-145) mmol/L Potassium 4.4 (3.3-5.1) mmol/L Chloride 103 (96-108) mmol/L Carbon Dioxide 22 (22-29) mmol/L Anion Gap 16 (12-20) BUN 14 (9-16) mg/dL Creatinine 0.81 (0.5-1.4) mg/dL Estim Creat Clear Calc 96.9 Estimated GFR > 60 Random Glucose 70 (60-115) mg/dL Calcium 9.3 D (8.4-10.2) mg/dL Total Bilirubin 0.9 (0.0-1.0) mg/dL AST 44 H (5-31) U/L ALT 23 (0-31) U/L Alkaline Phosphatase 102 (39-117) U/L Total Protein 7.5 (6.5-8.0) g/dL Albumin 4.4 (3.5-5.0) g/dL Beta HCG, Quant < 2 mIU/mL Urine Opiates Screen (Not Detect) Urine Fentanyl Screen (Not Detect) Ur Barbiturates Screen (Not Detect) Ur Phencyclidine Scrn (Not Detect) Ur Amphetamines Screen (Not Detect) U Benzodiazepines Scrn (Not Detect) Urine Cocaine Screen (Not Detect) U Marijuana (THC) Screen (Not Detect) COVID-19 (BRE) Negative (Negative) COVID-19 Clin Com See Note Influenza Type A ([place]) Negative (Negative) Influenza Type B ([place]) Negative (Negative) Influenza A & B Note See Note 09/24/22 09/24/22 Range/Units 14:05 14:34 WBC 7.5 (4.8-10.8) X10*3/uL RBC 4.69 D (4.20-5.50) X10*6/uL Hgb 12.7 (12.0-16.0) g/dl Hct 37.3 (37.0-47.0) % MCV 79.5 L (80.0-98.0) fL MCH 27.1 (27.0-33.0) pg MCHC 34.0 (31.0-35.0) g/dl RDW 13.2 (11.0-16.0) % Plt Count 198 (160-400) X10*3/uL MPV 9.1 L (9.4-12.3) fL Immature Gran % (Auto) 0.4 (0.0-0.4) % Neut % (Auto) 71.5 (45-73) % Lymph % (Auto) 21.4 (20-40) % Hickman % (Auto) 6.0 (2-11) % Eos % (Auto) 0.3 (0-4) % Baso % (Auto) 0.4 (0-2) % Lymph # (Auto) 1.6 (1.2-4.9) X10*3/uL Hickman # (Auto) 0.5 (0.1-1.2) X10*3/uL Eos # (Auto) 0.0 (0.0-0.4) X10*3/uL Baso # (Auto) 0.0 (0.0-0.2) X10*3/uL Abs Immat Gran (auto) 0.03 (0.00-0.03) X10*3/uL Absolute Neuts (auto) 5.4 (2.0-8.3) x10*3/uL Absolute Nucleated RBC 0.000 (0.0-0.012) X10*3/uL Nucleated RBC % (auto) 0.0 (0.0-0.2) /100WBC Sodium (135-145) mmol/L Potassium (3.3-5.1) mmol/L Chloride (96-108) mmol/L Carbon Dioxide (22-29) mmol/L Anion Gap (12-20) BUN (9-16) mg/dL Creatinine (0.5-1.4) mg/dL Estim Creat Clear Calc Estimated GFR Random Glucose (60-115) mg/dL Calcium (8.4-10.2) mg/dL Total Bilirubin (0.0-1.0) mg/dL AST (5-31) U/L ALT (0-31) U/L Alkaline Phosphatase (39-117) U/L Total Protein (6.5-8.0) g/dL Albumin (3.5-5.0) g/dL Beta HCG, Quant mIU/mL Urine Opiates Screen POSITIVE H (Not Detect) Urine Fentanyl Screen POSITIVE H (Not Detect) Ur Barbiturates Screen Not Detected (Not Detect) Ur Phencyclidine Scrn Not Detected (Not Detect) Ur Amphetamines Screen Not Detected (Not Detect) U Benzodiazepines Scrn Not Detected (Not Detect) Urine Cocaine Screen POSITIVE H (Not Detect) U Marijuana (THC) Screen Not Detected (Not Detect) COVID-19 (BRE) (Negative) COVID-19 Clin Com Influenza Type A ([place]) (Negative) Influenza Type B ([place]) (Negative) Influenza A & B Note <Maximiliano Pires MD - Last Filed: 09/25/22 01:27> Radiology Impression Discussion of test interpretation with radiology: I have reviewed the radiologist's reading. <GALINDO Klein - Last Filed: 09/24/22 17:44> External Record Review External record reviewed: Outpatient record, Prior outpatient labs and Prior outpatient radiology <GALINDO Klein - Last Filed: 09/24/22 17:44> Chronic Conditions Patient?s care impacted by: Other <GALINDO Klein - Last Filed: 09/24/22 17:44> Social Determinants Patient?s care significantly limited by Social Determinants of Health including: Low income, Alcoholism and drug addiction in family and Problems related to primary support group <GALINDO Klein - Last Filed: 09/24/22 17:44> Discharge Plan Discharge Clinical Impression: Substance abuse, Suicidal ideations, Acute viral syndrome <GALINDO Klein - Last Filed: 09/24/22 17:44> Patient Disposition: Still a Patient <GALINDO Klein - Last Filed: 09/24/22 17:44> Prescriptions: No Action methadone [Methadone Intensol] 10 mg/mL Concentrate 155 mg PO DAILY acetaminophen 500 mg tablet 1 tab PO Q6H PRN (Reason: Pain) ibuprofen 400 mg tablet 1 tab PO Q6H PRN (Reason: Pain) nicotine 21 mg/24 hr patch 24 hour 1 patch topical DAILY albuterol sulfate [Ventolin HFA] 90 mcg/actuation HFA aerosol inhaler 2 puff inhalation Q4-6H PRN (Reason: Shortness Of Breath Or Wheezing) loratadine 10 mg tablet 1 tab PO DAILY PRN (Reason: Allergy Symptoms) hydroxyzine pamoate 25 mg capsule 25 mg PO Q6H PRN (Reason: Anxiety) nicotine (polacrilex) 2 mg mini lozenge 2 mg buccal Q2H PRN (Reason: Nicotine Cravings) trazodone 50 mg tablet 1 tab PO BEDTIME PRN (Reason: Insomnia) <GALINDO Klein - Last Filed: 09/24/22 17:44> Interventions: [place]-Suicide Risk Severity Scale Last Done: 09/24/22 15:12 <GALINDO Klein - Last Filed: 09/24/22 17:44>
[2022-09-24 14:10] LABS: MANUAL DIFF FLAG NO
[2022-09-24 14:11] LABS: Basophils Percent Auto 0.4 % (0-2); Eosinophils Percent Auto 0.3 % (0-4); Hematocrit 37.3 % (37.0-47.0); Hemoglobin 12.7 g/dl (12.0-16.0); Imm Gran Abs Auto 0.03 X10*3/uL (0.00-0.03); Imm Gran Pct Auto 0.4 % (0.0-0.4); Lymphocytes Absolute Auto 1.6 X10*3/uL (1.2-4.9); Lymphocytes Percent Auto 21.4 % (20-40); Mean Corpuscular Hemoglobin 27.1 pg (27.0-33.0); Mean Corpuscular Volume 79.5 fL (80.0-98.0); Mean Platelet Volume 9.1 fL (9.4-12.3); Monocytes Absolute Auto 0.5 X10*3/uL (0.1-1.2); Neutrophils Absolute Auto 5.4 x10*3/uL (2.0-8.3); Neutrophils Percent Auto 71.5 % (45-73); Platelet Count 198 X10*3/uL (160-400); Red Blood Count 4.69 X10*6/uL (4.20-5.50); Red Cell Distribution Width 13.2 % (11.0-16.0); White Blood Count 7.5 X10*3/uL (4.8-10.8)
[2022-09-24 14:29] LABS: IDNOW Serial# 9DB6401D; Influenza A Negative (Negative); Influenza B2 Negative (Negative)
[2022-09-24 14:30] LABS: COVID-19 Test Negative (Negative); IDNOW Serial# BCCEAD1C
[2022-09-24 14:51] LABS: Amphetamine Screen Urine Not Detected (Not Detect); Barbiturates, Urine Not Detected (Not Detect); Benzodiazepines Screen Urine Not Detected (Not Detect); Cannabinoid Screen Urine Not Detected (Not Detect); Cocaine Screen Urine POSITIVE (Not Detect); Fentanyl, urine POSITIVE (Not Detect); Opiate Screen Urine POSITIVE (Not Detect); Phencyclidine Screen Urine Not Detected (Not Detect)
[2022-09-24 14:59] LABS: Alanine Aminotransferase 23 U/L (0-31); Albumin Level 4.4 g/dL (3.5-5.0); Alkaline Phosphatase 102 U/L (39-117); Anion Gap 16 (12-20); Aspartate Amino Transferase 44 U/L (5-31); Bilirubin Total 0.9 mg/dL (0.0-1.0); Blood Urea Nitrogen 14 mg/dL (9-16); Calcium 9.3 mg/dL (8.4-10.2); Carbon Dioxide 22 mmol/L (22-29); Chloride 103 mmol/L (96-108); Creatinine Clr Calc Pharmacy 96.9; Estimated Glomerular Filt Rate > 60; Glucose Random 70 mg/dL (60-115); HCG Quantitative < 2 mIU/mL; Potassium 4.4 mmol/L (3.3-5.1); Sodium 137 mmol/L (135-145); Total Protein 7.5 g/dL (6.5-8.0)
--- NOTE | 2022-09-24 15:13 | PC.NURSE ---
pt pw vague SI and paranoia, concerned for COVID, blood infection , scabies , withdrawal, and other complaints. VSS. changed into hospital attire, labs drawn and sent, urine sent.
--- NOTE | 2022-09-24 16:25 | PC.NURSE ---
pt showered on arrival for concern for scabies
--- NOTE | 2022-09-24 16:25 | PC.NURSE ---
awaiting pharmacy for permethrin cream
[2022-09-24] MEDS: Permethrin 5 % Cream 60 GM TUBE 1 APPL TOPICAL (16:30)
[2022-09-24] MEDS: hydrOXYzine HCL 50 MG TABLET PO (18:09)
--- NOTE | 2022-09-24 18:45 | PHA.MEDREC ---
Pharmacy Consult ? Medication Reconciliation Pharmacy has completed the medication reconciliation. Spoke to patient to confirm meds. Patient states they take methadone 160mg and get it at the [facility]. Unverified dose at this time of note.
[2022-09-24 20:07] VITALS: BP 95/60; PULSE 80; RESP 16; O2SAT 97
[2022-09-25] MEDS: traZODone HCL 50 MG TABLET PO (00:54)
[2022-09-25 06:00] VITALS: BP 101/56; PULSE 68; RESP 17; TEMP 36.6; O2SAT 96
--- NOTE | 2022-09-25 06:28 | HE.PHANOTE ---
RE: methadone Received last dose verification form [facility] with last dose of 155mg 09/23/22 @[id number]
--- NOTE | 2022-09-25 06:43 | PC.NURSE ---
pt slept during the shift
[2022-09-25] MEDS: methADONE HCl 20 MG/2 ML ORAL.CONC 155 MG PO (09:11)
--- NOTE | 2022-09-25 09:24 | MHC.CARE ---
called [facility], gave pt's info for possible admission, YASMIN will call back when they have accuracy of census
--- NOTE | 2022-09-25 09:44 | PC.NURSE ---
tab machine operator met with pt for detox, methadone 155mg given this morning.
--- NOTE | 2022-09-25 10:05 | MHC.CARE ---
patient on the phone doing an intake w [facility] at time of this writing.
--- NOTE | 2022-09-25 10:18 | MHC.RECOVRN ---
This junior underwriter met w/ patient, patient was under blankets in bed, awake to verbal command. Patient requesting detox at this time. Patient reports [facility]. 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 Patient reports hopes to return to [facility] after completing treatment. MTD verified yesterday, patient given MTD dose at hospital. Patient requesting detox placement in [facility]. T/W sent detox referral to [facility], per patient request.
[2022-09-25] MEDS: Nicotine Polacrilex 2 MG GUM BUCCAL (10:54)
[2022-09-25] MEDS: Nicotine 21 MG PATCH.TD24 TRANSDERMA (11:30)
== END 2022-09-25 14:11 | disposition home or self-care (01) ==
PROVIDERS: Emergency Medicine Emergency Medical Services; Emergency Provider Emergency Medicine
DX: F33.1 Major depressive disorder, recurrent, moderate (principal); B34.9 Viral infection, unspecified; R45.851 Suicidal ideations; R05.9 Cough, unspecified; R06.02 Shortness of breath; F14.10 Cocaine abuse, uncomplicated; F17.210 Nicotine dependence, cigarettes, uncomplicated; Z71.6 Tobacco abuse counseling; Z79.899 Other long term (current) drug therapy; Z20.822 Contact with and (suspected) exposure to COVID-19; Z20.828 Contact with and (suspected) exposure to other viral communicable diseases
CPT/HCPCS: 36415; 71045; 80053; 80307; 84702; 85025; 87502; 87635; 99284; S9485

== ENCOUNTER 2022-10-05 17:48 | Emergency (ER) | payer OTHER, SELFPAY ==
[2022-10-05 18:06] VITALS: BP 117/80; PULSE 84; RESP 18; TEMP 36.9; O2SAT 97; BMI 25.0
--- NOTE | 2022-10-05 18:06 | ED_ITS ---
HPI - General Adult General Chief complaint: Psychiatric Symptoms <Laly Sawyer CNP - Last Filed: 10/05/22 18:13> Stated complaint: abscess on tooth, other things would not disclose <Laly Sawyer CNP - Last Filed: 10/05/22 18:13> Time Seen by Provider: 10/05/22 21:26 <Laly Sawyer CNP - Last Filed: 10/05/22 18:13> Source: patient <GALINDO Tovar - Last Filed: 10/06/22 00:31> Mode of arrival: ambulatory <GALINDO Tovar - Last Filed: 10/06/22 00:31> Limitations: no limitations <GALINDO Tovar - Last Filed: 10/06/22 00:31> History of Present Illness HPI narrative: This is a 37-year-old female history of anxiety, depression, IV drug abuse presenting to the emergency department with suicidal ideation without particular plan, telling me she has scabies all over her body including in her mouth. She tells me that the scabies are causing her to have an abscess on her tongue. Patient also requesting methadone she has skipped her last 2 doses due to difficulties getting to her clinic in [place], patient homeless without arrived. She wants detox from heroin, crack cocaine. Denies chest pain, shortness of breath, nausea, vomiting, abdominal pain, headache, vision changes, dizziness and weakness. <GALINDO Tovar - Last Filed: 10/06/22 00:31> Related Data Home medications: Home Medications Medication Instructions Recorded Confirmed trazodone 50 mg tablet 1 tab PO BEDTIME PRN Insomnia 06/19/22 10/05/22 methadone 10 mg/mL oral 155 mg PO DAILY 06/29/22 10/06/22 concentrate (Methadone Intensol) acetaminophen 500 mg tablet 1 tab PO Q6H PRN Pain 09/24/22 10/05/22 albuterol sulfate 90 mcg/actuation 2 puff inhalation Q4-6H PRN 09/24/22 10/05/22 aerosol inhaler (Ventolin HFA) Shortness Of Breath Or Wheezing hydroxyzine pamoate 25 mg capsule 25 mg PO Q6H PRN Anxiety 09/24/22 10/05/22 ibuprofen 400 mg tablet 1 tab PO Q6H PRN Pain 09/24/22 10/05/22 loratadine 10 mg tablet 1 tab PO DAILY PRN Allergy Symptoms 09/24/22 10/05/22 nicotine (polacrilex) 2 mg buccal 2 mg buccal Q2H PRN Nicotine 09/24/22 10/05/22 mini lozenge Cravings nicotine 21 mg/24 hr daily 1 patch topical DAILY 09/24/22 10/05/22 transdermal patch <Laly Sawyer CNP - Last Filed: 10/05/22 18:13> Allergies/adverse reactions: Allergies Allergy/AdvReac Type Severity Reaction Status Date / Time ceftriaxone [From ROCEPHIN] Allergy Intermediate HIVES Verified 04/19/21 14:12 sulfamethoxazole Allergy Intermediate HIVES Verified 04/19/21 14:12 [From BACTRIM] trimethoprim [From BACTRIM] Allergy Intermediate HIVES Verified 04/19/21 14:12 Sulfa (Sulfonamide Allergy Unknown HIVES. Verified 04/19/21 14:12 Antibiotics) VOMITING [SULFA (SULFONAMIDE ANTIBIOTICS)] doxycycline [DOXYCYCLINE] AdvReac Unknown NAUSEA & Verified 04/19/21 14:12 VOMITING <Laly Sawyer CNP - Last Filed: 10/05/22 18:13> Review of Systems Review of Systems: Constitutional : No Weight loss, No Fever, No Chills, No Fatigue, No Malaise ENT/Mouth : No sore throat, No Rhinorrhea Eyes: No Eye Pain, No Swelling, No Redness Cardiovascular : No Chest Pain, No SOB, No Dyspnea on Exertion, No Orthopnea, No Edema, No Palpitations Respiratory : No Cough, No Sputum, No Wheezing Gastrointestinal : No Nausea, No Vomiting, No Diarrhea, No Constipation, No abdominal Pain, No Hematochezia, No Melena Genitourinary : No Dysuria, No Urinary Frequency, No Hematuria, Musculoskeletal : No joint pain, No Myalgias, No Joint Swelling Skin : + Skin Lesions, No rash Neuro : No Weakness, No Numbness, No Dizziness, No Headache Psych : No Anxiety/Panic, No Depression Heme/Lymph: No Bruising, No Bleeding,No Lymphadenopathy Endocrine : No Polyuria, No Polydipsia All other systems reviewed and are negative <GALINDO Tovar - Last Filed: 10/06/22 00:31> Yes all other systems are reviewed and are negative <GALINDO Tovar - Last Filed: 10/06/22 00:31> [facility] Past Medical History Attestation statement: The following information was validated with the patient. <GALINDO Tovar - Last Filed: 10/06/22 00:31> Source: old records reviewed and nursing notes reviewed <GALINDO Tovar - Last Filed: 10/06/22 00:31> Medical History: Medical History Acute pelvic inflammatory disease (PID) Cellulitis Diskitis Drug use Homeless Opioid use disorder Prothrombin gene mutation Pulmonary emboli <Laly Sawyer CNP - Last Filed: 10/05/22 18:13> Social History Social History: Social History Household Members: Other Housing: Homeless Do you presently have visiting nurse or other home services: No Alcohol intake: current Alcohol intake frequency: 3 or more drinks per day Alcohol type: hard liquor Patient Tobacco Use Status: Current everyday Tobacco user Tobacco use type: Cigarette Cigarette Packs Per Day: 1 Cigarettes Per Day: 20.0 Second Hand Smoke Exposure: No Substance Use Type: Crack/Cocaine and Heroin Advance Directives: No Advance Directives Information Provided: No service: No Current occupational status: unemployed <Laly Sawyer CNP - Last Filed: 10/05/22 18:13> Physical Exam ED Vital Signs: Vital Signs - 24 hr 10/05/22 18:06 10/05/22 22:50 10/06/22 06:36 Temperature 98.4 F 98.7 F Pulse Rate 84 75 69 Respiratory Rate 18 16 17 Blood Pressure 117/80 99/60 100/63 Pulse Oximetry 97 98 98 Oxygen Delivery Method Room Air Room Air Room Air 10/06/22 11:54 Temperature 98.9 F Pulse Rate 57 Respiratory Rate 15 Blood Pressure 100/43 L Pulse Oximetry 98 Oxygen Delivery Method Room Air BMI result Body Mass Index 25.0 <Laly Sawyer CNP - Last Filed: 10/05/22 18:13> Vital Signs - 24 hr 10/05/22 18:06 10/05/22 22:50 10/06/22 06:36 Temperature 98.4 F 98.7 F Pulse Rate 84 75 69 Respiratory Rate 18 16 17 Blood Pressure 117/80 99/60 100/63 Pulse Oximetry 97 98 98 Oxygen Delivery Method Room Air Room Air Room Air 10/06/22 11:54 Temperature 98.9 F Pulse Rate 57 Respiratory Rate 15 Blood Pressure 100/43 L Pulse Oximetry 98 Oxygen Delivery Method Room Air BMI result Body Mass Index 25.0 vss <GALINDO Tovar - Last Filed: 10/06/22 00:31> Vital Signs - 24 hr 10/05/22 18:06 10/05/22 22:50 10/06/22 06:36 Temperature 98.4 F 98.7 F Pulse Rate 84 75 69 Respiratory Rate 18 16 17 Blood Pressure 117/80 99/60 100/63 Pulse Oximetry 97 98 98 Oxygen Delivery Method Room Air Room Air Room Air 10/06/22 11:54 Temperature 98.9 F Pulse Rate 57 Respiratory Rate 15 Blood Pressure 100/43 L Pulse Oximetry 98 Oxygen Delivery Method Room Air BMI result Body Mass Index 25.0 <Jake Cole MD - Last Filed: 10/06/22 13:03> Appearance: Alert.? Oriented X3.? No acute distress.? Head: Normocephalic, atraumatic, no step-offs or deformities Eyes: Pupils equal, round and reactive to light.? ENT: Pharynx normal.? Neck: Normal inspection.? Neck supple.? CVS: Normal heart rate and rhythm.? Pulses normal.? Respiratory: No respiratory distress.? Breath sounds normal.? Abdomen: Soft and nontender.? Skin: Skin warm and dry.? Normal skin color.? Normal skin turgor.? Normal hands and feet without rash. Extremities: No lower extremity edema.? No calf ttp. 5/5 strength to bilateral upper and lower extremities Back: No midline tenderness, no C-spine tenderness, full range of motion, no CVA tenderness bilaterally Neuro: Oriented X 3.? No motor deficit.? No sensory deficit. CN 2-12 intact <GALINDO Tovar - Last Filed: 10/06/22 00:31> Course Course Course Narrative: This is an RME: Additional HPI, ROS, PE not included below will be deferred to primary provider. Patient is a 37-year-old female who presents to the emergency department for evaluation. Reports concern for scabies, rash to bilateral hands, feet. Reports an abscess in her mouth, which she thinks is in relation to the scabies infection. Missed methadone dosing for past 2 days, clinic in [place], unable to get transport there. She is requesting assistance with detox from crack cocaine, heroin, everything . Reporting vague SI, not endorsing any specific plan, requesting assistance for mental health . Denies any recent sick contacts. <Laly Sawyer CNP - Last Filed: 10/05/22 18:13> Reevaluation(s) Reevaluation #1: Patient is adamantly refusing laboratory studies. I do not suspect she has acute scabies. Patient tells me this has been present for ever. She tells me every time she has itching she thinks it is scabies because she has had them before. UA without infection. Urine toxicology positive for opiates, fentanyl, cocaine. COVID negative. At this time patient will be placed into observation to allow more time to be evaluated by the care team. At time observation was started patient common cooperative no acute distress will continue to monitor <GALINDO Tovar - Last Filed: 10/06/22 00:31> Time: 00:28 <GALINDO Tovar - Last Filed: 10/06/22 00:31> Reevaluation #2: I have assumed care at this time. Patient is under crisis evaluation. Will order her methadone 155 mg. This was verified. <Jake Cole MD - Last Filed: 10/06/22 13:03> Reevaluation #3: Patient going to detox after labs, patient concerned about scabies, no lesions visualized <Jake Cole MD - Last Filed: 10/06/22 13:03> Time: 13:03 <Jake Cole MD - Last Filed: 10/06/22 13:03> Medications Administered Discontinued Medications Generic Name Dose Route Start Last Admin Trade Name Freq PRN Reason Stop Dose Admin Hydroxyzine HCl 25 mg 10/05/22 21:42 10/05/22 22:09 Hydroxyzine Hcl 25 Mg Tablet PO 10/05/22 21:43 25 mg ONCE ONE Administration Methadone HCl 155 mg 10/06/22 10:15 10/06/22 10:21 Methadone Hcl 20 Mg/2 Ml Oral.Conc PO 155 mg DAILY ARYA Administration <Laly Sawyer CNP - Last Filed: 10/05/22 18:13> Medications Administered Discontinued Medications Generic Name Dose Route Start Last Admin Trade Name Freq PRN Reason Stop Dose Admin Hydroxyzine HCl 25 mg 10/05/22 21:42 10/05/22 22:09 Hydroxyzine Hcl 25 Mg Tablet PO 10/05/22 21:43 25 mg ONCE ONE Administration Methadone HCl 155 mg 10/06/22 10:15 10/06/22 10:21 Methadone Hcl 20 Mg/2 Ml Oral.Conc PO 155 mg DAILY ARYA Administration <GALINDO Tovar - Last Filed: 10/06/22 00:31> Medications Administered Discontinued Medications Generic Name Dose Route Start Last Admin Trade Name Freq PRN Reason Stop Dose Admin Hydroxyzine HCl 25 mg 10/05/22 21:42 10/05/22 22:09 Hydroxyzine Hcl 25 Mg Tablet PO 10/05/22 21:43 25 mg ONCE ONE Administration Methadone HCl 155 mg 10/06/22 10:15 10/06/22 10:21 Methadone Hcl 20 Mg/2 Ml Oral.Conc PO 155 mg DAILY ARYA Administration <Jake Cole MD - Last Filed: 10/06/22 13:03> Medical Decision Making Medical Decision Making MDM Narrative: 37-year-old female presents with suicidal ideation without particular plan, telling me she has scabies all over her body including in her mouth. Physical exam benign Likely depression, with suicidal ideation. Do not suspect scabies. Unlikely metabolic causes. Plan medical clearance evaluation by the behavioral health team. <GALINDO Tovar - Last Filed: 10/06/22 00:31> Differential Diagnosis Differential Diagnoses: The differential diagnosis associated with the presentation includes <GALINDO Tovar - Last Filed: 10/06/22 00:31> Likely depression, with suicidal ideation. Do not suspect scabies. Unlikely metabolic causes. <GALINDO Tovar - Last Filed: 10/06/22 00:31> Admission/Observation Consideration of admission/observation: Escalation of care including admission/observation considered <GALINDO Tovar - Last Filed: 10/06/22 00:31> Lab Data MDM Lab Attestation statement: I reviewed the patient's lab results. <GALINDO Tovar - Last Filed: 10/06/22 00:31> Labs: Lab Results 10/05/22 10/06/22 10/06/22 Range/Units 22:59 00:00 00:00 Urine Color [place] A Urine Appearance Clear Urine pH 6.0 (5.0-9.0) Ur Specific [place] 1.010 (1.005-1.025) Urine Protein Trace (Neg-Trace) mg/dL Urine Glucose (UA) Negative (Negative) mg/dL Urine Ketones Negative (Negative) mg/dL Urine Blood Large (3+) H (Negative) Urine Nitrite Negative (Negative) Ur Leukocyte Esterase Trace H (Negative) Urine RBC >20 H (0-2) /HPF Urine WBC 0-5 (0-5) /HPF Ur Squamous Epith Cells 0-2 (0-2) /HPF Urine Bacteria None Seen (None Seen) Hyaline Casts 0-2 (0-2) /LPF Urine Test NEGATIVE (NEGATIVE) Urine Opiates Screen (Not Detect) Urine Fentanyl Screen (Not Detect) Ur Barbiturates Screen (Not Detect) Ur Phencyclidine Scrn (Not Detect) Ur Amphetamines Screen (Not Detect) U Benzodiazepines Scrn (Not Detect) Urine Cocaine Screen (Not Detect) U Marijuana (THC) Screen (Not Detect) COVID-19 (BRE) Negative (Negative) COVID-19 Clin Com See Note 10/06/22 Range/Units 00:00 Urine Color Urine Appearance Urine pH (5.0-9.0) Ur Specific [place] (1.005-1.025) Urine Protein (Neg-Trace) mg/dL Urine Glucose (UA) (Negative) mg/dL Urine Ketones (Negative) mg/dL Urine Blood (Negative) Urine Nitrite (Negative) Ur Leukocyte Esterase (Negative) Urine RBC (0-2) /HPF Urine WBC (0-5) /HPF Ur Squamous Epith Cells (0-2) /HPF Urine Bacteria (None Seen) Hyaline Casts (0-2) /LPF Urine Test (NEGATIVE) Urine Opiates Screen POSITIVE H (Not Detect) Urine Fentanyl Screen POSITIVE H (Not Detect) Ur Barbiturates Screen Not Detected (Not Detect) Ur Phencyclidine Scrn Not Detected (Not Detect) Ur Amphetamines Screen Not Detected (Not Detect) U Benzodiazepines Scrn Not Detected (Not Detect) Urine Cocaine Screen POSITIVE H (Not Detect) U Marijuana (THC) Screen Not Detected (Not Detect) COVID-19 (BRE) (Negative) COVID-19 Clin Com <Laly Sawyer, TRACK DRESSER - Last Filed: 10/05/22 18:13> Lab Results 10/05/22 10/06/22 10/06/22 Range/Units 22:59 00:00 00:00 Urine Color [place] A Urine Appearance Clear Urine pH 6.0 (5.0-9.0) Ur Specific [place] 1.010 (1.005-1.025) Urine Protein Trace (Neg-Trace) mg/dL Urine Glucose (UA) Negative (Negative) mg/dL Urine Ketones Negative (Negative) mg/dL Urine Blood Large (3+) H (Negative) Urine Nitrite Negative (Negative) Ur Leukocyte Esterase Trace H (Negative) Urine RBC >20 H (0-2) /HPF Urine WBC 0-5 (0-5) /HPF Ur Squamous Epith Cells 0-2 (0-2) /HPF Urine Bacteria None Seen (None Seen) Hyaline Casts 0-2 (0-2) /LPF Urine Test NEGATIVE (NEGATIVE) Urine Opiates Screen (Not Detect) Urine Fentanyl Screen (Not Detect) Ur Barbiturates Screen (Not Detect) Ur Phencyclidine Scrn (Not Detect) Ur Amphetamines Screen (Not Detect) U Benzodiazepines Scrn (Not Detect) Urine Cocaine Screen (Not Detect) U Marijuana (THC) Screen (Not Detect) COVID-19 (BRE) Negative (Negative) COVID-19 Clin Com See Note 10/06/22 Range/Units 00:00 Urine Color Urine Appearance Urine pH (5.0-9.0) Ur Specific [place] (1.005-1.025) Urine Protein (Neg-Trace) mg/dL Urine Glucose (UA) (Negative) mg/dL Urine Ketones (Negative) mg/dL Urine Blood (Negative) Urine Nitrite (Negative) Ur Leukocyte Esterase (Negative) Urine RBC (0-2) /HPF Urine WBC (0-5) /HPF Ur Squamous Epith Cells (0-2) /HPF Urine Bacteria (None Seen) Hyaline Casts (0-2) /LPF Urine Test (NEGATIVE) Urine Opiates Screen POSITIVE H (Not Detect) Urine Fentanyl Screen POSITIVE H (Not Detect) Ur Barbiturates Screen Not Detected (Not Detect) Ur Phencyclidine Scrn Not Detected (Not Detect) Ur Amphetamines Screen Not Detected (Not Detect) U Benzodiazepines Scrn Not Detected (Not Detect) Urine Cocaine Screen POSITIVE H (Not Detect) U Marijuana (THC) Screen Not Detected (Not Detect) COVID-19 (BRE) (Negative) COVID-[employer] Com <GALINDO Tovar - Last Filed: 10/06/22 00:31> Lab Results 10/05/22 10/06/22 10/06/22 Range/Units 22:59 00:00 00:00 Urine Color [place] A Urine Appearance Clear Urine pH 6.0 (5.0-9.0) Ur Specific [place] 1.010 (1.005-1.025) Urine Protein Trace (Neg-Trace) mg/dL Urine Glucose (UA) Negative (Negative) mg/dL Urine Ketones Negative (Negative) mg/dL Urine Blood Large (3+) H (Negative) Urine Nitrite Negative (Negative) Ur Leukocyte Esterase Trace H (Negative) Urine RBC >20 H (0-2) /HPF Urine WBC 0-5 (0-5) /HPF Ur Squamous Epith Cells 0-2 (0-2) /HPF Urine Bacteria None Seen (None Seen) Hyaline Casts 0-2 (0-2) /LPF Urine Test NEGATIVE (NEGATIVE) Urine Opiates Screen (Not Detect) Urine Fentanyl Screen (Not Detect) Ur Barbiturates Screen (Not Detect) Ur Phencyclidine Scrn (Not Detect) Ur Amphetamines Screen (Not Detect) U Benzodiazepines Scrn (Not Detect) Urine Cocaine Screen (Not Detect) U Marijuana (THC) Screen (Not Detect) COVID-19 (BRE) Negative (Negative) [employer] Com See Note 10/06/22 Range/Units 00:00 Urine Color Urine Appearance Urine pH (5.0-9.0) Ur Specific [place] (1.005-1.025) Urine Protein (Neg-Trace) mg/dL Urine Glucose (UA) (Negative) mg/dL Urine Ketones (Negative) mg/dL Urine Blood (Negative) Urine Nitrite (Negative) Ur Leukocyte Esterase (Negative) Urine RBC (0-2) /HPF Urine WBC (0-5) /HPF Ur Squamous Epith Cells (0-2) /HPF Urine Bacteria (None Seen) Hyaline Casts (0-2) /LPF Urine Test (NEGATIVE) Urine Opiates Screen POSITIVE H (Not Detect) Urine Fentanyl Screen POSITIVE H (Not Detect) Ur Barbiturates Screen Not Detected (Not Detect) Ur Phencyclidine Scrn Not Detected (Not Detect) Ur Amphetamines Screen Not Detected (Not Detect) U Benzodiazepines Scrn Not Detected (Not Detect) Urine Cocaine Screen POSITIVE H (Not Detect) U Marijuana (THC) Screen Not Detected (Not Detect) COVID-19 (BRE) (Negative) COVID-19 Clin Com <Jake Cole MD - Last Filed: 10/06/22 13:03> Radiology Impression Discussion of test interpretation with radiology: I have reviewed the radiologist's reading. <GALINDO Tovar - Last Filed: 10/06/22 00:31> Core Measures AMI core measures followed: Yes <GALINDO Tovar - Last Filed: 10/06/22 00:31> Measure exclusions: not indicated <GALINDO Tovar - Last Filed: 10/06/22 00:31> Critical Care Time Critical Care Time Critical Care Time: No <GALINDO Tovar - Last Filed: 10/06/22 00:31> Discharge Plan Discharge Clinical Impression: Suicidal ideation, Depression, Polysubstance abuse <Laly Sawyer CNP - Last Filed: 10/05/22 18:13> Patient Disposition: Xfer Other <Laly Sawyer CNP - Last Filed: 10/05/22 18:13> Transfer Details: [facility] <Laly Sawyer CNP - Last Filed: 10/05/22 18:13> [facility] <GALINDO Tovar - Last Filed: 10/06/22 00:31> [facility] <Jake Cole MD - Last Filed: 10/06/22 13:03> Prescriptions: No Action methadone [Methadone Intensol] 10 mg/mL Concentrate 155 mg PO DAILY acetaminophen 500 mg tablet 1 tab PO Q6H PRN (Reason: Pain) ibuprofen 400 mg tablet 1 tab PO Q6H PRN (Reason: Pain) nicotine 21 mg/24 hr patch 24 hour 1 patch topical DAILY albuterol sulfate [Ventolin HFA] 90 mcg/actuation HFA aerosol inhaler 2 puff inhalation Q4-6H PRN (Reason: Shortness Of Breath Or Wheezing) loratadine 10 mg tablet 1 tab PO DAILY PRN (Reason: Allergy Symptoms) hydroxyzine pamoate 25 mg capsule 25 mg PO Q6H PRN (Reason: Anxiety) nicotine (polacrilex) 2 mg mini lozenge 2 mg buccal Q2H PRN (Reason: Nicotine Cravings) trazodone 50 mg tablet 1 tab PO BEDTIME PRN (Reason: Insomnia) <Laly Sawyer CNP - Last Filed: 10/05/22 18:13> Interventions: [place]-Suicide Risk Severity Scale Last Done: 10/06/22 07:00 ED Discharge Assessment Last Done: 10/06/22 14:24 <Laly Sawyer CNP - Last Filed: 10/05/22 18:13> Discharge Date/Time: 10/06/22 16:26 <Laly Sawyer CNP - Last Filed: 10/05/22 18:13>
--- NOTE | 2022-10-05 18:32 | PC.NURSE ---
37 y/o F pw passive SI, ?mouth abscess ?scabies. pt has presented here in the past with the exact same complaints, was not found to have an oral abscess or scabies either time. pt appears paranoid, VSS. pt changed into gown, resting comfortably
--- NOTE | 2022-10-05 21:17 | MHC.EDTECH ---
pt refuses bloodwork and vitals. pt states that she will not bloodwork without being seen by a provider because she thinks she has scabies. Nurse was notified
[2022-10-05] MEDS: hydrOXYzine HCL 25 MG TABLET PO (22:09)
[2022-10-05 22:50] VITALS: BP 99/60; PULSE 75; RESP 16; TEMP 37.1; O2SAT 98
--- NOTE | 2022-10-05 22:51 | MHC.EDTECH ---
pt was bale to let me check her vitals. pt refused any blood work for her. Nurse was notified.
[2022-10-05 23:23] LABS: COVID-19 Test Negative (Negative); IDNOW Serial# 6674DD1D
--- NOTE | 2022-10-06 00:01 | MHC.EDTECH ---
t/w attempted to obtain labs, pt refusing bloodwork stating i'm not giving blood unless absolutely needed. RN AWARE.
[2022-10-06 00:12] LABS: UPreg QC Valid YES; Urine Pregnancy NEGATIVE (NEGATIVE)
[2022-10-06 00:13] LABS: Appearance Urine Clear; Bacteria Urine None Seen (None Seen); Color Urine Orange; Glucose Urine UA Negative (Negative); Hyaline Casts Urine 0-2 /LPF (0-2); Leukocyte Esterase Urine Trace (Negative); Nitrite Urine Negative (Negative); RBC Urine >20 /HPF (0-2); Squamous Epithelial Cell Urine 0-2 /HPF (0-2); UMIC TRIGGER UACC YES; Urine Blood Large (3+) (Negative); Urine Ketones Negative (Negative); Urine Protein Trace mg/dL (Neg-Trace); WBC Urine 0-5 /HPF (0-5)
[2022-10-06 00:18] LABS: Amphetamine Screen Urine Not Detected (Not Detect); Barbiturates, Urine Not Detected (Not Detect); Benzodiazepines Screen Urine Not Detected (Not Detect); Cannabinoid Screen Urine Not Detected (Not Detect); Cocaine Screen Urine POSITIVE (Not Detect); Fentanyl, urine POSITIVE (Not Detect); Opiate Screen Urine POSITIVE (Not Detect); Phencyclidine Screen Urine Not Detected (Not Detect)
--- NOTE | 2022-10-06 06:24 | PC.NURSE ---
Patient slept through the night, showered, no distress observed/reported, refusing blood draw from main ED/provider aware, able to obtain urine sample/swabbed for covid after arriving in the POD, care consult ordered/pending evaluation for suicidality, med rec completed/approved, behavior non concerning, will continue to monitor.
[2022-10-06 06:36] VITALS: BP 100/63; PULSE 69; RESP 17; O2SAT 98
--- NOTE | 2022-10-06 09:49 | HE.PHANOTE ---
RE METHADONE METHADONE VERIFICATION FORM RECEIVED FROM [facility]. DOSE IS 155 MG LAST DOSED ON 10/03/22 [place]
[2022-10-06] MEDS: methADONE HCl 20 MG/2 ML ORAL.CONC 155 MG PO (10:21)
--- NOTE | 2022-10-06 11:20 | MHC.RECOVRN ---
Pt cleared by CARE Team and interested in ATS. Referral sent to [facility].
[2022-10-06 11:54] VITALS: BP 100/43; PULSE 57; RESP 15; TEMP 37.2; O2SAT 98
--- NOTE | 2022-10-06 13:23 | MHC.RECOVRN ---
Pt accepted to [facility] pending labs and phone intake.
--- NOTE | 2022-10-06 16:13 | MHC.RECOVRN ---
Pt transported to [facility] [place] via [employer].
== END 2022-10-06 16:26 | disposition other institution (70) ==
PROVIDERS: Nurse Practitioner Family; Emergency Provider Internal Medicine
DX: F33.1 Major depressive disorder, recurrent, moderate (principal); F41.1 Generalized anxiety disorder; F43.0 Acute stress reaction; R45.851 Suicidal ideations; F11.10 Opioid abuse, uncomplicated; F14.10 Cocaine abuse, uncomplicated; F17.210 Nicotine dependence, cigarettes, uncomplicated; Z71.6 Tobacco abuse counseling; Z20.822 Contact with and (suspected) exposure to COVID-19; Z20.828 Contact with and (suspected) exposure to other viral communicable diseases; Z79.899 Other long term (current) drug therapy
CPT/HCPCS: 80307; 81001; 81025; 87635; 99284

== ENCOUNTER 2022-10-10 03:44 | Inpatient (IN) | payer OTHER, SELFPAY ==
[2022-10-10 04:09] VITALS: BP 114/58; PULSE 77; RESP 16; TEMP 36.9; O2SAT 98; BMI 26.6
--- NOTE | 2022-10-10 04:15 | ECG_ITS ---
Test Reason : OVER DOSE Blood Pressure : / mmHG Vent. Rate : 072 BPM Atrial Rate : 072 BPM P-R Int : 132 ms QRS Dur : 090 ms QT Int : 426 ms P-R-T Axes : 063 044 032 degrees QTc Int : 466 ms Normal sinus rhythm Normal ECG When compared with ECG of 22-JUL-2022 13:14, No significant change was found Referred By: Generic ED Physician Electronically Signed By:Gautam Crowe
--- NOTE | 2022-10-10 04:46 | PC.NURSE ---
Pt aox3. Fidgety and restless at the bedside. Reports using everything when asked about current drug use earlier today. Failed attempt to collect blood work. Will contact phlebotomy for assistance. Pt agrees with plan.
[2022-10-10 04:51] LABS: COVID-19 Test Negative (Negative); IDNOW Serial# 6674DD1D
--- NOTE | 2022-10-10 04:57 | ED_ITS ---
HPI - Psych General Chief Complaint: Psychiatric Symptoms Stated Complaint: SI, psychosis Time Seen by Provider: 10/10/22 04:53 Source: patient and EMS Mode of arrival: EMS Limitations: no limitations History of Present Illness HPI Narrative: Patient comes to the emergency room complaining of suicidal ideation and seeking detox. Patient states that she does not have any specific plan to hurt herself but she has contemplated. Patient states that she has used alcohol and drugs earlier today. Patient concerned that she has scabies. Related Data Home Medications Medication Instructions Recorded Confirmed trazodone 50 mg tablet 1 tab PO BEDTIME PRN Insomnia 06/19/22 10/05/22 methadone 10 mg/mL oral 155 mg PO DAILY 06/29/22 10/06/22 concentrate (Methadone Intensol) acetaminophen 500 mg tablet 1 tab PO Q6H PRN Pain 09/24/22 10/05/22 albuterol sulfate 90 mcg/actuation 2 puff inhalation Q4-6H PRN 09/24/22 10/05/22 aerosol inhaler (Ventolin HFA) Shortness Of Breath Or Wheezing hydroxyzine pamoate 25 mg capsule 25 mg PO Q6H PRN Anxiety 09/24/22 10/05/22 ibuprofen 400 mg tablet 1 tab PO Q6H PRN Pain 09/24/22 10/05/22 loratadine 10 mg tablet 1 tab PO DAILY PRN Allergy Symptoms 09/24/22 10/05/22 nicotine (polacrilex) 2 mg buccal 2 mg buccal Q2H PRN Nicotine 09/24/22 10/05/22 mini lozenge Cravings nicotine 21 mg/24 hr daily 1 patch topical DAILY 09/24/22 10/05/22 transdermal patch Allergies Allergy/AdvReac Type Severity Reaction Status Date / Time ceftriaxone [From ROCEPHIN] Allergy Intermediate HIVES Verified 04/19/21 14:12 sulfamethoxazole Allergy Intermediate HIVES Verified 04/19/21 14:12 [From BACTRIM] trimethoprim [From BACTRIM] Allergy Intermediate HIVES Verified 04/19/21 14:12 Sulfa (Sulfonamide Allergy Unknown HIVES. Verified 04/19/21 14:12 Antibiotics) VOMITING [SULFA (SULFONAMIDE ANTIBIOTICS)] doxycycline [DOXYCYCLINE] AdvReac Unknown NAUSEA & Verified 04/19/21 14:12 VOMITING Review of Systems Review of Systems: Constitutional : No Weight loss, No Fever, No Chills, No Night Sweats, No Fatigue, No Malaise ENT/Mouth : No Hearing loss, No Ear Pain, No Nasal Congestion, No Sinus Pain, No Hoarseness, No sore throat, No Rhinorrhea, No Swallowing Difficulty Eyes: No Eye Pain, No Swelling, No Redness, No Foreign Body, No Discharge, No Vision Changes Cardiovascular : No Chest Pain, No SOB, No Dyspnea on Exertion, No Orthopnea, No Edema, No Palpitations Respiratory : No Cough, No Sputum, No Wheezing, No Smoke Exposure, No Dyspnea Gastrointestinal : No Nausea, No Vomiting, No Diarrhea, No Constipation, No abdominal Pain, No Hematochezia, No Melena Genitourinary : no irregular bleeding, No Dysuria, No Urinary Frequency, No Hematuria, No Urinary Incontinence, No Urgency, No Flank Pain, No Urinary Flow Changes, No Hesitancy Musculoskeletal : No joint pain, No Myalgias, No Joint Swelling Skin : No Skin Lesions, No rash Neuro : No Weakness, No Numbness, No Paresthesias, No Loss of Consciousness, No Dizziness, No Headache Psych : Complaining of anxiety, depression, suicidal ideation, no homicidal ideation, complaining of constant itching in her hands thinks she has scabies Heme/Lymph: No Bruising, No Bleeding,No Lymphadenopathy Endocrine : No Polyuria, No Polydipsia, No Temperature Intolerance PMFSH Past Medical History Medical History Acute pelvic inflammatory disease (PID) Cellulitis Diskitis Drug use Homeless Opioid use disorder Prothrombin gene mutation Pulmonary emboli Social History Social History Household Members: Other Housing: Homeless Do you presently have visiting nurse or other home services: No Alcohol intake: current Alcohol intake frequency: 3 or more drinks per day Alcohol type: hard liquor Patient Tobacco Use Status: Current everyday Tobacco user Tobacco use type: Cigarette Cigarette Packs Per Day: 1 Cigarettes Per Day: 20.0 Second Hand Smoke Exposure: No Substance Use Type: Crack/Cocaine and Heroin Advance Directives: No service: No Current occupational status: unemployed Physical Exam Vital Signs: Vital Signs: Last Vital Signs Temp 98.5 F 10/10/22 04:09 Pulse 77 10/10/22 04:09 Resp 16 10/10/22 04:09 BP 114/58 L 10/10/22 04:09 Pulse Ox 98 10/10/22 04:09 O2 Del Method 10/10/22 04:09 BMI result Body Mass Index 26.6 Const: Other: Appearance: Alert. Oriented X3. Restless Eyes: Pupils equal, round and reactive to light. ENT: Pharynx normal. Neck: Normal inspection. Neck supple. No lymph nodes noted. No crepitus CVS: Normal heart rate and rhythm. Pulses normal. Normal S1 and S2 Respiratory: No respiratory distress. Breath sounds normal. No Wheezing. No rales Abdomen: Soft and nontender. No rigidity. No distention. Skin: Skin warm and dry. Normal skin color. Normal skin turgor. Extremities: No lower extremity edema. No Lacerations. No Rash Neuro: Oriented X 3. No motor deficit. No sensory deficit. Moving all extremities. No slurred speech. CN 2 through 12 grossly intact Psych: calm, cooperative, normal affect Course Course Course Narrative: -care consult pending Physician observation started at 05:00 Medical Decision Making Lab Data Labs: Lab Results 10/10/22 Range/Units 04:34 COVID-19 (BRE) Negative (Negative) COVID-19 Clin Com See Note Discharge Plan Discharge Clinical Impression: Substance abuse, Suicidal ideations Patient Disposition: Still a Patient Prescriptions: No Action methadone [Methadone Intensol] 10 mg/mL Concentrate 155 mg PO DAILY acetaminophen 500 mg tablet 1 tab PO Q6H PRN (Reason: Pain) ibuprofen 400 mg tablet 1 tab PO Q6H PRN (Reason: Pain) nicotine 21 mg/24 hr patch 24 hour 1 patch topical DAILY albuterol sulfate [Ventolin HFA] 90 mcg/actuation HFA aerosol inhaler 2 puff inhalation Q4-6H PRN (Reason: Shortness Of Breath Or Wheezing) loratadine 10 mg tablet 1 tab PO DAILY PRN (Reason: Allergy Symptoms) hydroxyzine pamoate 25 mg capsule 25 mg PO Q6H PRN (Reason: Anxiety) nicotine (polacrilex) 2 mg mini lozenge 2 mg buccal Q2H PRN (Reason: Nicotine Cravings) trazodone 50 mg tablet 1 tab PO BEDTIME PRN (Reason: Insomnia) Interventions: [place]-Suicide Risk Severity Scale Last Done: 10/10/22 04:13
--- NOTE | 2022-10-10 05:21 | PC.NURSE ---
Failed attempt by phlebotomy to collect blood specimen.
--- NOTE | 2022-10-10 06:26 | MHC.EDTECH ---
while holding pt arm for blood draw pt pulled her arm back and the needle came out while in her arm the nurse was notified no second attempt made
--- NOTE | 2022-10-10 06:33 | PC.NURSE ---
Pt sleeping at the bedside in no apparent distress. Breaths are equal, regular, and unlabored. NSR on monitor with HR 80. 1:1 sitter at bedside. Will continue to monitor.
[2022-10-10 07:42] VITALS: PULSE 71; RESP 24; O2SAT 97
[2022-10-10] MEDS: LORazepam 1 MG TABLET 2 MG PO (09:09)
--- NOTE | 2022-10-10 10:17 | PHA.MEDREC ---
Pharmacy Consult ? Medication Reconciliation Pharmacy has completed the medication reconciliation. Patient was just here [place]
[2022-10-10 12:11] LABS: MANUAL DIFF FLAG NO
[2022-10-10 12:13] LABS: Basophils Percent Auto 0.5 % (0-2); Eosinophils Absolute Auto 0.2 X10*3/uL (0.0-0.4); Eosinophils Percent Auto 2.6 % (0-4); Hematocrit 35.1 % (37.0-47.0); Hemoglobin 11.9 g/dl (12.0-16.0); Imm Gran Abs Auto 0.02 X10*3/uL (0.00-0.03); Imm Gran Pct Auto 0.3 % (0.0-0.4); Lymphocytes Absolute Auto 1.5 X10*3/uL (1.2-4.9); Lymphocytes Percent Auto 23.5 % (20-40); Mean Corpuscular HGB Conc 33.9 g/dl (31.0-35.0); Mean Corpuscular Hemoglobin 28.1 pg (27.0-33.0); Mean Corpuscular Volume 82.8 fL (80.0-98.0); Mean Platelet Volume 8.8 fL (9.4-12.3); Monocytes Absolute Auto 0.5 X10*3/uL (0.1-1.2); Monocytes Percent Auto 7.9 % (2-11); Neutrophils Percent Auto 65.2 % (45-73); Platelet Count 176 X10*3/uL (160-400); Red Blood Count 4.24 X10*6/uL (4.20-5.50); Red Cell Distribution Width 13.4 % (11.0-16.0); White Blood Count 6.2 X10*3/uL (4.8-10.8)
[2022-10-10 12:31] LABS: Alanine Aminotransferase 29 U/L (0-31); Alkaline Phosphatase 104 U/L (39-117); Anion Gap 12 (12-20); Aspartate Amino Transferase 44 U/L (5-31); Bilirubin Total 0.9 mg/dL (0.0-1.0); Blood Urea Nitrogen 10 mg/dL (9-16); Calcium 8.5 mg/dL (8.4-10.2); Carbon Dioxide 27 mmol/L (22-29); Chloride 106 mmol/L (96-108); Creatinine Clr Calc Pharmacy 92.1; Estimated Glomerular Filt Rate > 60; Glucose Random 85 mg/dL (60-115); Potassium 4.3 mmol/L (3.3-5.1); Sodium 141 mmol/L (135-145); Total Protein 6.7 g/dL (6.5-8.0)
[2022-10-10 17:58] LABS: Appearance Urine Clear; Color Urine Yellow; Glucose Urine UA Negative (Negative); Leukocyte Esterase Urine Trace (Negative); Nitrite Urine Negative (Negative); UMIC TRIGGER UACC YES; Urine Blood Negative (Negative); Urine Ketones Negative (Negative); Urine Protein Negative (Neg-Trace)
[2022-10-10 17:59] LABS: UPreg QC Valid YES; Urine Pregnancy NEGATIVE (NEGATIVE)
[2022-10-10 18:03] LABS: Bacteria Urine None Seen (None Seen); Hyaline Casts Urine 0-2 /LPF (0-2); RBC Urine 0-2 /HPF (0-2); Squamous Epithelial Cell Urine 0-2 /HPF (0-2); WBC Urine 0-5 /HPF (0-5)
[2022-10-10 18:06] LABS: Amphetamine Screen Urine Not Detected (Not Detect); Barbiturates, Urine Not Detected (Not Detect); Benzodiazepines Screen Urine Not Detected (Not Detect); Cannabinoid Screen Urine Not Detected (Not Detect); Cocaine Screen Urine POSITIVE (Not Detect); Fentanyl, urine POSITIVE (Not Detect); Opiate Screen Urine POSITIVE (Not Detect); Phencyclidine Screen Urine Not Detected (Not Detect)
[2022-10-11] VITALS (8 sets, daily range): BP systolic 97–118; BP diastolic 51–68; PULSE 60–95; RESP 14–18; TEMP 36.6–37.1; O2SAT 96–98; BMI 24.9
--- NOTE | 2022-10-11 04:16 | PC.NURSE ---
Pt appears to be sleeping, awakens with verbal stimuli, reports 8/10 all over body pain. Calm and cooperative, denies SI/HI. Requesting detox/impatient psych bed , asking about her methadone dose, will relay message to next shift as not able to verify d/t time of day.
--- NOTE | 2022-10-11 10:13 | HE.PHANOTE ---
RE METHADONE 155MG FROM [facility]
[2022-10-11] MEDS: Nicotine 21 MG PATCH.TD24 TRANSDERMA (10:23)
[2022-10-11] MEDS: methADONE HCl 20 MG/2 ML ORAL.CONC 155 MG PO (10:23)
--- NOTE | 2022-10-11 10:30 | PC.NURSE ---
pt medicated with prescribed methadone dose and nicotine patch. pt eating breakfast. will cont to cathy
--- NOTE | 2022-10-11 13:39 | PC.NURSE ---
pt resting, behavioral vicenta met with pt.
--- NOTE | 2022-10-11 15:32 | PC.NURSE ---
pt currently sleeping, 1:1 sitter at bedside, will continue to monitor
--- NOTE | 2022-10-11 15:48 | PC.NURSE ---
care team came and spoke with patient and he decided he would stay and wait for an inpt bed.
--- NOTE | 2022-10-11 18:27 | PC.NURSE ---
This nurse as well as the new grad nurse have gotten multiple calls about this patient regarding a ? of scabies. This was not given to us in report when we took over care for the patient. Upon reading Dr.. Mora note the patient stated she thinks she has scabies. Dr. Mora noted in her head to toe evaluation that no rashes were noted. Today the patient has not complained of rashes or itchiness, pt has not stated again she felt she had scabies. This was told to all staff who have called regarding this. This nurse asked if the patient needed to be re-evaluated by an ED provider which was not needed. M5 provider put in permethrin lotion to be applied- the patient is planned admission to go to [facility] and since this is a concern they have the lotion can be applied on the floor in the room instead of having to bring the patient into the bathroom here in the ED because it will need to be decontaminated after. Given she is in a chin bed and we are unable to apply this in the chin its in the best interest of the patient to have this administered on M5 in a room. As previously stated- pt has not complained of itchiness and Dr. Mora assessment noted no rash.
[2022-10-11] MEDS: Permethrin 5 % Cream 60 GM TUBE 1 APPL TOPICAL (20:20)
--- NOTE | 2022-10-11 21:23 | PC.ADMIT ---
Pt is a 37years old female admitted on CV for SI with a plan to OD on drugs. Per Crises report, Pt self presented to the ED seeking Detox and Tx. Pt is alert and oriented X3, VSS, Covid negative and Tox screen positive for Opiates, Fentanyl and cocaine. Mood is depressed, subdued and appears withdrawn. Speech is regular with normal rhythm, tone and sandee. Pt denies HI plan or intent at this time. She denied AH/VH. Impulse control, thought content, and judgment is impaired. Pt report tooth abscess, Bacterial vaginosis. Mouth is dry and cracked. Pt appears to withdraw from ETOH, CIWA and Ativan requested. Pt is homeless and endorses hopelessness. Pt has no PCP, therapist or psychiatrist. Admission orders obtained.
[2022-10-11] MEDS: LORazepam 1 MG TABLET PO (22:10)
[2022-10-11] MEDS: Clindamycin HCL 300 MG CAPSULE PO (22:11)
[2022-10-11] MEDS: traZODone HCL 50 MG TABLET PO (22:11)
[2022-10-12 07:00] VITALS: BMI 23.7
[2022-10-12 09:07] LABS: Cholesterol 162 mg/dL; HDL Cholesterol 43 mg/dL; LDL Cholesterol Calculated 105 mg/dl; Magnesium 1.9 mg/dL (1.6-2.6); Triglycerides 74 mg/dL
[2022-10-12] MEDS: Nicotine 21 MG PATCH.TD24 TRANSDERMA (09:07)
[2022-10-12] MEDS: Clindamycin HCL 300 MG CAPSULE PO (09:07)
[2022-10-12] MEDS: Thiamine HCL 100 MG TABLET PO (09:07)
[2022-10-12] MEDS: Multivitamin TABLET 1 TAB PO (09:07)
[2022-10-12] MEDS: methADONE HCl 20 MG/2 ML ORAL.CONC 155 MG PO (09:08)
[2022-10-12 09:09] LABS: Estimated Average Glucose 100 mg/dL; Hemoglobin A1c % 5.1 %
[2022-10-12] MEDS: LORazepam 1 MG TABLET PO ×2 (09:13→14:44)
[2022-10-12] MEDS: Nicotine Polacrilex Lozenge 2 MG LOZENGE BUCCAL (09:13)
[2022-10-12 09:41] LABS: Free T4 (Free Thyroxine) 1.05 ng/dL (0.71-1.85); Vitamin B12 520 pg/mL (200-900)
--- NOTE | 2022-10-12 11:17 | HO.PSYADMNOT ---
HPI Date of Service: 10/12/22 Chief Complaint: Depression,SI,Opiate use disorder-methadone pt Sources of Information: patient interviewed, chart reviewed and crisis/core team assessment reviewed HPI Subjective Notes: Mike Warning and Conditional Voluntary Narrative: Patient is a 37-year-old female with history of anxiety alcohol, cocaine and opioid abuse, on Methadone, who presents for vague SI in the face of polysubstance abuse and no medication. Patient asks if assembly instructions writer can come back later since she is not feeling the best due to withdrawal; however she agrees to discuss some basic aspects of her admission. Patient says she is withdrawing from alcohol, drinking 1 pt of whiskey per day for 2 weeks; crack cocaine and opiates. She is not sure if she has been depressed over the past few weeks and offers a maybe... Patient says that this week she started having auditory hallucinations, seeing things, started screaming and reports developing brief suicidal ideation. Patient agrees that it is likely this bout of dysregulated mood and AVH was due to intoxication and withdrawal from ongoing polysubstance abuse; she denies any current AVH. When asked about current suicidality patient says maybe. Patient says she has bacterial vaginosis which she gets chronically and can tell due to the fishy odor; she was started on clindamycin yesterday but asks to be switched to Flagyl saying clindamycin gives her a yeast infection. 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 Currently patient does not want to discuss medication but says she will be more amenable to talking once withdrawal not so bothersome. 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 Substance History: Alcohol 1 pt daily for weeks; crack cocaine; opioid abuse currently on methadone Trauma History: Deferred Diagnostics Vital Signs (24Hr): Vital Signs - 24 hr 10/11/22 14:52 10/11/22 18:00 Temperature 97.8 F Pulse Rate 60 95 Respiratory Rate 14 16 Blood Pressure 97/51 L 109/68 Pulse Oximetry 96 98 Oxygen Delivery Method Room Air Room Air BMI result Body Mass Index 24.9 Labs 03/14/23 12:03 10/10/22 12:03 Labs: Laboratory Results - last 48 hr 10/10/22 10/10/22 10/10/22 12:03 12:03 17:49 WBC 6.2 RBC 4.24 Hgb 11.9 L Hct 35.1 L MCV 82.8 MCH 28.1 MCHC 33.9 RDW 13.4 Plt Count 176 MPV 8.8 L Immature Gran % (Auto) 0.3 Neut % (Auto) 65.2 Lymph % (Auto) 23.5 Otero % (Auto) 7.9 Eos % (Auto) 2.6 Baso % (Auto) 0.5 Lymph # (Auto) 1.5 [place]tero # (Auto) 0.5 Eos # (Auto) 0.2 Baso # (Auto) 0.0 Abs Immat Gran (auto) 0.02 Absolute Neuts (auto) 4.0 Absolute Nucleated RBC 0.000 Nucleated RBC % (auto) 0.0 Sodium 141 Potassium 4.3 Chloride 106 Carbon Dioxide 27 Anion Gap 12 BUN 10 Creatinine 0.85 Estim Creat Clear Calc 92.1 Estimated GFR > 60 Random Glucose 85 Estimat Average Glucose Hemoglobin A1c % Calcium 8.5 D Magnesium Total Bilirubin 0.9 AST 44 H ALT 29 Alkaline Phosphatase 104 Total Protein 6.7 Albumin 4.0 Triglycerides Cholesterol LDL Cholesterol, Calc HDL Cholesterol Vitamin B12 Folate TSH Free T4 Urine Color Yellow Urine Appearance Clear Urine pH 6.0 Ur Specific [employer] 1.010 Urine Protein Negative Urine Glucose (UA) Negative Urine Ketones Negative Urine Blood Negative Urine Nitrite Negative Ur Leukocyte Esterase Trace H Urine RBC 0-2 Urine WBC 0-5 Ur Squamous Epith Cells 0-2 Urine Bacteria None Seen Hyaline Casts 0-2 Urine Test Urine Opiates Screen Urine Fentanyl Screen Ur Barbiturates Screen Ur Phencyclidine Scrn Ur Amphetamines Screen U Benzodiazepines Scrn Urine Cocaine Screen U Marijuana (THC) Screen 10/10/22 10/10/22 10/12/22 17:49 17:49 08:36 WBC RBC Hgb Hct MCV MCH MCHC RDW Plt Count MPV Immature Gran % (Auto) Neut % (Auto) Lymph % (Auto) [place]ter[place] % (Auto) Eos % (Auto) Baso % (Auto) Lymph # (Auto) [place] # (Auto) Eos # (Auto) Baso # (Auto) Abs Immat Gran (auto) Absolute Neuts (auto) Absolute Nucleated RBC Nucleated RBC % (auto) Sodium Potassium Chloride Carbon Dioxide Anion Gap BUN Creatinine Estim Creat Clear Calc Estimated GFR Random Glucose Estimat Average Glucose 100 Hemoglobin A1c % 5.1 Calcium Magnesium Total Bilirubin AST ALT Alkaline Phosphatase Total Protein Albumin Triglycerides Cholesterol LDL Cholesterol, Calc HDL Cholesterol Vitamin B12 Folate TSH Free T4 Urine Color Urine Appearance Urine pH Ur Specific [employer] Urine Protein Urine Glucose (UA) Urine Ketones Urine Blood Urine Nitrite Ur Leukocyte Esterase Urine RBC Urine WBC Ur Squamous Epith Cells Urine Bacteria Hyaline Casts Urine Test NEGATIVE Urine Opiates Screen POSITIVE H Urine Fentanyl Screen POSITIVE H Ur Barbiturates Screen Not Detected Ur Phencyclidine Scrn Not Detected Ur Amphetamines Screen Not Detected U Benzodiazepines Scrn Not Detected Urine Cocaine Screen POSITIVE H U Marijuana (THC) Screen Not Detected 10/12/22 08:36 WBC RBC Hgb Hct MCV MCH MCHC RDW Plt Count MPV Immature Gran % (Auto) Neut % (Auto) Lymph % (Auto) [place] % (Auto) Eos % (Auto) Baso % (Auto) Lymph # (Auto) [place] # (Auto) Eos # (Auto) Baso # (Auto) Abs Immat Gran (auto) Absolute Neuts (auto) Absolute Nucleated RBC Nucleated RBC % (auto) Sodium Potassium Chloride Carbon Dioxide Anion Gap BUN Creatinine Estim Creat Clear Calc Estimated GFR Random Glucose Estimat Average Glucose Hemoglobin A1c % Calcium Magnesium 1.9 Total Bilirubin AST ALT Alkaline Phosphatase Total Protein Albumin Triglycerides 74 Cholesterol 162 LDL Cholesterol, Calc 105 HDL Cholesterol 43 Vitamin B12 520 Folate 14.0 TSH 0.30 L Free T4 1.05 Urine Color Urine Appearance Urine pH Ur Specific [employer] Urine Protein Urine Glucose (UA) Urine Ketones Urine Blood Urine Nitrite Ur Leukocyte Esterase Urine RBC Urine WBC Ur Squamous Epith Cells Urine Bacteria Hyaline Casts Urine Test Urine Opiates Screen Urine Fentanyl Screen Ur Barbiturates Screen Ur Phencyclidine Scrn Ur Amphetamines Screen U Benzodiazepines Scrn Urine Cocaine Screen U Marijuana (THC) Screen Meds/Allergies Meds Home Medications Medication Instructions Recorded Confirmed Type trazodone 50 mg tablet 1 tab PO BEDTIME PRN Insomnia 06/19/22 10/10/22 History methadone 10 mg/mL oral 155 mg PO DAILY 06/29/22 10/11/22 History concentrate (Methadone Intensol) acetaminophen 500 mg tablet 1 tab PO Q6H PRN Pain 09/24/22 10/10/22 History albuterol sulfate 90 mcg/actuation 2 puff inhalation Q4-6H PRN 09/24/22 10/10/22 History aerosol inhaler (Ventolin HFA) Shortness Of Breath Or Wheezing hydroxyzine pamoate 25 mg capsule 25 mg PO Q6H PRN Anxiety 09/24/22 10/10/22 History ibuprofen 400 mg tablet 1 tab PO Q6H PRN Pain 09/24/22 10/10/22 History loratadine 10 mg tablet 1 tab PO DAILY PRN Allergy Symptoms 09/24/22 10/10/22 History nicotine (polacrilex) 2 mg buccal 2 mg buccal Q2H PRN Nicotine 09/24/22 10/10/22 History mini lozenge Cravings nicotine 21 mg/24 hr daily 1 patch topical DAILY 09/24/22 10/10/22 History transdermal patch Allergies Allergies Allergy/AdvReac Type Severity Reaction Status Date / Time ceftriaxone [From ROCEPHIN] Allergy Intermediate HIVES Verified 04/19/21 14:12 sulfamethoxazole Allergy Intermediate HIVES Verified 04/19/21 14:12 [From BACTRIM] trimethoprim [From BACTRIM] Allergy Intermediate HIVES Verified 04/19/21 14:12 Sulfa (Sulfonamide Allergy Unknown HIVES. Verified 04/19/21 14:12 Antibiotics) VOMITING [SULFA (SULFONAMIDE ANTIBIOTICS)] doxycycline [DOXYCYCLINE] AdvReac Unknown NAUSEA & Verified 04/19/21 14:12 VOMITING Mental Status Exam Mental Status Exam Narrative: Pt is alert and oriented; behavior is marginally cooperative but polite, calm; patient is not in distress; dressed in hospital attire with unkempt hair, marginal hygiene; mood is described as depressed and affect tired; eye contact appropriate; Speech is normal rate, volume and prosody and not pressured; psychomotor retardation present; thought process is organized and goal directed; Thought content is on tx; otherwise pertinent to relevant topics and without any delusional content, paranoid ideations or grandiosity; maybe SI; no HI. There is no evidence of perceptual disturbance. Patients insight and judgment appear intact. Assessment & Plan Assessment & Plan (1) Depression: Status: Acute Code(s): F32.A - Depression, unspecified (2) Substance abuse: Status: Acute Code(s): F19.10 - Other psychoactive substance abuse, uncomplicated Plan Patient is a 37-year-old female with history of anxiety alcohol, cocaine and opioid abuse, on Methadone, who presents for vague SI in the face of polysubstance abuse and no medication. Patient asks if assembly instructions writer can come back later since she is not feeling the best due to withdrawal; however she agrees to discuss some basic aspects of her admission. Patient says she is withdrawing from alcohol, drinking 1 pt of whiskey per day for 2 weeks; crack cocaine and opiates. She is not sure if she has been depressed over the past few weeks and offers a maybe... Patient says that this week she started having auditory hallucinations, seeing things, started screaming and reports developing brief suicidal ideation. Patient agrees that it is likely this bout of dysregulated mood and AVH was due to intoxication and withdrawal from ongoing polysubstance abuse; she denies any current AVH. When asked about current suicidality patient says maybe. Patient says she has bacterial vaginosis which she gets chronically and can tell due to the fishy odor; she was started on clindamycin yesterday but asks to be switched to Flagyl saying clindamycin gives her a yeast infection. 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 Currently patient does not want to discuss medication but says she will be more amenable to talking once withdrawal not so bothersome. Impression: Patient has very vague reports of depression, anxiety, SI; all psychotic symptoms have resolved and were very likely due to polysubstance abuse/intoxication. By her report, it Seems that most her symptoms are related to substance abuse; will continue to assess. Her main focus at the moment to his dealing with withdrawal and treatment for self-reported bacterial vaginosis. Patient told ED she has scabies; no evidence for this found however she was given a dose of permethrin; patient also started on antibiotic for BV and request to be changed to Flagyl. Plan CV One-to-one while on isolation; then Q 15 minute checks Continue CIWA (so far low scoring) Continue methadone home dose Discontinue clindamycin (patient says causes yeast infection) Will start Flagyl for self-reported BV Will order BV panel/chlamydia/gonorrhea; although already started on antibiotic will see if results are still possible Patient educated on: diagnosis, medication risk/benefits, substance abuse and medical condition Informed Consent: understands Reason for continued inpatient stay Substantial Risk for: rapid decompensation Statement Statement: I have reviewed the history and physical and performed a pertinent examination on my patient. No changes have occurred unless specified. If the History and Physical was not performed prior to admission, the Hospitalist's service will be consulted for completing the admission physical. Time Spent With Patient Time: Total time managing care of this patient today ____ minutes.
[2022-10-12 14:15] VITALS: BP 109/78; PULSE 54; TEMP 36.6; O2SAT 96
[2022-10-12 18:00] VITALS: BP 124/78; PULSE 82; RESP 16; TEMP 36.4; O2SAT 99
[2022-10-12] MEDS: metroNIDAZOLE 500 MG TABLET PO (21:50)
--- NOTE | 2022-10-12 23:16 | PC.NURSE ---
Pt is alert and oriented, VSS, Urine sample and vaginal swab sent to lab.
[2022-10-13] MEDS: methADONE HCl 20 MG/2 ML ORAL.CONC 155 MG PO (08:33)
[2022-10-13] MEDS: Multivitamin TABLET 1 TAB PO (08:34)
[2022-10-13] MEDS: metroNIDAZOLE 500 MG TABLET PO ×2 (08:34→19:30)
[2022-10-13] MEDS: Thiamine HCL 100 MG TABLET PO (08:34)
[2022-10-13] MEDS: LORazepam 1 MG TABLET PO ×2 (08:42→19:30)
[2022-10-13] MEDS: Nicotine 21 MG PATCH.TD24 TRANSDERMA (09:16)
[2022-10-13 10:58] VITALS: BP 94/55; PULSE 63; RESP 18; TEMP 36.9; O2SAT 98
[2022-10-13 11:15] LABS: BV Int Neg Control Negative (Negative); BV Int Pos Control Positive (Positive)
--- NOTE | 2022-10-13 14:36 | HO.PSYCHPN ---
Subjective Subjective Date of Service: 10/13/22 Reason For Visit: Depression,SI,Opiate use disorder-methadone pt Subjective Notes: Conditional Voluntary Interim History: Pt in bed. She reports feeling very tired. She reports muscle aches as withdrawal from opioids. She denies SI/HI. No overt VH/AH, no delusional content noted or reported. Per nursing, pt has been mostly in bed. Review of Systems Review of Systems Constitutional : No Weight loss, No Fever, No Chills, No Night Sweats, No Fatigue, No Malaise ENT/Mouth : No Hearing loss, No Ear Pain, No Nasal Congestion, No Sinus Pain, No Hoarseness, No sore throat, No Rhinorrhea, No Swallowing Difficulty Eyes: No Eye Pain, No Swelling, No Redness, No Foreign Body, No Discharge, No Vision Changes Cardiovascular : No Chest Pain, No SOB, No Dyspnea on Exertion, No Orthopnea, No Edema, No Palpitations Respiratory : No Cough, No Sputum, No Wheezing, No Smoke Exposure, No Dyspnea Gastrointestinal : No Nausea, No Vomiting, No Diarrhea, No Constipation, No abdominal Pain, No Hematochezia, No Melena Genitourinary : no irregular bleeding, No Dysuria, No Urinary Frequency, No Hematuria, No Urinary Incontinence, No Urgency, No Flank Pain, No Urinary Flow Changes, No Hesitancy Musculoskeletal : No joint pain, No Myalgias, No Joint Swelling Skin : No Skin Lesions, No rash Neuro : No Weakness, No Numbness, No Paresthesias, No Loss of Consciousness, No Dizziness, No Headache Psych : Complaining of anxiety, depression, suicidal ideation, no homicidal ideation, complaining of constant itching in her hands thinks she has scabies Heme/Lymph: No Bruising, No Bleeding,No Lymphadenopathy Endocrine : No Polyuria, No Polydipsia, No Temperature Intolerance Mental Status Exam Mental Status Exam Narrative: Pt is alert and oriented; behavior is marginally cooperative but polite, calm; patient is not in distress; dressed in hospital attire with unkempt hair, marginal hygiene; mood is described as depressed and affect tired; eye contact appropriate; Speech is normal rate, volume and prosody and not pressured; psychomotor retardation present; thought process is organized and goal directed; Thought content is on tx; otherwise pertinent to relevant topics and without any delusional content. She denies SI; no HI. There is no evidence of perceptual disturbance. Patients insight and judgment appear intact. Diagnostics Vital Signs (24Hr): Vital Signs - 24 hr 10/12/22 18:00 10/13/22 10:58 Temperature 97.6 F 98.4 F Pulse Rate 82 63 Respiratory Rate 16 18 Blood Pressure 124/78 94/55 L Pulse Oximetry 99 98 Oxygen Delivery Method Room Air Room Air BMI result Body Mass Index 23.7 Labs 10/10/22 12:03 10/10/22 12:03 Labs: Laboratory Results - last 48 hr 10/12/22 10/12/22 10/12/22 08:36 08:36 19:00 Estimat Average Glucose 100 Hemoglobin A1c % 5.1 Magnesium 1.9 Triglycerides 74 Cholesterol 162 LDL Cholesterol, Calc 105 HDL Cholesterol 43 Vitamin B12 520 Folate 14.0 TSH 0.30 L Free T4 1.05 Candelaria species DNA Negative Chlam trachomat DNA PCR Gardnerella DNA Probe Positive A N.gonorrhoeae DNA (PCR) Trichomonas DNA Probe Positive A 10/12/22 Unknown Estimat Average Glucose Hemoglobin A1c % Magnesium Triglycerides Cholesterol LDL Cholesterol, Calc HDL Cholesterol Vitamin B12 Folate TSH Free T4 Candelaria species DNA Chlam trachomat DNA PCR Cancelled Gardnerella DNA Probe N.gonorrhoeae DNA (PCR) Cancelled Trichomonas DNA Probe Medications Medications Current Medications Acetaminophen (Acetaminophen 325 Mg Tablet) 650 mg PO Q6H PRN PRN Reason: Pain Al Hydroxide/Mg Hydroxide (Magnesium Hydrox/Alum Hydrox 30 Ml Oral.Susp) 30 ml PO Q6H PRN PRN Reason: Heartburn/Nausea Albuterol Sulfate (Albuterol Sulfate 90 Mcg 8 Gm Inhaler) 2 puff INHALE Q4H PRN PRN Reason: Shortness Of Breath Or Wheezing Benzocaine (Benzocaine 20 % Oral Gel 9 Gm Tube) 1 appl MUCOUS MEM QID PRN; Protocol PRN Reason: tooth pain Hydroxyzine HCl (Hydroxyzine Hcl 25 Mg Tablet) 25 mg PO Q6H PRN PRN Reason: Anxiety Ibuprofen (Ibuprofen 400 Mg Tablet) 400 mg PO Q6H PRN PRN Reason: Pain, Mild (Pain Scale 1-3) Loratadine (Loratadine 10 Mg Tablet) 10 mg PO DAILY PRN PRN Reason: Allergy Symptoms Lorazepam (Lorazepam 1 Mg Tablet) 1 mg PO Q2H PRN PRN Reason: Ciwa 6-10 Stop: 03/19/23 21:24 Last Admin: 10/13/22 08:42 Dose: 1 mg Lorazepam (Lorazepam 1 Mg Tablet) 2 mg PO Q2H PRN PRN Reason: CIWA 11 and above Magnesium Hydroxide (Milk Of Magnesia 30 Ml Oral.Susp) 30 ml PO DAILY PRN PRN Reason: Constipation Methadone HCl (Methadone Hcl 20 Mg/2 Ml Oral.Conc) 155 mg PO DAILY [facility] Last Admin: 10/13/22 08:33 Dose: 155 mg Metronidazole (Metronidazole 500 Mg Tablet) 500 mg PO BID [facility] Stop: 10/18/22 23:50 Last Admin: 10/13/22 08:34 Dose: 500 mg Multivitamins/Vitamin C (Multivitamin Tablet) 1 tab PO DAILY [facility] Last Admin: 10/13/22 08:34 Dose: 1 tab Nicotine (Nicotine 21 Mg Patch.Td24) 21 mg TRANSDERMA DAILY [facility] Last Admin: 10/13/22 09:16 Dose: 21 mg Nicotine Polacrilex (Nicotine Polacrilex Lozenge 2 Mg Lozenge) 2 mg BUCCAL Q2H PRN PRN Reason: Nicotine Cravings Last Admin: 10/12/22 09:13 Dose: 2 mg Pharmacy Consult (Consult Rx Perform Med Rec) 1 each MISCELLANE ONCE PRN PRN Reason: Consult order Thiamine HCl (Thiamine Hcl 100 Mg Tablet) 100 mg PO DAILY [facility] Last Admin: 10/13/22 08:34 Dose: 100 mg Trazodone HCl (Trazodone Hcl 50 Mg Tablet) 50 mg PO BEDTIME PRN PRN Reason: Insomnia Last Admin: 10/11/22 22:11 Dose: 50 mg Allergies Allergies Allergy/AdvReac Type Severity Reaction Status Date / Time ceftriaxone [From ROCEPHIN] Allergy Intermediate HIVES Verified 04/19/21 14:12 sulfamethoxazole Allergy Intermediate HIVES Verified 04/19/21 14:12 [From BACTRIM] trimethoprim [From BACTRIM] Allergy Intermediate HIVES Verified 04/19/21 14:12 Sulfa (Sulfonamide Allergy Unknown HIVES. Verified 04/19/21 14:12 Antibiotics) VOMITING [SULFA (SULFONAMIDE ANTIBIOTICS)] doxycycline [DOXYCYCLINE] AdvReac Unknown NAUSEA & Verified 04/19/21 14:12 VOMITING Assessment & Plan Assessment & Plan (1) Depression: Status: Acute Code(s): F32.A - Depression, unspecified (2) Substance abuse: Status: Acute Code(s): F19.10 - Other psychoactive substance abuse, uncomplicated Plan Patient is a 37-year-old female with history of anxiety alcohol, cocaine and opioid abuse, on Methadone, who presents for vague SI in the face of polysubstance abuse and no medication. Patient asks if bond underwriter can come back later since she is not feeling the best due to withdrawal; however she agrees to discuss some basic aspects of her admission. Patient says she is withdrawing from alcohol, drinking 1 pt of whiskey per day for 2 weeks; crack cocaine and opiates. She is not sure if she has been depressed over the past few weeks and offers a maybe... Patient says that this week she started having auditory hallucinations, seeing things, started screaming and reports developing brief suicidal ideation. Patient agrees that it is likely this bout of dysregulated mood and AVH was due to intoxication and withdrawal from ongoing polysubstance abuse; she denies any current AVH. When asked about current suicidality patient says maybe. Patient says she has bacterial vaginosis which she gets chronically and can tell due to the fishy odor; she was started on clindamycin yesterday but asks to be switched to Flagyl saying clindamycin gives her a yeast infection. 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 Currently patient does not want to discuss medication but says she will be more amenable to talking once withdrawal not so bothersome. Impression: Patient has very vague reports of depression, anxiety, SI; all psychotic symptoms have resolved and were very likely due to polysubstance abuse/intoxication. By her report, it Seems that most her symptoms are related to substance abuse; will continue to assess. Her main focus at the moment to his dealing with withdrawal and treatment for self-reported bacterial vaginosis. Patient told ED she has scabies; no evidence for this found however she was given a dose of permethrin; patient also started on antibiotic for BV and request to be changed to Flagyl. Plan CV One-to-one while on isolation; then Q 15 minute checks Continue CIWA (so far low scoring) Continue methadone home dose Discontinue clindamycin (patient says causes yeast infection) Will start Flagyl for self-reported BV Will order BV panel/chlamydia/gonorrhea; although already started on antibiotic will see if results are still possible 10/13 continue tx. Reason for contiued inpatient stay Substantial Risk for: inability to function Time Spent With Patient Time: Total time managing care of this patient today ____ minutes.
[2022-10-13 18:00] VITALS: BP 124/68; PULSE 68; RESP 16; TEMP 36.4; O2SAT 99
[2022-10-13] MEDS: traZODone HCL 50 MG TABLET PO (19:30)
[2022-10-14 05:46] LABS: CT PCR NOT DETECTED (Not Detect.); NG PCR NOT DETECTED (Not Detect.)
[2022-10-14 08:27] VITALS: BP 103/55; PULSE 71; RESP 18; TEMP 37.4; O2SAT 97
[2022-10-14] MEDS: Thiamine HCL 100 MG TABLET PO (08:36)
[2022-10-14] MEDS: Multivitamin TABLET 1 TAB PO (08:36)
[2022-10-14] MEDS: LORazepam 1 MG TABLET PO (08:36)
[2022-10-14] MEDS: metroNIDAZOLE 500 MG TABLET PO ×2 (08:36→20:47)
[2022-10-14] MEDS: methADONE HCl 20 MG/2 ML ORAL.CONC 155 MG PO (08:37)
[2022-10-14] MEDS: Nicotine 21 MG PATCH.TD24 TRANSDERMA (08:42)
[2022-10-14] MEDS: Loratadine 10 MG TABLET PO (08:47)
--- NOTE | 2022-10-14 16:06 | P.PNPSI_ITS ---
Subjective Subjective Date of Service: 10/14/22 Reason For Visit: Depression,SI,Opiate use disorder-methadone pt Subjective Notes: Conditional Voluntary Medical Problems Affecting Mental Status: No Interim History: Met with patient. Chart reviewed. Discussed with Nursing. Overall patient declined to engage in interview. Stated they did not want to talk today and wanted to rest and would engage in interview tomorrow. did however denied current SI or psychosis. Medication Compliance: Yes Side effects from medications: No Attending Groups: No Review of Systems Acute medical concerns: No Review of Systems Review of Systems Yes Unobtainable due to mental status Mental Status Exam Mental Status Exam Narrative: In bed. Hospital clothing. Pleasant but declined to engage in interview. Did deny SI or psychosis. Diagnostics Vital Signs (24Hr): Vital Signs - 24 hr 10/13/22 18:00 10/14/22 08:27 Temperature 97.6 F 99.3 F Pulse Rate 68 71 Respiratory Rate 16 18 Blood Pressure 124/68 103/55 L Pulse Oximetry 99 97 Oxygen Delivery Method Room Air Room Air BMI result Body Mass Index 23.7 Labs 10/10/22 12:03 10/10/22 12:03 Labs: Laboratory Results - last 48 hr 10/12/22 10/12/22 10/13/22 19:00 Unknown 18:30 Candelaria species DNA Negative Chlam trachomat DNA PCR Cancelled NOT DETECTED Gardnerella DNA Probe Positive A N.gonorrhoeae DNA (PCR) Cancelled NOT DETECTED Trichomonas DNA Probe Positive A Medications Medications Current Medications Acetaminophen (Acetaminophen 325 Mg Tablet) 650 mg PO Q6H PRN PRN Reason: Pain Al Hydroxide/Mg Hydroxide (Magnesium Hydrox/Alum Hydrox 30 Ml Oral.Susp) 30 ml PO Q6H PRN PRN Reason: Heartburn/Nausea Albuterol Sulfate (Albuterol Sulfate 90 Mcg 8 Gm Inhaler) 2 puff INHALE Q4H PRN PRN Reason: Shortness Of Breath Or Wheezing Benzocaine (Benzocaine 20 % Oral Gel 9 Gm Tube) 1 appl MUCOUS MEM QID PRN; Protocol PRN Reason: tooth pain Hydroxyzine HCl (Hydroxyzine Hcl 25 Mg Tablet) 25 mg PO Q6H PRN PRN Reason: Anxiety Ibuprofen (Ibuprofen 400 Mg Tablet) 400 mg PO Q6H PRN PRN Reason: Pain, Mild (Pain Scale 1-3) Loratadine (Loratadine 10 Mg Tablet) 10 mg PO DAILY PRN PRN Reason: Allergy Symptoms Last Admin: 10/14/22 08:47 Dose: 10 mg Lorazepam (Lorazepam 1 Mg Tablet) 1 mg PO Q2H PRN PRN Reason: Ciwa 6-10 Stop: 10/15/22 21:24 Last Admin: 10/14/22 08:36 Dose: 1 mg Lorazepam (Lorazepam 1 Mg Tablet) 2 mg PO Q2H PRN PRN Reason: CIWA 11 and above Magnesium Hydroxide (Milk Of Magnesia 30 Ml Oral.Susp) 30 ml PO DAILY PRN PRN Reason: Constipation Methadone HCl (Methadone Hcl 20 Mg/2 Ml Oral.Conc) 155 mg PO DAILY [facility] Last Admin: 10/14/22 08:37 Dose: 155 mg Metronidazole (Metronidazole 500 Mg Tablet) 500 mg PO BID [facility] Stop: 10/18/22 23:50 Last Admin: 10/14/22 08:36 Dose: 500 mg Multivitamins/Vitamin C (Multivitamin Tablet) 1 tab PO DAILY [facility] Last Admin: 10/14/22 08:36 Dose: 1 tab Nicotine (Nicotine 21 Mg Patch.Td24) 21 mg TRANSDERMA DAILY [facility] Last Admin: 10/14/22 08:42 Dose: 21 mg Nicotine Polacrilex (Nicotine Polacrilex Lozenge 2 Mg Lozenge) 2 mg BUCCAL Q2H PRN PRN Reason: Nicotine Cravings Last Admin: 10/12/22 09:13 Dose: 2 mg Pharmacy Consult (Consult Rx Perform Med Rec) 1 each MISCELLANE ONCE PRN PRN Reason: Consult order Thiamine HCl (Thiamine Hcl 100 Mg Tablet) 100 mg PO DAILY [facility] Last Admin: 10/14/22 08:36 Dose: 100 mg Trazodone HCl (Trazodone Hcl 50 Mg Tablet) 50 mg PO BEDTIME PRN PRN Reason: Insomnia Last Admin: 10/13/22 19:30 Dose: 50 mg Allergies Allergies Allergy/AdvReac Type Severity Reaction Status Date / Time ceftriaxone [From ROCEPHIN] Allergy Intermediate HIVES Verified 04/19/21 14:12 sulfamethoxazole Allergy Intermediate HIVES Verified 04/19/21 14:12 [From BACTRIM] trimethoprim [From BACTRIM] Allergy Intermediate HIVES Verified 04/19/21 14:12 Sulfa (Sulfonamide Allergy Unknown HIVES. Verified 04/19/21 14:12 Antibiotics) VOMITING [SULFA (SULFONAMIDE ANTIBIOTICS)] doxycycline [DOXYCYCLINE] AdvReac Unknown NAUSEA & Verified 04/19/21 14:12 VOMITING Assessment & Plan Assessment & Plan (1) Depression: Status: Acute Code(s): F32.A - Depression, unspecified (2) Substance abuse: Status: Acute Code(s): F19.10 - Other psychoactive substance abuse, uncomplicated Plan Patient is a 37-year-old female with history of anxiety alcohol, cocaine and opioid abuse, on Methadone, who presents for vague SI in the face of polysubstance abuse and no medication. Patient asks if mortgage underwriter can come back later since she is not feeling the best due to withdrawal; however she agrees to discuss some basic aspects of her admission. Patient says she is withdrawing from alcohol, drinking 1 pt of whiskey per day for 2 weeks; crack cocaine and opiates. She is not sure if she has been depressed over the past few weeks and offers a maybe... Patient says that this week she started having auditory hallucinations, seeing things, started screaming and reports developing brief suicidal ideation. Patient agrees that it is likely this bout of dysregulated mood and AVH was due to intoxication and withdrawal from ongoing polysubstance abuse; she denies any current AVH. When asked about current suicidality patient says maybe. Patient says she has bacterial vaginosis which she gets chronically and can tell due to the fishy odor; she was started on clindamycin yesterday but asks to be switched to Flagyl saying clindamycin gives her a yeast infection. 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 Currently patient does not want to discuss medication but says she will be more amenable to talking once withdrawal not so bothersome. Impression: Patient has very vague reports of depression, anxiety, SI; all psychotic symptoms have resolved and were very likely due to polysubstance abuse/intoxication. By her report, it Seems that most her symptoms are related to substance abuse; will continue to assess. Her main focus at the moment to his dealing with withdrawal and treatment for self-reported bacterial vaginosis. Patient told ED she has scabies; no evidence for this found however she was given a dose of permethrin; patient also started on antibiotic for BV and r equest to be changed to Flagyl. Plan CV One-to-one while on isolation; then Q 15 minute checks Continue CIWA (so far low scoring) Continue methadone home dose Discontinue clindamycin (patient says causes yeast infection) Will start Flagyl for self-reported BV Will order BV panel/chlamydia/gonorrhea; although already started on antibiotic will see if results are still possible 10/14 continue tx. Reason for contiued inpatient stay Substantial Risk for: inability to function Time Spent With Patient Time: Total time managing care of this patient today ____ minutes.
--- NOTE | 2022-10-14 16:29 | PC.NURSE ---
Patient signed a 3 day notice.
[2022-10-14] MEDS: hydrOXYzine HCL 25 MG TABLET PO (16:54)
[2022-10-14] MEDS: Nicotine Polacrilex Lozenge 2 MG LOZENGE BUCCAL (16:54)
[2022-10-14 16:55] VITALS: BP 108/65; PULSE 98; RESP 18; TEMP 36.7; O2SAT 95
[2022-10-14] MEDS: Ibuprofen 400 MG TABLET PO (20:47)
[2022-10-14] MEDS: traZODone HCL 50 MG TABLET PO (20:47)
[2022-10-15 08:17] VITALS: BP 90/51; PULSE 80; RESP 16; TEMP 36.6; O2SAT 98
[2022-10-15] MEDS: Multivitamin TABLET 1 TAB PO (08:35)
[2022-10-15] MEDS: metroNIDAZOLE 500 MG TABLET PO ×2 (08:35→20:34)
[2022-10-15] MEDS: Thiamine HCL 100 MG TABLET PO (08:35)
[2022-10-15] MEDS: methADONE HCl 20 MG/2 ML ORAL.CONC 155 MG PO (08:36)
[2022-10-15] MEDS: Nicotine 21 MG PATCH.TD24 TRANSDERMA (08:39)
--- NOTE | 2022-10-15 11:03 | P.PNPSI_ITS ---
Subjective Subjective Date of Service: 10/15/22 Reason For Visit: Depression,SI,Opiate use disorder-methadone pt Subjective Notes: Mike Warning and 3 Day Interim History: Met with patient. Chart reviewed. Discussed with Nursing. Patient reports mood is feeling better today. Still feels down at times. Denies SI. Asleep okay. Appetite okay. Lengthy discussion around substance use, homelessness. Reports relapsing 2 months ago. Is ambivalence around sobriety and support services regarding same. Three day notice signed and mike warning discussed. Does not appear currently interested in outpatient support such as therapy and medication management. Denied detox symptoms Medication Compliance: Yes Side effects from medications: No Attending Groups: No Review of Systems Acute medical concerns: No Review of Systems Review of Systems Yes all other systems are reviewed and are negative Mental Status Exam Mental Status Exam Narrative: In bed. Hospital clothing. Pleasant but declined to engage in interview. Did deny SI or psychosis. Diagnostics Vital Signs (24Hr): Vital Signs - 24 hr 10/14/22 16:55 10/15/22 08:17 Temperature 98.1 F 98 F Pulse Rate 98 80 Respiratory Rate 18 16 Blood Pressure 108/65 90/51 L Pulse Oximetry 95 98 Oxygen Delivery Method Room Air Room Air BMI result Body Mass Index 23.7 Labs 10/10/22 12:03 10/10/22 12:03 Labs: Laboratory Results - last 48 hr 10/12/22 10/12/22 10/13/22 19:00 Unknown 18:30 Candelaria species DNA Negative Chlam trachomat DNA PCR Cancelled NOT DETECTED Gardnerella DNA Probe Positive A N.gonorrhoeae DNA (PCR) Cancelled NOT DETECTED Trichomonas DNA Probe Positive A Medications Medications Current Medications Acetaminophen (Acetaminophen 325 Mg Tablet) 650 mg PO Q6H PRN PRN Reason: Pain Al Hydroxide/Mg Hydroxide (Magnesium Hydrox/Alum Hydrox 30 Ml Oral.Susp) 30 ml PO Q6H PRN PRN Reason: Heartburn/Nausea Albuterol Sulfate (Albuterol Sulfate 90 Mcg 8 Gm Inhaler) 2 puff INHALE Q4H PRN PRN Reason: Shortness Of Breath Or Wheezing Benzocaine (Benzocaine 20 % Oral Gel 9 Gm Tube) 1 appl MUCOUS MEM QID PRN; Protocol PRN Reason: tooth pain Hydroxyzine HCl (Hydroxyzine Hcl 25 Mg Tablet) 25 mg PO Q6H PRN PRN Reason: Anxiety Last Admin: 10/14/22 16:54 Dose: 25 mg Ibuprofen (Ibuprofen 400 Mg Tablet) 400 mg PO Q6H PRN PRN Reason: Pain, Mild (Pain Scale 1-3) Last Admin: 10/14/22 20:47 Dose: 400 mg Loratadine (Loratadine 10 Mg Tablet) 10 mg PO DAILY PRN PRN Reason: Allergy Symptoms Last Admin: 10/14/22 08:47 Dose: 10 mg Lorazepam (Lorazepam 1 Mg Tablet) 1 mg PO Q2H PRN PRN Reason: Ciwa 6-10 Stop: 10/15/22 21:24 Last Admin: 10/14/22 08:36 Dose: 1 mg Lorazepam (Lorazepam 1 Mg Tablet) 2 mg PO Q2H PRN PRN Reason: CIWA 11 and above Magnesium Hydroxide (Milk Of Magnesia 30 Ml Oral.Susp) 30 ml PO DAILY PRN PRN Reason: Constipation Methadone HCl (Methadone Hcl 20 Mg/2 Ml Oral.Conc) 155 mg PO DAILY [facility] Last Admin: 10/15/22 08:36 Dose: 155 mg Metronidazole (Metronidazole 500 Mg Tablet) 500 mg PO BID [facility] Stop: 10/18/22 23:50 Last Admin: 10/15/22 08:35 Dose: 500 mg Multivitamins/Vitamin C (Multivitamin Tablet) 1 tab PO DAILY [facility] Last Admin: 10/15/22 08:35 Dose: 1 tab Nicotine (Nicotine 21 Mg Patch.Td24) 21 mg TRANSDERMA DAILY [facility] Last Admin: 10/15/22 08:39 Dose: 21 mg Nicotine Polacrilex (Nicotine Polacrilex Lozenge 2 Mg Lozenge) 2 mg BUCCAL Q2H PRN PRN Reason: Nicotine Cravings Last Admin: 10/14/22 16:54 Dose: 2 mg Pharmacy Consult (Consult Rx Perform Med Rec) 1 each MISCELLANE ONCE PRN PRN Reason: Consult order Thiamine HCl (Thiamine Hcl 100 Mg Tablet) 100 mg PO DAILY [facility] Last Admin: 10/15/22 08:35 Dose: 100 mg Trazodone HCl (Trazodone Hcl 50 Mg Tablet) 50 mg PO BEDTIME PRN PRN Reason: Insomnia Last Admin: 10/14/22 20:47 Dose: 50 mg Allergies Allergies Allergy/AdvReac Type Severity Reaction Status Date / Time ceftriaxone [From ROCEPHIN] Allergy Intermediate HIVES Verified 09/21/21 14:12 sulfamethoxazole Allergy Intermediate HIVES Verified 04/19/21 14:12 [From BACTRIM] trimethoprim [From BACTRIM] Allergy Intermediate HIVES Verified 04/19/21 14:12 Sulfa (Sulfonamide Allergy Unknown HIVES. Verified 04/19/21 14:12 Antibiotics) VOMITING [SULFA (SULFONAMIDE ANTIBIOTICS)] doxycycline [DOXYCYCLINE] AdvReac Unknown NAUSEA & Verified 04/19/21 14:12 VOMITING Assessment & Plan Assessment & Plan (1) Depression: Status: Acute Code(s): F32.A - Depression, unspecified (2) Substance abuse: Status: Acute Code(s): F19.10 - Other psychoactive substance abuse, uncomplicated Plan Patient is a 37-year-old female with history of anxiety alcohol, cocaine and opioid abuse, on Methadone, who presents for vague SI in the face of polysu bstance abuse and no medication. Patient asks if typewriter mechanic can come back later since she is not feeling the best due to withdrawal; however she agrees to discuss some basic aspects of her admission. Patient says she is withdrawing from alcohol, drinking 1 pt of whiskey per day for 2 weeks; crack cocaine and opiates. She is not sure if she has been depressed over the past few weeks and offers a maybe... Patient says that this week she started having auditory hallucinations, seeing things, started screaming and reports developing brief suicidal ideation. Patient agrees that it is likely this bout of dysregulated mood and AVH was due to intoxication and withdrawal from ongoing polysubstance abuse; she denies any current AVH. When asked about current suicidality patient says maybe. Patient says she has bacterial vaginosis which she gets chronically and can tell due to the fishy odor; she was started on clindamycin yesterday but asks to be switched to Flagyl saying clindamycin gives her a yeast infection. 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 Currently patient does not want to discuss medication but says she will be more amenable to talking once withdrawal not so bothersome. Impression: Patient has very vague reports of depression, anxiety, SI; all psychotic symptoms have resolved and were very likely due to polysubstance ab use/intoxication. By her report, it Seems that most her symptoms are related to substance abuse; will continue to assess. Her main focus at the moment to his dealing with withdrawal and treatment for self-reported bacterial vaginosis. Patient told ED she has scabies; no evidence for this found however she was given a dose of permethrin; patient also started on antibiotic for BV and request to be changed to Flagyl. Plan CV One-to-one while on isolation; then Q 15 minute checks Continue CIWA (so far low scoring) Continue methadone home dose Discontinue clindamycin (patient says causes yeast infection) Will start Flagyl for self-reported BV Will order BV panel/chlamydia/gonorrhea; although already started on antibiotic will see if results are still possible 10/15 continue tx. Three-day notice signed Reason for contiued inpatient stay Substantial Risk for: inability to function Time Spent With Patient Time: Total time managing care of this patient today ____ minutes.
[2022-10-15] MEDS: Nicotine Polacrilex Lozenge 2 MG LOZENGE BUCCAL (19:04)
[2022-10-15] MEDS: Ibuprofen 400 MG TABLET PO (20:32)
[2022-10-15] MEDS: hydrOXYzine HCL 25 MG TABLET PO (20:33)
[2022-10-15] MEDS: traZODone HCL 50 MG TABLET PO (20:34)
[2022-10-15 20:35] VITALS: BP 126/93; PULSE 68; TEMP 36
[2022-10-16] MEDS: metroNIDAZOLE 500 MG TABLET PO ×2 (08:25→19:53)
[2022-10-16] MEDS: Thiamine HCL 100 MG TABLET PO (08:25)
[2022-10-16] MEDS: Multivitamin TABLET 1 TAB PO (08:25)
[2022-10-16] MEDS: methADONE HCl 20 MG/2 ML ORAL.CONC 155 MG PO (08:25)
[2022-10-16] MEDS: Nicotine 21 MG PATCH.TD24 TRANSDERMA (08:26)
[2022-10-16] MEDS: Albuterol Sulfate 90 MCG 8 GM INHALER 2 PUFF INHALE (08:45)
--- NOTE | 2022-10-16 09:04 | P.PNPSI_ITS ---
Subjective Subjective Date of Service: 10/16/22 Reason For Visit: Depression,SI,Opiate use disorder-methadone pt Interim History: Met with patient; discussed with team; reviewed notes from weekend provider; reviewed labs Patient reports that she is definitely feeling better. She has some lingering depression but overall says most of it has resolved; denies any SI. Patient was initially ambivalent about medication for depression, saying there was some concern she may have bipolar disorder since 1 time she took an SSRI and got insomnia. Cost Control Specialist reviewed history and patient denies any manic episodes or behaviors outside of substance abuse and denies any bouts of insomnia. Patient reports she has tried Wellbutrin in the past without problems and agrees to restart this medication. Patient is not looking for other substance abuse treatment this time. Signed a 3 day notice. Mental Status Exam Mental Status Exam Narrative: Pt is alert and oriented; behavior is politely cooperative, calm; patient is not in distress; dressed in hospital attire with unkempt hair, adequate hygiene; mood is described as better and affect congruent; eye contact appropriate; Speech is normal rate, volume and prosody and not pressured; no psychomotor retardation present; thought process is organized and goal directed; Thought content is on tx; otherwise pertinent to relevant topics and without any delusional content, paranoid ideations or grandiosity; no SI; no HI. There is no evidence of perceptual disturbance. Patients insight and judgment are intact. Diagnostics Vital Signs (24Hr): Vital Signs - 24 hr 10/15/22 20:35 Temperature 96.8 F Pulse Rate 68 Blood Pressure 126/93 H BMI result Body Mass Index 23.7 Labs 10/10/22 12:03 10/10/22 12:03 Medications Medications Current Medications Acetaminophen (Acetaminophen 325 Mg Tablet) 650 mg PO Q6H PRN PRN Reason: Pain Al Hydroxide/Mg Hydroxide (Magnesium Hydrox/Alum Hydrox 30 Ml Oral.Susp) 30 ml PO Q6H PRN PRN Reason: Heartburn/Nausea Albuterol Sulfate (Albuterol Sulfate 90 Mcg 8 Gm Inhaler) 2 puff INHALE Q4H PRN PRN Reason: Shortness Of Breath Or Wheezing Last Admin: 10/16/22 08:45 Dose: 2 puff Benzocaine (Benzocaine 20 % Oral Gel 9 Gm Tube) 1 appl MUCOUS MEM QID PRN; Protocol PRN Reason: tooth pain Hydroxyzine HCl (Hydroxyzine Hcl 25 Mg Tablet) 25 mg PO Q6H PRN PRN Reason: Anxiety Last Admin: 10/15/22 20:33 Dose: 25 mg Ibuprofen (Ibuprofen 400 Mg Tablet) 400 mg PO Q6H PRN PRN Reason: Pain, Mild (Pain Scale 1-3) Last Admin: 10/15/22 20:32 Dose: 400 mg Loratadine (Loratadine 10 Mg Tablet) 10 mg PO DAILY PRN PRN Reason: Allergy Symptoms Last Admin: 10/14/22 08:47 Dose: 10 mg Lorazepam (Lorazepam 1 Mg Tablet) 2 mg PO Q2H PRN PRN Reason: CIWA 11 and above Magnesium Hydroxide (Milk Of Magnesia 30 Ml Oral.Susp) 30 ml PO DAILY PRN PRN Reason: Constipation Methadone HCl (Methadone Hcl 20 Mg/2 Ml Oral.Conc) 155 mg PO DAILY [facility] Last Admin: 10/16/22 08:25 Dose: 155 mg Metronidazole (Metronidazole 500 Mg Tablet) 500 mg PO BID [facility] Stop: 10/18/22 23:50 Last Admin: 10/16/22 08:25 Dose: 500 mg Multivitamins/Vitamin C (Multivitamin Tablet) 1 tab PO DAILY [facility] Last Admin: 10/16/22 08:25 Dose: 1 tab Nicotine (Nicotine 21 Mg Patch.Td24) 21 mg TRANSDERMA DAILY [facility] Last Admin: 10/16/22 08:26 Dose: 21 mg Nicotine Polacrilex (Nicotine Polacrilex Lozenge 2 Mg Lozenge) 2 mg BUCCAL Q2H PRN PRN Reason: Nicotine Cravings Last Admin: 10/15/22 19:04 Dose: 2 mg Pharmacy Consult (Consult Rx Perform Med Rec) 1 each MISCELLANE ONCE PRN PRN Reason: Consult order Thiamine HCl (Thiamine Hcl 100 Mg Tablet) 100 mg PO DAILY [facility] Last Admin: 10/16/22 08:25 Dose: 100 mg Trazodone HCl (Trazodone Hcl 50 Mg Tablet) 50 mg PO BEDTIME PRN PRN Reason: Insomnia Last Admin: 10/15/22 20:34 Dose: 50 mg Allergies Allergies Allergy/AdvReac Type Severity Reaction Status Date / Time ceftriaxone [From ROCEPHIN] Allergy Intermediate HIVES Verified 04/19/21 14:12 sulfamethoxazole Allergy Intermediate HIVES Verified 04/19/21 14:12 [From BACTRIM] trimethoprim [From BACTRIM] Allergy Intermediate HIVES Verified 04/19/21 14:12 Sulfa (Sulfonamide Allergy Unknown HIVES. Verified 04/19/21 14:12 Antibiotics) VOMITING [SULFA (SULFONAMIDE ANTIBIOTICS)] doxycycline [DOXYCYCLINE] AdvReac Unknown NAUSEA & Verified 04/19/21 14:12 VOMITING Assessment & Plan Assessment & Plan (1) Depression: Status: Acute Code(s): F32.A - Depression, unspecified (2) Substance abuse: Status: Acute Code(s): F19.10 - Other psychoactive substance abuse, uncomplicated Plan Patient is a 37-year-old female with history of anxiety alcohol, cocaine and opioid abuse, on Methadone, who presents for vague SI in the face of polysubstance abuse and no medication. Patient asks if insurance underwriter can come back later since she is not feeling the best due to withdrawal; however she agrees to discuss some basic aspects of her admission. Patient says she is withdrawing from alcohol, drinking 1 pt of whiskey per day for 2 weeks; crack cocaine and opiates. She is not sure if she has been depressed over the past few weeks and offers a maybe... Patient says that this week she started having auditory hallucinations, seeing things, started screaming and reports developing brief suicidal ideation. Patient agrees that it is likely this bout of dysregulated mood and AVH was due to intoxication and withdrawal from ongoing polysubstance abuse; she denies any current AVH. When asked about current suicidality patient says maybe. Patient says she has bacterial vaginosis which she gets chronically and can tell due to the fishy odor; she was started on clindamycin yesterday but asks to be switched to Flagyl saying clindamycin gives her a yeast infection. 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 Currently patient does not want to discuss medication but says she will be more amenable to talking once withdrawal not so bothersome. Impression: Patient has very vague reports of depression, anxiety, SI; all psychotic symptoms have resolved and were very likely due to polysubstance abuse/intoxication. By her report, it Seems that most her symptoms are related to substance abuse; will continue to assess. Her main focus at the moment to his dealing with withdrawal and treatment for self-reported bacterial vaginosis. Patient told ED she has scabies; no evidence for this found however she was given a dose of permethrin; patient also started on antibiotic for BV and request to be changed to Flagyl. 10/13-10/14 continue tx. T 10/15 three-day notice signed 10/16 Patient reports that she is definitely feeling better. She has some lingering depression but overall says most of it has resolved; denies any SI. Patient was initially ambivalent about medication for depression, saying there was some concern she may have bipolar disorder since 1 time she took an SSRI and got insomnia. Cost Control Specialist reviewed history and patient denies any manic episodes or behaviors outside of substance abuse and denies any bouts of insomnia. Patient reports she has tried Wellbutrin in the past without problems and agrees to restart this medication. Patient is not looking for other substance abuse treatment this time. Signed a 3 day notice. Plan 3 day 15 minute checks sTART Wellbutrin ER 150 mg DC CIWA; etoh w/drawal complete Continue methadone home dose Reviewed labs: Patient positive for Trichomonas and Gardnerella; continue metronidazole as it is indicated antibiotic for both; Discontinue clindamycin (patient says causes yeast infection) Patient educated on: diagnosis, medication risk/benefits and substance abuse Informed Consent: understands Reason for contiued inpatient stay Substantial Risk for: stable for discharge Time Spent With Patient Time: Total time managing care of this patient today ____ minutes.
[2022-10-16 09:19] VITALS: BP 90/50; PULSE 85; RESP 16; TEMP 36.6; O2SAT 97
[2022-10-16 16:29] VITALS: BP 85/50; PULSE 72; TEMP 37.1; O2SAT 98
[2022-10-16] MEDS: Ibuprofen 400 MG TABLET PO (17:30)
[2022-10-16] MEDS: Nicotine Polacrilex Lozenge 2 MG LOZENGE BUCCAL ×2 (17:43→19:57)
[2022-10-16] MEDS: hydrOXYzine HCL 25 MG TABLET PO (18:45)
[2022-10-16] MEDS: traZODone HCL 50 MG TABLET PO (19:57)
[2022-10-17] MEDS: Multivitamin TABLET 1 TAB PO (08:00)
[2022-10-17] MEDS: buPROPion HCl XL 150 MG TAB.ER.24H PO (08:00)
[2022-10-17] MEDS: Thiamine HCL 100 MG TABLET PO (08:00)
[2022-10-17] MEDS: metroNIDAZOLE 500 MG TABLET PO ×2 (08:00→20:10)
[2022-10-17] MEDS: methADONE HCl 20 MG/2 ML ORAL.CONC 155 MG PO (08:01)
[2022-10-17] MEDS: Nicotine 21 MG PATCH.TD24 TRANSDERMA (08:04)
[2022-10-17 08:15] VITALS: BP 144/84; PULSE 74; RESP 16; TEMP 36.6; O2SAT 98
--- NOTE | 2022-10-17 10:14 | P.PNPSI_ITS ---
Subjective Subjective Date of Service: 10/17/22 Reason For Visit: Depression,SI,Opiate use disorder-methadone pt Interim History: met with patient; discussed with team pt reports mood remains overall better; no SI. Pt reports Wellbutrin well tolerated. Discussed substance abuse and pt said she's thinking of section 35'ing herself. Pt says last time sober was 10 years ago for over a year, but no sober time since. Pt says pull towards substance abuse is very confusing and she simultaneously does not want to use but also does not want to quit. She explains she cannot stay sober enough to accomplish anything, therapy, living situation, SSI...pt cannot stop herself from using and is pretty sure she'll end up . Pt says her friend is picking her up tomorrow; she says she'll likely use but then go and have herself sectioned. Does not want a CSS because she says she'll never stay; she'll just leave prematurely to relapse. Pt feels need to be locked away from substances. Mental Status Exam Mental Status Exam Narrative: Pt is alert and oriented; behavior is cooperative, calm, more engaged; patient is not in distress; dressed in hospital attire with unkempt hair, adequate hygiene; mood is described as better and affect congruent; eye contact appropriate; Speech is normal rate, volume and prosody and not pressured; no psychomotor retardation present; thought process is organized and goal directed; Thought content is on struggles with substance abuse, tx; otherwise pertinent to relevant topics and without any delusional content, paranoid ideations or grandi osity; no SI; no HI. There is no evidence of perceptual disturbance. Patients insight and judgment are intact. Diagnostics Vital Signs (24Hr): Vital Signs - 24 hr 10/16/22 16:29 10/17/22 08:15 Temperature 98.7 F 97.9 F Pulse Rate 72 74 Respiratory Rate 16 Blood Pressure 85/50 L 144/84 H Pulse Oximetry 98 98 Oxygen Delivery Method Room Air Room Air BMI result Body Mass Index 23.7 Labs 10/10/22 12:03 10/10/22 12:03 Medications Medications Current Medications Acetaminophen (Acetaminophen 325 Mg Tablet) 650 mg PO Q6H PRN PRN Reason: Pain Al Hydroxide/Mg Hydroxide (Magnesium Hydrox/Alum Hydrox 30 Ml Oral.Susp) 30 ml PO Q6H PRN PRN Reason: Heartburn/Nausea Albuterol Sulfate (Albuterol Sulfate 90 Mcg 8 Gm Inhaler) 2 puff INHALE Q4H PRN PRN Reason: Shortness Of Breath Or Wheezing Last Admin: 10/16/22 08:45 Dose: 2 puff Benzocaine (Benzocaine 20 % Oral Gel 9 Gm Tube) 1 appl MUCOUS MEM QID PRN; Protocol PRN Reason: tooth pain Bupropion HCl (Bupropion Hcl Xl 150 Mg Tab.Er.24h) 150 mg PO DAILY [facility] Last Admin: 10/17/22 08:00 Dose: 150 mg Hydroxyzine HCl (Hydroxyzine Hcl 25 Mg Tablet) 25 mg PO Q6H PRN PRN Reason: Anxiety Last Admin: 10/16/22 18:45 Dose: 25 mg Ibuprofen (Ibuprofen 400 Mg Tablet) 400 mg PO Q6H PRN PRN Reason: Pain, Mild (Pain Scale 1-3) Last Admin: 10/16/22 17:30 Dose: 400 mg Loratadine (Loratadine 10 Mg Tablet) 10 mg PO DAILY PRN PRN Reason: Allergy Symptoms Last Admin: 10/14/22 08:47 Dose: 10 mg Magnesium Hydroxide (Milk Of Magnesia 30 Ml Oral.Susp) 30 ml PO DAILY PRN PRN Reason: Constipation Methadone HCl (Methadone Hcl 20 Mg/2 Ml Oral.Conc) 155 mg PO DAILY [facility] Last Admin: 10/17/22 08:01 Dose: 155 mg Metronidazole (Metronidazole 500 Mg Tablet) 500 mg PO BID [facility] Stop: 10/18/22 23:50 Last Admin: 10/17/22 08:00 Dose: 500 mg Multivitamins/Vitamin C (Multivitamin Tablet) 1 tab PO DAILY [facility] Last Admin: 10/17/22 08:00 Dose: 1 tab Nicotine (Nicotine 21 Mg Patch.Td24) 21 mg TRANSDERMA DAILY [facility] Last Admin: 10/17/22 08:04 Dose: 21 mg Nicotine Polacrilex (Nicotine Polacrilex Lozenge 2 Mg Lozenge) 2 mg BUCCAL Q2H PRN PRN Reason: Nicotine Cravings Last Admin: 10/16/22 19:57 Dose: 2 mg Pharmacy Consult (Consult Rx Perform Med Rec) 1 each MISCELLANE ONCE PRN PRN Reason: Consult order Thiamine HCl (Thiamine Hcl 100 Mg Tablet) 100 mg PO DAILY [facility] Last Admin: 10/17/22 08:00 Dose: 100 mg Trazodone HCl (Trazodone Hcl 50 Mg Tablet) 50 mg PO BEDTIME PRN PRN Reason: Insomnia Last Admin: 10/16/22 19:57 Dose: 50 mg Allergies Allergies Allergy/AdvReac Type Severity Reaction Status Date / Time ceftriaxone [From ROCEPHIN] Allergy Intermediate HIVES Verified 04/19/21 14:12 sulfamethoxazole Allergy Intermediate HIVES Verified 04/19/21 14:12 [From BACTRIM] trimethoprim [From BACTRIM] Allergy Intermediate HIVES Verified 04/19/21 14:12 Sulfa (Sulfonamide Allergy Unknown HIVES. Verified 04/19/21 14:12 Antibiotics) VOMITING [SULFA (SULFONAMIDE ANTIBIOTICS)] doxycycline [DOXYCYCLINE] AdvReac Unknown NAUSEA & Verified 04/19/21 14:12 VOMITING Assessment & Plan Assessment & Plan (1) Depression: Status: Acute Code(s): F32.A - Depression, unspecified (2) Substance abuse: Status: Acute Code(s): F19.10 - Other psychoactive substance abuse, uncomplicated Plan Patient is a 37-year-old female with history of anxiety alcohol, cocaine and opioid abuse, on Methadone, who presents for vague SI in the face of polysubstance abuse and no medication. Patient asks if medical underwriter can come back later since she is not feeling the best due to withdrawal; however she agrees to discuss some basic aspects of her admission. Patient says she is withdrawing from alcohol, drinking 1 pt of whiskey per day for 2 weeks; crack cocaine and opiates. She is not sure if she has been depressed over the past few weeks and offers a maybe... Patient says that this week she started having auditory hallucinations, seeing things, started screaming and reports developing brief suicidal ideation. Patient agrees that it is likely this bout of dysregulated mood and AVH was due to intoxication and withdrawal from ongoing polysubstance abuse; she denies any current AVH. When asked about current suicidality patient says maybe. Patient says she has bacterial vaginosis which she gets chronically and can tell due to the fishy odor; she was started on clindamycin yesterday but asks to be switched to Flagyl saying clindamycin gives her a yeast infection. 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 Currently patient does not want to discuss medication but says she will be more amenable to talking once withdrawal not so bothersome. Impression: Patient has very vague reports of depression, anxiety, SI; all psychotic symptoms have resolved and were very likely due to polysubstance abuse/intoxication. By her report, it Seems that most her symptoms are related to substance abuse; will continue to assess. Her main focus at the moment to his dealing with withdrawal and treatment for self-reported bacterial vaginosis. Patient told ED she has scabies; no evidence for this found however she was given a dose of permethrin; patient also started on antibiotic for BV and requ est to be changed to Flagyl. 10/13-10/14 continue tx. T 10/15 three-day notice signed 10/16 Patient reports that she is definitely feeling better. She has some lingering depression but overall says most of it has resolved; denies any SI. Patient was initially ambivalent about medication for depression, saying there was some concern she may have bipolar disorder since 1 time she took an SSRI and got insomnia. Environmental Services Coordinator reviewed history and patient denies any manic episodes or behaviors outside of substance abuse and denies any bouts of insomnia. Patient reports she has tried Wellbutrin in the past without problems and agrees to restart this medication. Patient is not looking for other substance abuse treatment this time. Signed a 3 day notice. 10/17 pt reports mood remains a little better; no SI. Pt reports Wellbutrin well tolerated. Discussed substance abuse and pt said she's thinking of section 35'ing herself. Pt says last time sober was 10 years ago for over a year, but no sober time since. Pt says pull towards substance abuse is very confusing and she simultaneously does not want to use but also does not want to quit. She explains she cannot stay sober enough to accomplish anything, therapy, living situation, SSI...pt cannot stop herself from using and is pretty sure she'll end up . Pt says her friend is picking her up tomorrow; she says she'll likely use but then go and have herself sectioned. Does not want a CSS because she says she'll never stay; she'll just leave prematurely to relapse. Pt feels need to be locked away from substances. Plan 3 day 15 minute checks Continue Wellbutrin ER 150 mg DC CIWA; etoh w/drawal complete Continue methadone home dose Reviewed labs: Patient positive for Trichomonas and Gardnerella; continue metronidazole as it is indicated antibiotic for both; Discontinue clindamycin (patient says causes yeast infection) Patient educated on: diagnosis, medication risk/benefits and substance abuse Informed Consent: understands Reason for contiued inpatient stay Substantial Risk for: stable for discharge Time Spent With Patient Time: Total time managing care of this patient today ____ minutes.
[2022-10-17] MEDS: Nicotine Polacrilex Lozenge 2 MG LOZENGE BUCCAL ×3 (12:58→18:08)
[2022-10-17] MEDS: hydrOXYzine HCL 25 MG TABLET PO ×2 (13:27→20:10)
[2022-10-17 17:20] VITALS: BP 102/60; PULSE 72; RESP 16; TEMP 36.7; O2SAT 99
[2022-10-17] MEDS: traZODone HCL 50 MG TABLET PO (20:19)
[2022-10-17] MEDS: Ibuprofen 400 MG TABLET PO (20:19)
[2022-10-18 08:23] VITALS: BP 109/58; PULSE 75; RESP 16; TEMP 36.4; O2SAT 99
[2022-10-18] MEDS: Multivitamin TABLET 1 TAB PO (08:25)
[2022-10-18] MEDS: metroNIDAZOLE 500 MG TABLET PO (08:25)
[2022-10-18] MEDS: buPROPion HCl XL 150 MG TAB.ER.24H PO (08:25)
[2022-10-18] MEDS: Thiamine HCL 100 MG TABLET PO (08:25)
[2022-10-18] MEDS: methADONE HCl 20 MG/2 ML ORAL.CONC 155 MG PO (08:26)
[2022-10-18] MEDS: Nicotine 21 MG PATCH.TD24 TRANSDERMA (08:28)
--- NOTE | 2022-10-18 11:11 | PM.PSYDC ---
DS: Providers Provider Date of Service: 10/18/22 Date of admission: 10/11/22 16:45 Date of discharge: 10/18/22 Primary care physician: Unknown Physician Attending physician on admission: Tom Willson Attending physician on discharge: Tom Willson DS: Diagnosis Discharge Diagnosis (1) Depression: Status: Acute (2) Substance abuse: Status: Acute DS: Medications Discharge Medications Home Medications: Home Medications Medication Instructions Recorded Confirmed methadone 10 mg/mL oral 155 mg PO DAILY 06/29/22 10/11/22 concentrate (Methadone Intensol) Previous Rx's Medication Instructions Recorded albuterol sulfate 90 mcg/actuation 2 puff inhalation Q4-6H PRN 10/18/22 aerosol inhaler (Ventolin HFA) Shortness Of Breath Or Wheezing 30 days #6.7 grams bupropion HCl 150 mg 24 hr tablet, 150 mg PO DAILY 30 days #30 tabs 10/18/22 extended release hydroxyzine pamoate 25 mg capsule 25 mg PO Q6H PRN Anxiety 90 days 10/18/22 #90 caps loratadine 10 mg tablet 10 mg PO DAILY PRN Allergy 10/18/22 Symptoms 30 days #30 tabs metronidazole 500 mg tablet 500 mg PO BID 1 day #2 tabs 10/18/22 nicotine (polacrilex) 2 mg buccal 2 mg buccal Q2H PRN Nicotine 10/18/22 mini lozenge Cravings 90 days #81 ea nicotine 21 mg/24 hr daily 1 patch topical DAILY PRN nicotine 10/18/22 transdermal patch cravings 28 days #28 ea trazodone 50 mg tablet 50 mg PO BEDTIME PRN Insomnia 30 10/18/22 days #30 tabs Mental Status Exam Mental Status Exam Narrative: Pt is alert and oriented; behavior is cooperative, calm, more engaged; patient is not in distress; dressed in hospital attire with unkempt hair, adequate hygiene; mood is described as ok and affect congruent; eye contact appropriate; Speech is normal rate, volume and prosody and not pressured; no psychomotor retardation present; thought process is organized and goal directed; Thought content is on struggles with substance abuse, tx; otherwise pertinent to relevant topics and without any delusional content, paranoid ideations or grandiosity; no SI; no HI. There is no evidence of perceptual disturbance. Patients insight fair; judgment impaired but adequate. Data Data Completed and Pending Completed studies during hospitalization [Text1]: 10/12/22 10/12/22 10/12/22 08:36 08:36 19:00 Estimat Average Glucose 100 Hemoglobin A1c % 5.1 Magnesium 1.9 Triglycerides 74 Cholesterol 162 LDL Cholesterol, Calc 105 HDL Cholesterol 43 Vitamin B12 520 Folate 14.0 TSH 0.30 L Free T4 1.05 Candelaria species DNA Negative Chlam trachomat DNA PCR Gardnerella DNA Probe Positive A N.gonorrhoeae DNA (PCR) Trichomonas DNA Probe Positive A 10/12/22 10/13/22 Unknown 18:30 Estimat Average Glucose Hemoglobin A1c % Magnesium Triglycerides Cholesterol LDL Cholesterol, Calc HDL Cholesterol Vitamin B12 Folate TSH Free T4 Candelaria species DNA Chlam trachomat DNA PCR Cancelled NOT DETECTED Gardnerella DNA Probe N.gonorrhoeae DNA (PCR) Cancelled NOT DETECTED Trichomonas DNA Probe DS: Summary Hospital Course Hospital Course: HPI: Patient is a 37-year-old female with history of anxiety alcohol, cocaine and opioid abuse, on Methadone, 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 Patient says that this week she started having auditory hallucinations, seeing things, started screaming which she agrees was most likely due to intoxication and withdrawal. Hospital course: On admission patient reported some depression and vague SI which soon fully resolved; AVH fully resolved prior to admission and did not resurface. Patient was treated for withdrawal without incident; she was also treated for BV/Trichomonas with Flagyl. Patient remained polite but vague and not interested in talking much; she mostly kept to her room. Patient reported that her depression was getting better and she put in a 3 day notice. Initially, patient was ambivalent about starting medication for depression however eventually agreed to start Wellbutrin which she thinks was helpful. Patient became more open to discussing things and shared how the reason she does not want to go to a CSS is because she knows she will leave and relapse; patient shared about the conundrum of both wanting to stay sober and wanting to continue using. Her plan was to Section 35 herself. Manager Environmental encouraged patient to remain on the unit since her mother was considering petitioning for a Section 35 (but was ambivalent) however patient wanted to discharge as her 3 day notice came to, saying she will likely use and then go self present; patient knows day high risk of relapse was not willing to reconsider. Team debated section 35 however this is her first psychiatric inpt admission in a long time and the last time she was at ED for substance abuse related problem was several months ago; team thus concluded that at this time, there was not enough evidence to petition court for imminent risk at this time. Patient is still in the contemplation stage is of change. That said, patient was being picked up by her kids activities coach who is also encouraging her to self petition for Section 35 and is also in contact with patient's mother (telegraphic typewriter operator spoke with mother says she will coordinate with this person). Patient's 3 day notice is due; while she remains at high risk for relapse, this is a chronic problem for her. She is not in imminent risk for harm to self or others and does not meet criteria for involuntary commitment. Her request for discharge honored. Time spent discussing smoking cessation with patient: 3 to 10 minutes Status at Discharge Functional status at discharge: independent ambulation Overall status at discharge: patient is back to baseline Time Spent with Patient Time attestation: Total time managing care of this patient today ____ minutes. Time spent: Less than 30 minutes Discharge Plan Discharge Anticipated Discharge Date/Time: 10/18/22 13:00 Patient Disposition: Half-Way Discharge Diagnosis: MDD, moderate in full remision Referrals: [facility] [Other] - 1 Week (Walk in if needed) Discharge Medications: New metronidazole 500 mg Tablet 500 mg PO BID 1 Days Qty: 2 0RF bupropion HCl 150 mg Tablet Extended Release 24 Hr 150 mg PO DAILY 30 Days Qty: 30 0RF naloxone [Narcan] 4 mg/actuation spray,non-aerosol 4 mg intranasal Q2M PRN (Reason: opioid overdose) 1 Days Qty: 2 0RF Rx Instructions: spray 1 dose into ONE nostril; alternate nostrils w each dose until help arrives Continued methadone [Methadone Intensol] 10 mg/mL Concentrate 155 mg PO DAILY albuterol sulfate [Ventolin HFA] 90 mcg/actuation HFA aerosol inhaler 2 puff inhalation Q4-6H PRN (Reason: Shortness Of Breath Or Wheezing) 30 Days Qty: 6.7 0RF hydroxyzine pamoate 25 mg capsule 25 mg PO Q6H PRN (Reason: Anxiety) 90 Days Qty: 90 0RF nicotine (polacrilex) 2 mg mini lozenge 2 mg buccal Q2H PRN (Reason: Nicotine Cravings) 90 Days Qty: 81 0RF Changed trazodone 50 mg tablet 50 mg PO BEDTIME PRN (Reason: Insomnia) 30 Days Qty: 30 0RF nicotine 21 mg/24 hr patch 24 hour 1 patch topical DAILY PRN (Reason: nicotine cravings) 28 Days Qty: 28 0RF Rx Instructions: remove at bedtime loratadine 10 mg tablet 10 mg PO DAILY PRN (Reason: Allergy Symptoms) 30 Days Qty: 30 0RF Discontinued acetaminophen 500 mg tablet 1 tab PO Q6H PRN (Reason: Pain) ibuprofen 400 mg tablet 1 tab PO Q6H PRN (Reason: Pain) Discharge Orders: Discharge Order (Routine); Ordered 10/18/22 Ordered By: Tom Willson Diet: Regular diet Activity on Discharge: As tolerated Stand Alone Forms: Patient Portal Discharge page, Community Support Care Plan Goals: Maintain mood and safe behaviors Take medications as prescribed Continue to pursue sobriety Practice coping skills Continue with outpatient providers and reach out to them as needed Health Concerns: Mood stability and behaviors Sobriety Asthma Plan of Treatment: Follow up with your PCP, psychiatric provider and other outpatient providers regarding above concerns Take medications as prescribed Assessment: Risk assessment at time of discharge:? Patient was interviewed prior to discharge and found to be fully oriented and without any SI or HI. Patient has insight and demonstrates good judgment in terms of wanting to pursue treatment. Patient is not in imminent risk of harm to self or others and has a safety plan that includes presenting to the closest ER or calling 911 if feeling unsafe.? Patient has been observed closely by nursing and unit staff throughout admission; patient has not engaged in any behaviors that suggest dangerousness to self or others and has demonstrated appropriate behaviors and impulse control Discharge Date/Time: 10/18/22 11:31
== END 2022-10-18 11:31 | disposition home or self-care (01) | DRG 751 ==
LOC: HO.ED 10-11 15:08 → HO.PM5 10-11 18:36
PROVIDERS: Clinical Nurse Specialist Psychiatric/Mental Health, Adult; Admitting Provider Psychiatry & Neurology Psychiatry; Emergency Provider Emergency Medicine; Visit Provider Psychiatry & Neurology Psychiatry
DX: F32.1 Major depressive disorder, single episode, moderate (principal); R45.851 Suicidal ideations; F11.20 Opioid dependence, uncomplicated; F17.210 Nicotine dependence, cigarettes, uncomplicated; F19.10 Other psychoactive substance abuse, uncomplicated; Z20.822 Contact with and (suspected) exposure to COVID-19; Z59.02 Unsheltered homelessness; Z71.6 Tobacco abuse counseling; Z88.1 Allergy status to other antibiotic agents; Z88.2 Allergy status to sulfonamides; Z79.899 Other long term (current) drug therapy
CPT/HCPCS: 0353U; 36415; 80053; 80061; 80307; 81001; 81025; 82607; 82746; 83036; 83735; 84439; 84443; 85025; 87480; 87510; 87635; 87660; 93005; 99285; S9485

== ENCOUNTER 2022-10-20 22:53 | Emergency (ER) | payer OTHER, SELFPAY ==
[2022-10-20 22:56] VITALS: BP 143/95; PULSE 94; RESP 18; TEMP 36.6; O2SAT 97; BMI 26.6
--- NOTE | 2022-10-21 02:11 | PC.NURSE ---
I brought Jo Ann inform waiting room to [facility] a short time ago. She was able to ambulate from the waiting room into room independently and with steady gait. Upon arriving into [facility] Jo Ann states she is here because Im sure I have scabies and I think I might have a blood infection. Jo Ann showed me multiple areas on her arms, her fingertips, her face, her lips and in her mouth that she was sure there was visible evidence of scabies . I was unable to notice anything that appeared like a mite or a bug bite to any of these areas. In her mouth she insisted that she had ulcers from the scabies. I was unable to notice anything abnormal inside of her mouth on brief visual inspection. Jo Ann is otherwise calm, cooperative. She denies SI. She denies HI. She is taking PO fluids without difficulty. Her respirations are no-labored. Jo Ann is aware that she is waiting to be seen by a provider and vebaizes an understanding of this. She was placed in [facility] due to the room having a door in the case that Jo Ann did have scabies.
[2022-10-21 02:12] VITALS: BP 114/87; PULSE 78; RESP 12; TEMP 37; O2SAT 98
--- NOTE | 2022-10-21 04:31 | ED_ITS ---
HPI - General Adult General Chief complaint: Psychiatric Symptoms Stated complaint: personal, crisis Time Seen by Provider: 10/21/22 03:55 Source: patient Mode of arrival: ambulatory Limitations: no limitations History of Present Illness HPI narrative: Three 7-year-old female presents with multiple complaints. Patient actively is using crack. She would like to have assistance for that. She is not suicidal homicidal. She is currently homeless. She does not want leave until she is evaluated for substance abuse. Additionally, patient is complaining a left lower molar pain. Pain started over the last few days. As severe. She states that this is infection. Occurs when she has diagnosis of scabies. She is also complaining of a sensation of bugs on her hands and feet chest, abdomen and pelvis. She describes her symptoms as severe. There is no clear relieving or exacerbating features. She denies any fevers or chills. Related Data Home Medications Medication Instructions Recorded Confirmed methadone 10 mg/mL oral 155 mg PO DAILY 06/29/22 10/11/22 concentrate (Methadone Intensol) Previous Rx's Medication Instructions Recorded albuterol sulfate 90 mcg/actuation 2 puff inhalation Q4-6H PRN 10/18/22 aerosol inhaler (Ventolin HFA) Shortness Of Breath Or Wheezing 30 days #6.7 grams bupropion HCl 150 mg 24 hr tablet, 150 mg PO DAILY 30 days #30 tabs 10/18/22 extended release hydroxyzine pamoate 25 mg capsule 25 mg PO Q6H PRN Anxiety 90 days 10/18/22 #90 caps loratadine 10 mg tablet 10 mg PO DAILY PRN Allergy 10/18/22 Symptoms 30 days #30 tabs metronidazole 500 mg tablet 500 mg PO BID 1 day #2 tabs 10/18/22 naloxone 4 mg/actuation nasal 4 mg intranasal Q2M PRN opioid 10/18/22 spray (Narcan) overdose 1 day #2 ea nicotine (polacrilex) 2 mg buccal 2 mg buccal Q2H PRN Nicotine 10/18/22 mini lozenge Cravings 90 days #81 ea nicotine 21 mg/24 hr daily 1 patch topical DAILY PRN nicotine 10/18/22 transdermal patch cravings 28 days #28 ea trazodone 50 mg tablet 50 mg PO BEDTIME PRN Insomnia 30 10/18/22 days #30 tabs Allergies Allergy/AdvReac Type Severity Reaction Status Date / Time ceftriaxone [From ROCEPHIN] Allergy Intermediate HIVES Verified 10/20/22 23:00 sulfamethoxazole Allergy Intermediate HIVES Verified 04/19/21 14:12 [From BACTRIM] trimethoprim [From BACTRIM] Allergy Intermediate HIVES Verified 04/19/21 14:12 Sulfa (Sulfonamide Allergy Unknown HIVES. Verified 04/19/21 14:12 Antibiotics) VOMITING [SULFA (SULFONAMIDE ANTIBIOTICS)] doxycycline [DOXYCYCLINE] AdvReac Unknown NAUSEA & Verified 04/19/21 14:12 VOMITING PMFSH Past Medical History Medical History Acute pelvic inflammatory disease (PID) Cellulitis Diskitis Drug use Homeless Opioid use disorder Prothrombin gene mutation Pulmonary emboli Social History Social History Household Members: None Housing: Homeless Do you presently have visiting nurse or other home services: No Alcohol intake: never Patient Tobacco Use Status: Current everyday Tobacco user Tobacco use type: Cigarette Cigarette Packs Per Day: 1 Cigarettes Per Day: 20.0 Years Smoked: 17 Smoked in Last 30 Days: Yes e-Cigarette/Vaping Use: Currently Using Second Hand Smoke Exposure: No Substance Use Type: Crack/Cocaine and Heroin Advance Directives: No Advance Directives Information Provided: Yes service: No Current occupational status: unemployed Sexual orientation: Don't Know Physical Exam ED Vital Signs: Vital Signs - 24 hr 10/20/22 22:56 10/21/22 02:12 Temperature 97.9 F 98.6 F Pulse Rate 94 78 Respiratory Rate 18 12 Blood Pressure 143/95 H 114/87 Pulse Oximetry 97 98 Oxygen Delivery Method Room Air Room Air BMI result Body Mass Index 26.6 GEN: Well developed, no acute distress, alert, oriented HEENT: Normocephalic, atraumatic, normal external ears, nose appears normal, no oropharyngeal edema or exudates poor dentition left lower molar, no evident gingival erythema or infection Eyes: Normal to appearance Neck: Supple, no lymphadenopathy Respiratory: Talks in complete sentences, no respiratory distress, clear to auscultation bilaterally Cardiovascular: Regular rate and rhythm, no murmurs rubs or gallops Abdomen: Soft, nontender, nondistended, no guarding, no rebound Back: No CVA tenderness Extremities: No clubbing cyanosis or edema Neurologic: No focal neurologic deficits, cranial nerves 2-12 intact, strength is 5/5 bilaterally, gait normal Skin: Erythematous skin changes consistent with dermatitis no definite burrows, illness changes are diffuse on entire body Course Course Course Narrative: 37-year-old female with previous psychiatric illness, substance abuse present with several complaints including drug abuse for which she is seeking attention. Additionally she believes she still has scabies. Symptoms are diffuse in her entire body. Symptoms include itchiness and the sensation of dark black bugs all over her body. She also complains of left lower molar dental infection. Patient received permethrin although I doubt a scabies. Most likely, patient has dermatitis. She will receive Benadryl for her symptoms. For her oral infection check cannot rule out, will start patient on amoxicillin Reevaluation(s) Reevaluation #1: patient moved to pending eval. Signed out to oncoming doc. Time: 06:37 Medications Administered Discontinued Medications Generic Name Dose Route Start Last Admin Trade Name Joseluis PRN Reason Stop Dose Admin Amoxicillin 500 mg 10/21/22 04:29 10/21/22 04:59 Amoxicillin 500 Mg Capsule PO 10/21/22 04:30 500 mg ONCE ONE Administration Diphenhydramine HCl 25 mg 10/21/22 04:29 10/21/22 04:59 Diphenhydramine Hcl 12.5 Mg/5 Ml Liquid PO 10/21/22 04:30 25 mg ONCE ONE Administration Medical Decision Making Medical Decision Making [facility] Narrative: 37-year-old female with previous psychiatric illness, substance abuse present with several complaints including drug abuse for which she is seeking attention. Additionally she believes she still has scabies. Symptoms are diffuse in her entire body. Symptoms include itchiness and the sensation of dark black bugs all over her body. She also complains of left lower molar dental infection. Patient received permethrin although I doubt a scabies. Most likely, patient has dermatitis. She will receive Benadryl for her symptoms. For her oral infection check cannot rule out, will start patient on amoxicillin Differential Diagnosis Differential Diagnoses: The differential diagnosis associated with the presentation includes (Cocaine withdrawal, cocaine bugs, psychiatric illness, substance abuse, scabies, dermatitis, dental infection) Polysubstance abuse, dermatitis Admission/Observation Consideration of admission/observation: Escalation of care including admission/observation considered Consult Healthcare Provider Management of the patient was discussed with: Behavioral Health Provider Chronic Conditions Patient?s care impacted by: Other (Substance abuse) Social Determinants Patient?s care significantly limited by Social Determinants of Health including: Inadequate housing Discharge Plan Discharge Clinical Impression: Substance abuse, Dermatitis, Dental infection Patient Disposition: Still a Patient Prescriptions: No Action methadone [Methadone Intensol] 10 mg/mL Concentrate 155 mg PO DAILY metronidazole 500 mg Tablet 500 mg PO BID 1 Days Qty: 2 0RF bupropion HCl 150 mg Tablet Extended Release 24 Hr 150 mg PO DAILY 30 Days Qty: 30 0RF trazodone 50 mg tablet 50 mg PO BEDTIME PRN (Reason: Insomnia) 30 Days Qty: 30 0RF nicotine 21 mg/24 hr patch 24 hour 1 patch topical DAILY PRN (Reason: nicotine cravings) 28 Days Qty: 28 0RF Rx Instructions: remove at bedtime albuterol sulfate [Ventolin HFA] 90 mcg/actuation HFA aerosol inhaler 2 puff inhalation Q4-6H PRN (Reason: Shortness Of Breath Or Wheezing) 30 Days Qty: 6.7 0RF loratadine 10 mg tablet 10 mg PO DAILY PRN (Reason: Allergy Symptoms) 30 Days Qty: 30 0RF hydroxyzine pamoate 25 mg capsule 25 mg PO Q6H PRN (Reason: Anxiety) 90 Days Qty: 90 0RF nicotine (polacrilex) 2 mg mini lozenge 2 mg buccal Q2H PRN (Reason: Nicotine Cravings) 90 Days Qty: 81 0RF naloxone [Narcan] 4 mg/actuation spray,non-aerosol 4 mg intranasal Q2M PRN (Reason: opioid overdose) 1 Days Qty: 2 0RF Rx Instructions: spray 1 dose into ONE nostril; alternate nostrils w each dose until help arrives Interventions: [place]-Suicide Risk Severity Scale Last Done: 10/21/22 02:12
[2022-10-21] MEDS: Amoxicillin 500 MG CAPSULE PO ×2 (04:59→15:26)
[2022-10-21] MEDS: diphenhydrAMINE HCl 12.5 MG/5 ML LIQUID 25 MG PO (04:59)
[2022-10-21] MEDS: Permethrin 1 % Lotion 59 ML BTL 1 APPL TOPICAL (06:56)
[2022-10-21 07:16] LABS: Appearance Urine Clear; Color Urine Yellow; Glucose Urine UA Negative (Negative); Leukocyte Esterase Urine Negative (Negative); Nitrite Urine Negative (Negative); Urine Blood Negative (Negative); Urine Ketones Negative (Negative); Urine Protein Negative (Neg-Trace)
[2022-10-21 07:17] LABS: UPreg QC Valid YES; Urine Pregnancy NEGATIVE (NEGATIVE)
[2022-10-21 07:23] LABS: Amphetamine Screen Urine Not Detected (Not Detect); Barbiturates, Urine Not Detected (Not Detect); Benzodiazepines Screen Urine Not Detected (Not Detect); Cannabinoid Screen Urine Not Detected (Not Detect); Cocaine Screen Urine POSITIVE (Not Detect); Fentanyl, urine POSITIVE (Not Detect); Opiate Screen Urine POSITIVE (Not Detect); Phencyclidine Screen Urine Not Detected (Not Detect)
[2022-10-21 07:33] LABS: COVID-19 Test Negative (Negative); IDNOW Serial# 08D9AD1C
[2022-10-21 08:15] LABS: Ethanol < 10 mg/dL
--- NOTE | 2022-10-21 09:39 | PC.NURSE ---
pleasant and cooperative all morning, in and out of room, ate breakfast and had a sandwich and cheese stick, steady gait, speech clearpt has a concern that she has lice and put permethrin cream on herself, now sleeping
--- NOTE | 2022-10-21 09:46 | PHA.MEDREC ---
Pharmacy Consult ? Medication Reconciliation Pharmacy has completed the medication reconciliation. Pt recent discharge from in psych on 10/18/22. Utilized previous discharge meds to confirm. Reviewed med rec done by nursing (Anupam).
[2022-10-21] MEDS: methADONE HCl 20 MG/2 ML ORAL.CONC 155 MG PO (11:04)
--- NOTE | 2022-10-21 12:15 | MHC.CARE ---
Pt added to [facility] Detox waitlist
--- NOTE | 2022-10-21 14:25 | PC.NURSE ---
lunch provided, laying in bed watching tv, phone given to pt and she has a list of detox #'s. phone was brought in to her 5 min ago and has not yet picked it up or looked at the list
--- NOTE | 2022-10-21 15:01 | PC.NURSE ---
report received from CHAUNCEY Jones Pt is up and walking around pod area. Pt reports that she is anxious about needing to be sectioned in order to get help, CARE team is working on a plan, pt has friend who is willing to go to court of Sunday for Section 35 but pt is anxious she will try to leave prior to Sunday. Pt also concerned about abscess. Already received one dose of antibiotics
[2022-10-21] MEDS: hydrOXYzine HCL 25 MG TABLET PO (15:25)
[2022-10-21] MEDS: Nicotine 21 MG PATCH.TD24 TRANSDERMA (15:44)
[2022-10-21 15:57] LABS: MANUAL DIFF FLAG NO
[2022-10-21 15:58] LABS: Basophils Absolute Auto 0.1 X10*3/uL (0.0-0.2); Basophils Percent Auto 0.9 % (0-2); Eosinophils Absolute Auto 0.4 X10*3/uL (0.0-0.4); Eosinophils Percent Auto 6.2 % (0-4); Hematocrit 36.2 % (37.0-47.0); Lymphocytes Absolute Auto 2.1 X10*3/uL (1.2-4.9); Lymphocytes Percent Auto 36.5 % (20-40); Mean Corpuscular HGB Conc 33.1 g/dl (31.0-35.0); Mean Corpuscular Hemoglobin 27.5 pg (27.0-33.0); Mean Platelet Volume 9.3 fL (9.4-12.3); Monocytes Absolute Auto 0.5 X10*3/uL (0.1-1.2); Monocytes Percent Auto 9.1 % (2-11); Neutrophils Absolute Auto 2.7 x10*3/uL (2.0-8.3); Neutrophils Percent Auto 47.3 % (45-73); Platelet Count 205 X10*3/uL (160-400); Red Blood Count 4.36 X10*6/uL (4.20-5.50); Red Cell Distribution Width 13.3 % (11.0-16.0); White Blood Count 5.6 X10*3/uL (4.8-10.8)
--- NOTE | 2022-10-21 16:16 | PC.NURSE ---
lab work drawn on patient, now sleeping, respirations even and unlabored, skin pwd. continue plan of care
[2022-10-21 16:25] LABS: Anion Gap 12 (12-20); Blood Urea Nitrogen 9 mg/dL (9-16); Calcium 8.7 mg/dL (8.4-10.2); Carbon Dioxide 23 mmol/L (22-29); Chloride 108 mmol/L (96-108); Creatinine Clr Calc Pharmacy 80.8; Estimated Glomerular Filt Rate > 60; Glucose Random 207 mg/dL (60-115); Sodium 139 mmol/L (135-145)
[2022-10-21 22:40] VITALS: BP 112/89; PULSE 70; RESP 18; TEMP 36.5; O2SAT 96
[2022-10-21] MEDS: traZODone HCL 50 MG TABLET PO (22:41)
--- NOTE | 2022-10-22 05:49 | PC.NURSE ---
Patient slept through the night, no distress observed/reported, behavior non concerning, medication compliant, lab orders completed/resulted, disposition per care team is detox bed search, patient is on [facility] detox wait-list, VSS, will continue to monitor.
[2022-10-22 06:48] VITALS: BP 98/59; PULSE 69; RESP 17; TEMP 37.2; O2SAT 97
--- NOTE | 2022-10-22 07:32 | HE.PHANOTE ---
Re: methadone verification Rec'd methadone verification form. Last dose [facility] ([phone]) 155 mg on 10/20/22. Verified by Juan Lemus.
[2022-10-22] MEDS: buPROPion HCl XL 150 MG TAB.ER.24H PO (09:25)
[2022-10-22] MEDS: methADONE HCl 20 MG/2 ML ORAL.CONC 155 MG PO (09:25)
[2022-10-22] MEDS: hydrOXYzine HCL 25 MG TABLET PO (13:28)
--- NOTE | 2022-10-22 13:34 | PC.NURSE ---
Md made aware of patient c/o pain and swelling in left wrist area. WBC at this time is normal.
--- NOTE | 2022-10-22 15:25 | PC.NURSE ---
report received, pt sleeping at this time, respirations even and unlabored, skin pwd, no apparent distress. Continue plan of care for possible detox tomorrow (sunday)
--- NOTE | 2022-10-22 17:33 | PC.NURSE ---
Care team entered pts room to inform her that a detox bed is available, when care production team manager left, the pt became upset and went out to the nurses station and explained to this RN that she does not want a detox bed but rather she wants and inpatient bed where she cannot leave. This RN discussed this with care production team manager who is now speaking with the patient
--- NOTE | 2022-10-22 18:29 | HO.SUDE ---
CARE team clinician met with pt to complete intake interview following referral to [facility]. Pt stated she does not want to go to detox, she reports she is being sec 35 in the morning. Spoke to pt's mother who reports pt has a friend in [place] who is willing to pick pt up in the morning to bring her to court for sec.
[2022-10-22 20:17] VITALS: BP 95/54; PULSE 61; RESP 16; TEMP 37.6; O2SAT 97
--- NOTE | 2022-10-23 02:32 | PC.NURSE ---
Assumed care of pt. at 1900. Pt. out of room at this time requesting fluids, which were provided to pt. Pt. currently sleeping with no apparent distress, respirations even and unlabored. Current plan is for pt. to d/c in the am to attend court where her mom is petitioning for a section 35. Will continue to monitor.
[2022-10-23 05:37] VITALS: BP 116/87; PULSE 57; RESP 16; TEMP 37.1; O2SAT 97
--- NOTE | 2022-10-23 07:43 | PC.NURSE ---
patient appears to remain asleep at present respirations are even and unlabored patient appears in no distress
[2022-10-23 09:45] VITALS: BP 119/65; PULSE 93; RESP 16; TEMP 36.9; O2SAT 96
== END 2022-10-23 09:53 | disposition home or self-care (01) ==
PROVIDERS: Emergency Medicine; Emergency Provider Emergency Medicine
DX: F19.10 Other psychoactive substance abuse, uncomplicated (principal); L30.9 Dermatitis, unspecified; K04.7 Periapical abscess without sinus; F11.20 Opioid dependence, uncomplicated; F17.210 Nicotine dependence, cigarettes, uncomplicated; Z79.899 Other long term (current) drug therapy
CPT/HCPCS: 36415; 80048; 80307; 81003; 81025; 82077; 85025; 87635; 99285

== ENCOUNTER 2022-11-26 07:45 | Emergency (ER) | payer OTHER, SELFPAY ==
--- NOTE | 2022-11-26 07:53 | ED_ITS ---
HPI - General Adult General Chief complaint: General Medical Stated complaint: MED EVAL Time Seen by Provider: 11/26/22 07:52 Source: patient and EMS Mode of arrival: EMS Limitations: no limitations History of Present Illness HPI narrative: Patient is a 37 year old assigned female at with a history of substance abuse presenting to the emergency department today with multiple complaints. Patient states that because she is homeless and around other homeless people, she thinks that she has scabies. Patient states that she has some lesions on her lips that are also concerning to her. Patient denies any dizziness, lightheadedness, abdominal pain, nausea, vomiting, fever, chills, blurry vision, double vision, loss of vision, chest pain, difficulty breathing, shortness of breath, back pain, night sweats, pain with urination, increased urinary frequency, increased urinary urgency, blood in her urine or stool, syncope or a near syncopal episode, recent trauma or falls, bowel incontinence, bladder incontinence, bowel retention, bladder retention, or any other complaints at this time. Onset (ago): month(s) Location: face Treatments prior to arrival: none Related Data Home Medications Medication Instructions Recorded Confirmed methadone 10 mg/mL oral 160 mg PO DAILY 06/29/22 11/26/22 concentrate (Methadone Intensol) Previous Rx's Medication Instructions Recorded albuterol sulfate 90 mcg/actuation 2 puff inhalation Q4-6H PRN 10/18/22 aerosol inhaler (Ventolin HFA) Shortness Of Breath Or Wheezing 30 days #6.7 grams bupropion HCl 150 mg 24 hr tablet, 150 mg PO DAILY 30 days #30 tabs 10/18/22 extended release hydroxyzine pamoate 25 mg capsule 25 mg PO Q6H PRN Anxiety 90 days 10/18/22 #90 caps loratadine 10 mg tablet 10 mg PO DAILY PRN Allergy 10/18/22 Symptoms 30 days #30 tabs nicotine (polacrilex) 2 mg buccal 2 mg buccal Q2H PRN Nicotine 10/18/22 mini lozenge Cravings 90 days #81 ea nicotine 21 mg/24 hr daily 1 patch topical DAILY PRN nicotine 10/18/22 transdermal patch cravings 28 days #28 ea trazodone 50 mg tablet 50 mg PO BEDTIME PRN Insomnia 30 10/18/22 days #30 tabs Allergies Allergy/AdvReac Type Severity Reaction Status Date / Time ceftriaxone [From ROCEPHIN] Allergy Intermediate HIVES Verified 10/20/22 23:00 sulfamethoxazole Allergy Intermediate HIVES Verified 04/19/21 14:12 [From BACTRIM] trimethoprim [From BACTRIM] Allergy Intermediate HIVES Verified 04/19/21 14:12 Sulfa (Sulfonamide Allergy Unknown HIVES. Verified 04/19/21 14:12 Antibiotics) VOMITING [SULFA (SULFONAMIDE ANTIBIOTICS)] doxycycline [DOXYCYCLINE] AdvReac Unknown NAUSEA & Verified 04/19/21 14:12 VOMITING Review of Systems Constitutional: Constitutional: Reports no additional constitutional complaints, Denies chills, Denies fever(s) and Denies night sweats Eyes: Eyes: Reports no additional eye complaints, Denies blurry vision, Denies change in vision, Denies diplopia, Denies eye discharge, Denies loss of vision and Denies eye pain ENT: Denies dizziness Comments: lesions on the lips Cardiovascular: Cardiovascular: Reports no additional cardiovascular complaints, Denies chest pain, Denies lightheadedness, Denies Loss of Consciou sness and Denies dyspnea Respiratory: Respiratory: Reports no additional respiratory complaints and Denies dyspnea Gastrointestinal: Gastrointestinal: Reports no additional gastrointestinal co mplaints, Denies abdominal pain, Denies melena, Denies hematochezia, Denies change in bowel habits and Denies change in stool character Genitourinary: Genitourinary: Denies hematuria, Denies urinary frequency, Denies dysuria, Denies urinary incontinence, Denies urinary hesitancy and Denies urinary urgency Musculoskeletal: Musculoskeletal: Reports no additional musculoskeletal complaints, Denies numbness and Denies tingling Neurologic: Denies dizziness, Denies loss of vision, Denies numbness and Denies tingling Psychiatric: Psychiatric: Reports no additional psychiatric complaints Endocrine: Endocrine: Reports no additional endocrine complaints Hematologic/Lymphatic: Hematologic/Lymphatic: Reports no additional hematologic/lymphatic complaints Allergic/Immunologic: Allergic/Immunologic: Reports no additional allergic/immunologic complaints PMFSH Past Medical History Attestation statement: The following information was validated with the patient. Source: old records reviewed and nursing notes reviewed Medical History Acute pelvic inflammatory disease (PID) Cellulitis Diskitis Drug use Homeless Opioid use disorder Prothrombin gene mutation Pulmonary emboli Social History Social History Household Members: None Housing: Homeless Do you presently have visiting nurse or other home services: No Alcohol intake: never Patient Tobacco Use Status: Current everyday Tobacco user Tobacco use type: Cigarette Cigarette Packs Per Day: 1 Cigarettes Per Day: 20.0 Years Smoked: 17 e-Cigarette/Vaping Use: Currently Using Second Hand Smoke Exposure: No Substance Use Type: Crack/Cocaine and Heroin Advance Directives: No Advance Directives Information Provided: No service: No Current occupational status: unemployed Sexual orientation: Don't Know Physical Exam ED Vital Signs: Vital Signs - 24 hr 11/26/22 08:12 11/26/22 12:16 Temperature 98.5 F Pulse Rate 92 84 Respiratory Rate 18 16 Blood Pressure 124/66 104/57 L Pulse Oximetry 95 97 Oxygen Delivery Method Room Air Room Air BMI result Body Mass Index 24.0 Const General: cooperative, no acute distress, alert and awake Nutritional Appearance: well nourished Orientation/consciousness: patient oriented x3 Limitations: no limitations HENMT Head: Yes normal to inspection and Yes atraumatic Ears: hearing grossly normal bilaterally and external ears normal General nose exam: Normal external nose present, no nasal discharge noted and no epistaxis Face and sinus: Yes normal facial exam, No abrasion and No laceration Mouth: Normal oral and palatal mucosa present, no drooling, no muffled voice and other (multiple herpetic type lesions on both upper and lower lips) Eyes General: appearance normal, both eyes and all related structures Periorbital: periorbital findings normal Eyelids: Yes eyelids normal Conjunctivae: conjunctivae normal Pupils: Equal, round and reactive pupils present EOM: EOMs intact bilaterally Neck Neck: Yes normal visual inspection, Yes full ROM and Yes no lymphadenopathy Chest Chest palpation & inspection: normal inspection of the chest Resp Effort & Inspection: normal respiratory effort and able to speak in complete sentences Auscultation: clear to auscultation bilaterally Cardio Rate: regular rate Rhythm: regular rhythm GI Inspection: Yes normal to inspection Neuro General: patient oriented x3 and moves all extremities Cranial nerves: Yes Equal, round and reactive pupils present Cognition (Neuro): normal cognition Motor exam (neuro): 5/5 motor strength present throughout Sensory Exam: Normal double simultaneous stimulation for sensation Coordination: [id number] test normal Extrem General: Yes normal to inspection, Yes full ROM and Yes capillary refill normal Psych Speech and movement: Pressured speech present Affect: Animated affect present Attitude: cooperative Thought process: Normal thought process present Thought content: delusions Medications Administered Discontinued Medications Generic Name Dose Route Start Last Admin Trade Name Joseluis PRN Reason Stop Dose Admin Ceftriaxone Sodium 500 mg/ 0 mg 11/26/22 07:59 11/26/22 11:17 Lidocaine HCl 1 ml IM 11/26/22 08:00 Not Given ONCE ONE Diphenhydramine HCl 50 mg 11/26/22 07:59 11/26/22 11:17 Diphenhydramine Hcl 50 Mg/Ml Vial IM 11/26/22 08:00 Not Given ONCE ONE Ivermectin 6 mg 11/26/22 07:53 11/26/22 11:09 Ivermectin 3 Mg Tablet PO 11/26/22 07:54 6 mg ONCE ONE Administration Methadone HCl 160 mg 11/26/22 10:35 11/26/22 11:09 Methadone Hcl 20 Mg/2 Ml Oral.Conc PO 11/26/22 10:36 160 mg ONCE ONE Administration Valacyclovir HCl 1,000 mg 11/26/22 07:53 11/26/22 11:08 Valacyclovir Hcl 1,000 Mg Tablet PO 11/26/22 07:54 1,000 mg ONCE ONE Administration Medical Decision Making Medical Decision Making [facility] Narrative: Patient is a 37 year old assigned female at with a history of substance abuse presenting to the emergency department today with multiple complaints. Patient's physical exam showed herpetic lesions on her lips. Patient's blood work was unremarkable. Patient met with [facility] who arranged a spot for her at a detox facility. I explained my physical exam findings as well as all test results to the patient. I answered all questions asked by the patient. I stressed the importance of the patient taking her medication as prescribed. I stressed the importance of the patient following up with her primary care provider. I stressed the importance of the patient returning to the emergency department immediately if her symptoms were to worsen or if she were to develop any dizziness, shortness of breath, difficulty breathing, chest pain, blurry vision, loss of vision, nausea, vomiting, abdominal pain, fever, chills, back pain, or any other complaints. Patient verbalized agreement and understanding with this treatment plan and discharge. Differential Diagnosis Differential Diagnoses: The differential diagnosis associated with the presentation includes detox Consult Healthcare Provider Management of the patient was discussed with: Behavioral Health Provider (as noted in the MDM portion of this chart) Lab Data MDM Lab Attestation statement: I reviewed the patient's lab results. 11/26/22 08:18 Labs: Lab Results 11/26/22 11/26/22 Range/Units 08:18 09:09 WBC 4.9 (4.8-10.8) X10*3/uL RBC 3.93 L (4.20-5.50) X10*6/uL Hgb 11.0 L (12.0-16.0) g/dl Hct 31.5 L (37.0-47.0) % MCV 80.2 (80.0-98.0) fL MCH 28.0 (27.0-33.0) pg MCHC 34.9 (31.0-35.0) g/dl RDW 12.7 (11.0-16.0) % Plt Count 160 (160-400) X10*3/uL MPV 9.3 L (9.4-12.3) fL Immature Gran % (Auto) 0.2 (0.0-0.4) % Neut % (Auto) 57.4 (45-73) % Lymph % (Auto) 29.4 (20-40) % [place] % (Auto) 10.5 (2-11) % Eos % (Auto) 2.1 (0-4) % Baso % (Auto) 0.4 (0-2) % Lymph # (Auto) 1.4 (1.2-4.9) X10*3/uL [place] # (Auto) 0.5 (0.1-1.2) X10*3/uL Eos # (Auto) 0.1 (0.0-0.4) X10*3/uL Baso # (Auto) 0.0 (0.0-0.2) X10*3/uL Abs Immat Gran (auto) 0.01 (0.00-0.03) X10*3/uL Absolute Neuts (auto) 2.8 (2.0-8.3) x10*3/uL Absolute Nucleated RBC 0.000 (0.0-0.012) X10*3/uL Nucleated RBC % (auto) 0.0 (0.0-0.2) /100WBC Sodium 141 (135-145) mmol/L Potassium 3.3 (3.3-5.1) mmol/L Chloride 104 (96-108) mmol/L Carbon Dioxide 23 (22-29) mmol/L Anion Gap 17 (12-20) BUN 11 (9-16) mg/dL Creatinine 0.78 (0.5-1.4) mg/dL Estim Creat Clear Calc 86.9 Estimated GFR > 60 Random Glucose 83 (60-115) mg/dL Calcium 9.2 (8.4-10.2) mg/dL Magnesium 1.8 (1.6-2.6) mg/dL Total Bilirubin 0.8 (0.0-1.0) mg/dL AST 94 H (5-31) U/L ALT 58 H (0-31) U/L Alkaline Phosphatase 79 (39-117) U/L Total Protein 6.9 (6.5-8.0) g/dL Albumin 4.3 (3.5-5.0) g/dL Independent Historian Clinical information obtained from an independent historian. History obtained from or confirmed by: EMS Discharge Plan Discharge Clinical Impression: Substance abuse Patient Disposition: Home, Self-Care Instructions: Polysubstance Abuse (ED) Additional Instructions: Proceed to detox facility as arranged by the recovery team. Follow up with your primary care provider. Return to the emergency department immediately if your symptoms worsen or if you develop any dizziness, shortness of breath, difficulty breathing, chest pain, blurry vision, loss of vision, nausea, vomiting, abdominal pain, fever, chills, back pain, or any other complaints. Prescriptions: No Action methadone [Methadone Intensol] 10 mg/mL Concentrate 160 mg PO DAILY Rx Instructions: [facility] [phone] VERIFIED BY DARNELL 10/21/22 bupropion HCl 150 mg Tablet Extended Release 24 Hr 150 mg PO DAILY 30 Days Qty: 30 0RF trazodone 50 mg tablet 50 mg PO BEDTIME PRN (Reason: Insomnia) 30 Days Qty: 30 0RF nicotine 21 mg/24 hr patch 24 hour 1 patch topical DAILY PRN (Reason: nicotine cravings) 28 Days Qty: 28 0RF Rx Instructions: remove at bedtime albuterol sulfate [Ventolin HFA] 90 mcg/actuation HFA aerosol inhaler 2 puff inhalation Q4-6H PRN (Reason: Shortness Of Breath Or Wheezing) 30 Days Qty: 6.7 0RF loratadine 10 mg tablet 10 mg PO DAILY PRN (Reason: Allergy Symptoms) 30 Days Qty: 30 0RF hydroxyzine pamoate 25 mg capsule 25 mg PO Q6H PRN (Reason: Anxiety) 90 Days Qty: 90 0RF nicotine (polacrilex) 2 mg mini lozenge 2 mg buccal Q2H PRN (Reason: Nicotine Cravings) 90 Days Qty: 81 0RF Print Language: Maldivian
[2022-11-26 08:12] VITALS: BP 124/66; PULSE 92; RESP 18; TEMP 36.9; O2SAT 95; BMI 24.0
[2022-11-26 08:40] LABS: Alanine Aminotransferase 58 U/L (0-31); Albumin Level 4.3 g/dL (3.5-5.0); Alkaline Phosphatase 79 U/L (39-117); Anion Gap 17 (12-20); Aspartate Amino Transferase 94 U/L (5-31); Bilirubin Total 0.8 mg/dL (0.0-1.0); Blood Urea Nitrogen 11 mg/dL (9-16); Calcium 9.2 mg/dL (8.4-10.2); Carbon Dioxide 23 mmol/L (22-29); Chloride 104 mmol/L (96-108); Creatinine Clr Calc Pharmacy 86.9; Estimated Glomerular Filt Rate > 60; Glucose Random 83 mg/dL (60-115); Magnesium 1.8 mg/dL (1.6-2.6); Potassium 3.3 mmol/L (3.3-5.1); Sodium 141 mmol/L (135-145); Total Protein 6.9 g/dL (6.5-8.0)
[2022-11-26 09:13] LABS: MANUAL DIFF FLAG NO
[2022-11-26 09:23] LABS: Basophils Percent Auto 0.4 % (0-2); Eosinophils Absolute Auto 0.1 X10*3/uL (0.0-0.4); Eosinophils Percent Auto 2.1 % (0-4); Hematocrit 31.5 % (37.0-47.0); Imm Gran Abs Auto 0.01 X10*3/uL (0.00-0.03); Imm Gran Pct Auto 0.2 % (0.0-0.4); Lymphocytes Absolute Auto 1.4 X10*3/uL (1.2-4.9); Lymphocytes Percent Auto 29.4 % (20-40); Mean Corpuscular HGB Conc 34.9 g/dl (31.0-35.0); Mean Corpuscular Volume 80.2 fL (80.0-98.0); Mean Platelet Volume 9.3 fL (9.4-12.3); Monocytes Absolute Auto 0.5 X10*3/uL (0.1-1.2); Monocytes Percent Auto 10.5 % (2-11); Neutrophils Absolute Auto 2.8 x10*3/uL (2.0-8.3); Neutrophils Percent Auto 57.4 % (45-73); Platelet Count 160 X10*3/uL (160-400); Red Blood Count 3.93 X10*6/uL (4.20-5.50); Red Cell Distribution Width 12.7 % (11.0-16.0); White Blood Count 4.9 X10*3/uL (4.8-10.8)
--- NOTE | 2022-11-26 10:18 | MHC.RECOVRN ---
Met with pt in ED8 to discuss desire for treatment. Pt reports being dc from [facility] 4 days ago. Pt would like to return to [facility]. Referral sent to [facility].
[2022-11-26] MEDS: valACYclovir HCL 1,000 MG TABLET 1000 MG PO (11:08)
[2022-11-26] MEDS: methADONE HCl 20 MG/2 ML ORAL.CONC 160 MG PO (11:09)
--- NOTE | 2022-11-26 11:30 | PC.NURSE ---
Pt medicated per the MAR, refused ceftriaxone stating she breaks out in hives for days.
--- NOTE | 2022-11-26 12:09 | MHC.RECOVRN ---
Pt accepted to [facility] pending phone screen.
[2022-11-26 12:16] VITALS: BP 104/57; PULSE 84; RESP 16; O2SAT 97
--- NOTE | 2022-11-26 12:31 | HE.PHANOTE ---
RE METHADONE 160 MG FROM [facility]. LAST DOSE 11/24. WERIFIED WITH CHAUNCEY SCHNEIDER
--- NOTE | 2022-11-26 12:52 | MHC.RECOVRN ---
Pt accepted to [facility] for 2 pm admission. Will be transported via Lyft.
== END 2022-11-26 13:44 | disposition home or self-care (01) ==
PROVIDERS: Physician Assistant Medical; Emergency Provider Emergency Medicine
DX: B86 Scabies (principal); K13.0 Diseases of lips; F17.210 Nicotine dependence, cigarettes, uncomplicated; F14.10 Cocaine abuse, uncomplicated; F11.10 Opioid abuse, uncomplicated; Z71.6 Tobacco abuse counseling; Z79.899 Other long term (current) drug therapy; Z59.00 Homelessness unspecified
CPT/HCPCS: 36415; 80053; 83735; 85025; 96372; 99283; 99284; 99285

== ENCOUNTER 2022-12-15 09:04 | Emergency (ER) | payer OTHER, SELFPAY ==
[2022-12-15 09:28] VITALS: BP 113/64; BP 118/58; PULSE 68; PULSE 83; RESP 20; TEMP 36.4; O2SAT 100; O2SAT 99; BMI 24.2
--- NOTE | 2022-12-15 09:28 | ED.AMS ---
HPI - Altered Mental Status General Chief Complaint: ETOH/Substance Use Stated Complaint: substance use per ems Time Seen by Provider: 12/15/22 09:06 Source: patient and EMS Mode of arrival: EMS Limitations: no limitations History of Present Illness HPI narrative: 37-year-old female who is brought to emergency department by ambulance for evaluation of altered mental status. The patient states she is homeless. She was found altered lying on a sidewalk. Police contacted EMS and by the time EMS arrived the patient was awake and alert. Patient did not require any interventions such as intranasal Narcan. The patient told me that she did use a injection heroin and intranasal cocaine but she cannot remember when she used it last. She denied falling or having any injury. She has no complaints. She states that she did not want to come to the emergency department however the police insisted that she get checked out to make sure that she was okay. Related Data Home Medications Medication Instructions Recorded Confirmed methadone 10 mg/mL oral 160 mg PO DAILY 06/29/22 11/26/22 concentrate (Methadone Intensol) Previous Rx's Medication Instructions Recorded albuterol sulfate 90 mcg/actuation 2 puff inhalation Q4-6H PRN 10/18/22 aerosol inhaler (Ventolin HFA) Shortness Of Breath Or Wheezing 30 days #6.7 grams bupropion HCl 150 mg 24 hr tablet, 150 mg PO DAILY 30 days #30 tabs 10/18/22 extended release hydroxyzine pamoate 25 mg capsule 25 mg PO Q6H PRN Anxiety 90 days 10/18/22 #90 caps loratadine 10 mg tablet 10 mg PO DAILY PRN Allergy 10/18/22 Symptoms 30 days #30 tabs nicotine (polacrilex) 2 mg buccal 2 mg buccal Q2H PRN Nicotine 10/18/22 mini lozenge Cravings 90 days #81 ea nicotine 21 mg/24 hr daily 1 patch topical DAILY PRN nicotine 10/18/22 transdermal patch cravings 28 days #28 ea trazodone 50 mg tablet 50 mg PO BEDTIME PRN Insomnia 30 10/18/22 days #30 tabs Allergies Allergy/AdvReac Type Severity Reaction Status Date / Time ceftriaxone [From ROCEPHIN] Allergy Intermediate HIVES Verified 10/20/22 23:00 sulfamethoxazole Allergy Intermediate HIVES Verified 04/19/21 14:12 [From BACTRIM] trimethoprim [From BACTRIM] Allergy Intermediate HIVES Verified 04/19/21 14:12 Sulfa (Sulfonamide Allergy Unknown HIVES. Verified 04/19/21 14:12 Antibiotics) VOMITING [SULFA (SULFONAMIDE ANTIBIOTICS)] doxycycline [DOXYCYCLINE] AdvReac Unknown NAUSEA & Verified 04/19/21 14:12 VOMITING Review of Systems Review of Systems: Yes all other systems are reviewed and are negative [facility] Past Medical History Medical History Acute pelvic inflammatory disease (PID) Cellulitis Diskitis Drug use Homeless Opioid use disorder Prothrombin gene mutation Pulmonary emboli Social History Social History Household Members: None Housing: Homeless Do you presently have visiting nurse or other home services: No Alcohol intake: never Patient Tobacco Use Status: Current everyday Tobacco user Tobacco use type: Cigarette Cigarette Packs Per Day: 1 Cigarettes Per Day: 20.0 Years Smoked: 17 e-Cigarette/Vaping Use: Currently Using Second Hand Smoke Exposure: No Substance Use Type: Crack/Cocaine and Heroin service: No Current occupational status: unemployed Sexual orientation: Don't Know Physical Exam ED Vital Signs: Vital Signs - 24 hr 12/15/22 09:28 Temperature 97.6 F Pulse Rate 83 Respiratory Rate 20 Blood Pressure 113/64 Pulse Oximetry 99 Oxygen Delivery Method Room Air BMI result Body Mass Index 24.2 Const General: cooperative and no acute distress Orientation/consciousness: oriented to person and oriented to place Limitations: no limitations HENMT Head: Yes normal to inspection, Yes normocephalic and Yes atraumatic Ears: external ears normal General nose exam: Normal external nose present Face and sinus: Yes normal facial exam Mouth: Normal oral and palatal mucosa present Throat: Yes posterior oropharynx normal Eyes General: appearance normal, both eyes and all related structures Pupils: Equal, round and reactive pupils present Neck Neck: Yes normal visual inspection, Yes no lymphadenopathy, Yes trachea midline and Yes supple Chest Chest palpation & inspection: normal inspection of the chest and normal palpation of entire chest wall Resp Effort & Inspection: normal respiratory effort and able to speak in complete sentences Auscultation: clear to auscultation bilaterally Cardio Rate: regular rate Rhythm: regular rhythm Heart sounds: S1 normal heart sound present, S2 normal heart sound present and no murmurs GI Inspection: Yes normal to inspection Palpation (GI): Soft to palpation, nontender and no guarding Auscultation: normal bowel sounds General: Yes no CVA tenderness Back/Spine/Pelvis Back: no CVA tenderness Skin Other: Patient does have new track simmons an her right neck, they do not appear to be infected Neuro General: oriented to person and oriented to place Cranial nerves: Yes CN's II-XII intact bilaterally and Yes Equal, round and reactive pupils present Cognition (Neuro): normal cognition Motor exam (neuro): 5/5 motor strength present throughout Extrem General: Yes normal to inspection Psych Appearance: grossly normal Speech and movement: Normal speech and movement present Affect: normal affect Attitude: cooperative Thought process: Normal thought process present Thought content: Normal thought content present Medical Decision Making Medical Decision Making MDM Narrative: 37-year-old female who was homeless with a known history of substance use disorder who was found lying on a sidewalk altered. Police contacted EMS, the patient did not require any intranasal Narcan. At the time of arrival the patient is awake and alert and does admit to using injection heroin and smoking crack cocaine. She has no complaints. She states she does not want to be here in the emergency department and does not want to get help with her substance use disorder. She states she changes her mind she will come back to the emergency department to talk to our care team. The police also offered her outpatient services to help her with her substance use disorder. Since the patient may have used drugs that her longer acting I told the patient that I would be best if she left us observer here in the emergency department but she refused. Therefore the patient will be discharged against medical advice. Differential Diagnosis Differential diagnosis includes but is not limited to heroin use disorder, cocaine use disorder, electrolyte abnormality, infectious process, trauma Social Determinants Patient?s care significantly limited by Social Determinants of Health including: Inadequate housing and Alcoholism and drug addiction in family Discharge Plan Discharge Clinical Impression: Heroin use disorder, severe, Cocaine use, Acute alteration in mental status Patient Disposition: Left Against Medical Advice Additional Instructions: Your brought into the emergency department by ambulance to evaluate you for an altered mental status At the time my evaluation your awake and alert and understand the consequences of leaving the emergency department If you want to get help with your substance use disorder, please return to the emergency department and we can have our care team evaluate you and help you. Follow-up with your doctor in 2 days. Please return to the emergency department if your symptoms get worse or if you develop any symptoms that are concerning to you. Prescriptions: No Action methadone [Methadone Intensol] 10 mg/mL Concentrate 160 mg PO DAILY Rx Instructions: [facility] [phone] VERIFIED BY DARNELL 10/21/22 bupropion HCl 150 mg Tablet Extended Release 24 Hr 150 mg PO DAILY 30 Days Qty: 30 0RF trazodone 50 mg tablet 50 mg PO BEDTIME PRN (Reason: Insomnia) 30 Days Qty: 30 0RF nicotine 21 mg/24 hr patch 24 hour 1 patch topical DAILY PRN (Reason: nicotine cravings) 28 Days Qty: 28 0RF Rx Instructions: remove at bedtime albuterol sulfate [Ventolin HFA] 90 mcg/actuation HFA aerosol inhaler 2 puff inhalation Q4-6H PRN (Reason: Shortness Of Breath Or Wheezing) 30 Days Qty: 6.7 0RF loratadine 10 mg tablet 10 mg PO DAILY PRN (Reason: Allergy Symptoms) 30 Days Qty: 30 0RF hydroxyzine pamoate 25 mg capsule 25 mg PO Q6H PRN (Reason: Anxiety) 90 Days Qty: 90 0RF nicotine (polacrilex) 2 mg mini lozenge 2 mg buccal Q2H PRN (Reason: Nicotine Cravings) 90 Days Qty: 81 0RF Stand Alone Forms: Against Medical Advice
--- NOTE | 2022-12-15 09:36 | PC.NURSE ---
pt BIBA after being found unresponsive on the street by PD. no narcan given. pt was awake and alert when EMS arrived. pt admitted to using crack and heroin. reports she shoots them . when [facility] went into her pocket and pulled out three small packets of ?drugs. attempting to hide them from staff during change management analyst. security called and at bedside. pt not willing to change management analyst. process explained to her multiple times. pt unwilling to comply. pt reporting that she wants to leave because she wants to get high and does not want to give up her drugs. Dr. Pires notified and at bedside. informed pt of the need to stay for eval. informed pt of risk of and serious injury if pt chooses to leave to use drugs.pt continues to state she wants to leave. pt signed AMA and was escorted out the hospital.
== END 2022-12-15 09:49 | disposition left against medical advice (07) ==
PROVIDERS: Emergency Provider Emergency Medicine Emergency Medical Services
DX: F11.159 Opioid abuse with opioid-induced psychotic disorder, unspecified (principal); F14.19 Cocaine abuse with unspecified cocaine-induced disorder; R41.82 Altered mental status, unspecified; F17.210 Nicotine dependence, cigarettes, uncomplicated; Z71.6 Tobacco abuse counseling; Z79.899 Other long term (current) drug therapy; Z71.51 Drug abuse counseling and surveillance of drug abuser
CPT/HCPCS: 99282

== ENCOUNTER 2023-01-02 04:26 | Emergency (ER) | payer OTHER, SELFPAY ==
[2023-01-02 04:36] VITALS: BP 120/82; PULSE 80; RESP 16; TEMP 36.9; O2SAT 97; BMI 21.6
--- NOTE | 2023-01-02 06:39 | ED_ITS ---
HPI - General Adult General Chief complaint: General Medical Stated complaint: Scabies? Time Seen by Provider: 01/02/23 06:35 Source: patient Mode of arrival: ambulatory Limitations: no limitations History of Present Illness HPI narrative: Patient is a 37 year old assigned female at with a history of drug abuse / use presenting to the emergency department today after injecting scabies. Patient states that she has been injecting scabies and would like help with that. Patient denies any dizziness, lightheadedness, abdominal pain, nausea, vomiting, fever, chills, blurry vision, double vision, loss of vision, chest pain, difficulty breathing, shortness of breath, back pain, night sweats, pain with urination, increased urinary frequency, increased urinary urgency, blood in her urine or stool, syncope or a near syncopal episode, recent trauma or falls, bowel incontinence, bladder incontinence, bowel retention, bladder retention, or any other complaints at this time. Severity: mild Relieving factors: none Exacerbating factors: none Associated symptoms: denies other symptoms Treatments prior to arrival: none Related Data Home Medications Medication Instructions Recorded Confirmed methadone 10 mg/mL oral 160 mg PO DAILY 06/29/22 11/26/22 concentrate (Methadone Intensol) Previous Rx's Medication Instructions Recorded albuterol sulfate 90 mcg/actuation 2 puff inhalation Q4-6H PRN 10/18/22 aerosol inhaler (Ventolin HFA) Shortness Of Breath Or Wheezing 30 days #6.7 grams bupropion HCl 150 mg 24 hr tablet, 150 mg PO DAILY 30 days #30 tabs 10/18/22 extended release hydroxyzine pamoate 25 mg capsule 25 mg PO Q6H PRN Anxiety 90 days 10/18/22 #90 caps loratadine 10 mg tablet 10 mg PO DAILY PRN Allergy 10/18/22 Symptoms 30 days #30 tabs nicotine (polacrilex) 2 mg buccal 2 mg buccal Q2H PRN Nicotine 10/18/22 mini lozenge Cravings 90 days #81 ea nicotine 21 mg/24 hr daily 1 patch topical DAILY PRN nicotine 10/18/22 transdermal patch cravings 28 days #28 ea trazodone 50 mg tablet 50 mg PO BEDTIME PRN Insomnia 30 10/18/22 days #30 tabs Allergies Allergy/AdvReac Type Severity Reaction Status Date / Time ceftriaxone [From ROCEPHIN] Allergy Intermediate HIVES Verified 10/20/22 23:00 sulfamethoxazole Allergy Intermediate HIVES Verified 04/19/21 14:12 [From BACTRIM] trimethoprim [From BACTRIM] Allergy Intermediate HIVES Verified 04/19/21 14:12 Sulfa (Sulfonamide Allergy Unknown HIVES. Verified 04/19/21 14:12 Antibiotics) VOMITING [SULFA (SULFONAMIDE ANTIBIOTICS)] doxycycline [DOXYCYCLINE] AdvReac Unknown NAUSEA & Verified 04/19/21 14:12 VOMITING Review of Systems Constitutional: Constitutional: Reports no additional constitutional complaints, Denies chills, Denies fever(s) and Denies night sweats Eyes: Eyes: Reports no additional eye complaints, Denies blurry vision, Denies change in vision, Denies diplopia, Denies eye discharge, Denies loss of vision and Denies eye pain ENT: Denies dizziness Cardiovascular: Cardiovascular: Reports no additional cardiovascular complaints, Denies chest pain, Denies lightheadedness, Denies Loss of Consciousness and Denies dyspnea Respiratory: Respiratory: Reports no additional respiratory complaints and Denies dyspnea Gastrointestinal: Gastrointestinal: Reports no additional gastrointestinal complaints, Denies abdominal pain, Denies melena, Denies hematochezia, Denies ch mercedes in bowel habits and Denies change in stool character Genitourinary: Genitourinary: Denies hematuria, Denies urinary frequency, Denies dysuria, Denies urinary incontinence, Denies urinary hesitancy and Denies urinary urgency Musculoskeletal: Musculoskeletal: Reports no additional musculoskeletal complaints, Denies numbness and Denies tingling Neurologic: Denies dizziness, Denies loss of vision, Denies numbness and Denies tingling Psychiatric: Psychiatric: Reports no additional psychiatric complaints and Reports visual hallucinations Endocrine: Endocrine: Reports no additional endocrine complaints Hematologic/Lymphatic: Hematologic/Lymphatic: Reports no additional hematologic/lymphatic complaints Allergic/Immunologic: Allergic/Immunologic: Reports no additional allergic/immunologic complaints PMFSH Past Medical History Attestation statement: The following information was validated with the patient. Source: old records reviewed and nursing notes reviewed Medical History Acute pelvic inflammatory disease (PID) Cellulitis Diskitis Drug use Homeless Opioid use disorder Prothrombin gene mutation Pulmonary emboli Social History Social History Household Members: None Housing: Homeless Do you presently have visiting nurse or other home services: No Alcohol intake: never Patient Tobacco Use Status: Current everyday Tobacco user Tobacco use type: Cigarette Cigarette Packs Per Day: 1 Cigarettes Per Day: 20.0 Years Smoked: 17 Smoked in Last 30 Days: Yes e-Cigarette/Vaping Use: Currently Using Second Hand Smoke Exposure: No Use of substances other than those prescribed or required for medical reasons: Yes Substance Use Type: Crack/Cocaine and Heroin Substance Use Frequency: Chronic Longstanding Advance Directives: No Advance Directives Information Provided: Yes Patient : No service: No Current occupational status: unemployed Sexual orientation: Don't Know Physical Exam ED Vital Signs: Vital Signs - 24 hr 01/02/23 04:36 Temperature 98.5 F Pulse Rate 80 Respiratory Rate 16 Blood Pressure 120/82 Pulse Oximetry 97 Oxygen Delivery Method Room Air BMI result Body Mass Index 21.6 Const General: cooperative, no acute distress, alert and awake Nutritional Appearance: well nourished Orientation/consciousness: patient oriented x3 Limitations: no limitations HENMT Head: Yes normal to inspection and Yes atraumatic Ears: hearing grossly normal bilaterally and external ears normal General nose exam: Normal external nose present, no nasal discharge noted and no epistaxis Face and sinus: Yes normal facial exam, No abrasion and No laceration Mouth: Normal oral and palatal mucosa present, no drooling and no muffled voice Eyes General: appearance normal, both eyes and all related structures Periorbital: periorbital findings normal Eyelids: Yes eyelids normal Conjunctivae: conjunctivae normal Pupils: Equal, round and reactive pupils present EOM: EOMs intact bilaterally Neck Neck: Yes normal visual inspection, Yes full ROM and Yes no lymphadenopathy Chest Chest palpation & inspection: normal inspection of the chest Resp Effort & Inspection: normal respiratory effort and able to speak in complete sentences GI Inspection: Yes normal to inspection Neuro General: patient oriented x3 and moves all extremities Cranial nerves: Yes Equal, round and reactive pupils present Cognition (Neuro): normal cognition Motor exam (neuro): 5/5 motor strength present throughout Sensory Exam: Normal double simultaneous stimulation for sensation Coordination: [id number] test normal Extrem General: Yes normal to inspection, Yes full ROM and Yes capillary refill normal Psych Appearance: grossly normal Mental Status: mental status grossly normal Affect: normal affect Attitude: cooperative Thought process: Normal thought process present Thought content: Normal thought content present Insight: Good insight present (Psych) Medical Decision Making Medical Decision Making MDM Narrative: Patient is a 37 year old assigned female at with a history of substance use / abuse presenting to the emergency department today with concerns she is injecting scabies. Patient's physical exam was unremarkable. There was no evidence of scabies. However, there is evidence of IV drug use. Patient evaluated by recovery team who attempted to get her placed for detox however, the patient does not meet criteria at certain facilities and is refusing to go further than [place]. I explained my physical exam findings to the patient. I answered all questions asked by the patient. I stressed the importance of the patient abstaining from drug use as this will make her delusions of scabies / insects worse. I stressed the importance of the patient taking her medication as prescribed. I stressed the importance of the patient following up with her primary care provider. I stressed the importance of the patient returning to the emergency department immediately if her symptoms were to worsen or if she were to develop any dizziness, shortness of breath, difficulty breathing, chest pain, blurry vision, loss of vision, nausea, vomiting, abdominal pain, fever, chills, back pain, or any other complaints. Patient verbalized agreement and understanding with this treatment plan and discharge. Differential Diagnosis Differential Diagnoses: The differential diagnosis associated with the presentation includes substance use / abuse Discharge Plan Discharge Clinical Impression: Drug use Patient Disposition: Home, Self-Care Instructions: Polysubstance Abuse (ED) Additional Instructions: Follow up with your primary care provider. Return to the emergency department immediately if your symptoms worsen or if you develop any dizziness, shortness of breath, difficulty breathing, chest pain, blurry vision, loss of vision, nausea, vomiting, abdominal pain, fever, chills, back pain, or any other complaints. Prescriptions: No Action methadone [Methadone Intensol] 10 mg/mL Concentrate 160 mg PO DAILY Rx Instructions: [facility] [phone] VERIFIED BY DARNELL 10/21/22 bupropion HCl 150 mg Tablet Extended Release 24 Hr 150 mg PO DAILY 30 Days Qty: 30 0RF trazodone 50 mg tablet 50 mg PO BEDTIME PRN (Reason: Insomnia) 30 Days Qty: 30 0RF nicotine 21 mg/24 hr patch 24 hour 1 patch topical DAILY PRN (Reason: nicotine cravings) 28 Days Qty: 28 0RF Rx Instructions: remove at bedtime albuterol sulfate [Ventolin HFA] 90 mcg/actuation HFA aerosol inhaler 2 puff inhalation Q4-6H PRN (Reason: Shortness Of Breath Or Wheezing) 30 Days Qty: 6.7 0RF loratadine 10 mg tablet 10 mg PO DAILY PRN (Reason: Allergy Symptoms) 30 Days Qty: 30 0RF hydroxyzine pamoate 25 mg capsule 25 mg PO Q6H PRN (Reason: Anxiety) 90 Days Qty: 90 0RF nicotine (polacrilex) 2 mg mini lozenge 2 mg buccal Q2H PRN (Reason: Nicotine Cravings) 90 Days Qty: 81 0RF Referrals: [facility] Family Medicine [Provider Group] (Call to establish and follow up with a primary care provider. If you already have a primary care provider, please follow up with them.) [facility] [Provider Group] (Call to establish and follow up with a primary care provider. If you already have a primary care provider, please follow up with them.) [facility] Primary Care,Jonathan [Provider Group] (Call to establish and follow up with a primary care provider. If you already have a primary care provider, please follow up with them.) Print Language: Macedonian
--- NOTE | 2023-01-02 08:58 | MHC.RECOVSUP ---
Attempted to meet with pt in [facility] but she was not able to wake at this time. will try and meet with her again later today.
--- NOTE | 2023-01-02 11:54 | MHC.RECOVSUP ---
Met with pt in [facility] who presents to the ED stating she has been injecting scabies. Pt informs she was at [facility] 2-3 days ago and since leaving has been taking about 3 bundles of heroin a day intravenously and is taking 160mg of Methadone. pt is interested in ATS no further than [place]. Bed search has been exhausted within her parameters as she cannot go to [facility] until after 01/12/23, [facility] has no beds, [facility] has no beds, and pt is advised to follow up from the community on a wait list with [facility]. Provider is aware.
--- NOTE | 2023-01-02 12:30 | PC.NURSE ---
patient not accepting to discharge. ED provider aware-came to the bedside. patient unopene to education provided by RN and Provider. Jonathan BOWENS called as patient began to throw items at staff memebrs.
== END 2023-01-02 12:45 | disposition home or self-care (01) ==
PROVIDERS: Emergency Provider Emergency Medicine Emergency Medical Services
DX: F19.10 Other psychoactive substance abuse, uncomplicated (principal); F11.20 Opioid dependence, uncomplicated; B15.9 Hepatitis A without hepatic coma; F17.210 Nicotine dependence, cigarettes, uncomplicated
CPT/HCPCS: 99284

== ENCOUNTER 2023-01-02 12:46 | Emergency (ER) | payer OTHER, SELFPAY ==
[2023-01-02 14:09] VITALS: BP 114/72; PULSE 77; RESP 18; TEMP 36.3; O2SAT 98; BMI 24.2
--- NOTE | 2023-01-02 14:09 | ED.PSYCH ---
HPI - Psych General Chief Complaint: Psychiatric Symptoms Stated Complaint: CRISIS Time Seen by Provider: 01/02/23 14:35 Source: patient and old records reviewed Mode of arrival: ambulatory Limitations: no limitations History of Present Illness MD complaint: suicidal ideation and feels depressed Onset (ago): day(s) Duration: constant History of same: Yes Relieving factors: none Exacerbating factors: other (life stress) Associated psychiatric symptoms: depression and suicidal ideation Associated symptoms: denies other symptoms Treatments prior to arrival: none If self harm: admits thoughts of self harm Related Data Home Medications Medication Instructions Recorded Confirmed methadone 10 mg/mL oral 160 mg PO DAILY 06/29/22 11/26/22 concentrate (Methadone Intensol) Previous Rx's Medication Instructions Recorded albuterol sulfate 90 mcg/actuation 2 puff inhalation Q4-6H PRN 10/18/22 aerosol inhaler (Ventolin HFA) Shortness Of Breath Or Wheezing 30 days #6.7 grams bupropion HCl 150 mg 24 hr tablet, 150 mg PO DAILY 30 days #30 tabs 10/18/22 extended release hydroxyzine pamoate 25 mg capsule 25 mg PO Q6H PRN Anxiety 90 days 10/18/22 #90 caps loratadine 10 mg tablet 10 mg PO DAILY PRN Allergy 10/18/22 Symptoms 30 days #30 tabs nicotine (polacrilex) 2 mg buccal 2 mg buccal Q2H PRN Nicotine 10/18/22 mini lozenge Cravings 90 days #81 ea nicotine 21 mg/24 hr daily 1 patch topical DAILY PRN nicotine 10/18/22 transdermal patch cravings 28 days #28 ea trazodone 50 mg tablet 50 mg PO BEDTIME PRN Insomnia 30 10/18/22 days #30 tabs Allergies Allergy/AdvReac Type Severity Reaction Status Date / Time ceftriaxone [From ROCEPHIN] Allergy Intermediate HIVES Verified 10/20/22 23:00 sulfamethoxazole Allergy Intermediate HIVES Verified 04/19/21 14:12 [From BACTRIM] trimethoprim [From BACTRIM] Allergy Intermediate HIVES Verified 04/19/21 14:12 Sulfa (Sulfonamide Allergy Unknown HIVES. Verified 04/19/21 14:12 Antibiotics) VOMITING [SULFA (SULFONAMIDE ANTIBIOTICS)] doxycycline [DOXYCYCLINE] AdvReac Unknown NAUSEA & Verified 04/19/21 14:12 VOMITING Review of Systems Review of Systems: Constitutional : No Fever, No Chills ENT/Mouth : No Ear Pain, No Nasal Congestion, No sore throat Eyes: No Eye Pain, No Swelling, No Redness Cardiovascular : No Chest Pain, No SOB Respiratory : No Cough, No Sputum, No Dyspnea Gastrointestinal : No Nausea, No Vomiting, No Diarrhea, No Hematochezia, No Melena Genitourinary : No Dysuria, No Urinary Frequency, No Hematuria Musculoskeletal : No Myalgias Skin : No Skin Lesions, No rash Neuro : No Weakness, No Numbness, No Paresthesias, No Dizziness, No Headache Psych : positive Anxiety, positive Depression, positive SI no HI Heme/Lymph: No Lymphadenopathy Endocrine : No Polyuria, No Polydipsia All other systems reviewed and are negative [facility] Past Medical History Attestation statement: The following information was validated with the patient. Medical History Acute pelvic inflammatory disease (PID) Cellulitis Diskitis Drug use Homeless Opioid use disorder Prothrombin gene mutation Pulmonary emboli Social History Social History Household Members: None Housing: Homeless Do you presently have visiting nurse or other home services: No Alcohol intake: never Patient Tobacco Use Status: Current everyday Tobacco user Tobacco use type: Cigarette Cigarette Packs Per Day: 1 Cigarettes Per Day: 20.0 Years Smoked: 17 e-Cigarette/Vaping Use: Currently Using Second Hand Smoke Exposure: No Substance Use Type: Crack/Cocaine and Heroin Advance Directives: No Advance Directives Information Provided: Yes service: No Current occupational status: unemployed Sexual orientation: Don't Know Physical Exam Vital Signs: Vital Signs: Last Vital Signs Temp 97.3 F 01/02/23 14:09 Pulse 77 01/02/23 14:09 Resp 18 01/02/23 14:09 BP 114/72 01/02/23 14:09 Pulse Ox 98 01/02/23 14:09 O2 Del Method Room Air 01/02/23 14:09 BMI result Body Mass Index 24.2 Appearance: Alert. Oriented X3. No acute distress. Eyes: Pupils equal, round and reactive to light. ENT: Pharynx normal. Neck: Normal inspection. Neck supple. CVS: Normal heart rate and rhythm. Pulses normal. Respiratory: No respiratory distress. Breath sounds normal. Abdomen: Soft and nontender. Skin: Skin warm and dry. Normal skin color. Normal skin turgor. Extremities: No lower extremity edema. no rash to suggest scabies infection Neuro: Oriented X 3. No motor deficit. No sensory deficit. CN2-12 intact calm and cooperative Course Course Course Narrative: RME - 37 y/o with hx of polysubstance abuse (on methadone), active IVDA, hepatitis A, homelessness presents today after being d/c from [facility] 5 minutes prior with SI and seeking detox. last methadone 160 given yesterday and has been 3 bundles a day, injecting into her neck. She is concerned about scabies. Just got out of rehab 3 days ago. Reports hx self harm with cutting and OD attempts. Plan: crisis labs, CARE team evaluation Medical Decision Making Medical Decision Making [facility] Narrative: 37 yo female with substance abuse seen earlier wanted detox and couldn't get into so she came back with c/o SI. She was worried about scabies too I do not see a rash consistent with scabies. she has no other complaints. signed out pending CARE team input. Differential Diagnosis Differential Diagnoses: The differential diagnosis associated with the presentation includes depression, substance abuse, poor social support Consult Healthcare Provider Management of the patient was discussed with: Behavioral Health Provider Lab Data [facility] Lab Attestation statement: I reviewed the patient's lab results. External Record Review External record reviewed: Inpatient record Social Determinants Patient?s care significantly limited by Social Determinants of Health including: Low income and Problems related to primary support group Discharge Plan Discharge Clinical Impression: Substance abuse Patient Disposition: Still a Patient Prescriptions: No Action methadone [Methadone Intensol] 10 mg/mL Concentrate 160 mg PO DAILY Rx Instructions: [facility] [phone] VERIFIED BY DARNELL 10/21/22 bupropion HCl 150 mg Tablet Extended Release 24 Hr 150 mg PO DAILY 30 Days Qty: 30 0RF trazodone 50 mg tablet 50 mg PO BEDTIME PRN (Reason: Insomnia) 30 Days Qty: 30 0RF nicotine 21 mg/24 hr patch 24 hour 1 patch topical DAILY PRN (Reason: nicotine cravings) 28 Days Qty: 28 0RF Rx Instructions: remove at bedtime albuterol sulfate [Ventolin HFA] 90 mcg/actuation HFA aerosol inhaler 2 puff inhalation Q4-6H PRN (Reason: Shortness Of Breath Or Wheezing) 30 Days Qty: 6.7 0RF loratadine 10 mg tablet 10 mg PO DAILY PRN (Reason: Allergy Symptoms) 30 Days Qty: 30 0RF hydroxyzine pamoate 25 mg capsule 25 mg PO Q6H PRN (Reason: Anxiety) 90 Days Qty: 90 0RF nicotine (polacrilex) 2 mg mini lozenge 2 mg buccal Q2H PRN (Reason: Nicotine Cravings) 90 Days Qty: 81 0RF
--- NOTE | 2023-01-02 15:39 | MHC.EDTECH ---
Pt refusing labs at this time, stated: Somebody tried already, I have bad veins but I can try again later. Pt i sleeping at this time.
--- NOTE | 2023-01-02 16:45 | PC.NURSE ---
PT MOVED TO POD, SHE IS CALM AND COOPERATIVE, SHE HAS BEEN SLEEPING MOSTLY, SHE HAS BEEN EATING
[2023-01-02 19:29] LABS: Appearance Urine Turbid; Color Urine Yellow; Glucose Urine UA Negative (Negative); Leukocyte Esterase Urine Moderate (2+) (Negative); Nitrite Urine Negative (Negative); PH 7.5 (5.0-9.0); UMIC TRIGGER UACC YES; Urine Blood Negative (Negative); Urine Ketones Trace mg/dL (Negative); Urine Protein Negative (Neg-Trace)
[2023-01-02 19:30] LABS: UPreg QC Valid YES; Urine Pregnancy NEGATIVE (NEGATIVE)
[2023-01-02 19:31] LABS: Bacteria Urine 1+ (None Seen); Hyaline Casts Urine 0-2 /LPF (0-2); Squamous Epithelial Cell Urine >20 /HPF (0-2); UACC Culture Trigger YES; WBC Urine 21-50 /HPF (0-5)
[2023-01-02 19:42] LABS: Amphetamine Screen Urine Not Detected (Not Detect); Barbiturates, Urine Not Detected (Not Detect); Benzodiazepines Screen Urine Not Detected (Not Detect); Cannabinoid Screen Urine Not Detected (Not Detect); Cocaine Screen Urine POSITIVE (Not Detect); Fentanyl, urine POSITIVE (Not Detect); Opiate Screen Urine POSITIVE (Not Detect); Phencyclidine Screen Urine Not Detected (Not Detect)
[2023-01-02 19:43] LABS: COVID-19 Test Negative (Negative); IDNOW Serial# BCCEAD1C
[2023-01-02 20:08] LABS: Ethanol < 10 mg/dL
--- NOTE | 2023-01-02 20:08 | MHC.EDTECH ---
4 ED techs attempt draw blood on the patient, but no blood obtain. I Emma Melgar called lab to attempt one more time for blood draw, waited around one hour and no one came up. I collected blood draw by finger stick and blood cloted . Patient is refusing blood draw.
[2023-01-02 21:33] VITALS: PULSE 100; RESP 18; O2SAT 99
[2023-01-02] MEDS: cloNIDine HCL 0.1 MG TABLET PO (22:00)
[2023-01-03 00:38] VITALS: BP 129/87; PULSE 68; RESP 18; TEMP 36.4; O2SAT 99
--- NOTE | 2023-01-03 05:12 | PC.NURSE ---
Patient slept through the night, no distress observed/reported, behavior non concerning mostly, patient was seen by care team, disposition [facility] follow up, patient will be reevaluated possible recovery team referral, med rec completed/pending provider's approval, pending Methadone verification, VSS, will continue to monitor.
[2023-01-03 08:19] VITALS: BP 118/55; PULSE 62; RESP 14; TEMP 37.1; O2SAT 98
--- NOTE | 2023-01-03 08:39 | HE.PHANOTE ---
RE METHADONE PATIENT GETS 160MG FROM [facility] [address] [place] [address]. DOSE IS 160 MG LAS DOSED ON 01/01/23 [place]
--- NOTE | 2023-01-03 11:33 | PC.NURSE ---
SEEN BY CARE TEAM (FLOYD), PT IS AWARE OF PLAN OF CARE.
[2023-01-03] MEDS: methADONE HCl 20 MG/2 ML ORAL.CONC 160 MG PO (11:46)
--- NOTE | 2023-01-03 12:56 | MHC.RECOVSUP ---
Met with pt in [facility] for potential ATS bed search. Pt informs she is only interested in going to [facility] or being admitted for Psych. Pt is not able to present to [facility] until 01/12/23. Provider and Care Team made aware that she is no longer interested in ATS.
[2023-01-03] MEDS: Penicillin G Benzathine 2,400,000 UNIT/4 ML SYRINGE 2400000 UNIT IM (13:34)
[2023-01-03 14:24] VITALS: BP 104/60; PULSE 59; RESP 14; TEMP 36.2; O2SAT 97
[2023-01-03 14:55] LABS: Basophils Absolute Auto 0.1 X10*3/uL (0.0-0.2); Basophils Percent Auto 0.8 % (0-2); Eosinophils Absolute Auto 0.2 X10*3/uL (0.0-0.4); Eosinophils Percent Auto 3.5 % (0-4); Hematocrit 38.6 % (37.0-47.0); Hemoglobin 12.4 g/dl (12.0-16.0); Imm Gran Abs Auto 0.01 X10*3/uL (0.00-0.03); Imm Gran Pct Auto 0.2 % (0.0-0.4); Lymphocytes Absolute Auto 2.1 X10*3/uL (1.2-4.9); Lymphocytes Percent Auto 33.5 % (20-40); MANUAL DIFF FLAG SCAN; Mean Corpuscular HGB Conc 32.1 g/dl (31.0-35.0); Mean Corpuscular Hemoglobin 27.9 pg (27.0-33.0); Mean Corpuscular Volume 86.7 fL (80.0-98.0); Monocytes Absolute Auto 0.5 X10*3/uL (0.1-1.2); Monocytes Percent Auto 7.9 % (2-11); Neutrophils Absolute Auto 3.4 x10*3/uL (2.0-8.3); Neutrophils Percent Auto 54.1 % (45-73); PLT CLUMP 1; Red Blood Count 4.45 X10*6/uL (4.20-5.50); Red Cell Distribution Width 13.5 % (11.0-16.0); SCAN SMEAR FLAG 1
--- NOTE | 2023-01-03 15:03 | MHC.EDTECH ---
patient took a shower and bed linen was changed RN aware
[2023-01-03] MEDS: hydrOXYzine HCL 25 MG TABLET PO (15:26)
[2023-01-03 15:29] LABS: Platelet Count 261 X10*3/uL (160-400)
[2023-01-03 15:30] LABS: SLIDE REVIEW VERIFIED
--- NOTE | 2023-01-03 15:53 | MHC.RECOVSUP ---
Addendum entered by Nicholas Vance 01/03/23 17:50: [facility] called back to do a phone intake with pt. Pt is accepted to [facility] and was put on a [employer] with last dose letter. Original Note: Pt informs she is willing to go to ATS. ATS bed search has been exhausted for all ATS pt qualifies for in [place], [facility], [facility], [facility], [facility], [facility], [place], [facility] Provider and Care Team aware.
[2023-01-03 16:15] LABS: White Blood Count 6.2 X10*3/uL (4.8-10.8)
[2023-01-03] MEDS: Naloxone HCl Nasal TAKE HOME 4 MG SPRAY NOSTRILALT (17:26)
== END 2023-01-03 17:28 | disposition other institution (70) ==
PROVIDERS: Physician Assistant; Emergency Provider Emergency Medicine
DX: F19.10 Other psychoactive substance abuse, uncomplicated (principal); Z20.822 Contact with and (suspected) exposure to COVID-19; F11.20 Opioid dependence, uncomplicated; Z79.899 Other long term (current) drug therapy
CPT/HCPCS: 36415; 80048; 80076; 80307; 81001; 81025; 83735; 85025; 87086; 87635; 96372; 99284; J0561; S9485

== ENCOUNTER 2023-06-30 00:57 | Emergency (ER) | payer MEDICAID, OTHER, SELFPAY ==
[2023-06-30 01:20] VITALS: BP 98/59; PULSE 89; RESP 16; TEMP 36.4; O2SAT 99; BMI 19.1
[2023-06-30 02:01] VITALS: BP 108/61; PULSE 82; RESP 18; TEMP 36.8; O2SAT 96
--- OUTSIDE RECORDS SUMMARY | 2023-06-30 02:01 | XMS_ITS | Patient Health Record ---
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 Phone [facility] Primary [facility] Pr ovider Unavailable Jessica Jaime Unavailable [phone] ALLERGIES Allergen (clinical drug ingredient) Drug/Non Drug Allergy documented on EMR Reaction Allergy Type Onset Date Status doxycycline doxycycline [facility] 11/23/10 Drug Allergy A ctive metronidazole Flagyl [facility] 11/23/10 Drug Allergy A ctive dogs cats mold dust (uncoded) Unknown Allergy Active REASON FOR REFERRAL No Information MEDICATIONS Medication SIG (Take, Route, Frequency, Duration) Notes Start Date End Date Status mirtazapine 15 mg 1 tab(s) orally HS 07/30/2022 Active risperiDONE 0.5 mg 2 tab(s) orally 2 ti mes a day 07/30/2022 07/30/2022 Active magnesium oxide 200 mg orally once a day for 14 day(s) Active rOPINIRole 0.5 mg 1 tab(s) orally 1-2 tabs Hs 07/30/2022 07/30/2022 Active ibuprofen 600 mg 1 tab(s) orally tid 07/30/2022 Active Depakote ER 250 mg 1 tab orally HS 07/30/202207/2022 Active methadone 108 daily 1 Active calcium carbonate 500 mg 1 tab(s) chewed qd for 30 day(s) Active IMMUNIZATIONS Vaccine Route Administration Date Status Comme nts Td unable to obtain updated record Unknown 07/30/2008 Administered Influenza Unknown 04/29/2010 Administered Pneumococcal: declined Unknown 04/29/2010 Administered PPD negative Unknown 09/27/2010 Administered Influenza Unknown 08/21/2013 Administered Influenza IM Intramuscular 04/29/2015 Administered SOCIAL HISTORY Tobacco Use: Social History Observation Description Date Details (start date - stop date) Current Smoker NA - NA Sex Assigned At : Social History Observation Description Sex Assigned At Unknown Tobacco Use Assessment MU Question Answer Notes What is your current smoking status? current smo ker How often do you smoke? every day How many cigarettes a day do you smoke? 11-20 How soon after you wake up d o you smoke your first cigarette? Within 5 minutes Are you interested in quitting? thinking about q uitting Patient counseled on the barrett gers of tobacco use and advised to quit: 08/21/2014 PROBLEMS Problem Type ICD Code Onset Dates Problem Status W/U Status Risk SNOMED Code Notes Problem ASTHMA NOS (493.90) Active confirmed Asthma (914327483) Problem Depression with anxiety (300.4) Active confirmed Mixed anxiet y and depressive disorder (610493310) Problem Tobacco use disorder (305.1) Active confirmed Tobacco use (585548982) Problem Opioid abuse, unspecified (305.50) Active confirmed Opioid abuse (3141405) Problem Seasonal allergic rhinitis (477.9) Active confirmed Seasonal allergic rhinitis (798461100) Problem Restless legs (333.99) Active confirmed Restless legs (83765741) Problem Pain in limb (729.5) Active confirmed Pain in limb (59666787) Problem Borderline personality disorder (301.83) Active confirmed Borderline personality disorder (00944029) Problem BIPOLAR DISORDER NOS (296.80) Active confirmed Bipolar disorde r (55991885) Problem COCAINE ABUSE-UNSPEC (305.60) Active confirmed Nondependent cocaine abuse (667170493) Problem ALCOHOL ABUSE-UNSPEC (305.00) Active confirmed Nondependent alcohol abuse (506877343) Problem Opioid dependence (304.00) Active confirmed Opioid dependence (20059833) Problem Overweight, BMI 25-29.9 (278.02) Active confirmed Overweight (742365356) PLAN OF TREATMENT Pending Test Test Name Order Date HIV Ora Quick Advance 02/05/2012 Insurance Providers Payer Name Payer Address Payer Phone Subscriber Number Group Number Insured Name Patient Relationship to Insured Coverage Start Date Coverage End Date [facility] HealthNet Plan [address] [address] [place] [address] [id number] Jo Ann Chris Self - patient is the insured [facility] [address] [place] [address] [id number] Jo Ann Chris Self - patient is the insured MEDICAL (GENERAL) HISTORY Medical History History ICD Code Asthma, reports sciatica, depression and anxiety Multiple medical complaints with overwhe lmingly positive ROS 12/07 [facility] 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 07/2014 [facility] 2009 [facility] 2006
--- NOTE | 2023-06-30 02:24 | MHC.EDTECH ---
pt refusing lab work, pt refusing UA and UDS. RN AND PROVIDER MADE AWARE.
--- NOTE | 2023-06-30 05:55 | MHC.EDTECH ---
pt continues to refuse ALL labs and urinalysis testing, RN AND PROVIDER MADE AWARE.
[2023-06-30 06:58] LABS: Amphetamine Screen Urine Not Detected (Not Detect); Barbiturates, Urine Not Detected (Not Detect); Benzodiazepines Screen Urine Not Detected (Not Detect); Cannabinoid Screen Urine Not Detected (Not Detect); Cocaine Screen Urine POSITIVE (Not Detect); Fentanyl, urine POSITIVE (Not Detect); Opiate Screen Urine POSITIVE (Not Detect); Phencyclidine Screen Urine Not Detected (Not Detect)
--- NOTE | 2023-06-30 07:04 | ED_ITS ---
HPI - Psych General Chief Complaint: Skin/Abscess/Foreign Body Stated Complaint: Personal Time Seen by Provider: 06/30/23 02:37 Source: patient Mode of arrival: ambulatory Limitations: no limitations History of Present Illness HPI Narrative: Patient with history of depression anxiety polysubstance abuse opiates fentanyl and cocaine homeless been to detox multiple times was sober for last 1 month started using drugs again very anxious saying she has bugs all over her body Related Data Home Medications Medication Instructions Recorded Confirmed methadone 10 mg/mL oral 160 mg PO DAILY 06/29/22 01/03/23 concentrate (Methadone Intensol) acetaminophen 325 mg tablet 650 mg PO Q6H PRN Pain 01/03/23 01/03/23 albuterol sulfate 90 mcg/actuation 1 - 2 puff inhalation Q4H PRN 01/03/23 01/03/23 aerosol inhaler (Ventolin HFA) Shortness Of Breath aspirin 81 mg tablet,delayed 81 mg PO DAILY 01/03/23 01/03/23 release clotrimazole 1 % topical cream 1 appl topical BID 01/03/23 01/03/23 duloxetine 30 mg capsule,delayed 30 mg PO DAILY 01/03/23 01/03/23 release fluticasone propionate 115 2 inh inhalation BID 01/03/23 01/03/23 mcg-salmeterol 21 mcg/actuation HFA inhaler fluticasone propionate 50 1 spray intranasal BID PRN 01/03/23 01/03/23 mcg/actuation nasal Allergic Symptoms spray,suspension hydroxyzine HCl 25 mg tablet 50 - 100 mg PO Q6H PRN Anxiety 01/03/23 01/03/23 ibuprofen 600 mg tablet 600 mg PO TID PRN Pain 01/03/23 01/03/23 melatonin 3 mg tablet 3 mg PO BEDTIME PRN Sleep 01/03/23 01/03/23 trazodone 50 mg tablet 50 - 100 mg PO BEDTIME 01/03/23 01/03/23 valacyclovir 500 mg tablet 500 mg PO DAILY 01/03/23 01/03/23 Previous Rx's Medication Instructions Recorded loratadine 10 mg tablet 10 mg PO DAILY PRN Allergy 10/18/22 Symptoms 30 days #30 tabs nicotine (polacrilex) 2 mg buccal 2 mg buccal Q2H PRN Nicotine 10/18/22 mini lozenge Cravings 90 days #81 ea nicotine 21 mg/24 hr daily 1 patch topical DAILY PRN nicotine 10/18/22 transdermal patch cravings 28 days #28 ea valacyclovir 1 gram tablet 1,000 mg PO BID 7 days #14 tabs 01/03/23 (Valtrex) Allergies Allergy/AdvReac Type Severity Reaction Status Date / Time ceftriaxone [From ROCEPHIN] Allergy Intermediate HIVES Verified 01/02/23 17:23 Review of Systems Review of Systems: Yes all other systems are reviewed and are negative REPLACED BY [facility] Past Medical History Medical History Homeless Cellulitis Prothrombin gene mutation Opioid use disorder Diskitis Pulmonary emboli Acute pelvic inflammatory disease (PID) Drug use Social History Social History Household Members: None Housing: Homeless Do you presently have visiting nurse or other home services: No Alcohol intake: never Patient Tobacco Use Status: Current everyday Tobacco user Tobacco use type: Cigarette Cigarette Packs Per Day: 1 Cigarettes Per Day: 20.0 Years Smoked: 17 e-Cigarette/Vaping Use: Currently Using Second Hand Smoke Exposure: No Substance Use Type: Crack/Cocaine and Heroin Advance Directives: No Advance Directives Information Provided: Yes service: No Current occupational status: unemployed Sexual orientation: Don't Know Physical Exam Vital Signs: Vital Signs: Last Vital Signs Temp 98.3 F 06/30/23 02:01 Pulse 82 06/30/23 02:01 Resp 18 06/30/23 02:01 BP 108/61 06/30/23 02:01 Pulse Ox 96 06/30/23 02:01 O2 Del Method Room Air 06/30/23 02:01 BMI result Body Mass Index 19.1 Appearance: Alert. Oriented X3. No acute distress. Eyes: PERRLA, No Nystagmus ENT: Pharynx normal. Oral Mucosa moist Neck: Normal inspection. Neck supple. CVS: Normal heart rate and rhythm. Pulses normal. Respiratory: No respiratory distress. Equal air entry bilateral, no wheezing /rales/rhonchi Abdomen: Soft and nontender. Bowel sounds are present, no mass palpable, no CVA tenderness Skin: Skin warm and dry. Normal skin color. Normal skin turgor. No insects noticed psych: Anxious non cooperative denies any SI Extremities: No lower extremity edema. No calf tenderness Neuro: Oriented X 3. No motor deficit. No sensory deficit.No cerebellar signs , cranial nerves II-XII intact Medical Decision Making Medical Decision Making [facility] Narrative: Patient with polysubstance abuse requesting detox and [facility] care team involved for help in the detox Lab Data [facility] Lab Attestation statement: I reviewed the patient's lab results. Labs: Lab Results 06/30/23 Range/Units 06:39 Urine Opiates Screen POSITIVE H (Not Detect) Urine Fentanyl Screen POSITIVE H (Not Detect) Ur Barbiturates Screen Not Detected (Not Detect) Ur Phencyclidine Scrn Not Detected (Not Detect) Ur Amphetamines Screen Not Detected (Not Detect) U Benzodiazepines Scrn Not Detected (Not Detect) Urine Cocaine Screen POSITIVE H (Not Detect) U Marijuana (THC) Screen Not Detected (Not Detect) Discharge Plan Discharge Clinical Impression: Polysubstance abuse Patient Disposition: Still a Patient Prescriptions: No Action methadone [Methadone Intensol] 10 mg/mL Concentrate 160 mg PO DAILY Rx Instructions: [facility] [phone] VERIFIED BY DARNELL 10/21/22 nicotine 21 mg/24 hr patch 24 hour 1 patch topical DAILY PRN (Reason: nicotine cravings) 28 Days Qty: 28 0RF Rx Instructions: remove at bedtime loratadine 10 mg tablet 10 mg PO DAILY PRN (Reason: Allergy Symptoms) 30 Days Qty: 30 0RF nicotine (polacrilex) 2 mg mini lozenge 2 mg buccal Q2H PRN (Reason: Nicotine Cravings) 90 Days Qty: 81 0RF acetaminophen 325 mg tablet 650 mg PO Q6H PRN (Reason: Pain) trazodone 50 mg tablet 50 - 100 mg PO BEDTIME melatonin 3 mg tablet 3 mg PO BEDTIME PRN (Reason: Sleep) valacyclovir 500 mg tablet 500 mg PO DAILY aspirin 81 mg tablet,delayed release (DR/EC) 81 mg PO DAILY hydroxyzine HCl 25 mg tablet 50 - 100 mg PO Q6H PRN (Reason: Anxiety) Rx Instructions: NTE 8 TABLETS IN 24 HOURS ibuprofen 600 mg tablet 600 mg PO TID PRN (Reason: Pain) albuterol sulfate [Ventolin HFA] 90 mcg/actuation HFA aerosol inhaler 1 - 2 puff inhalation Q4H PRN (Reason: Shortness Of Breath) fluticasone propionate 50 mcg/actuation spray,suspension 1 spray intranasal BID PRN (Reason: Allergic Symptoms) clotrimazole 1 % cream 1 appl topical BID duloxetine 30 mg capsule,delayed release(DR/EC) 30 mg PO DAILY fluticasone propion-salmeterol 115-21 mcg/actuation HFA aerosol inhaler 2 inh inhalation BID valacyclovir [Valtrex] 1 gram tablet 1,000 mg PO BID 7 Days Qty: 14 0RF
[2023-06-30 07:15] LABS: Appearance Urine Clear; Color Urine Yellow; Glucose Urine UA Negative (Negative); Leukocyte Esterase Urine Trace (Negative); Nitrite Urine Negative (Negative); Specific Gravity - Urine <= 1.005 (1.005-1.025); UMIC TRIGGER UACC YES; Urine Blood Negative (Negative); Urine Ketones Negative (Negative); Urine Protein Negative (Neg-Trace)
[2023-06-30 07:34] LABS: Bacteria Urine 1+ (None Seen); Hyaline Casts Urine 0-2 /LPF (0-2); RBC Urine 0-2 /HPF (0-2); WBC Urine 0-5 /HPF (0-5)
--- NOTE | 2023-06-30 08:51 | HE.PHANOTE ---
RE METHADONE DOSE LAST DOSE 100 MG GIVEN 06/29/23 @[facility] [phone] VERIFIED BY ENA
[2023-06-30] MEDS: methADONE HCl 20 MG/2 ML ORAL.CONC 100 MG PO (09:18)
[2023-06-30 11:29] LABS: MANUAL DIFF FLAG NO
[2023-06-30 11:32] LABS: Basophils Percent Auto 0.9 % (0-2); Eosinophils Absolute Auto 0.2 X10*3/uL (0.0-0.4); Eosinophils Percent Auto 3.5 % (0-4); Hematocrit 35.6 % (37.0-47.0); Hemoglobin 11.7 g/dl (12.0-16.0); Imm Gran Abs Auto 0.01 X10*3/uL (0.00-0.03); Imm Gran Pct Auto 0.2 % (0.0-0.4); Lymphocytes Absolute Auto 1.1 X10*3/uL (1.2-4.9); Lymphocytes Percent Auto 23.3 % (20-40); Mean Corpuscular HGB Conc 32.9 g/dl (31.0-35.0); Mean Corpuscular Volume 82.2 fL (80.0-98.0); Mean Platelet Volume 9.3 fL (9.4-12.3); Monocytes Absolute Auto 0.4 X10*3/uL (0.1-1.2); Monocytes Percent Auto 9.1 % (2-11); Neutrophils Absolute Auto 2.9 x10*3/uL (2.0-8.3); Platelet Count 162 X10*3/uL (160-400); Red Blood Count 4.33 X10*6/uL (4.20-5.50); Red Cell Distribution Width 13.9 % (11.0-16.0); White Blood Count 4.6 X10*3/uL (4.8-10.8)
[2023-06-30 12:14] LABS: Alanine Aminotransferase 16 U/L (0-31); Albumin Level 3.7 g/dL (3.5-5.0); Alkaline Phosphatase 74 U/L (39-117); Anion Gap 11 (12-20); Aspartate Amino Transferase 25 U/L (5-31); Bilirubin Total 0.3 mg/dL (0.0-1.0); Blood Urea Nitrogen 10 mg/dL (9-16); Calcium 8.7 mg/dL (8.4-10.2); Carbon Dioxide 22 mmol/L (22-29); Chloride 109 mmol/L (96-108); Creatinine Clr Calc Pharmacy 86.5; Estimated Glomerular Filt Rate > 60; Glucose Random 96 mg/dL (60-115); Potassium 4.4 mmol/L (3.3-5.1); Sodium 138 mmol/L (135-145); Total Protein 6.6 g/dL (6.5-8.0)
--- NOTE | 2023-06-30 14:38 | MHC.RECOVRN ---
Received message from Mariella in ED for assistance with ATS search. Was able to find possible bed at [facility] in [place]. Gave fax number to Mariella for [phone]
[2023-06-30 16:46] VITALS: BP 105/55; PULSE 75; RESP 15; TEMP 36.9; O2SAT 97
--- NOTE | 2023-06-30 16:46 | PC.NURSE ---
pt denies si/sib/hi. resting in bed eating cheese sticks and drinking water.
--- NOTE | 2023-06-30 16:51 | PHA.MEDREC ---
Pharmacy Consult ? Medication Reconciliation Pharmacy has completed the medication reconciliation.PHARMACY HAS REVIEWED MED REC DONE BY NURSING
--- NOTE | 2023-06-30 18:05 | PC.NURSE ---
christina barron contacted to order home meds per med rec. pt resting, no distress
[2023-06-30] MEDS: traZODone HCL 100 MG TABLET PO (20:19)
--- NOTE | 2023-07-01 06:28 | PC.NURSE ---
Pt denies si/hi. Resting quietly throughout the evening. Moved to bed 1 for privacy. plan of care ongoing
[2023-07-01 06:31] VITALS: BP 100/49; PULSE 66; RESP 16; TEMP 36.6; O2SAT 98
[2023-07-01] MEDS: methADONE HCl 20 MG/2 ML ORAL.CONC 100 MG PO (09:12)
--- NOTE | 2023-07-01 11:16 | MHC.RECOVRN ---
Call to [facility] in re: to referral sent yesterday. [phone]. Referral was received. Gave [facility] phone number as well as Care Team and was told that there may be a bed that opens up after lunch and they will call.
--- NOTE | 2023-07-01 11:48 | MHC.RECOVRN ---
Addendum entered by Arianna Olguin RN 07/01/23 11:55: T/W called to [facility] [place], [facility], [facility], [facility] and [facility] yesterday and [facility] requested referral be faxed for review so this was completed. Original Note: Pt presented to ED by self-transport.? She reported using heroin 2 hours ago and that she has parasites all over her body.? Also reporting leg pain, SI and that she is unsafe.? Care team met with pt and reached out to T/W to assist with ATS bed search.? T/W Met with pt. this AM following initiating bed search yesterday.? Pt is currently receiving methadone 100mg/day which she reports to T/W she has been receiving for 10 years.? She reports that when she returns to use it is only with cocaine although her UTOX was positive for opiates/fentanyl and cocaine. She did not offer any further details re: substance use to this science writer.?? Pt is requesting to go to ATS and residential following her ATS stay.? She agrees to go to any area for this.? Pt currently receiving her methadone as previously ordered and looks comfortable.? Plan is to F/U with ATS referral sent yesterday to [facility] and to update ED provider PRN.? Case discussed with ED nurse and provider.
[2023-07-01 14:14] VITALS: BP 93/52; PULSE 60; RESP 14; TEMP 36.4; O2SAT 96
--- NOTE | 2023-07-01 19:01 | PC.NURSE ---
patient appears to remain asleep at present respirations are even and unlabored patient appears in no distress
[2023-07-01] MEDS: traZODone HCL 100 MG TABLET PO (21:12)
[2023-07-01 21:22] VITALS: BP 123/74; PULSE 70; RESP 16; TEMP 36.8; O2SAT 98
[2023-07-01 23:42] VITALS: BP 100/54; PULSE 58; RESP 16; TEMP 36.2; O2SAT 98
[2023-07-02] MEDS: hydrOXYzine HCL 50 MG TABLET PO (04:31)
--- NOTE | 2023-07-02 09:30 | MHC.RECOVRN ---
Received call from [facility], they have female ATS availability today. Referral re-sent to [phone].
[2023-07-02] MEDS: methADONE HCl 20 MG/2 ML ORAL.CONC 100 MG PO (09:48)
[2023-07-02 14:38] VITALS: RESP 18
--- NOTE | 2023-07-02 14:40 | PC.NURSE ---
100mg Methadone given PO. Last dose letter provided. PT denies SI/HI/AVH. Discharged by Lyft to [place].
== END 2023-07-02 14:42 | disposition home or self-care (01) ==
PROVIDERS: Emergency Provider Internal Medicine
DX: F19.10 Other psychoactive substance abuse, uncomplicated (principal); F41.9 Anxiety disorder, unspecified; F32.A Depression, unspecified; F11.20 Opioid dependence, uncomplicated; F17.210 Nicotine dependence, cigarettes, uncomplicated; Z86.711 Personal history of pulmonary embolism; Z79.82 Long term (current) use of aspirin; Z79.899 Other long term (current) drug therapy
CPT/HCPCS: 36415; 80053; 80307; 81001; 81003; 85025; 99285; S9485